=== PATIENT | male | born 1950 | race Caucasian/White ===

== ENCOUNTER 2016-03-06 14:02 | Emergency (ER) | payer MEDICARE, OTHER ==
--- NOTE | 2016-03-06 14:54 | ED ---
Psych HPI - General Source: patient, RN notes reviewed Mode of arrival: wheelchair - History of Present Illness MD Complaint: suicidal ideation, feels depressed, other <Olivier Marie - Last Filed: 03/06/16 16:21> <Kurtis Blakely - Last Filed: 03/06/16 23:00> - General Chief Complaint: Psychiatric Symptoms Stated Complaint: Sucidial Time Seen by Provider: 03/06/16 14:20 - History of Present Illness Initial Comments: This is a 58-year-old male with a history of alcohol who is here for evaluation for feeling depressed he states he does not was at home drinking alcohol and getting drunk he states she's had issues with his significant other. He has have a history of pancreatitis and colitis. He states he started drinking over last several weeks again. He has no particular plan for hurting himself but is very stressed. (Olivier Marie) - Related Data Home Medications Medication Instructions Recorded Confirmed Atenolol 25 mg PO BID 03/06/16 03/06/16 Lisinopril [Prinivil] 20 mg PO BID 03/06/16 03/06/16 Loratadine [Claritin] 10 mg PO DAILY PRN 03/06/16 03/06/16 Allergies Allergy/AdvReac Type Severity Reaction Status Date / Time No Known Allergies Allergy Verified 03/06/16 14:44 Review of Systems ROS Other: All systems not noted in ROS Statement are negative. <Olivier Marie - Last Filed: 03/06/16 16:21> ROS Other: All systems not noted in ROS Statement are negative. <Kurtis Blakely - Last Filed: 03/06/16 23:00> ROS Statement: Those systems with pertinent positive or pertinent negative responses have been documented in the HPI. (Olivier Marie) (Kurtis Blakely) Past Medical History Past Medical History: Hypertension History of Any Multi-Drug Resistant Organisms: C-DIFF Date of last positivie culture/infection: jan 2016 Past Surgical History: Cholecystectomy Past Psychological History: Depression Smoking Status: Former smoker Past Alcohol Use History: Abuse, Daily, Heavy Past Drug Use History: None Reported <Olivier Marie - Last Filed: 03/06/16 16:21> General Exam Limitations: no limitations General appearance: alert, in no apparent distress Head exam: Present: atraumatic, normocephalic, normal inspection Eye exam: Present: normal appearance, PERRL, EOMI. Absent: scleral icterus, conjunctival injection, periorbital swelling ENT exam: Present: normal exam, mucous membranes moist Neck exam: Present: normal inspection. Absent: tenderness, meningismus, lymphadenopathy Respiratory exam: Present: normal lung sounds bilaterally. Absent: respiratory distress, wheezes, rales, rhonchi, stridor Cardiovascular Exam: Present: regular rate, normal rhythm, normal heart sounds. Absent: systolic murmur, diastolic murmur, rubs, gallop, clicks GI/Abdominal exam: Present: soft, tenderness (Mild epigastric tenderness no guarding rebound masses or bruits), normal bowel sounds. Absent: distended, guarding, rebound, rigid Extremities exam: Present: normal inspection, full ROM, normal capillary refill. Absent: tenderness, pedal edema, joint swelling, calf tenderness Back exam: Present: normal inspection Neurological exam: Present: alert, oriented X3, CN II-XII intact Psychiatric exam: Present: normal affect, normal mood Skin exam: Present: warm, dry, intact, normal color. Absent: rash <Olivier Marie - Last Filed: 03/06/16 16:21> <Kurtis Blakely - Last Filed: 03/06/16 23:00> - General Exam Comments Initial Comments: Is a well-developed well-nourished awake alert oriented times female he does have the smell of alcohol conjoiners is on his breath (Olivier Marie) Course <Olivier Marie - Last Filed: 03/06/16 16:21> <Kurtis Blakely - Last Filed: 03/06/16 23:00> Vital Signs 03/06/16 03/06/16 14:14 19:42 Temperature 98.4 F Pulse Rate 107 H 98 Respiratory 16 18 Rate Blood Pressure 146/95 162/76 O2 Sat by Pulse 97 96 Oximetry (Olivier Marie) (Kurtis Blakely) - Reevaluation(s) Reevaluation #1: 03/06/16 16:21 The patient is resting comfortably thus far. His care will be endorsed to Dr. Blakely who will make the final disposition. (Olivier Marie) Medical Decision Making - Lab Data Result diagrams: 03/06/16 15:13 03/06/16 15:13 <Olivier Marie - Last Filed: 01/02/17 16:21> - Lab Data Result diagrams: 03/06/16 15:13 03/06/16 15:13 <Kurtis Blakely - Last Filed: 03/06/16 23:00> - Medical Decision Making Patient was seen by mental health services recommends discharge. Patient reevaluated by myself, Dr. Blakely. Patient resting comfortably in bed. Patient denies suicidal ideation and does contract for safety. (Kurtis Blakely) - Lab Data Lab Results 03/06/16 03/06/16 03/06/16 Range/Units 14:31 15:13 15:13 WBC 8.3 (3.8-10.6) k/uL RBC 5.91 H (4.30-5.90) m/uL Hgb 18.1 H (13.0-17.5) gm/dL Hct 52.6 (39.0-53.0) % MCV 89.0 (80.0-100.0) fL MCH 30.7 (25.0-35.0) pg MCHC 34.5 (31.0-37.0) g/dL RDW 14.5 (11.5-15.5) % Plt Count 143 L (150-450) k/uL Neutrophils % 78 % Lymphocytes % 15 % Monocytes % 5 % Eosinophils % 1 % Basophils % 1 % Neutrophils # 6.5 (1.3-7.7) k/uL Lymphocytes # 1.2 (1.0-4.8) k/uL Monocytes # 0.4 (0-1.0) k/uL Eosinophils # 0.1 (0-0.7) k/uL Basophils # 0.1 (0-0.2) k/uL Sodium 140 (137-145) mmol/L Potassium 5.0 (3.5-5.1) mmol/L Chloride 101 (98-107) mmol/L Carbon Dioxide 20 L (22-30) mmol/L Anion Gap 19 mmol/L BUN 13 (9-20) mg/dL Creatinine 0.86 (0.66-1.25) mg/dL Est GFR (MDRD) Af Amer >60 (>60 ml/min/1.73 sqM) Est GFR (MDRD) Non-Af >60 (>60 ml/min/1.73 sqM) Glucose 97 (74-99) mg/dL Calcium 8.8 (8.4-10.2) mg/dL Magnesium 2.2 (1.6-2.3) mg/dL Total Bilirubin 0.8 (0.2-1.3) mg/dL AST 40 (17-59) U/L ALT 37 (21-72) U/L Alkaline Phosphatase 116 (38-126) U/L Total Protein 7.3 (6.3-8.2) g/dL Albumin 4.5 (3.5-5.0) g/dL Amylase 89 (30-110) U/L Lipase 150 (23-300) U/L Urine Opiates Screen Not Detected (NotDetected) Ur Oxycodone Screen Not Detected (NotDetected) Urine Methadone Screen Not Detected (NotDetected) Ur Propoxyphene Screen Not Detected (NotDetected) Ur Barbiturates Screen Not Detected (NotDetected) U Tricyclic Antidepress Not Detected (NotDetected) Ur Phencyclidine Scrn Not Detected (NotDetected) Ur Amphetamines Screen Not Detected (NotDetected) U Methamphetamines Scrn Not Detected (NotDetected) U Benzodiazepines Scrn Not Detected (NotDetected) Urine Cocaine Screen Not Detected (NotDetected) U Marijuana (THC) Screen Not Detected (NotDetected) Serum Alcohol 238 mg/dL (Kurtis Blakely) Disposition <Olivier Marie - Last Filed: 03/06/16 16:21> <Kurtis Blakely - Last Filed: 03/06/16 23:00> Clinical Impression: Depression, Alcohol intoxication Disposition: HOME SELF-CARE Condition: Stable Instructions: Depression (ED), Abuse of Alcohol (ED) Additional Instructions: Discontinue alcohol use. Please follow-up with your primary care physician in the next day or 2 for recheck. Please follow-up with mental health services as directed. Return for thoughts of harming yourself, worsening symptoms or other concerns. Referrals: Kassie Beasley MD [Primary Care Provider] - 1-2 days
[2016-03-06 15:25] LABS: Basophils # (A) 0.1 k/uL (0-0.2); Basophils % (A) 1 %; CH 31.3; CHCM 35.3; Eosinophils # (A) 0.1 k/uL (0-0.7); Eosinophils % (A) 1 %; HCT 52.6 % (39.0-53.0); HGB 18.1 gm/dL (13.0-17.5); Luc # (Auto) 0.12; Luc % (Auto) 2; Lymphocytes # (A) 1.2 k/uL (1.0-4.8); Lymphocytes % (A) 15 %; MCH 30.7 pg (25.0-35.0); MCHC 34.5 g/dL (31.0-37.0); Mean Platelet Volume 6.1; Monocytes # (A) 0.4 k/uL (0-1.0); Monocytes % (A) 5 %; Neutrophils # (A) 6.5 k/uL (1.3-7.7); Neutrophils % (A) 78 %; RBC 5.91 m/uL (4.30-5.90); RDW 14.5 % (11.5-15.5); WBC 8.3 k/uL (3.8-10.6); WBC (Perox) 8.76
[2016-03-06 15:35] LABS: ALT 37 U/L (21-72); AST 40 U/L (17-59); Alkaline Phosphatase 116 U/L (38-126); Amylase 89 U/L (30-110); Anion Gap 19 mmol/L; Blood Urea Nitrogen 13 mg/dL (9-20); Calcium 8.8 mg/dL (8.4-10.2); Carbon Dioxide 20 mmol/L (22-30); Chloride 101 mmol/L (98-107); Glucose 97 mg/dL (74-99); Magnesium 2.2 mg/dL (1.6-2.3); Non-African American GFR(MDRD) >60 (>60 ml/min/1.73 sqM); Sodium 140 mmol/L (137-145); Total Bilirubin 0.8 mg/dL (0.2-1.3); Total Protein 7.3 g/dL (6.3-8.2)
--- NOTE | 2016-03-06 15:35 | XR ---
Abdomen HISTORY: Right-sided abdomen pain, recent fall Frontal view of the abdomen is submitted on 3 images Degenerative disc changes are present in the visualized spine. Surgical clips are present in the righ t upper quadrant. Atherosclerotic vascular calcifications are noted incidentally. There is no pneumop eritoneum or bowel obstruction. Lung bases are clear. Mild contour abnormality present at the eighth rib laterally on the right. IMPRESSION: Nonobstructive bowel gas pattern. Correlate for tenderness right eighth rib laterally.
[2016-03-06 15:45] LABS: Alcohol 238 mg/dL
[2016-03-06 19:44] VITALS: RESP 18
[2016-03-06 23:21] VITALS: BP 159/82; PULSE 94; TEMP 98
== END 2016-03-06 23:21 | disposition home or self-care (01) ==
LOC: MERGE 14:02 → EC 14:02
DX: F32.9 Major depressive disorder, single episode, unspecified (principal); F10.129 Alcohol abuse with intoxication, unspecified; Y90.7 Blood alcohol level of 200-239 mg/100 ml; I10 Essential (primary) hypertension; Z79.899 Other long term (current) drug therapy; Z87.891 Personal history of nicotine dependence
CPT/HCPCS: 36415; 74000; 80053; 80306; 80320; 82075; 82150; 83690; 83735; 85025; 99285

== ENCOUNTER 2016-03-14 18:19 | Emergency (ER) | payer MEDICARE, OTHER ==
[2016-03-14] MEDS ORDERED: hydrALAZINE HCL 20 MG/ML 1 ML VIAL IVP STA (18:43)
--- NOTE | 2016-03-14 21:02 | ED ---
Alcohol HPI - General Source: patient, EMS Mode of arrival: EMS Limitations: altered mental status <Olivier Kent - Last Filed: 03/14/16 20:57> <Jazlyn Grace - Last Filed: 03/15/16 04:38> - General Chief Complaint: Alcohol Stated Complaint: ETOH Time Seen by Provider: 03/14/16 18:33 - History of Present Illness Initial Comments: This 66-year-old white male presents with a complaint of alcohol intoxication. He apparently was found outside on the ground and was unconscious. He apparently easily woke up and relates that he had been drinking significantly throughout the day. He was here not too long ago with alcohol intoxication as well. He states that he had at least 8 drinks today. He does drink daily for the past several weeks. He denies any actual injuries. He is alert and oriented upon my evaluation and denies any suicidal or homicidal ideations. No other complaints or modifying factors. (Olivier Kent) - Related Data Home Medications Medication Instructions Recorded Confirmed Atenolol 25 mg PO BID 03/06/16 03/06/16 Lisinopril [Prinivil] 20 mg PO BID 03/06/16 03/06/16 Loratadine [Claritin] 10 mg PO DAILY PRN 03/06/16 03/06/16 Allergies Allergy/AdvReac Type Severity Reaction Status Date / Time No Known Allergies Allergy Verified 03/14/16 18:28 Review of Systems ROS Other: All systems not noted in ROS Statement are negative. <Olivier Kent - Last Filed: 03/14/16 20:57> ROS Other: All systems not noted in ROS Statement are negative. <Jazlyn Grace - Last Filed: 03/15/16 04:38> ROS Statement: Those systems with pertinent positive or pertinent negative responses have been documented in the HPI. Past Medical History Past Medical History: Hypertension History of Any Multi-Drug Resistant Organisms: C-DIFF Date of last positivie culture/infection: jan 2016 Past Surgical History: Cholecystectomy Past Psychological History: Depression Smoking Status: Former smoker Past Alcohol Use History: Abuse, Daily, Heavy Past Drug Use History: None Reported <Olivier Kent - Last Filed: 03/14/16 20:57> General Exam Limitations: altered mental status <Olivier Kent - Last Filed: 03/14/16 20:57> <Jazlyn Grace - Last Filed: 03/15/16 04:38> - General Exam Comments Initial Comments: GENERAL: The patient is well nourished and well hydrated. VITAL SIGNS: Heart rate, blood pressure, respiratory rate reviewed as recorded in nurse's notes. EYES: Pupils are round and reactive. Extraocular movements are intact. No conjunctival / lid redness or swelling. ENT: No external evidence of injury, swelling, or ecchymosis. Airway is patent. Throat is clear. NECK: Nontender. No swelling or evidence of injury. No subcutaneous emphysema. Trachea is midline. No thyroid mass. HEART: Regular rate and rhythm. Good peripheral pulses. LUNGS/CHEST: Breath sounds clear and equal bilaterally. No rales, rhonchi, or wheezes. No ecchymosis, subcutaneous emphysema, or tenderness. ABDOMEN: Abdomen soft without tenderness. No palpable masses or organomegaly. No peritoneal signs. No abdominal wall swelling or ecchymosis. EXTREMITIES: No extremity tenderness. Normal muscle tone and function. No thoracolumbar tenderness. NEUROLOGIC: Sensation is grossly intact. Cranial nerve exam reveals face is symmetrical, tongue is midline, speech is clear. SKIN: No abrasions or ecchymosis is noted. No induration or masses noted. PSYCHIATRIC: Alert and oriented. Appears moderately intoxicated. (Olivier Kent) Course <Olivier Kent - Last Filed: 03/14/16 20:57> <Jazlyn Grace - Last Filed: 03/15/16 04:38> Vital Signs 03/14/16 03/14/16 03/14/16 18:22 18:47 19:19 Temperature 97.5 F L Pulse Rate 79 80 Respiratory 18 18 Rate Blood Pressure 215/93 199/98 181/86 O2 Sat by Pulse 95 90 L Oximetry 03/14/16 03/14/16 03/14/16 19:48 20:08 20:28 Temperature Pulse Rate Respiratory Rate Blood Pressure 181/83 183/84 178/81 O2 Sat by Pulse Oximetry 03/14/16 03/14/16 03/15/16 20:48 21:08 01:54 Temperature 99.4 F Pulse Rate 102 H Respiratory 16 Rate Blood Pressure 179/79 157/79 171/80 O2 Sat by Pulse 96 Oximetry - Reevaluation(s) Reevaluation #1: 03/15/16 04:37 Is reassessed at 4:30 AM, he is stable on his feet he has been eating food been drinking water been able to walk back and forth to the bathroom and numb he wants to go home (Jazlyn Grace) Medical Decision Making <Olivier Kent - Last Filed: 03/14/16 20:57> <Jazlyn Grace - Last Filed: 03/15/16 04:38> - Medical Decision Making The patient was seen and examined. His alcohol level was elevated at approximately 271. Is felt that he would require prolonged stay in the ER for sobering. His blood pressure also is elevated at at 215/93. IV is established and he received 10 mg of hydralazine with improvement blood pressure control. Further care will be passed off to oncoming physician. (Olivier Kent) Disposition <Olivier Kent - Last Filed: 03/14/16 20:57> <Jazlyn Grace - Last Filed: 03/15/16 04:38> Clinical Impression: Alcohol intoxication, Hypertensive urgency Disposition: HOME SELF-CARE Referrals: Kassie Beasley MD [Primary Care Provider] - 1-2 days
[2016-03-15 01:56] VITALS: TEMP 99.4
[2016-03-15 04:54] VITALS: BP 165/72; PULSE 70; RESP 14
== END 2016-03-15 04:53 | disposition home or self-care (01) ==
LOC: EC 18:19
DX: F10.129 Alcohol abuse with intoxication, unspecified (principal); I10 Essential (primary) hypertension; Y90.8 Blood alcohol level of 240 mg/100 ml or more; R41.82 Altered mental status, unspecified; F32.9 Major depressive disorder, single episode, unspecified; Z87.891 Personal history of nicotine dependence; Z79.899 Other long term (current) drug therapy
CPT/HCPCS: 82075; 99284; 96374; J0360

== ENCOUNTER 2016-07-18 21:31 | Emergency (ER) | payer MEDICARE, OTHER ==
--- NOTE | 2016-07-18 23:59 | ED ---
Alcohol HPI - General Source: EMS Mode of arrival: EMS <Jazlyn Grace - Last Filed: 07/19/16 00:58> <Bentley Hunter - Last Filed: 07/19/16 06:26> - General Chief Complaint: Alcohol Stated Complaint: ETOH Time Seen by Provider: 07/18/16 22:11 - History of Present Illness Initial Comments: Patient has a long-standing history of firm alcohol use, he was brought in by police tonight he said he has been drinking, he didn't specify how much he drank he said he drinks quite a bit every day and he has been drinking for a long time. He does have a ongoing depression denies any suicidal or homicidal ideation. Denies any headache no chest pain no abdominal pain no frequency urgency dysuria no symptoms of TIA or CVA (Jazlyn Grace) - Related Data Home Medications Medication Instructions Recorded Confirmed Atenolol 25 mg PO BID 03/06/16 03/06/16 Lisinopril [Prinivil] 20 mg PO BID 03/06/16 03/06/16 Loratadine [Claritin] 10 mg PO DAILY PRN 03/06/16 03/06/16 Allergies Allergy/AdvReac Type Severity Reaction Status Date / Time No Known Allergies Allergy Verified 07/18/16 23:00 Review of Systems ROS Other: All systems not noted in ROS Statement are negative. <Jazlyn Grace - Last Filed: 07/19/16 00:58> ROS Other: All systems not noted in ROS Statement are negative. <Bentley Hunter - Last Filed: 07/19/16 06:26> ROS Statement: Those systems with pertinent positive or pertinent negative responses have been documented in the HPI. Past Medical History Past Medical History: Hypertension History of Any Multi-Drug Resistant Organisms: C-DIFF Date of last positivie culture/infection: jan 2016 Past Surgical History: Cholecystectomy Past Psychological History: Depression Smoking Status: Former smoker Past Alcohol Use History: Abuse, Daily, Heavy Past Drug Use History: None Reported <Jazlyn Grace - Last Filed: 07/19/16 00:58> General Exam <Jazlyn Grace - Last Filed: 07/19/16 00:58> <Bentley Hunter - Last Filed: 07/19/16 06:26> - General Exam Comments Initial Comments: General: The patient is awake and alert, intoxicated but pleasant and cooperative Skin: Skin is warm and dry and no rashes or lesions are noted. Eye: Pupils are equal, round and reactive to light, extra-ocular movements are intact; there is normal conjunctiva bilaterally. Ears, nose, mouth and throat: There are moist mucous membranes and no oral lesions. Neck: The neck is supple, there is no tenderness or JVD. Cardiovascular: There is a regular rate and rhythm. No murmur, rub or gallop is appreciated. Respiratory: To auscultation bilateral, no wheezing no rhonchi no distress respiratory solomon noticed Gastrointestinal: Soft, non-distended, non-tender abdomen without masses or organomegaly noted. There is no rebound or guarding present. Bowel sounds are unremarkable. Back: There is no tenderness to palpation in the midline. There is no obvious deformity. Musculoskeletal: Normal ROM, no tenderness, There is no pedal edema. There is no calf tenderness or swelling. No cords were appreciated. Neurological: CN II-XII intact, Cranial nerves III through XII are intact. There are no obvious motor or sensory deficits. Coordination appears grossly intact. Speech is normal. Psychiatric: Cooperative, intoxicated stated he does have a history of depression (Jazlyn Grace) Course <Jazlyn Grace - Last Filed: 07/19/16 00:58> <Bentley Hunter - Last Filed: 07/19/16 06:26> Vital Signs 07/18/16 21:42 Temperature 98.7 F Pulse Rate 107 H Respiratory 20 Rate Blood Pressure 192/104 O2 Sat by Pulse 98 Oximetry He needs to be seen by psych wants he is not under the influence of alcohol, is not currently sober for the psych eval 30 later in the morning endorse that to light Dr. Dr. Johnson (Jazlyn Grace) Disposition <Jazlyn Grace - Last Filed: 07/19/16 00:58> <Bentley Hunter - Last Filed: 07/19/16 06:26> Clinical Impression: Intoxication, Depression Disposition: HOME SELF-CARE Condition: Fair Instructions: Alcohol Intoxication (ED) Referrals: Kassie Beasley MD [Primary Care Provider] - 1-2 days
[2016-07-19] MEDS ORDERED: cloNIDine HCL 0.1 MG TAB PO STA (06:39)
[2016-07-19 08:30] VITALS: RESP 20
[2016-07-19] MEDS ORDERED: LORazepam 1 MG TAB PO STA (08:32)
[2016-07-19 08:53] VITALS: BP 150/90; PULSE 106; TEMP 98
== END 2016-07-19 08:58 | disposition home or self-care (01) ==
LOC: EC 21:31
DX: F10.120 Alcohol abuse with intoxication, uncomplicated (principal); F32.9 Major depressive disorder, single episode, unspecified; I10 Essential (primary) hypertension; Z79.899 Other long term (current) drug therapy; Z87.891 Personal history of nicotine dependence
CPT/HCPCS: 99284

== ENCOUNTER 2016-09-13 20:02 | Emergency (ER) | payer MEDICARE, OTHER ==
[2016-09-13] MEDS ORDERED: SODIUM CHLORIDE 0.9% 1,000 ML with MVI, ADULT NO.4 WITH VIT K 10 ML, THIAMINE 100 MG, F... IV ONE ×4 (21:13)
[2016-09-13] MEDS ORDERED: LORazepam 2 MG/ML SYRINGE IV STA (21:14)
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
[2016-09-13 21:54] LABS: Basophils # (A) 0.1 k/uL (0-0.2); Basophils % (A) 1 %; CHCM 34.7; Eosinophils # (A) 0.2 k/uL (0-0.7); Eosinophils % (A) 3 %; HCT 49.4 % (39.0-53.0); HDW 2.66; HGB 17.4 gm/dL (13.0-17.5); Luc # (Auto) 0.12; Luc % (Auto) 2; Lymphocytes # (A) 1.9 k/uL (1.0-4.8); Lymphocytes % (A) 31 %; MCH 31.6 pg (25.0-35.0); MCHC 35.2 g/dL (31.0-37.0); MCV 89.8 fL (80.0-100.0); Mean Platelet Volume 6.8; Monocytes # (A) 0.3 k/uL (0-1.0); Monocytes % (A) 4 %; Neutrophils # (A) 3.6 k/uL (1.3-7.7); Neutrophils % (A) 58 %; RDW 13.9 % (11.5-15.5); WBC 6.1 k/uL (3.8-10.6); WBC (Perox) 5.49
[2016-09-13 22:09] LABS: ALT 29 U/L (21-72); AST 40 U/L (17-59); Alkaline Phosphatase 94 U/L (38-126); Anion Gap 16 mmol/L; Blood Urea Nitrogen 10 mg/dL (9-20); Calcium 8.8 mg/dL (8.4-10.2); Carbon Dioxide 22 mmol/L (22-30); Chloride 105 mmol/L (98-107); Glucose 89 mg/dL (74-99); Non-African American GFR(MDRD) >60 (>60 ml/min/1.73 sqM); Potassium 4.7 mmol/L (3.5-5.1); Sodium 143 mmol/L (137-145); Total Bilirubin 0.7 mg/dL (0.2-1.3); Total Protein 7.2 g/dL (6.3-8.2)
[2016-09-13] MEDS ORDERED: cloNIDine HCL 0.2 MG TAB PO STA (22:54)
[2016-09-14] MEDS ORDERED: ATENOLOL 25 MG TAB PO STA (07:31)
[2016-09-14] MEDS ORDERED: LISINOPRIL 20 MG TAB PO STA (07:31)
[2016-09-14] MEDS ORDERED: LORazepam 1 MG TAB PO STA (07:31)
[2016-09-14 08:07] VITALS: TEMP 97.7
[2016-09-14 08:23] VITALS: BP 203/115; PULSE 97; RESP 18
== END 2016-09-14 08:30 | disposition home or self-care (01) ==
LOC: EC 20:02
DX: F10.129 Alcohol abuse with intoxication, unspecified (principal); F43.21 Adjustment disorder with depressed mood; I10 Essential (primary) hypertension; Z87.891 Personal history of nicotine dependence; Z79.899 Other long term (current) drug therapy; V18.4XXA Pedal cycle driver injured in noncollision transport accident in traffic accident, initial encounter; Y93.55 Activity, bike riding
CPT/HCPCS: 82075; 36415; 80053; 85025; 80306; 99285; 96365; 96366 ×9; 96375; J2060; J3411

== ENCOUNTER 2016-10-01 17:20 | Emergency (ER) | payer MEDICARE, OTHER ==
[2016-10-01 17:42] VITALS: TEMP 99.8
[2016-10-01] MEDS ORDERED: SODIUM CHLORIDE 0.9% 1,000 ML IV ONE (17:42)
--- NOTE | 2016-10-01 17:49 | ED ---
Fall HPI - General Chief Complaint: Fall Stated Complaint: fall Time Seen by Provider: 10/01/16 17:23 Source: patient, EMS, RN notes reviewed Mode of arrival: EMS - History of Present Illness Initial Comments: patient is a 66-year-old male presents to the emergency room for evaluation. Patient is a very poor historian. According to EMS, patient was found face first on the steps. Patient states that he did not fall on the steps and that he was crawling up the steps to get to his house. Patient states at the time he was feeling shaky so that is why he crawled. patient denies any injuries. Patient denies head trauma. Patient denies neck pain. Patient denies headache or dizziness. Patient states he didn't lose consciousness. Patient states that he drinks about 6 beers daily. Patient states his last beer was Sunday at 1 PM. Patient states he tried to crawl up the steps when EMS was called. Patient states he is still feeling shaky. Patient denies nausea or vomiting. Patient denies headache or dizziness. Patient denies chest pain or shortness of breath. Patient denies suicidal or homicidal ideations. - Related Data Home Medications Medication Instructions Recorded Confirmed Atenolol 25 mg PO BID 03/06/16 10/01/16 Lisinopril [Prinivil] 20 mg PO BID 03/06/16 10/01/16 LORazepam [Ativan] 0.5 mg PO HS PRN 09/13/16 10/01/16 traMADol HCl [Ultram] 50 mg PO DAILY PRN 10/01/16 10/01/16 Previous Rx's Medication Instructions Recorded Thiamine [Vitamin B-1] 100 mg PO DAILY #20 tablet 10/02/16 Allergies Allergy/AdvReac Type Severity Reaction Status Date / Time No Known Allergies Allergy Verified 10/01/16 23:04 Review of Systems ROS Statement: Those systems with pertinent positive or pertinent negative responses have been documented in the HPI. ROS Other: All systems not noted in ROS Statement are negative. Past Medical History Past Medical History: Hypertension History of Any Multi-Drug Resistant Organisms: C-DIFF Date of last positivie culture/infection: jan 2016 Past Surgical History: Cholecystectomy Past Psychological History: Depression Smoking Status: Former smoker Past Alcohol Use History: Abuse, Daily, Heavy Past Drug Use History: None Reported General Exam - General Exam Comments Initial Comments: sitting in exam room, no distress, c-collar on Limitations: no limitations General appearance: alert, appears intoxicated Head exam: Present: atraumatic, normocephalic, normal inspection Eye exam: Present: normal appearance ENT exam: Present: normal exam Neck exam: Present: normal inspection, full ROM. Absent: tenderness, lymphadenopathy Respiratory exam: Present: normal lung sounds bilaterally. Absent: respiratory distress Cardiovascular Exam: Present: regular rate, normal rhythm, normal heart sounds Extremities exam: Present: normal inspection Back exam: Present: normal inspection Neurological exam: Present: alert, oriented X3, normal gait Psychiatric exam: Present: normal affect Skin exam: Present: warm, dry, intact, normal color. Absent: rash Course Vital Signs 10/01/16 10/01/16 17:27 20:12 Temperature 99.8 F H Pulse Rate 69 89 Respiratory 18 16 Rate Blood Pressure 173/96 200/94 O2 Sat by Pulse 95 Oximetry Medical Decision Making - Medical Decision Making patient is a 66-year-old male presents to the emergency room for evaluation of fall injury. According to EMS the patient had a fall incident was found face first on the steps. Patient continuously stating that he did not fall. Patient states he did not hit his head even though EMS says otherwise. Brain/C- spine CT ordered for patient. Patient is refusing brain/C-spine CT. Patient removed the c-collar. Patient states he does not want any more of a workup and would like to be discharged home. Patient states he is not feeling shaky anymore. Patient offered Ativan but states it does not work for him. Discussed with patient that he would be leaving AGAINST MEDICAL ADVICE. Discussed with patient the risk of possible traumatic brain injuries from fall and risk of . Patient still states that he did not fall and hit his head. Patient states he understands everything that was discussed with him. Case discussed with Dr. Blakely. - Lab Data Result diagrams: 10/01/16 17:50 10/01/16 17:50 Lab Results 10/01/16 10/01/16 10/01/16 Range/Units 17:50 17:50 19:03 WBC 4.7 (3.8-10.6) k/uL RBC 5.05 (4.30-5.90) m/uL Hgb 15.5 (13.0-17.5) gm/dL Hct 47.3 (39.0-53.0) % MCV 93.7 (80.0-100.0) fL MCH 30.8 (25.0-35.0) pg MCHC 32.8 (31.0-37.0) g/dL RDW 14.9 (11.5-15.5) % Plt Count 81 L (150-450) k/uL Neutrophils % 74 % Lymphocytes % 15 % Monocytes % 7 % Eosinophils % 1 % Basophils % 1 % Neutrophils # 3.5 (1.3-7.7) k/uL Lymphocytes # 0.7 L (1.0-4.8) k/uL Monocytes # 0.3 (0-1.0) k/uL Eosinophils # 0.0 (0-0.7) k/uL Basophils # 0.1 (0-0.2) k/uL Manual Slide Review Performed RBC Morphology Normal Sodium 139 (137-145) mmol/L Potassium 4.3 (3.5-5.1) mmol/L Chloride 102 (98-107) mmol/L Carbon Dioxide 28 (22-30) mmol/L Anion Gap 9 mmol/L BUN 15 (9-20) mg/dL Creatinine 0.90 (0.66-1.25) mg/dL Est GFR (MDRD) Af Amer >60 (>60 ml/min/1.73 sqM) Est GFR (MDRD) Non-Af >60 (>60 ml/min/1.73 sqM) Glucose 107 H (74-99) mg/dL Calcium 9.2 (8.4-10.2) mg/dL Magnesium 1.8 (1.6-2.3) mg/dL Total Bilirubin 1.6 H (0.2-1.3) mg/dL AST 62 H (17-59) U/L ALT 44 (21-72) U/L Alkaline Phosphatase 76 (38-126) U/L Total Protein 7.0 (6.3-8.2) g/dL Albumin 4.4 (3.5-5.0) g/dL Amylase 48 (30-110) U/L Lipase 72 (23-300) U/L Urine Color Yellow Urine Appearance Clear (Clear) Urine pH 7.5 (5.0-8.0) Ur Specific [place] 1.014 (1.001-1.035) Urine Protein Trace H (Negative) Urine Glucose (UA) Negative (Negative) Urine Ketones Trace H (Negative) Urine Blood Negative (Negative) Urine Nitrite Negative (Negative) Urine Bilirubin Negative (Negative) Urine Urobilinogen 3.0 (<2.0) mg/dL Ur Leukocyte Esterase Negative (Negative) Urine Opiates Screen Not Detected (NotDetected) Ur Oxycodone Screen Not Detected (NotDetected) Urine Methadone Screen Not Detected (NotDetected) Ur Propoxyphene Screen Not Detected (NotDetected) Ur Barbiturates Screen Not Detected (NotDetected) U Tricyclic Antidepress Not Detected (NotDetected) Ur Phencyclidine Scrn Not Detected (NotDetected) Ur Amphetamines Screen Not Detected (NotDetected) U Methamphetamines Scrn Not Detected (NotDetected) U Benzodiazepines Scrn Detected H (NotDetected) Urine Cocaine Screen Not Detected (NotDetected) U Marijuana (THC) Screen Not Detected (NotDetected) Serum Alcohol <10 mg/dL Disposition Clinical Impression: Fall, Alcohol withdrawal Disposition: Left Against Medical Advice Referrals: Kassie Beasley MD [Primary Care Provider] - 1-2 days Time of Disposition: 19:34
[2016-10-01 18:07] LABS: Basophils # (A) 0.1 k/uL (0-0.2); Basophils % (A) 1 %; CH 31.3; CHCM 33.6; Eosinophils % (A) 1 %; HCT 47.3 % (39.0-53.0); HDW 2.39; HGB 15.5 gm/dL (13.0-17.5); Luc # (Auto) 0.11; Luc % (Auto) 2; Lymphocytes # (A) 0.7 k/uL (1.0-4.8); Lymphocytes % (A) 15 %; MCH 30.8 pg (25.0-35.0); MCHC 32.8 g/dL (31.0-37.0); MCV 93.7 fL (80.0-100.0); Mean Platelet Volume 9.1; Monocytes # (A) 0.3 k/uL (0-1.0); Monocytes % (A) 7 %; Neutrophils # (A) 3.5 k/uL (1.3-7.7); Neutrophils % (A) 74 %; RBC 5.05 m/uL (4.30-5.90); RDW 14.9 % (11.5-15.5); WBC 4.7 k/uL (3.8-10.6); WBC (Perox) 4.68
[2016-10-01 18:17] LABS: ALT 44 U/L (21-72); AST 62 U/L (17-59); Alcohol <10 mg/dL; Alkaline Phosphatase 76 U/L (38-126); Amylase 48 U/L (30-110); Anion Gap 9 mmol/L; Blood Urea Nitrogen 15 mg/dL (9-20); Calcium 9.2 mg/dL (8.4-10.2); Carbon Dioxide 28 mmol/L (22-30); Chloride 102 mmol/L (98-107); Glucose 107 mg/dL (74-99); Magnesium 1.8 mg/dL (1.6-2.3); Non-African American GFR(MDRD) >60 (>60 ml/min/1.73 sqM); Potassium 4.3 mmol/L (3.5-5.1); Sodium 139 mmol/L (137-145); Total Bilirubin 1.6 mg/dL (0.2-1.3)
[2016-10-01 18:19] LABS: Manual Review Performed
[2016-10-01 18:20] LABS: RBC Morphology Normal
[2016-10-01] MEDS ORDERED: LORazepam 2 MG/ML SYRINGE IV STA (18:26)
[2016-10-01 19:14] LABS: Appearance,Urine Clear (Clear); Bilirubin,Urine Negative (Negative); Glucose,Urine (UA) Negative (Negative); Ketones,Urine Trace (Negative); Leukocyte Esterase,Urine Negative (Negative); Nitrite,Urine Negative (Negative); PH, Urine 7.5 (5.0-8.0); Protein,Urine Trace (Negative); Specific Gravity,Urine 1.014 (1.001-1.035); UA Billing (MACRO vs. MICRO) CHEM
[2016-10-01 20:15] VITALS: BP 200/94; PULSE 89; RESP 16
== END 2016-10-01 20:15 | disposition left against medical advice (07) ==
LOC: EC 17:20
DX: F10.230 Alcohol dependence with withdrawal, uncomplicated (principal); I10 Essential (primary) hypertension; Z87.891 Personal history of nicotine dependence; Z79.899 Other long term (current) drug therapy; W10.9XXA Fall (on) (from) unspecified stairs and steps, initial encounter
CPT/HCPCS: 36415; 80053; 80306; 80320; 81003; 82150; 83690; 83735; 85025; 96361; 96374; 99284

== ENCOUNTER 2016-10-01 22:42 | Emergency (ER) | payer MEDICARE, OTHER ==
[2016-10-02] MEDS ORDERED: THIAMINE 100 MG/ML 2 ML VIAL IM STA (00:14)
[2016-10-02] MEDS ORDERED: LORazepam 1 MG TAB PO STA (00:15)
[2016-10-02 01:54] LABS: Basophils # (A) 0.1 k/uL (0-0.2); Basophils % (A) 1 %; CH 31.4; CHCM 33.2; Eosinophils # (A) 0.1 k/uL (0-0.7); Eosinophils % (A) 1 %; HCT 45.7 % (39.0-53.0); HDW 2.33; HGB 14.8 gm/dL (13.0-17.5); Luc # (Auto) 0.09; Luc % (Auto) 2; Lymphocytes # (A) 0.9 k/uL (1.0-4.8); Lymphocytes % (A) 22 %; MCH 30.8 pg (25.0-35.0); MCHC 32.4 g/dL (31.0-37.0); Mean Platelet Volume 8.9; Monocytes # (A) 0.3 k/uL (0-1.0); Monocytes % (A) 7 %; Neutrophils # (A) 2.5 k/uL (1.3-7.7); Neutrophils % (A) 66 %; RBC 4.81 m/uL (4.30-5.90); RDW 14.9 % (11.5-15.5); WBC 3.9 k/uL (3.8-10.6); WBC (Perox) 4.06
[2016-10-02 02:10] LABS: ALT 52 U/L (21-72); AST 56 U/L (17-59); Alcohol <10 mg/dL; Alkaline Phosphatase 70 U/L (38-126); Anion Gap 12 mmol/L; Blood Urea Nitrogen 14 mg/dL (9-20); Carbon Dioxide 26 mmol/L (22-30); Chloride 101 mmol/L (98-107); Glucose 83 mg/dL (74-99); Magnesium 1.9 mg/dL (1.6-2.3); Non-African American GFR(MDRD) >60 (>60 ml/min/1.73 sqM); Potassium 4.1 mmol/L (3.5-5.1); Sodium 139 mmol/L (137-145); Total Bilirubin 1.5 mg/dL (0.2-1.3); Total Protein 6.6 g/dL (6.3-8.2)
--- NOTE | 2016-10-02 02:12 | CT ---
EXAM: CT Head Without Intravenous Contrast CLINICAL HISTORY: Ataxia, weakness TECHNIQUE: Axial computed tomography images of the head/brain without intravenous contrast. CTDI is 57.40 mGy and DLP is 1064.30 mGy-cm. This CT exam was performed using one or more of the following dose reduction techniques: automated exposure control, adjustment of the mA and/or kV according to patient size, and/or use of iterative reconstruction technique. Coronal and sagittal reconstructions are performed. COMPARISON: None FINDINGS: Brain: Intermediate density extra-axial fluid collection over the right frontal parietal convexity with a maximum thickness of 7.6 mm measured over the posterior frontal lobe. There is also a hypodense extra-axial collection anteriorly over the frontal lobe with a thickness of 5.7 mm. Old lacunar infarct within the left thalamus. Bilateral periventricular and subcortical white matter low attenuation, compatible with chronic small vessel ischemic disease. No intracranial mass. Ventricles: Unremarkable. No ventriculomegaly. Bones/joints: Unremarkable. No acute fracture. Soft tissues: Unremarkable. Sinuses: Small mucous retention cyst or polyp within the left maxillary sinus. Small amount of mucosal thickening in the left maxillary sinus. The rest of the paranasal sinuses are clear. Mastoid air cells: Unremarkable as visualized. No mastoid effusion. IMPRESSION: 1. Subacute subdural hematoma over the right frontal parietal convexity measuring up to 7.6 mm. 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 No midline shift. 2. Old left thalamic lacunar infarct. No evidence of acute transcortical infarction. 3. Chronic small vessel ischemic disease. [employer] 10/02/16 02:22 Verify Receipt Verified receipt with DORA Villalobos, report given to Dr. Hunter on 10/02 02:21 (-04:00)
[2016-10-02 02:14] LABS: Manual Review Performed
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
[2016-10-02 03:29] VITALS: TEMP 97.7
[2016-10-02] MEDS ORDERED: cloNIDine HCL 0.1 MG TAB PO STA (03:29)
[2016-10-02 03:49] VITALS: BP 186/111; PULSE 66; RESP 16
== END 2016-10-02 03:58 | disposition other institution (70) ==
LOC: EC 22:42
DX: I62.9 Nontraumatic intracranial hemorrhage, unspecified (principal); R27.0 Ataxia, unspecified; I10 Essential (primary) hypertension; Z87.891 Personal history of nicotine dependence; Z79.899 Other long term (current) drug therapy
CPT/HCPCS: 99285 ×2; 96372 ×2; 96361; 96374; 99284; 36415 ×2; 80053 ×2; 82150; 83690; 83735 ×2; 85025 ×2; 81003; 80306; 80320 ×2; 70450; J3411

== ENCOUNTER 2017-07-14 11:51 | Emergency (ER) | payer MEDICARE, OTHER ==
[2017-07-14 11:59] VITALS: RESP 18
--- NOTE | 2017-07-14 12:30 | ED ---
Extremity Problem HPI - General Chief complaint: Extremity Problem,Nontraumatic Stated complaint: Knee/hip pain Source: patient, RN notes reviewed Mode of arrival: ambulatory Limitations: no limitations - History of Present Illness MD Complaint: extremity pain, joint pain Onset/Timin -: week(s) Location: left History of Same: No Severity scale (1-10): 5 Quality: aching Consistency: constant Improves with: rest Worsens with: weight bearing Associated Symptoms: denies other symptoms - Related Data Home Medications Medication Instructions Recorded Confirmed Atenolol 25 mg PO BID 03/06/16 10/01/16 Lisinopril [Prinivil] 20 mg PO BID 03/06/16 10/01/16 LORazepam [Ativan] 0.5 mg PO HS PRN 09/13/16 10/01/16 traMADol HCl [Ultram] 50 mg PO DAILY PRN 10/01/16 10/01/16 Previous Rx's Medication Instructions Recorded Thiamine [Vitamin B-1] 100 mg PO DAILY #20 tablet 10/02/16 Cyclobenzaprine [Flexeril] 10 mg PO TID #20 tablet 07/14/17 methylPREDNISolone [Medrol] 4 mg PO DIRECTED #1 tab.ds.pk 07/14/17 Allergies Allergy/AdvReac Type Severity Reaction Status Date / Time No Known Allergies Allergy Verified 07/14/17 11:59 Review of Systems ROS Statement: Those systems with pertinent positive or pertinent negative responses have been documented in the HPI. ROS Other: All systems not noted in ROS Statement are negative. Past Medical History Past Medical History: Hypertension Additional Past Medical History / Comment(s): ataxia History of Any Multi-Drug Resistant Organisms: C-DIFF Date of last positivie culture/infection: jan 2016 Past Surgical History: Cholecystectomy Past Anesthesia/Blood Transfusion Reactions: No Reported Reaction Past Psychological History: Depression Smoking Status: Former smoker Past Alcohol Use History: Daily Past Drug Use History: None Reported General Exam - General Exam Comments Initial Comments: This is a pleasant 67-year-old male who presents emergency department complaining of left hip pain. Patient states the pain has been present for about one week. Patient describes pain to the lateral aspect of hip which radiates into the lateral thigh area. Patient states that the pain is aching in nature but also feels somewhat numb at times. Patient denies any pain below the knee. Patient denies any known injury patient has had hip problems in the past patient denies any foot numbness patient denies any difficulty walking patient states the pain is exacerbated by some movements patient denies any swelling. Patient denies any chest pain or shortness of breath patient denies fever or chills patient denies rashes or lesions patient denies any headache no back pain no abdominal pain Limitations: no limitations General appearance: alert, in no apparent distress Head exam: Present: atraumatic, normocephalic, normal inspection Eye exam: Present: normal appearance, PERRL, EOMI. Absent: scleral icterus, conjunctival injection, periorbital swelling ENT exam: Present: normal exam, mucous membranes moist Neck exam: Present: normal inspection. Absent: tenderness, meningismus, lymphadenopathy Respiratory exam: Present: normal lung sounds bilaterally. Absent: respiratory distress, wheezes, rales, rhonchi, stridor Cardiovascular Exam: Present: regular rate, normal rhythm, normal heart sounds. Absent: systolic murmur, diastolic murmur, rubs, gallop, clicks GI/Abdominal exam: Present: soft, normal bowel sounds. Absent: distended, tenderness, guarding, rebound, rigid Extremities exam: Present: normal inspection, full ROM, normal capillary refill , other (Patient has mild tenderness to the area of the lateral hip overlying the greater trochanter area. There is no erythema or overlying rash. No evidence of infectious process no cellulitis no edema or deformity patient has no edema in the thigh or lower leg Homans sign is negative pedal pulses 2+ out of 4 bilaterally. Refill less than 2 seconds). Absent: tenderness, pedal edema , joint swelling, calf tenderness Back exam: Present: normal inspection Neurological exam: Present: alert, oriented X3, CN II-XII intact Psychiatric exam: Present: normal affect, normal mood Skin exam: Present: warm, dry, intact, normal color. Absent: rash Course Vital Signs 07/14/17 11:53 Temperature 97 F L Pulse Rate 60 Respiratory 18 Rate Blood Pressure 193/93 O2 Sat by Pulse 98 Oximetry Medical Decision Making - Medical Decision Making Plain film x-rays of the pelvis and left hip read by radiology revealed no evidence of acute pathology patient does have degenerative disc disease Medical decision-making, patient's symptoms are likely related to DJD and possible nerve impingement there is no evidence of infectious process we'll treat the patient conservatively with a Medrol Dosepak and follow-up with orthopedics return and follow-up parameters discussed. Patient counseled on uncontrolled blood pressure and need for follow-up Disposition Clinical Impression: Arthralgia of hip, left Disposition: HOME SELF-CARE Condition: Good Instructions: Arthritis (ED), Hip Pain (ED), Chronic Hypertension (ED) Additional Instructions: Return to the ER at once if the symptoms worsen or problems or difficulties arise. Follow-up with orthopedics as directed. Return to the ER immediately if any new symptoms arise Prescriptions: Cyclobenzaprine [Flexeril] 10 mg PO TID #20 tablet methylPREDNISolone [Medrol] 4 mg PO DIRECTED #1 tab.ds.pk Is patient prescribed a controlled substance at d/c from ED?: No When asked, does pt state using other controlled substances?: Yes Referrals: Thanh Anderson MD [Medical Doctor] - 07/18/17 Kassie Beasley MD [Primary Care Provider] - 07/16/17 Time of Disposition: 12:41
--- NOTE | 2017-07-14 12:31 | XR ---
EXAMINATION TYPE: XR Hip LT and AP Pelvis , 3 VIEWS DATE OF EXAM ORDERED: 07/14/2017 HISTORY: Pain. COMPARISON: None. FINDINGS: No fracture or dislocation is seen. There are degenerative changes present in the left hip and also in the lumbar spine. IMPRESSION: 1. NO ACUTE OSSEOUS LESION. 2. DEGENERATIVE CHANGE.
[2017-07-14 13:08] VITALS: BP 168/89; PULSE 56; TEMP 98.5
== END 2017-07-14 13:08 | disposition home or self-care (01) ==
LOC: EC 11:51
DX: M25.552 Pain in left hip (principal); I10 Essential (primary) hypertension; Z87.891 Personal history of nicotine dependence; Z79.899 Other long term (current) drug therapy
CPT/HCPCS: 73502; 99283

== ENCOUNTER → 2017-08-18 | Outpatient (CLI) | payer MEDICARE, OTHER ==
--- NOTE | 2017-08-19 08:16 | MR ---
EXAMINATION TYPE: MR brain wo con DATE OF EXAM: 08/18/2017 COMPARISON: NONE HISTORY: Stroke T1-weighted sagittal, T2, FLAIR, and diffusion axial, and T2 coronal coronal views of the brain are s ubmitted. There is no evidence of acute ischemia. Craniocervical junction maintained. Sella turcica has a yvette l appearance. Changes of chronic sinusitis are noted. Areas of abnormal signal the jose are suggestive of remote ischemia. There are diffuse confluent areas of abnormal signal white matter. There are additional multiple area s of abnormal signal the white matter. Findings are felt to BE most compatible with extensive remote white matter ischemia. No midline shift. Craniocervical junction maintained. Sella turcica has a normal appearance. Abnormal signal involving the basal ganglia most likely the basis of prominent Virchow-Nixon spaces. Tiny remote lacunar infarctions not excluded. No cerebellopontine angle mass. IMPRESSION: 1. No acute intracranial process. 2. Degenerative and extensive nonspecific white matter changes most typical remote microvascular isch emia. Correlate clinically. 3. Changes of chronic sinusitis
== END | disposition home or self-care (01) ==
LOC: RADMRIMAIN 13:03
PROVIDERS: ATTEND Psychiatry & Neurology Neurology
DX: G31.9 Degenerative disease of nervous system, unspecified (principal); R90.89 Other abnormal findings on diagnostic imaging of central nervous system; Z86.73 Personal history of transient ischemic attack (TIA), and cerebral infarction without residual deficits
CPT/HCPCS: 70551

== ENCOUNTER 2017-09-14 13:45 | Emergency (ER) | payer MEDICARE, OTHER ==
[2017-09-14] MEDS ORDERED: PANTOPRAZOLE 40 MG TABLET PO STA (16:55)
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
[2017-09-14 19:40] VITALS: BP 168/87; PULSE 99; RESP 18
[2017-09-14 19:50] VITALS: TEMP 97.6
== END 2017-09-14 19:49 | disposition home or self-care (01) ==
LOC: EC 13:45
DX: F10.129 Alcohol abuse with intoxication, unspecified (principal); I10 Essential (primary) hypertension; Z87.891 Personal history of nicotine dependence; Z79.899 Other long term (current) drug therapy
CPT/HCPCS: 82075; 99284

== ENCOUNTER 2017-11-19 04:44 | Emergency (ER) | payer MEDICARE, OTHER ==
[2017-11-19] MEDS ORDERED: DIPH,PERTUS(ACELL)TETVAC-LF 0.5 ML VIAL IM ONE (04:50)
[2017-11-19] MEDS ORDERED: SODIUM CHLORIDE 0.9% 1,000 ML IV STA (04:50)
[2017-11-19 04:54] VITALS: RESP 16
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
[2017-11-19 05:20] LABS: Basophils # (A) 0.1 k/uL (0-0.2); Basophils % (A) 2 %; Eosinophils # (A) 0.1 k/uL (0-0.7); Eosinophils % (A) 2 %; HCT 50.2 % (39.0-53.0); HGB 16.7 gm/dL (13.0-17.5); Lymphocytes # (A) 1.3 k/uL (1.0-4.8); Lymphocytes % (A) 23 %; MCH 31.8 pg (25.0-35.0); MCHC 33.2 g/dL (31.0-37.0); MCV 95.9 fL (80.0-100.0); Mean Platelet Volume 6.4; Monocytes # (A) 0.3 k/uL (0-1.0); Monocytes % (A) 6 %; Neutrophils # (A) 3.5 k/uL (1.3-7.7); Neutrophils % (A) 65 %; Platelet Count 157 k/uL (150-450); RBC 5.24 m/uL (4.30-5.90); RDW 14.4 % (11.5-15.5); WBC 5.4 k/uL (3.8-10.6)
[2017-11-19 05:26] LABS: Partial Thromboplastin Time 25.6 sec (22.0-30.0); Prothrombin Time 10.2 sec (9.0-12.0)
[2017-11-19 05:29] LABS: ALT 34 U/L (21-72); AST 42 U/L (17-59); Albumin 4.4 g/dL (3.5-5.0); Alkaline Phosphatase 73 U/L (38-126); Anion Gap 15 mmol/L; Blood Urea Nitrogen 15 mg/dL (9-20); Calcium 8.6 mg/dL (8.4-10.2); Carbon Dioxide 20 mmol/L (22-30); Chloride 103 mmol/L (98-107); Glucose 100 mg/dL (74-99); Potassium 4.8 mmol/L (3.5-5.1); Sodium 138 mmol/L (137-145); Total Bilirubin 0.5 mg/dL (0.2-1.3); Total Protein 6.9 g/dL (6.3-8.2)
--- NOTE | 2017-11-19 05:29 | XR ---
EXAMINATION TYPE: XR chest 1V portable DATE OF EXAM: 11/19/2017 COMPARISON: 11/07/2017 HISTORY: Fall. Chest pain TECHNIQUE: Single frontal view of the chest is obtained. FINDINGS: There is some linear density at the right lung base. Heart and mediastinum appear normal. Lungs are clear of infiltrate. There are chest leads. IMPRESSION: Subsegmental atelectasis at the right lung base. No significant change.
--- NOTE | 2017-11-19 05:30 | XR ---
EXAMINATION TYPE: XR forearm LT DATE OF EXAM: 11/19/2017 COMPARISON: NONE HISTORY: Pain TECHNIQUE: 2 views FINDINGS: Radius and ulna appear intact. I see no fracture nor dislocation. Joint spaces appear yvette l. IMPRESSION: Negative left forearm exam.
--- NOTE | 2017-11-19 05:31 | XR ---
EXAMINATION TYPE: XR pelvis AP view DATE OF EXAM: 11/19/2017 COMPARISON: NONE HISTORY: Pain. Fall. TECHNIQUE: Single view FINDINGS: Pelvic ring is intact. Proximal femurs and hip joints appear intact. There is calcification at the greater trochanter of the left femur. Sacroiliac joints appear normal. IMPRESSION: No acute abnormality of the pelvis. No fracture.
[2017-11-19 05:38] LABS: Appearance,Urine Clear (Clear); Bilirubin,Urine Negative (Negative); Blood,Urine Large (Negative); Color,Urine Light Yellow; Glucose,Urine (UA) Negative (Negative); Hyaline Casts,Urine 3 /lpf (0-2); Ketones,Urine Negative (Negative); Leukocyte Esterase,Urine Negative (Negative); Mucus,Urine Rare /hpf; Nitrite,Urine Negative (Negative); Protein,Urine Negative (Negative); RBC,Urine <1 /hpf (0-5); Specific Gravity,Urine 1.007 (1.001-1.035); Urobilinogen,Urine <2.0 mg/dL (<2.0)
[2017-11-19 05:42] LABS: Alcohol 270 mg/dL
[2017-11-19 05:48] LABS: Amphetamine Screen,Urine Not Detected (NotDetected); Barbiturate Screen,Urine Not Detected (NotDetected); Benzodiazepines Screen,Urine Detected (NotDetected); Cocaine Screen,Urine Not Detected (NotDetected); Methadone Screen, Urine Not Detected (NotDetected); Opiate Screen,Urine Not Detected (NotDetected); Oxycodone Screen, Urine Not Detected (NotDetected); Phencyclidine Screen,Urine Not Detected (NotDetected); Tricyclic Antidepressant,Urine Not Detected (NotDetected); Urn Cannabinoid Scrn Not Detected (NotDetected)
[2017-11-19 05:53] LABS: Creatine Kinase MB 11.6 ng/mL (0.0-2.4); Troponin I 0.014 ng/mL (0.000-0.034)
--- NOTE | 2017-11-19 06:18 | CT ---
EXAMINATION TYPE: CT brain glenys wo con DATE OF EXAM: 11/19/2017 COMPARISON: 11/07/2017 HISTORY: Fall neck pain. Headache. CT DLP: 1450.60 mGycm Automated exposure control for dose reduction was used. TECHNIQUE: CT scan of the head and cervical spine are performed without contrast. FINDINGS: There is some cerebral cortical atrophy. There is no mass effect nor midline shift. There is no sign of intracranial hemorrhage. There is large left periorbital hematoma. The calvarium is in tact. Cervical vertebra have normal alignment. There is large hypertrophic anterior osteophyte formation fr om C4 to C7. Facet joints are intact. The skull base is intact. There is no evidence of a cervical sp ine fracture. IMPRESSION: Cerebral atrophy. No acute intracranial abnormality. Large left periorbital hematoma. Brain appears u nchanged compared to old exam. No evidence of orbital blowout fracture. Spondylotic changes in the cervical spine. No fracture. No change.
--- NOTE | 2017-11-19 06:29 | CT ---
EXAMINATION TYPE: CT facial bones wo con DATE OF EXAM: 11/19/2017 COMPARISON: None HISTORY: Fall CT DLP: 660.90 mGycm Automated exposure control for dose reduction was used. TECHNIQUE: CT scan of the sinuses is performed without contrast, axial images are obtained, coronal r eformatted images are also reviewed. FINDINGS: Orbital margins are intact. There is no evidence of a blowout fracture. There is bilateral patency of the ostia middle complex. Maxilla is intact. Zygomatic arches appear normal. Nasal bone ap pears intact. Mandibular ring appears intact. There is large left side lateral periorbital soft tissu e swelling consistent with hematoma. The globes are symmetric. There is no evidence of retro-orbital mass. There is also soft tissue swelling anterior to the left zygoma. There is normal aeration of the paranasal sinuses. IMPRESSION: Large left periorbital hematoma. Left side soft tissue swelling anterior to the zygoma. N o fracture seen.
[2017-11-19 07:06] VITALS: BP 147/94; PULSE 64
[2017-11-19 07:51] VITALS: TEMP 97.8
== END 2017-11-19 07:50 | disposition home or self-care (01) ==
LOC: EC 04:44
DX: S01.112A Laceration without foreign body of left eyelid and periocular area, initial encounter (principal); S00.83XA Contusion of other part of head, initial encounter; S50.12XA Contusion of left forearm, initial encounter; S60.511A Abrasion of right hand, initial encounter; S80.212A Abrasion, left knee, initial encounter; R94.31 Abnormal electrocardiogram [ECG] [EKG]; F10.129 Alcohol abuse with intoxication, unspecified; Z23 Encounter for immunization; W19.XXXA Unspecified fall, initial encounter; Y93.89 Activity, other specified; Y92.89 Other specified places as the place of occurrence of the external cause
CPT/HCPCS: 99285; 96360; 96361; 90471; 36415; 93005; 86900; 86901; 80053; 82550; 82553; 84484; 85025; 85610; 85730; 86850; 81001; 80306; 72170; 73090; 71045; 72125; 70486; 70450; 90715; G0480; 80320

== ENCOUNTER 2017-11-20 03:54 | Emergency (ER) | payer MEDICARE, OTHER ==
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
[2017-11-20 05:00] LABS: Amphetamine Screen,Urine Not Detected (NotDetected); Barbiturate Screen,Urine Not Detected (NotDetected); Benzodiazepines Screen,Urine Not Detected (NotDetected); Cocaine Screen,Urine Not Detected (NotDetected); Methadone Screen, Urine Not Detected (NotDetected); Opiate Screen,Urine Not Detected (NotDetected); Oxycodone Screen, Urine Not Detected (NotDetected); Phencyclidine Screen,Urine Not Detected (NotDetected); Tricyclic Antidepressant,Urine Not Detected (NotDetected); Urn Cannabinoid Scrn Not Detected (NotDetected)
[2017-11-20 11:08] VITALS: BP 195/87; PULSE 99; RESP 16; TEMP 97.6
== END 2017-11-20 11:10 | disposition home or self-care (01) ==
LOC: EC 03:54
DX: F10.129 Alcohol abuse with intoxication, unspecified (principal); W19.XXXA Unspecified fall, initial encounter; Y93.89 Activity, other specified; Y92.099 Unspecified place in other non-institutional residence as the place of occurrence of the external cause
CPT/HCPCS: 80306; 99284

== ENCOUNTER → 2018-01-22 | Outpatient (CLI) | payer MEDICARE, OTHER ==
--- NOTE | 2018-01-22 22:08 | US ---
EXAMINATION TYPE: US carotid duplex BILAT DATE OF EXAM: 01/22/2018 COMPARISON: NONE CLINICAL HISTORY: 67-year-old male with R42 Dizziness. TECHNIQUE: Carotid duplex ultrasound examination. Indirect Doppler criteria was utilized. FINDINGS: EXAM MEASUREMENTS: RIGHT: Peak Systolic Velocity (PSV) cm/sec ----- Right CCA: 87.7 ----- Right ICA: 86.5 ----- Right ECA: 164.3 ICA/CCA ratio: 1.0 RIGHT: End Diastole cm/sec ----- Right CCA: 13.9 ----- Right ICA: 12.8 ----- Right ECA: 7.4 LEFT: Peak Systolic Velocity (PSV) cm/sec ----- Left CCA: 94.3 ----- Left ICA: 84.3 ----- Left ECA: 11.9 ICA/CCA ratio: 0.9 LEFT: End Diastole cm/sec ----- Left CCA: 15.0 ----- Left ICA: 21.5 ----- Left ECA: 8.4 VERTEBRALS (direction of flow): Right Vertebral: Antegrade Left Vertebral: Antegrade Rhythm: Not mentioned. Mild atherosclerotic changes at both bifurcations. IMPRESSION: No hemodynamically significant stenosis appreciated in either internal carotid artery. Criteria for Assigning % of Stenosis / Diameter reduction (Estimation based on the indirect measurements of the internal carotid artery velocities (ICA PSV). 1. Normal (no stenosis)=ICA PSV < 125 cm/s: ratio < 2.0: ICA EDV<40 cm/s. 2. Less than 50% stenosis=ICA PSV < 125 cm/s: ratio < 2.0: ICA EDV<40 cm/s. 3. 50 to 69% stenosis=ICA PSV of 125 to 230 cm/s: ration 2.0 ? 4.0: ICA EDV 40-100 cm/s. 4. Greater than 70% stenosis to near occlusion= ICA PSV > 230 cm/s: ratio > 4.0: ICA EDV > 100 cm/s. 5. Near occlusion= ICA PSV velocities may be low or undetectable: variable ratio and ICA EDV. 6. Total occlusion=unable to detect flow.
== END | disposition home or self-care (01) ==
LOC: RADUSWWP 15:42
PROVIDERS: ATTEND Psychiatry & Neurology Neurology
DX: I65.23 Occlusion and stenosis of bilateral carotid arteries (principal)
CPT/HCPCS: 93880

== ENCOUNTER 2019-11-03 14:35 | Inpatient (IN) | payer MEDICARE, OTHER ==
[2019-11-03] MEDS ORDERED: SODIUM CHLORIDE 0.9% 1,000 ML IV ONE ×2 (15:12→16:24)
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
[2019-11-03] MEDS ORDERED: SODIUM CHLORIDE 0.9% 1,000 ML with MVI, ADULT NO.4 WITH VIT K 10 ML, THIAMINE 100 MG, F... IV ONE ×4 (15:45)
[2019-11-03 15:53] LABS: Basophils # (A) 0.1 k/uL (0-0.2); Basophils % (A) 2 %; Eosinophils # (A) 0.1 k/uL (0-0.7); Eosinophils % (A) 1 %; HGB 18.2 gm/dL (13.0-17.5); Lymphocytes # (A) 1.1 k/uL (1.0-4.8); Lymphocytes % (A) 19 %; MCH 30.2 pg (25.0-35.0); MCHC 32.7 g/dL (31.0-37.0); MCV 92.4 fL (80.0-100.0); Mean Platelet Volume 6.9; Monocytes # (A) 0.3 k/uL (0-1.0); Monocytes % (A) 6 %; Neutrophils # (A) 3.8 k/uL (1.3-7.7); Neutrophils % (A) 69 %; Platelet Count 107 k/uL (150-450); RDW 13.9 % (11.5-15.5); WBC 5.5 k/uL (3.8-10.6)
[2019-11-03 15:56] LABS: HCT 55.5 % (39.0-53.0)
[2019-11-03 16:02] LABS: Albumin 4.3 g/dL (3.5-5.0); Calcium 8.5 mg/dL (8.4-10.2); Magnesium 2.2 mg/dL (1.6-2.3); Potassium 4.5 mmol/L (3.5-5.1); Total Bilirubin 0.8 mg/dL (0.2-1.3); Total Protein 6.8 g/dL (6.3-8.2)
[2019-11-03] MEDS ORDERED: THIAMINE 100 MG/ML 2 ML VIAL IM STA (16:26)
[2019-11-03] MEDS ORDERED: LORazepam 2 MG/ML INJ IV PRN ×2 (16:26)
[2019-11-03] MEDS ORDERED: hydrALAZINE HCL 20 MG/ML 1 ML VIAL IVP STA (17:43)
[2019-11-03] MEDS: LORazepam 2 MG/ML INJ IV PRN ×2 (18:45→22:29)
[2019-11-03] MEDS ORDERED: LORazepam 0.5 MG TAB PO PRN (19:14)
[2019-11-03] MEDS: lisinopriL 20 MG TAB PO SCH (20:23)
[2019-11-03] MEDS: atenoloL 25 MG TAB PO SCH (20:23)
[2019-11-03] MEDS ORDERED: ERGOCALCIFEROL 50,000 UNIT CAP PO SCH (21:00)
[2019-11-03] MEDS ORDERED: NON FORMULARY DRUG (Vitamin B Complex [Vitamin B Complex] 1 CAP) PO SCH (21:00)
[2019-11-04] MEDS: LORazepam 2 MG/ML INJ IV PRN ×5 (03:06→21:40)
[2019-11-04 05:56] LABS: Basophils # (A) 0.1 k/uL (0-0.2); Basophils % (A) 1 %; Eosinophils # (A) 0.1 k/uL (0-0.7); Eosinophils % (A) 2 %; HCT 48.8 % (39.0-53.0); HGB 15.9 gm/dL (13.0-17.5); Lymphocytes # (A) 1.1 k/uL (1.0-4.8); Lymphocytes % (A) 20 %; MCH 30.7 pg (25.0-35.0); MCHC 32.6 g/dL (31.0-37.0); MCV 94.3 fL (80.0-100.0); Mean Platelet Volume 7.6; Monocytes # (A) 0.4 k/uL (0-1.0); Monocytes % (A) 7 %; Neutrophils # (A) 3.8 k/uL (1.3-7.7); Neutrophils % (A) 68 %; RBC 5.18 m/uL (4.30-5.90); WBC 5.7 k/uL (3.8-10.6)
[2019-11-04 06:09] LABS: Albumin 3.3 g/dL (3.5-5.0); Calcium 8.1 mg/dL (8.4-10.2); Potassium 4.5 mmol/L (3.5-5.1); Total Protein 5.7 g/dL (6.3-8.2)
[2019-11-04 06:39] LABS: Platelet Count 84 k/uL (150-450)
[2019-11-04] MEDS ORDERED: THIAMINE 100 MG TAB PO SCH (07:30)
[2019-11-04] MEDS: lisinopriL 20 MG TAB PO SCH ×2 (07:47→20:32)
[2019-11-04] MEDS: atenoloL 25 MG TAB PO SCH ×2 (07:47→20:32)
[2019-11-04] MEDS: NALTREXONE HCL 50 MG TAB PO SCH (07:47)
[2019-11-04] MEDS: MULTIVITAMINS, THERA 1 EACH TAB PO SCH (07:47)
[2019-11-04] MEDS: LORATADINE 10 MG TAB PO SCH (12:06)
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
[2019-11-04] MEDS: THIAMINE 100 MG TAB PO SCH (20:31)
[2019-11-05 06:09] LABS: Basophils % (A) 0 %; Eosinophils # (A) 0.2 k/uL (0-0.7); Eosinophils % (A) 3 %; HCT 47.5 % (39.0-53.0); HGB 15.5 gm/dL (13.0-17.5); Lymphocytes # (A) 0.9 k/uL (1.0-4.8); Lymphocytes % (A) 16 %; MCH 31.2 pg (25.0-35.0); MCHC 32.6 g/dL (31.0-37.0); MCV 95.6 fL (80.0-100.0); Mean Platelet Volume 8.3; Monocytes # (A) 0.3 k/uL (0-1.0); Monocytes % (A) 6 %; Neutrophils # (A) 4.1 k/uL (1.3-7.7); Neutrophils % (A) 74 %; RBC 4.96 m/uL (4.30-5.90); RDW 13.9 % (11.5-15.5); WBC 5.5 k/uL (3.8-10.6)
[2019-11-05 06:21] LABS: Platelet Count 63 k/uL (150-450)
[2019-11-05 06:22] LABS: Albumin 3.5 g/dL (3.5-5.0); Calcium 8.9 mg/dL (8.4-10.2); Potassium 3.6 mmol/L (3.5-5.1)
[2019-11-05] MEDS: atenoloL 25 MG TAB PO SCH ×2 (07:25→20:26)
[2019-11-05] MEDS: NALTREXONE HCL 50 MG TAB PO SCH (07:25)
[2019-11-05] MEDS: THIAMINE 100 MG TAB PO SCH ×2 (07:25→20:26)
[2019-11-05] MEDS: MULTIVITAMINS, THERA 1 EACH TAB PO SCH (07:25)
[2019-11-05] MEDS: LORATADINE 10 MG TAB PO SCH (07:25)
[2019-11-05] MEDS: lisinopriL 20 MG TAB PO SCH ×2 (07:25→20:26)
[2019-11-05] MEDS: LORazepam 2 MG/ML INJ IV PRN ×2 (11:44→20:26)
--- NOTE | 2019-11-05 13:33 | P.PN ---
Subjective Progress Note Date: 11/05/19 Blake Sinclair, is a 69-year-old male who presented to [facility] emergency room, with severe alcohol intoxication, EMS were called by neighbors who were concerned about patient, in the emergency room patient stated that he has been drinking since September, however he denied any complaints there was no fever or chills no headache or dizziness no chest pain no shortness of breath no cough no nausea or vomiting no abdominal pain no diarrhea no blood in the stools no burning with urination no frequency or urgency and no hematuria. Blood alcohol level was 271 patient was confused, and decision was made to admit patient to 24-hour observation and start CIWA protocol. Patient has a known history of hypertension, carotid artery stenosis, history of depression and history of alcohol dependence. On 11/05/2019 patient was seen and examined on the medical floor he is alert and oriented 3 in no apparent distress he is still complaining of hand tremors , pain and weakness in bilateral lower extremities and gait disturbance there is no fever or chills no headache or dizziness, no chest pain or shortness of breath no cough no nausea or vomiting no abdominal pain no diarrhea no blood in the stools no burning with urination no frequency or urgency and no hematuria. Objective - Vital Signs Vital signs: Vital Signs Temp 98.1 F 11/05/19 07:28 Pulse 59 L 11/05/19 07:28 Resp 16 11/05/19 07:28 BP 155/83 11/05/19 07:28 Pulse Ox 96 11/05/19 07:28 Intake & Output 11/04/19 11/05/19 11/05/19 18:59 06:59 18:59 Output Total 200 300 Balance -200 -300 Output: Urine 200 300 Other: Voiding Method Toilet Toilet Toilet Urinal Urinal Urinal # Voids 2 1 # Bowel Movements 2 - Exam In general patient is alert and oriented 3 in no apparent distress HEENT head normocephalic and atraumatic Neck is supple no JVD no goiter no lymphadenopathy Chest exam reveals a few scattered rhonchi no wheezing Cardiac exam reveals regular heart sounds no murmurs Abdomen is soft nontender no organomegaly with normal bowel sounds Extremity exam reveals no edema no cyanosis or clubbing Neurological examination reveals no gross focal deficit, patient has significant tremor in his hands - Labs CBC & Chem 7: 11/05/19 05:45 11/05/19 05:45 Labs: Abnormal Lab Results - Last 24 Hours (Table) 11/05/19 11/05/19 Range/Units 05:45 05:45 Plt Count 63 L (150-450) k/uL Lymphocytes # 0.9 L (1.0-4.8) k/uL Chloride 108 H (98-107) mmol/L Total Protein 6.0 L (6.3-8.2) g/dL Assessment and Plan Plan: 1. Alcohol intoxication 2. Early alcohol withdrawal with tremor 3. Underlying history of hypertension 4. Underlying history of depression 5. Thrombocytopenia worsening Will consult hematology 6. Bilateral feet pain and gait disturbance likely related to peripheral neuropathy, physical therapy and occupational therapy consults were initiated patient may need rehab before going home. At this time patient is admitted to observation unit He was started on CIWA protocol Home medication will reorder Will follow closely He was counseled in regard to alcohol abstinence
[2019-11-05 16:13] LABS: INR 0.9 (<1.2); Partial Thromboplastin Time 24.2 sec (22.0-30.0); Prothrombin Time 9.5 sec (9.0-12.0)
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
[2019-11-06] MEDS: LORATADINE 10 MG TAB PO SCH (09:10)
[2019-11-06] MEDS: MULTIVITAMINS, THERA 1 EACH TAB PO SCH (09:10)
[2019-11-06] MEDS: atenoloL 25 MG TAB PO SCH ×2 (09:10→20:34)
[2019-11-06] MEDS: lisinopriL 20 MG TAB PO SCH ×2 (09:10→20:34)
[2019-11-06] MEDS: THIAMINE 100 MG TAB PO SCH ×2 (09:10→20:34)
--- NOTE | 2019-11-06 09:35 | US ---
EXAMINATION TYPE: US abdomen complete DATE OF EXAM: 11/06/2019 COMPARISON: NONE CLINICAL HISTORY: 69-year-old male thrombocytopenia, ETOH. TECHNIQUE: Multiple sonographic images of the abdomen are obtained. FINDINGS: EXAM MEASUREMENTS: Liver Length: 19.5 cm Gallbladder: Surgically absent CBD: 0.4 cm Spleen: 11.8 cm Right Kidney: 11.2 x 4.8 x 5.3 cm Left Kidney: 11.2 x 5.8 x 5.5 cm Sonography notes: Technically difficult study. Patient refused to cooperate with examiner in any way, extensive overlying bowel gas. Pancreas: Obscured by bowel gas Liver: enlarged, portions visualized appear attenuating and heterogenous, not visualized in its enti rety Gallbladder: Surgically absent Evidence for sonographic Gibson's sign: no CBD: not definitively identified a structure which may represent a bile duct has a caliber of 3.8 mm . Spleen: very limited visualization Right Kidney: No hydronephrosis Left Kidney: No hydronephrosis but suboptimal visualization Upper IVC: very limited visualization Abd Aorta: Obscured by overlying bowel gas IMPRESSION: 1. Technically limited exam. The patient was not cooperative. Extensive bowel gas. 2. Hepatomegaly at 19.5 cm with at least moderate hepatic steatosis. 3. Status post cholecystectomy. Bile duct not definitively identified. A structure which may represen t the bile duct is measured to have a caliber of 4 mm.
[2019-11-06] MEDS: NALTREXONE HCL 50 MG TAB PO SCH (09:39)
[2019-11-06 13:35] LABS: Basophils # (A) 0.1 k/uL (0-0.2); Basophils % (A) 1 %; Eosinophils # (A) 0.1 k/uL (0-0.7); Eosinophils % (A) 1 %; HCT 51.3 % (39.0-53.0); HGB 16.3 gm/dL (13.0-17.5); Lymphocytes # (A) 0.8 k/uL (1.0-4.8); Lymphocytes % (A) 10 %; MCH 30.5 pg (25.0-35.0); MCHC 31.7 g/dL (31.0-37.0); MCV 96.1 fL (80.0-100.0); Monocytes # (A) 0.4 k/uL (0-1.0); Monocytes % (A) 5 %; Neutrophils # (A) 6.5 k/uL (1.3-7.7); Neutrophils % (A) 82 %; RBC 5.34 m/uL (4.30-5.90); RDW 13.9 % (11.5-15.5); WBC 7.9 k/uL (3.8-10.6)
[2019-11-06 13:40] LABS: Platelet Count 79 k/uL (150-450)
[2019-11-06 14:45] LABS: Uric Acid 7.2 mg/dL (3.5-8.5)
[2019-11-06] MEDS ORDERED: methylPREDNISolone SOD SUCCI 125 MG/2 ML VIAL IV STA (16:07)
--- NOTE | 2019-11-06 17:00 | P.PN ---
Subjective Progress Note Date: 11/06/19 Blake Sinclair, is a 69-year-old male who presented to [facility] emergency room, with severe alcohol intoxication, EMS were called by neighbors who were concerned about patient, in the emergency room patient stated that he has been drinking since September, however he denied any complaints there was no fever or chills no headache or dizziness no chest pain no shortness of breath no cough no nausea or vomiting no abdominal pain no diarrhea no blood in the stools no burning with urination no frequency or urgency and no hematuria. Blood alcohol level was 271 patient was confused, and decision was made to admit patient to 24-hour observation and start CIWA protocol. Patient has a known history of hypertension, carotid artery stenosis, history of depression and history of alcohol dependence. On 11/05/2019 patient was seen and examined on the medical floor he is alert and oriented 3 in no apparent distress he is still complaining of hand tremors , pain and weakness in bilateral lower extremities and gait disturbance there is no fever or chills no headache or dizziness, no chest pain or shortness of breath no cough no nausea or vomiting no abdominal pain no diarrhea no blood in the stools no burning with urination no frequency or urgency and no hematuria. On 11/06/2019 patient was seen and examined on the medical floor he is alert and oriented in no distress he is complaining of bilateral knee pain right more than left there is slight effusion in the right knee otherwise he denies any complaints there is no fever or chills no headache or dizziness no chest pain no shortness of breath no cough no nausea or vomiting no abdominal pain no diarrhea and no urinary symptoms Objective - Vital Signs Vital signs: Vital Signs Temp 99.1 F 11/06/19 15:00 Pulse 91 11/06/19 15:00 Resp 16 11/06/19 15:00 BP 157/85 11/06/19 15:00 Pulse Ox 95 11/06/19 15:00 Intake & Output 11/05/19 11/06/19 11/06/19 18:59 06:59 18:59 Intake Total 100 780 Output Total 300 100 400 Balance -200 -100 380 Intake: Oral 780 Other 100 Output: Urine 300 100 400 Other: Voiding Method Toilet Toilet Diaper Urinal Urinal Incontinent # Voids 1 1 1 - Exam In general patient is alert and oriented 3 in no apparent distress HEENT head normocephalic and atraumatic Neck is supple no JVD no goiter no lymphadenopathy Chest exam reveals a few scattered rhonchi no wheezing Cardiac exam reveals regular heart sounds no murmurs Abdomen is soft nontender no organomegaly with normal bowel sounds Extremity exam reveals no edema no cyanosis or clubbing Neurological examination reveals no gross focal deficit, patient has significant tremor in his hands - Labs CBC & Chem 7: 11/06/19 12:48 11/05/19 05:45 Labs: Abnormal Lab Results - Last 24 Hours (Table) 11/06/19 Range/Units 12:48 Plt Count 79 L (150-450) k/uL Lymphocytes # 0.8 L (1.0-4.8) k/uL Assessment and Plan Plan: 1. Alcohol intoxication 2. Early alcohol withdrawal with tremor 3. Underlying history of hypertension 4. Underlying history of depression 5. Thrombocytopenia worsening Will consult hematology 6. Bilateral feet pain and gait disturbance likely related to peripheral neuropathy, physical therapy and occupational therapy consults were initiated patient may need rehab before going home. 7. Right knee pain, possible acute gout patient will be given a dose of IV Solu-Medrol with check uric acid and follow in a.m. At this time patient is admitted to observation unit He was started on CIWA protocol Home medication will reorder Will follow closely He was counseled in regard to alcohol abstinence
[2019-11-06 19:12] LABS: Protein, Total 6.3 g/dL (6.2-8.2)
[2019-11-06 19:32] LABS: % Iron Saturation 5.1 (15.00-50.00)
[2019-11-07 05:19] VITALS: RESP 20
[2019-11-07 07:39] LABS: Basophils % (A) 0 %; Eosinophils % (A) 0 %; HCT 49.3 % (39.0-53.0); HGB 15.7 gm/dL (13.0-17.5); Lymphocytes # (A) 0.5 k/uL (1.0-4.8); Lymphocytes % (A) 6 %; MCH 30.7 pg (25.0-35.0); MCHC 31.8 g/dL (31.0-37.0); MCV 96.5 fL (80.0-100.0); Mean Platelet Volume 7.5; Monocytes # (A) 0.4 k/uL (0-1.0); Monocytes % (A) 5 %; Neutrophils # (A) 7.2 k/uL (1.3-7.7); Neutrophils % (A) 88 %; RBC 5.11 m/uL (4.30-5.90); WBC 8.2 k/uL (3.8-10.6)
[2019-11-07 07:50] LABS: Albumin 3.6 g/dL (3.5-5.0); Calcium 9.2 mg/dL (8.4-10.2); Potassium 4.2 mmol/L (3.5-5.1); Total Protein 6.4 g/dL (6.3-8.2)
[2019-11-07 08:02] LABS: Platelet Count 97 k/uL (150-450)
[2019-11-07] MEDS: lisinopriL 20 MG TAB PO SCH (08:30)
[2019-11-07] MEDS: THIAMINE 100 MG TAB PO SCH (08:30)
[2019-11-07] MEDS: atenoloL 25 MG TAB PO SCH (08:30)
[2019-11-07] MEDS: NALTREXONE HCL 50 MG TAB PO SCH (08:30)
[2019-11-07] MEDS: MULTIVITAMINS, THERA 1 EACH TAB PO SCH (08:30)
[2019-11-07] MEDS: LORATADINE 10 MG TAB PO SCH (08:30)
[2019-11-07 10:33] LABS: Free Kappa Lt Chain Qnt, Serum 2.04 mg/dL (0.33-1.94)
[2019-11-07] MEDS: LORazepam 2 MG/ML INJ IV PRN (10:46)
[2019-11-07 11:32] VITALS: BP 155/87; PULSE 46; TEMP 97.9
--- NOTE | 2019-11-07 12:37 | P.DS ---
Providers Date of admission: 11/04/19 11:25 Expected date of discharge: 11/07/19 Attending physician: Kassie Beasley Consults: 11/05/19 13:28 Consult Physician Routine Consulting Provider: Jamaal Moulton Consult Reason/Comments: thrombocytopenia Do you want consulting provider notified?: Yes Primary care physician: Kassie [facility] Course: Diagnoses on discharge: 1. Alcohol intoxication 2. Early alcohol withdrawal with tremor 3. Underlying history of hypertension 4. Underlying history of depression 5. Thrombocytopenia worsening Will consult hematology 6. Bilateral feet pain and gait disturbance likely related to peripheral neuropathy, physical therapy and occupational therapy consults were initiated patient may need rehab before going home. 7. Right knee pain, possible acute gout patient will be given a dose of IV Solu-Medrol with check uric acid and follow in a.m. Hospital course: Blake Sinclair, is a 69-year-old male who presented to [facility] emergency room, with severe alcohol intoxication, EMS were called by neighbors who were concerned about patient, in the emergency room patient stated that he has been drinking since September, however he denied any complaints there was no fever or chills no headache or dizziness no chest pain no shortness of breath no cough no nausea or vomiting no abdominal pain no diarrhea no blood in the stools no burning with urination no frequency or urgency and no hematuria. Blood alcohol level was 271 patient was confused, and decision was made to admit patient to 24-hour observation and start CIWA protocol. Patient has a known history of hypertension, carotid artery stenosis, history of depression and history of alcohol dependence. On 11/05/2019 patient was seen and examined on the medical floor he is alert and oriented 3 in no apparent distress he is still complaining of hand tremors , pain and weakness in bilateral lower extremities and gait disturbance there is no fever or chills no headache or dizziness, no chest pain or shortness of breath no cough no nausea or vomiting no abdominal pain no diarrhea no blood in the stools no burning with urination no frequency or urgency and no hematuria. On 11/06/2019 patient was seen and examined on the medical floor he is alert and oriented in no distress he is complaining of bilateral knee pain right more than left there is slight effusion in the right knee otherwise he denies any complaints there is no fever or chills no headache or dizziness no chest pain no shortness of breath no cough no nausea or vomiting no abdominal pain no diarrhea and no urinary symptoms On 11/07/2019 patient was seen and examined on the medical floor he is alert and oriented 3 in no apparent distress there is no fever or chills no headache or dizziness no chest pain no shortness of breath no cough no nausea or vomiting no abdominal pain no diarrhea no burning with urination no frequency or urgency no hematuria. Knee pain has improved significantly with 1 dose of IV Solu-Medrol uric acid level was normal. Patient' s tremors have improved significantly he can be discharged to [facility] for rehab. Plan - Discharge Summary New Discharge Prescriptions: New LORazepam [Ativan] 0.5 mg PO TID PRN 3 Days #9 tab PRN Reason: Agitation Continue atenoloL [Atenolol] 25 mg PO BID #60 tablet lisinopriL [Prinivil] 20 mg PO BID #60 tablet LORazepam [Ativan] 0.5 mg PO HS PRN PRN Reason: Insomnia Multivitamins, Thera [Multivitamin (formulary)] 1 tab PO DAILY@1200 Naltrexone HCl [Revia] 50 mg PO DAILY Vitamin B Complex 1 cap PO BID Ergocalciferol [Vitamin D2 (DRISDOL)] 50,000 unit PO Q7D Loratadine 10 mg PO DAILY Thiamine [Vitamin B-1] 100 mg PO BID Discharge Medication List atenoloL [Atenolol] 25 mg PO BID #60 tablet 11/09/17 [Rx] lisinopriL [Prinivil] 20 mg PO BID #60 tablet 11/09/17 [Rx] LORazepam [Ativan] 0.5 mg PO HS PRN 11/19/17 [History] Multivitamins, Thera [Multivitamin (formulary)] 1 tab PO DAILY@1200 11/19/17 [History] Ergocalciferol [Vitamin D2 (DRISDOL)] 50,000 unit PO Q7D 11/03/19 [History] Naltrexone HCl [Revia] 50 mg PO DAILY 11/03/19 [History] Vitamin B Complex 1 cap PO BID 11/03/19 [History] Loratadine 10 mg PO DAILY 11/04/19 [History] Thiamine [Vitamin B-1] 100 mg PO BID 11/04/19 [History] LORazepam [Ativan] 0.5 mg PO TID PRN 3 Days #9 tab 11/07/19 [Rx] Follow up Appointment(s)/Referral(s): Kassie Beasley MD [Primary Care Provider] - 1-2 days
[2019-11-07 13:31] LABS: Albumin 3.36 g/dL (3.80-4.90); Gamma Globulin 0.66 g/dL (0.70-1.50)
[2019-11-08 18:05] LABS: Methylmalonic Acid 0.48 umol/L (<0.40)
== END 2019-11-07 16:48 | DRG 897 ==
LOC: EC 14:35 → 1SOBS 16:24 → OBSVTOIN 11-04 11:25 → 6NMEDSUR 11-06 16:31
PROVIDERS: ADMIT Internal Medicine; ATTEND Internal Medicine
DX: F10.229 Alcohol dependence with intoxication, unspecified (principal); K21.9 Gastro-esophageal reflux disease without esophagitis; M19.90 Unspecified osteoarthritis, unspecified site; F32.9 Major depressive disorder, single episode, unspecified; F41.9 Anxiety disorder, unspecified; M10.9 Gout, unspecified; I10 Essential (primary) hypertension; Y90.8 Blood alcohol level of 240 mg/100 ml or more; D69.59 Other secondary thrombocytopenia; G62.9 Polyneuropathy, unspecified; F10.239 Alcohol dependence with withdrawal, unspecified; K76.9 Liver disease, unspecified; Z79.899 Other long term (current) drug therapy; Z87.11 Personal history of peptic ulcer disease; Z82.49 Family history of ischemic heart disease and other diseases of the circulatory system; Z86.73 Personal history of transient ischemic attack (TIA), and cerebral infarction without residual deficits; Z86.19 Personal history of other infectious and parasitic diseases; Z90.49 Acquired absence of other specified parts of digestive tract; Z98.890 Other specified postprocedural states; Z82.5 Family history of asthma and other chronic lower respiratory diseases; Z82.61 Family history of arthritis
CPT/HCPCS: 36415; 76700; 80053; 80320; 82150; 82607; 82747; 83540; 83550; 83690; 83735; 83883; 83921; 84165; 84550; 85025; 85610; 85730; 86334; 96361; 96365; 96372; 96375; 99285

== ENCOUNTER 2020-07-29 04:22 | Inpatient (IN) | payer MEDICARE ==
[2020-07-29] MEDS ORDERED: SODIUM CHLORIDE 0.9% 1,000 ML IV STA (05:03)
[2020-07-29] MEDS ORDERED: LORazepam 2 MG/ML INJ IV STA (05:04)
[2020-07-29] MEDS ORDERED: LORazepam 2 MG/ML INJ IV PRN (05:04)
[2020-07-29 05:36] LABS: Basophils # (A) 0.1 k/uL (0-0.2); Basophils % (A) 1 %; Eosinophils # (A) 0.1 k/uL (0-0.7); Eosinophils % (A) 2 %; HCT 49.6 % (39.0-53.0); HGB 17.4 gm/dL (13.0-17.5); Lymphocytes # (A) 1.5 k/uL (1.0-4.8); Lymphocytes % (A) 20 %; MCH 32.1 pg (25.0-35.0); MCV 91.7 fL (80.0-100.0); Mean Platelet Volume 6.8; Monocytes # (A) 0.4 k/uL (0-1.0); Monocytes % (A) 5 %; Neutrophils # (A) 5.6 k/uL (1.3-7.7); Neutrophils % (A) 72 %; RBC 5.41 m/uL (4.30-5.90); RDW 13.8 % (11.5-15.5); WBC 7.9 k/uL (3.8-10.6)
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
[2020-07-29 05:59] LABS: ALT 48 U/L (4-49); AST 116 U/L (17-59); African American GFR (CKD) >90 (>60 ml/min/1.73 sqM); Albumin 4.2 g/dL (3.5-5.0); Alkaline Phosphatase 93 U/L (38-126); Amylase 55 U/L (30-110); Anion Gap 13 mmol/L; Blood Urea Nitrogen 19 mg/dL (9-20); Calcium 8.5 mg/dL (8.4-10.2); Carbon Dioxide 25 mmol/L (22-30); Chloride 97 mmol/L (98-107); Glucose 119 mg/dL (74-99); Lipase 178 U/L (23-300); Non-African American GFR(CKD) 85 (>60 ml/min/1.73 sqM); Potassium 3.8 mmol/L (3.5-5.1); Sodium 135 mmol/L (137-145); Total Bilirubin 0.6 mg/dL (0.2-1.3); Total Protein 6.8 g/dL (6.3-8.2)
[2020-07-29 06:01] LABS: Platelet Count 93 k/uL (150-450); Stomatocytes Present
[2020-07-29 06:20] LABS: Appearance,Urine Clear (Clear); Bilirubin,Urine Negative (Negative); Blood,Urine Moderate (Negative); Color,Urine Yellow; Glucose,Urine (UA) Negative (Negative); Hyaline Casts,Urine 1 /lpf (0-2); Ketones,Urine Trace (Negative); Leukocyte Esterase,Urine Negative (Negative); Mucus,Urine Rare /hpf; Nitrite,Urine Negative (Negative); Protein,Urine Trace (Negative); RBC,Urine <1 /hpf (0-5); Specific Gravity,Urine 1.014 (1.001-1.035); Urobilinogen,Urine <2.0 mg/dL (<2.0); WBC,Urine <1 /hpf (0-5)
[2020-07-29 06:26] LABS: Alcohol 134 mg/dL
[2020-07-29] MEDS ORDERED: NALOXONE 0.4 MG/ML 1 ML VIAL IV PRN (07:06)
[2020-07-29] MEDS ORDERED: ACETAMINOPHEN TAB 325 MG TAB PO PRN (07:06)
[2020-07-29] MEDS: SODIUM CHLORIDE 0.9% 1,000 ML IV SCH (08:22)
[2020-07-29] MEDS: NALTREXONE HCL 50 MG TAB PO SCH (09:29)
[2020-07-29] MEDS: lisinopriL 20 MG TAB PO SCH ×2 (09:29→22:51)
[2020-07-29] MEDS: atenoloL 25 MG TAB PO SCH ×2 (09:29→22:52)
[2020-07-29] MEDS: FAMOTIDINE 20 MG TAB PO SCH ×2 (09:29→22:52)
[2020-07-29] MEDS ORDERED: hydrALAZINE HCL 20 MG/ML 1 ML VIAL IVP PRN (10:33)
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
--- NOTE | 2020-07-29 10:53 | US ---
EXAMINATION TYPE: US venous doppler duplex LE DATE OF EXAM: 07/29/2020 10:08 AM COMPARISON: NONE CLINICAL HISTORY: Erythema. SIDE PERFORMED: Bilateral TECHNIQUE: The lower extremity deep venous system is examined utilizing real time linear array sonog marcel with graded compression, doppler sonography and color-flow sonography. VESSELS IMAGED: Common Femoral Vein Deep Femoral Vein Greater Saphenous Vein * Femoral Vein Popliteal Vein Small Saphenous Vein * Proximal Calf Veins (* superficial vessels) Right Leg: Appears negative for DVT Left Leg: Appears negative for DVT IMPRESSION: 1. No evidence of deep venous fibrosis in the bilateral lower extremity veins.
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
--- NOTE | 2020-07-29 15:20 | US ---
EXAMINATION TYPE: US abdomen complete DATE OF EXAM: 07/29/2020 COMPARISON: US dated 11/06/2019 CLINICAL HISTORY: abdominal pain. Generalized ABD pain EXAM MEASUREMENTS: Liver Length: 20.5 cm CBD: 0.5 cm Spleen: 12.8 cm Right Kidney: 10.5 x 5.3 x 5.4 cm Left Kidney: 11.9 x 6.1 x 5.2 cm Pt very gassy, unable to take a breath in and hold it Pancreas: Obscured by bowel gas Liver: Coarse echotexture, enlarged, heterogeneous, difficult to penetrate Gallbladder: Surgically absent Evidence for sonographic Gibson's sign: No CBD: wnl Spleen: wnl Right Kidney: No evidence of hydro Left Kidney: No evidence of hydro Upper IVC: wnl Abd Aorta: Obscured by overlying bowel gas The liver is heterogeneous. The intrahepatic portion of the IVC and proximal abdominal aorta are wit hin normal limits. Gallbladder surgically absent. Common bile duct is unremarkable. The visualized p ortions of the pancreas are homogenous. The spleen is upper limit of normal for size. Kidneys are s ymmetric and free of hydronephrosis, cortical medullary differentiation is maintained. No renal lesi ons are seen. IMPRESSION: There may be underlying hepatic steatosis with hepatomegaly, hepatocellular disease, exam is limited
[2020-07-29] MEDS: THIAMINE 100 MG TAB PO SCH (20:45)
[2020-07-29] MEDS: LORazepam 2 MG/ML INJ IV PRN ×2 (21:15→22:52)
--- NOTE | 2020-07-29 22:14 | CT ---
EXAMINATION TYPE: CT angio chest DATE OF EXAM: 07/29/2020 COMPARISON: None HISTORY: Elevated d-dimer. CT DLP: 499.5 mGycm Automated exposure control for dose reduction was used. CONTRAST: Performed with IV Contrast, patient injected with 100ml mL of Isovue 370. There are 3-D post processed images. There is elevated right diaphragm with atelectasis at the right lung base. Heart is slightly enlarged . I see no filling defects in the pulmonary arteries. There are no hilar masses. There is no mediasti nal adenopathy. Thoracic aorta appears intact. There is no aneurysm or dissection. There is 3.7 cm as cending aorta. The thoracic spine is intact. There is no compression fracture. IMPRESSION: No evidence of pulmonary embolism. Elevated right diaphragm with right basilar atelectasis. There is possible right diaphragm paralysis. No suspicious pulmonary mass. There is some fatty infiltration of the liver.
[2020-07-30] MEDS: LORazepam 2 MG/ML INJ IV PRN ×4 (04:36→20:59)
[2020-07-30] MEDS: SODIUM CHLORIDE 0.9% 1,000 ML IV SCH (07:01)
[2020-07-30] MEDS: ENOXAPARIN 40 MG/0.4 ML SYRINGE SQ SCH (08:45)
[2020-07-30] MEDS: lisinopriL 20 MG TAB PO SCH ×2 (08:46→20:58)
[2020-07-30] MEDS: PANTOPRAZOLE 40 MG/10 ML VIAL IVP SCH (08:46)
[2020-07-30] MEDS: atenoloL 25 MG TAB PO SCH ×2 (08:47→20:59)
[2020-07-30] MEDS: NALTREXONE HCL 50 MG TAB PO SCH (08:47)
[2020-07-30] MEDS: FAMOTIDINE 20 MG TAB PO SCH ×2 (08:47→20:59)
[2020-07-30] MEDS: THIAMINE 100 MG TAB PO SCH ×2 (08:47→17:54)
[2020-07-30 11:39] LABS: African American GFR (CKD) 86.8 (60.0-200.0); Albumin 3.7 g/dL (3.80-4.90); Albumin/Globulin Ratio 1.76 (1.60-3.17); Anion Gap 8.4 mmol/L (4.00-12.00); Calcium 8.4 mg/dL (8.7-10.3); Carbon Dioxide 27.6 mmol/L (21.6-31.8); Globulin 2.1 g/dL (1.6-3.3); Non-African American GFR(CKD) 74.9 (60.0-200.0); Potassium 3.8 mmol/L (3.5-5.5); Total Bilirubin 0.8 mg/dL (0.2-1.2); Total Protein 5.8 g/dL (6.2-8.2)
[2020-07-30 11:59] LABS: Basophils # (A) 0.04 X 10*3/uL (0.00-0.10); Basophils % (A) 0.6 %; Eosinophils # (A) 0.05 X 10*3/uL (0.04-0.35); Eosinophils % (A) 0.7 %; HCT 44.3 % (39.6-50.0); HGB 14.8 g/dL (13.0-17.0); Lymphocytes # (A) 0.84 X 10*3/uL (0.90-5.00); Lymphocytes % (A) 11.6 %; MCH 31.6 pg (27.0-32.0); MCHC 33.4 g/dL (32.0-37.0); MCV 94.7 fL (80.0-97.0); Mean Platelet Volume 9.8 fL (9.5-12.2); Monocytes # (A) 0.63 X 10*3/uL (0.20-1.00); Monocytes % (A) 8.7 %; Neutrophils # (A) 5.62 X 10*3/uL (1.80-7.70); Neutrophils % (A) 77.6 %; Platelet Count 77 X 10*3/uL (140-440); RBC 4.68 X 10*6/uL (4.40-5.60); RDW 14.1 % (11.5-14.5); WBC 7.24 X 10*3/uL (4.50-10.00)
[2020-07-30 12:00] LABS: Stomatocytes 2+
[2020-07-31] MEDS: LORazepam 2 MG/ML INJ IV PRN ×5 (02:44→20:03)
[2020-07-31] MEDS: PANTOPRAZOLE 40 MG/10 ML VIAL IVP SCH (08:02)
[2020-07-31] MEDS: lisinopriL 20 MG TAB PO SCH ×2 (08:02→20:03)
[2020-07-31] MEDS: FAMOTIDINE 20 MG TAB PO SCH ×2 (08:02→20:03)
[2020-07-31] MEDS: NALTREXONE HCL 50 MG TAB PO SCH (08:02)
[2020-07-31] MEDS: THIAMINE 100 MG TAB PO SCH ×2 (08:02→16:59)
[2020-07-31] MEDS: ENOXAPARIN 40 MG/0.4 ML SYRINGE SQ SCH (08:02)
[2020-07-31] MEDS: atenoloL 25 MG TAB PO SCH ×2 (08:02→20:03)
[2020-07-31] MEDS: SODIUM CHLORIDE 0.9% 1,000 ML IV SCH (08:07)
[2020-07-31 09:00] LABS: Basophils % (A) 1 %; Eosinophils # (A) 0.1 k/uL (0-0.7); Eosinophils % (A) 2 %; HCT 45.1 % (39.0-53.0); HGB 14.8 gm/dL (13.0-17.5); Lymphocytes # (A) 0.9 k/uL (1.0-4.8); Lymphocytes % (A) 17 %; MCH 30.9 pg (25.0-35.0); MCHC 32.9 g/dL (31.0-37.0); Mean Platelet Volume 7.4; Monocytes # (A) 0.3 k/uL (0-1.0); Monocytes % (A) 5 %; Neutrophils # (A) 3.9 k/uL (1.3-7.7); Neutrophils % (A) 74 %; RDW 14.4 % (11.5-15.5); WBC 5.3 k/uL (3.8-10.6)
[2020-07-31 09:04] LABS: ALT 41 U/L (4-49); AST 81 U/L (17-59); African American GFR (CKD) 79 (>60 ml/min/1.73 sqM); Albumin 3.7 g/dL (3.5-5.0); Albumin/Globulin Ratio 1.5; Alkaline Phosphatase 81 U/L (38-126); Anion Gap 3 mmol/L; Blood Urea Nitrogen 20 mg/dL (9-20); Calcium 8.2 mg/dL (8.4-10.2); Carbon Dioxide 33 mmol/L (22-30); Chloride 105 mmol/L (98-107); Globulin 2.5 g/dL; Glucose 106 mg/dL (74-99); Non-African American GFR(CKD) 68 (>60 ml/min/1.73 sqM); Potassium 3.5 mmol/L (3.5-5.1); Sodium 141 mmol/L (137-145); Total Bilirubin 0.7 mg/dL (0.2-1.3); Total Protein 6.2 g/dL (6.3-8.2)
[2020-07-31 09:06] LABS: Platelet Count 76 k/uL (150-450)
--- NOTE | 2020-07-31 16:38 | P.PN ---
Subjective Progress Note Date: 07/30/20 This is a 70-year-old male patient who presented to the ER with concerns of alcohol intoxication and dependence and possible suicidal ideation. Patient appears to be a poor historian unable to recall recent events. According to ER report patient has been unable to take care of himself and was found in the position living on his porch. past medical history of CVA, GERD, hypertension, osteoarthritis, cholecystectomy and daily alcohol abuse. At this time patient has been started on withdrawal protocol. Patient currently in suicide precautions. Consider is at bedside. Psychiatry service is consulted. Bilateral lower extremity is warm and erythematous. Venous Doppler and d-dimer ordered. Blood pressure also elevated home meds resumed. Patient complaining of nausea and vomiting amylase and lipase within normal limits. Will order ultrasound of abdomen. This time patient denies chest pain or shortness breath. Patient denies nausea vomiting or diarrhea. Patient denies any urinary burning or frequency. On 07/30/2020 Patient was seen and examined on the medical floor, he is alert and oriented x 3 in no distress, he denies any complaints there is no fever or chills no headache or dizziness no chest pain no shortness of breath no palpitation no cough no nausea or vomiting no abdominal pain no diarrhea no blood in the stools no burning with urination no frequency or urgency and no hematuria, there is no weakness or numbness in any of the extremities no change in vision speech or gait., Patient is still having episodes of anxiety and mild agitation, will continue with Ativan per protocol. D-dimer was elevated on presentation bilateral lower extremity Doppler was negative for DVT, chest CTA was negative for pulmonary embolism. Currently patient is maintained on Lovenox for DVT prophylaxis Objective - Vital Signs Vital signs: Vital Signs Temp 98.1 F 07/30/20 07:24 Pulse 61 07/30/20 07:24 Resp 17 07/30/20 07:24 BP 167/84 07/30/20 07:24 Pulse Ox 96 07/30/20 07:24 Intake & Output 07/29/20 07/30/20 07/30/20 18:59 06:59 18:59 Intake Total 600 Balance 600 Weight 90.718 kg 95.5 kg Intake: Oral 600 Other: Voiding Method Urinal # Voids 2 - Exam In general patient is alert and oriented ?-3 in no distress HEENT head normocephalic and atraumatic Neck is supple no JVD no goiter no lymphadenopathy no carotid bruit Chest examination is clear to auscultation no crackles no wheezing Cardiac exam reveals regular heart sounds S1 and S2 no gallops no murmurs Abdomen is soft nontender no organomegaly with normal bowel sounds Extremity exam reveals no edema no cyanosis or clubbing Neurological examination reveals no gross focal deficits - Labs CBC & Chem 7: 07/31/20 08:28 07/31/20 08:28 Labs: Abnormal Lab Results - Last 24 Hours (Table) 07/29/20 07/29/20 07/29/20 Range/Units 05:15 11:15 11:15 D-Dimer 2.02 H (<0.60) mg/L FEU Creatine Kinase 601 H (55-170) U/L CK-MB (CK-2) 14.4 H (0.0-2.4) ng/mL Assessment and Plan Assessment: 1. Alcohol dependence. Alcohol withdrawal protocol initiated 2. Suicidal ideation. Psychiatry service is consulted. Patient in suicide precautions 3. Lower extremity swelling. Venous Doppler d-dimer ordered 4. Mild abdominal ascites and pain will order abdominal ultrasound. Amylase and lipase within normal limits 5. Hypertension urgency. Home meds resumed. Hydralazine when necessary added 6. History of alcohol dependence 7. History of CVA 8. History of essential hypertension 9. History of GERD DVT prophylaxis Lovenox. GI prophylaxis Protonix Psychiatry service is consulted Venous Doppler ordered Abdominal ultrasound ordered Troponin ordered CK level ordered
--- NOTE | 2020-07-31 16:39 | P.PN ---
Subjective Progress Note Date: 07/31/20 This is a 70-year-old male patient who presented to the ER with concerns of alcohol intoxication and dependence and possible suicidal ideation. Patient appears to be a poor historian unable to recall recent events. According to ER report patient has been unable to take care of himself and was found in the position living on his porch. past medical history of CVA, GERD, hypertension, osteoarthritis, cholecystectomy and daily alcohol abuse. At this time patient has been started on withdrawal protocol. Patient currently in suicide precautions. Consider is at bedside. Psychiatry service is consulted. Bilateral lower extremity is warm and erythematous. Venous Doppler and d-dimer ordered. Blood pressure also elevated home meds resumed. Patient complaining of nausea and vomiting amylase and lipase within normal limits. Will order ultrasound of abdomen. This time patient denies chest pain or shortness breath. Patient denies nausea vomiting or diarrhea. Patient denies any urinary burning or frequency. On 07/30/2020 Patient was seen and examined on the medical floor, he is alert and oriented x 3 in no distress, he denies any complaints there is no fever or chills no headache or dizziness no chest pain no shortness of breath no palpitation no cough no nausea or vomiting no abdominal pain no diarrhea no blood in the stools no burning with urination no frequency or urgency and no hematuria, there is no weakness or numbness in any of the extremities no change in vision speech or gait., Patient is still having episodes of anxiety and mild agitation, will continue with Ativan per protocol. D-dimer was elevated on presentation bilateral lower extremity Doppler was negative for DVT, chest CTA was negative for pulmonary embolism. Currently patient is maintained on Lovenox for DVT prophylaxis On 07/31/2020 patient is more somnolent today, he denies any complaints, there is no fever or chills no headache or dizziness no chest pain no shortness of breath no palpitation no cough no nausea or vomiting no abdominal pain no diarrhea no blood in the stools no burning with urination no frequency or urgency and no hematuria, at this time will continue with current management will recheck labs in a.m. Objective - Vital Signs Vital signs: Vital Signs Temp 98.4 F 07/31/20 14:00 Pulse 66 07/31/20 14:00 Resp 18 07/31/20 14:00 BP 168/91 07/31/20 14:00 Pulse Ox 95 07/31/20 14:00 Intake & Output 07/30/20 07/31/20 07/31/20 18:59 06:59 18:59 Intake Total 1740 300 Balance 1740 300 Intake: Intake, IV Titration 240 Amount Sodium Chloride 0.9% 1, 240 000 ml @ 20 mls/hr IV . Q24H RAMESH Rx#:[id number] Oral 1500 300 Other: Voiding Method Diaper Diaper Diaper # Voids 2 3 - Exam In general patient is alert and oriented ?-3 in no distress HEENT head normocephalic and atraumatic Neck is supple no JVD no goiter no lymphadenopathy no carotid bruit Chest examination is clear to auscultation no crackles no wheezing Cardiac exam reveals regular heart sounds S1 and S2 no gallops no murmurs Abdomen is soft nontender no organomegaly with normal bowel sounds Extremity exam reveals no edema no cyanosis or clubbing Neurological examination reveals no gross focal deficits - Labs CBC & Chem 7: 07/31/20 08:28 07/31/20 08:28 Labs: Abnormal Lab Results - Last 24 Hours (Table) 07/31/20 07/31/20 Range/Units 08:28 08:28 Plt Count 76 L (150-450) k/uL Lymphocytes # 0.9 L (1.0-4.8) k/uL Carbon Dioxide 33 H (22-30) mmol/L Glucose 106 H (74-99) mg/dL Calcium 8.2 L (8.4-10.2) mg/dL AST 81 H (17-59) U/L Total Protein 6.2 L (6.3-8.2) g/dL Assessment and Plan Assessment: 1. Alcohol dependence. Alcohol withdrawal protocol initiated 2. Suicidal ideation. Psychiatry service is consulted. Patient in suicide precautions 3. Lower extremity swelling. Venous Doppler d-dimer ordered 4. Mild abdominal ascites and pain will order abdominal ultrasound. Amylase and lipase within normal limits 5. Hypertension urgency. Home meds resumed. Hydralazine when necessary added 6. History of alcohol dependence 7. History of CVA 8. History of essential hypertension 9. History of GERD DVT prophylaxis Lovenox. GI prophylaxis Protonix Psychiatry service is consulted Venous Doppler ordered Abdominal ultrasound ordered Troponin ordered CK level ordered
[2020-08-01] MEDS: atenoloL 25 MG TAB PO SCH ×2 (08:09→20:13)
[2020-08-01] MEDS: THIAMINE 100 MG TAB PO SCH ×2 (08:09→16:39)
[2020-08-01] MEDS: PANTOPRAZOLE 40 MG/10 ML VIAL IVP SCH (08:09)
[2020-08-01] MEDS: FAMOTIDINE 20 MG TAB PO SCH ×2 (08:09→20:13)
[2020-08-01] MEDS: lisinopriL 20 MG TAB PO SCH ×2 (08:09→20:13)
[2020-08-01] MEDS: NALTREXONE HCL 50 MG TAB PO SCH (08:09)
[2020-08-01] MEDS: ENOXAPARIN 40 MG/0.4 ML SYRINGE SQ SCH (08:10)
[2020-08-01] MEDS: SODIUM CHLORIDE 0.9% 1,000 ML IV SCH (08:10)
--- NOTE | 2020-08-01 13:18 | P.PN ---
Subjective Progress Note Date: 08/01/20 This is a 70-year-old male patient who presented to the ER with concerns of alcohol intoxication and dependence and possible suicidal ideation. Patient appears to be a poor historian unable to recall recent events. According to ER report patient has been unable to take care of himself and was found in the position living on his porch. past medical history of CVA, GERD, hypertension, osteoarthritis, cholecystectomy and daily alcohol abuse. At this time patient has been started on withdrawal protocol. Patient currently in suicide precautions. Consider is at bedside. Psychiatry service is consulted. Bilateral lower extremity is warm and erythematous. Venous Doppler and d-dimer ordered. Blood pressure also elevated home meds resumed. Patient complaining of nausea and vomiting amylase and lipase within normal limits. Will order ultrasound of abdomen. This time patient denies chest pain or shortness breath. Patient denies nausea vomiting or diarrhea. Patient denies any urinary burning or frequency. On 07/30/2020 Patient was seen and examined on the medical floor, he is alert and oriented x 3 in no distress, he denies any complaints there is no fever or chills no headache or dizziness no chest pain no shortness of breath no palpitation no cough no nausea or vomiting no abdominal pain no diarrhea no blood in the stools no burning with urination no frequency or urgency and no hematuria, there is no weakness or numbness in any of the extremities no change in vision speech or gait., Patient is still having episodes of anxiety and mild agitation, will continue with Ativan per protocol. D-dimer was elevated on presentation bilateral lower extremity Doppler was negative for DVT, chest CTA was negative for pulmonary embolism. Currently patient is maintained on Lovenox for DVT prophylaxis On 07/31/2020 patient is more somnolent today, he denies any complaints, there is no fever or chills no headache or dizziness no chest pain no shortness of breath no palpitation no cough no nausea or vomiting no abdominal pain no diarrhea no blood in the stools no burning with urination no frequency or urgency and no hematuria, at this time will continue with current management will recheck labs in a.m. On 08/01/2020 Patient was seen and examined on the medical floor, he is alert and oriented x 3 in no distress, he is feeling tired and has generalized body aches otherwise he denies any complaints there is no fever or chills no headache or dizziness no chest pain no shortness of breath no palpitation no cough no nausea or vomiting no abdominal pain no diarrhea no blood in the stools no burning with urination no frequency or urgency and no hematuria, there is no weakness or numbness in any of the extremities no change in vision speech or gait. Objective - Vital Signs Vital signs: Vital Signs Temp 97.5 F L 08/01/20 02:29 Pulse 63 08/01/20 02:29 Resp 18 08/01/20 02:29 BP 169/87 08/01/20 02:29 Pulse Ox 96 08/01/20 02:29 Intake & Output 07/31/20 08/01/20 08/01/20 18:59 06:59 18:59 Intake Total 300 100 Balance 300 100 Intake: Oral 300 100 Other: Voiding Method Diaper Urinal Diaper # Voids 2 2 - Exam In general patient is alert and oriented ?-3 in no distress HEENT head normocephalic and atraumatic Neck is supple no JVD no goiter no lymphadenopathy no carotid bruit Chest examination is clear to auscultation no crackles no wheezing Cardiac exam reveals regular heart sounds S1 and S2 no gallops no murmurs Abdomen is soft nontender no organomegaly with normal bowel sounds Extremity exam reveals no edema no cyanosis or clubbing Neurological examination reveals no gross focal deficits - Labs CBC & Chem 7: 07/31/20 08:28 07/31/20 08:28 Labs: Abnormal Lab Results - Last 24 Hours (Table) 07/31/20 07/31/20 Range/Units 08:28 08:28 Plt Count 76 L (150-450) k/uL Lymphocytes # 0.9 L (1.0-4.8) k/uL Carbon Dioxide 33 H (22-30) mmol/L Glucose 106 H (74-99) mg/dL Calcium 8.2 L (8.4-10.2) mg/dL AST 81 H (17-59) U/L Total Protein 6.2 L (6.3-8.2) g/dL Assessment and Plan Assessment: 1. Alcohol dependence. Alcohol withdrawal protocol initiated 2. Suicidal ideation. Psychiatry service is consulted. Patient in suicide precautions 3. Lower extremity swelling. Venous Doppler d-dimer ordered 4. Mild abdominal ascites and pain will order abdominal ultrasound. Amylase and lipase within normal limits 5. Hypertension urgency. Home meds resumed. Hydralazine when necessary added 6. History of alcohol dependence 7. History of CVA 8. History of essential hypertension 9. History of GERD DVT prophylaxis Lovenox. GI prophylaxis Protonix Psychiatry service is consulted Venous Doppler ordered Abdominal ultrasound ordered Troponin ordered CK level ordered
[2020-08-01] MEDS: LORazepam 2 MG/ML INJ IV PRN (20:14)
[2020-08-02] MEDS: PANTOPRAZOLE 40 MG TABLET PO SCH (07:33)
[2020-08-02] MEDS: ENOXAPARIN 40 MG/0.4 ML SYRINGE SQ SCH (07:33)
[2020-08-02] MEDS: atenoloL 25 MG TAB PO SCH ×2 (07:34→20:52)
[2020-08-02] MEDS: lisinopriL 20 MG TAB PO SCH ×2 (07:34→20:52)
[2020-08-02] MEDS: FAMOTIDINE 20 MG TAB PO SCH ×2 (07:34→20:52)
[2020-08-02] MEDS: THIAMINE 100 MG TAB PO SCH ×2 (07:34→17:32)
[2020-08-02] MEDS: NALTREXONE HCL 50 MG TAB PO SCH (07:34)
[2020-08-02] MEDS: SODIUM CHLORIDE 0.9% 1,000 ML IV SCH (09:37)
--- NOTE | 2020-08-02 16:40 | P.PN ---
Subjective Progress Note Date: 08/02/20 This is a 70-year-old male patient who presented to the ER with concerns of alcohol intoxication and dependence and possible suicidal ideation. Patient appears to be a poor historian unable to recall recent events. According to ER report patient has been unable to take care of himself and was found in the position living on his porch. past medical history of CVA, GERD, hypertension, osteoarthritis, cholecystectomy and daily alcohol abuse. At this time patient has been started on withdrawal protocol. Patient currently in suicide precautions. Consider is at bedside. Psychiatry service is consulted. Bilateral lower extremity is warm and erythematous. Venous Doppler and d-dimer ordered. Blood pressure also elevated home meds resumed. Patient complaining of nausea and vomiting amylase and lipase within normal limits. Will order ultrasound of abdomen. This time patient denies chest pain or shortness breath. Patient denies nausea vomiting or diarrhea. Patient denies any urinary burning or frequency. On 07/30/2020 Patient was seen and examined on the medical floor, he is alert and oriented x 3 in no distress, he denies any complaints there is no fever or chills no headache or dizziness no chest pain no shortness of breath no palpitation no cough no nausea or vomiting no abdominal pain no diarrhea no blood in the stools no burning with urination no frequency or urgency and no hematuria, there is no weakness or numbness in any of the extremities no change in vision speech or gait., Patient is still having episodes of anxiety and mild agitation, will continue with Ativan per protocol. D-dimer was elevated on presentation bilateral lower extremity Doppler was negative for DVT, chest CTA was negative for pulmonary embolism. Currently patient is maintained on Lovenox for DVT prophylaxis On 07/31/2020 patient is more somnolent today, he denies any complaints, there is no fever or chills no headache or dizziness no chest pain no shortness of breath no palpitation no cough no nausea or vomiting no abdominal pain no diarrhea no blood in the stools no burning with urination no frequency or urgency and no hematuria, at this time will continue with current management will recheck labs in a.m. On 08/01/2020 Patient was seen and examined on the medical floor, he is alert and oriented x 3 in no distress, he is feeling tired and has generalized body aches otherwise he denies any complaints there is no fever or chills no headache or dizziness no chest pain no shortness of breath no palpitation no cough no nausea or vomiting no abdominal pain no diarrhea no blood in the stools no burning with urination no frequency or urgency and no hematuria, there is no weakness or numbness in any of the extremities no change in vision speech or gait. On 08/02/2020 Patient was seen and examined on the medical floor, he is alert and oriented x 3 in no distress, he denies any complaints there is no fever or chills no headache or dizziness no chest pain no shortness of breath no palpitation no cough no nausea or vomiting no abdominal pain no diarrhea no blood in the stools no burning with urination no frequency or urgency and no hematuria, at this time will increase mobility with physical therapy and occupational therapy, possible discharge to home in the next 1-2 days Objective - Vital Signs Vital signs: Vital Signs Temp 97.7 F 08/02/20 07:28 Pulse 59 L 08/02/20 07:28 Resp 16 08/02/20 07:28 BP 165/88 08/02/20 07:28 Pulse Ox 97 08/02/20 07:28 Intake & Output 08/01/20 08/02/20 08/02/20 18:59 06:59 18:59 Intake Total 1060 Balance 1060 Intake: Oral 1060 Other: Voiding Method Urinal Urinal Diaper Diaper # Voids 3 2 # Bowel Movements 1 - Exam In general patient is alert and oriented ?-3 in no distress HEENT head normocephalic and atraumatic Neck is supple no JVD no goiter no lymphadenopathy no carotid bruit Chest examination is clear to auscultation no crackles no wheezing Cardiac exam reveals regular heart sounds S1 and S2 no gallops no murmurs Abdomen is soft nontender no organomegaly with normal bowel sounds Extremity exam reveals no edema no cyanosis or clubbing Neurological examination reveals no gross focal deficits - Labs CBC & Chem 7: 07/31/20 08:28 07/31/20 08:28 Assessment and Plan Assessment: 1. Alcohol dependence. Alcohol withdrawal protocol initiated 2. Suicidal ideation. Psychiatry service is consulted. Patient in suicide precautions 3. Lower extremity swelling. Venous Doppler d-dimer ordered 4. Mild abdominal ascites and pain will order abdominal ultrasound. Amylase and lipase within normal limits 5. Hypertension urgency. Home meds resumed. Hydralazine when necessary added 6. History of alcohol dependence 7. History of CVA 8. History of essential hypertension 9. History of GERD DVT prophylaxis Lovenox. GI prophylaxis Protonix Psychiatry service is consulted Venous Doppler ordered Abdominal ultrasound ordered Troponin ordered CK level ordered
[2020-08-03] MEDS: NALTREXONE HCL 50 MG TAB PO SCH (07:19)
[2020-08-03] MEDS: THIAMINE 100 MG TAB PO SCH ×2 (07:19→17:02)
[2020-08-03] MEDS: atenoloL 25 MG TAB PO SCH ×2 (07:19→22:30)
[2020-08-03] MEDS: PANTOPRAZOLE 40 MG TABLET PO SCH (07:19)
[2020-08-03] MEDS: FAMOTIDINE 20 MG TAB PO SCH ×2 (07:19→22:31)
[2020-08-03] MEDS: lisinopriL 20 MG TAB PO SCH ×2 (07:19→22:31)
[2020-08-03] MEDS: SODIUM CHLORIDE 0.9% 1,000 ML IV SCH (07:22)
[2020-08-03] MEDS: ENOXAPARIN 40 MG/0.4 ML SYRINGE SQ SCH (09:53)
[2020-08-03 10:19] LABS: Basophils # (A) 0.06 X 10*3/uL (0.00-0.10); Basophils % (A) 0.8 %; Eosinophils # (A) 0.17 X 10*3/uL (0.04-0.35); Eosinophils % (A) 2.1 %; HCT 52.8 % (39.6-50.0); HGB 16.5 g/dL (13.0-17.0); Lymphocytes # (A) 2.04 X 10*3/uL (0.90-5.00); Lymphocytes % (A) 25.5 %; MCH 30.7 pg (27.0-32.0); MCHC 31.3 g/dL (32.0-37.0); MCV 98.3 fL (80.0-97.0); Mean Platelet Volume 9.6 fL (9.5-12.2); Monocytes # (A) 1.08 X 10*3/uL (0.20-1.00); Monocytes % (A) 13.5 %; Neutrophils # (A) 4.54 X 10*3/uL (1.80-7.70); Neutrophils % (A) 56.7 %; Platelet Count 151 X 10*3/uL (140-440); RBC 5.37 X 10*6/uL (4.40-5.60); RDW 14.1 % (11.5-14.5)
[2020-08-03 11:05] LABS: African American GFR (CKD) 69.6 (60.0-200.0); Albumin 4.3 g/dL (3.80-4.90); Albumin/Globulin Ratio 1.79 (1.60-3.17); Calcium 8.8 mg/dL (8.7-10.3); Globulin 2.4 g/dL (1.6-3.3); Non-African American GFR(CKD) 60.1 (60.0-200.0); Potassium 3.7 mmol/L (3.5-5.5); Total Bilirubin 0.8 mg/dL (0.2-1.2); Total Protein 6.7 g/dL (6.2-8.2)
[2020-08-03] MEDS: amLODIPine 5 MG TAB PO SCH (11:39)
--- NOTE | 2020-08-03 12:49 | P.PN ---
Subjective Progress Note Date: 08/03/20 This is a 70-year-old male patient who presented to the ER with concerns of alcohol intoxication and dependence and possible suicidal ideation. Patient appears to be a poor historian unable to recall recent events. According to ER report patient has been unable to take care of himself and was found in the position living on his porch. past medical history of CVA, GERD, hypertension, osteoarthritis, cholecystectomy and daily alcohol abuse. At this time patient has been started on withdrawal protocol. Patient currently in suicide precautions. Consider is at bedside. Psychiatry service is consulted. Bilateral lower extremity is warm and erythematous. Venous Doppler and d-dimer ordered. Blood pressure also elevated home meds resumed. Patient complaining of nausea and vomiting amylase and lipase within normal limits. Will order ultrasound of abdomen. This time patient denies chest pain or shortness breath. Patient denies nausea vomiting or diarrhea. Patient denies any urinary burning or frequency. On 07/30/2020 Patient was seen and examined on the medical floor, he is alert and oriented x 3 in no distress, he denies any complaints there is no fever or chills no headache or dizziness no chest pain no shortness of breath no palpitation no cough no nausea or vomiting no abdominal pain no diarrhea no blood in the stools no burning with urination no frequency or urgency and no hematuria, there is no weakness or numbness in any of the extremities no change in vision speech or gait., Patient is still having episodes of anxiety and mild agitation, will continue with Ativan per protocol. D-dimer was elevated on presentation bilateral lower extremity Doppler was negative for DVT, chest CTA was negative for pulmonary embolism. Currently patient is maintained on Lovenox for DVT prophylaxis On 07/31/2020 patient is more somnolent today, he denies any complaints, there is no fever or chills no headache or dizziness no chest pain no shortness of breath no palpitation no cough no nausea or vomiting no abdominal pain no diarrhea no blood in the stools no burning with urination no frequency or urgency and no hematuria, at this time will continue with current management will recheck labs in a.m. On 08/01/2020 Patient was seen and examined on the medical floor, he is alert and oriented x 3 in no distress, he is feeling tired and has generalized body aches otherwise he denies any complaints there is no fever or chills no headache or dizziness no chest pain no shortness of breath no palpitation no cough no nausea or vomiting no abdominal pain no diarrhea no blood in the stools no burning with urination no frequency or urgency and no hematuria, there is no weakness or numbness in any of the extremities no change in vision speech or gait. On 08/02/2020 Patient was seen and examined on the medical floor, he is alert and oriented x 3 in no distress, he denies any complaints there is no fever or chills no headache or dizziness no chest pain no shortness of breath no palpitation no cough no nausea or vomiting no abdominal pain no diarrhea no blood in the stools no burning with urination no frequency or urgency and no hematuria, at this time will increase mobility with physical therapy and occupational therapy, possible discharge to home in the next 1-2 days On 08/03/2020 Patient was seen and examined on the medical floor, he is alert and oriented x 3 in no distress, he denies any complaints there is no fever or chills no headache or dizziness no chest pain no shortness of breath no palpitation no cough no nausea or vomiting no abdominal pain no diarrhea no blood in the stools no burning with urination no frequency or urgency and no hematuria, patient is complaining of generalized weakness and difficulty with his gait, will assess if we can transfer patient to a fdc for rehabilitation in the next 24 hours, patient fdc of choice is [facility]. Objective - Vital Signs Vital signs: Vital Signs Temp 100.0 F H 08/03/20 07:51 Pulse 61 08/03/20 07:51 Resp 20 08/03/20 07:51 BP 174/94 08/03/20 07:51 Pulse Ox 93 L 08/03/20 07:51 Intake & Output 08/02/20 08/03/20 08/03/20 18:59 06:59 18:59 Output Total 400 300 Balance -400 -300 Output: Urine 400 300 Other: Voiding Method Urinal Urinal Urinal Diaper Diaper Diaper # Voids 1 1 # Bowel Movements 1 1 - Exam In general patient is alert and oriented ?-3 in no distress HEENT head normocephalic and atraumatic Neck is supple no JVD no goiter no lymphadenopathy no carotid bruit Chest examination is clear to auscultation no crackles no wheezing Cardiac exam reveals regular heart sounds S1 and S2 no gallops no murmurs Abdomen is soft nontender no organomegaly with normal bowel sounds Extremity exam reveals no edema no cyanosis or clubbing Neurological examination reveals no gross focal deficits - Labs CBC & Chem 7: 08/03/20 05:34 08/03/20 05:34 Labs: Abnormal Lab Results - Last 24 Hours (Table) 08/03/20 08/03/20 Range/Units 05:34 05:34 Hct 52.8 H (39.6-50.0) % MCV 98.3 H (80.0-97.0) fL MCHC 31.3 L (32.0-37.0) g/dL Immature Gran # 0.11 H (0.00-0.04) X 10*3/uL Monocytes # 1.08 H (0.20-1.00) X 10*3/uL AST 37 H (14-35) U/L Assessment and Plan Assessment: 1. Alcohol dependence. Alcohol withdrawal protocol initiated 2. Suicidal ideation. Psychiatry service is consulted. Patient in suicide precautions 3. Lower extremity swelling. Venous Doppler d-dimer ordered 4. Mild abdominal ascites and pain will order abdominal ultrasound. Amylase and lipase within normal limits 5. Hypertension urgency. Home meds resumed. Hydralazine when necessary added 6. History of alcohol dependence 7. History of CVA 8. History of essential hypertension 9. History of GERD DVT prophylaxis Lovenox. GI prophylaxis Protonix Psychiatry service is consulted Venous Doppler ordered Abdominal ultrasound ordered Troponin ordered CK level ordered
[2020-08-04] MEDS: SODIUM CHLORIDE 0.9% 1,000 ML IV SCH (10:23)
[2020-08-04] MEDS: atenoloL 25 MG TAB PO SCH ×2 (10:24→21:24)
[2020-08-04] MEDS: PANTOPRAZOLE 40 MG TABLET PO SCH (10:24)
[2020-08-04] MEDS: THIAMINE 100 MG TAB PO SCH ×2 (10:24→19:14)
[2020-08-04] MEDS: NALTREXONE HCL 50 MG TAB PO SCH (10:24)
[2020-08-04] MEDS: amLODIPine 5 MG TAB PO SCH (10:24)
[2020-08-04] MEDS: lisinopriL 20 MG TAB PO SCH ×2 (10:24→21:24)
[2020-08-04] MEDS: ENOXAPARIN 40 MG/0.4 ML SYRINGE SQ SCH ×2 (10:24→10:31)
[2020-08-04] MEDS: FAMOTIDINE 20 MG TAB PO SCH (10:25)
--- NOTE | 2020-08-04 13:23 | P.DS ---
Providers Date of admission: 07/29/20 07:06 Expected date of discharge: 08/04/20 Attending physician: Kassie Beasley Consults: 07/29/20 07:07 Consult Physician Routine Consulting Provider: Adam Wolf Consult Reason/Comments: Alcohol dependence. Suicidal ideation. Do you want consulting provider notified?: Yes Primary care physician: Kassie Beasley [facility] Course: Discharge diagnosis 1. Alcohol dependence. Alcohol withdrawal protocol initiated 2. Suicidal ideation. Psychiatry service is consulted. Patient in suicide precautions. Patient was evaluated by psychiatry services patient does not meet criteria for inpatient psych taken out of suicide precautions 3. Lower extremity swelling. Venous Doppler d-dimer ordered 4. Mild abdominal ascites and pain will order abdominal ultrasound. Amylase and lipase within normal limits 5. Hypertension urgency. Home meds resumed. Hydralazine when necessary added 6. History of alcohol dependence 7. History of CVA 8. History of essential hypertension 9. History of GERD Hospital course This is a 70-year-old male patient who presented to the ER with concerns of alcohol intoxication and dependence and possible suicidal ideation. Patient appears to be a poor historian unable to recall recent events. According to ER report patient has been unable to take care of himself and was found in the position living on his porch. past medical history of CVA, GERD, hypertension, osteoarthritis, cholecystectomy and daily alcohol abuse. At this time patient has been started on withdrawal protocol. Patient currently in suicide precautions. Consider is at bedside. Psychiatry service is consulted. Bilateral lower extremity is warm and erythematous. Venous Doppler and d-dimer ordered. Blood pressure also elevated home meds resumed. Patient complaining of nausea and vomiting amylase and lipase within normal limits. Will order ultrasound of abdomen. This time patient denies chest pain or shortness breath. Patient denies nausea vomiting or diarrhea. Patient denies any urinary burning or frequency. On 07/30/2020 Patient was seen and examined on the medical floor, he is alert and oriented x 3 in no distress, he denies any complaints there is no fever or chills no headache or dizziness no chest pain no shortness of breath no palpitation no cough no nausea or vomiting no abdominal pain no diarrhea no blood in the stools no burning with urination no frequency or urgency and no hematuria, there is no weakness or numbness in any of the extremities no change in vision speech or gait., Patient is still having episodes of anxiety and mild agitation, will continue with Ativan per protocol. D-dimer was elevated on presentation bilateral lower extremity Doppler was negative for DVT, chest CTA was negative for pulmonary embolism. Currently patient is maintained on Lovenox for DVT prophylaxis On 07/31/2020 patient is more somnolent today, he denies any complaints, there is no fever or chills no headache or dizziness no chest pain no shortness of breath no palpitation no cough no nausea or vomiting no abdominal pain no diarrhea no blood in the stools no burning with urination no frequency or urgency and no hematuria, at this time will continue with current management will recheck labs in a.m. On 08/01/2020 Patient was seen and examined on the medical floor, he is alert and oriented x 3 in no distress, he is feeling tired and has generalized body aches otherwise he denies any complaints there is no fever or chills no headache or dizziness no chest pain no shortness of breath no palpitation no cough no nausea or vomiting no abdominal pain no diarrhea no blood in the stools no burning with urination no frequency or urgency and no hematuria, there is no weakness or numbness in any of the extremities no change in vision speech or gait. On 08/02/2020 Patient was seen and examined on the medical floor, he is alert an d oriented x 3 in no distress, he denies any complaints there is no fever or chills no headache or dizziness no chest pain no shortness of breath no palpitation no cough no nausea or vomiting no abdominal pain no diarrhea no blood in the stools no burning with urination no frequency or urgency and no hematuria, at this time will increase mobility with physical therapy and occupational therapy, possible discharge to home in the next 1-2 days On 08/03/2020 Patient was seen and examined on the medical floor, he is alert and oriented x 3 in no distress, he denies any complaints there is no fever or chills no headache or dizziness no chest pain no shortness of breath no palpitation no cough no nausea or vomiting no abdominal pain no diarrhea no blood in the stools no burning with urination no frequency or urgency and no hematuria, patient is complaining of generalized weakness and difficulty with his gait, will assess if we can transfer patient to a care home for rehabilitation in the next 24 hours, patient care home of choice is [facility] On 08/04/2070 patient is alert and oriented 3. Patient complaining of generalized weakness. Patient will be DC'd to [facility] today per social work. Labs have remained stable. Temperature 98.9 heart rate 60 respiratory rate 18 blood pressure 159/71 O2 saturation of 98% on room air. Patient denies chest pain or shortness of breath. Patient denies nausea vomiting or diarrhea. Patient denies any urinary burning or frequency. Patient Condition at Discharge: Stable Plan - Discharge Summary Discharge Rx Participant: No New Discharge Prescriptions: New amLODIPine [Norvasc] 5 mg PO DAILY tab atenoloL [Tenormin] 25 mg PO BID tab Naltrexone HCl [Revia] 50 mg PO DAILY tab Thiamine [Vitamin B-1] 100 mg PO BID-W/MEALS tab lisinopriL [Zestril] 20 mg PO BID tab Discharge Medication List Naltrexone HCl [Revia] 50 mg PO DAILY tab 08/04/20 [Rx] Thiamine [Vitamin B-1] 100 mg PO BID-W/MEALS tab 08/04/20 [Rx] amLODIPine [Norvasc] 5 mg PO DAILY tab 08/04/20 [Rx] atenoloL [Tenormin] 25 mg PO BID tab 08/04/20 [Rx] lisinopriL [Zestril] 20 mg PO BID tab 08/04/20 [Rx] Follow up Appointment(s)/Referral(s): Kassie Beasley MD [Primary Care Provider] - 08/13/20 11:00 am Activity/Diet/Wound Care/Special Instructions: Activity as tolerated Diet heart healthy Discharge Disposition: TRANSFER TO SNF/ECF
--- NOTE | 2020-08-04 16:40 | US ---
EXAMINATION TYPE: US carotid duplex BILAT DATE OF EXAM: 08/04/2020 COMPARISON: NONE CLINICAL HISTORY: dizziness. Dizziness EXAM MEASUREMENTS: RIGHT: Peak Systolic Velocity (PSV) cm/sec ----- Right CCA: 88.6 ----- Right ICA: 117.6 ----- Right ECA: 190.3 ICA/CCA ratio: 1.3 RIGHT: End Diastole cm/sec ----- Right CCA: 12.9 ----- Right ICA: 28.9 ----- Right ECA: 9.5 LEFT: Peak Systolic Velocity (PSV) cm/sec ----- Left CCA: 104.8 ----- Left ICA: 122.6 ----- Left ECA: 108.2 ICA/CCA ratio: 1.2 LEFT: End Diastole cm/sec ----- Left CCA: 14.4 ----- Left ICA: 22.5 ----- Left ECA: 0 VERTEBRALS (direction of flow): Right Vertebral: Antegrade Left Vertebral: Antegrade Rhythm: Normal No significant stenosis seen IMPRESSION: 1. No significant hemodynamic stenosis identified. 2. Atherosclerotic plaque. Criteria for Assigning % of Stenosis / Diameter reduction (Estimation based on the indirect measurements of the internal carotid artery velocities (ICA PSV). 1. Normal (no stenosis)=ICA PSV < 125 cm/s: ratio < 2.0: ICA EDV<40 cm/s. 2. Less than 50% stenosis=ICA PSV < 125 cm/s: ratio < 2.0: ICA EDV<40 cm/s. 3. 50 to 69% stenosis=ICA PSV of 125 to 230 cm/s: ration 2.0 ? 4.0: ICA EDV 40-100 cm/s. 4. Greater than 70% stenosis to near occlusion= ICA PSV > 230 cm/s: ratio > 4.0: ICA EDV > 100 cm/s. 5. Near occlusion= ICA PSV velocities may be low or undetectable: variable ratio and ICA EDV. 6. Total occlusion=unable to detect flow.
[2020-08-05] MEDS: atenoloL 25 MG TAB PO SCH (07:45)
[2020-08-05] MEDS: NALTREXONE HCL 50 MG TAB PO SCH (07:45)
[2020-08-05] MEDS: ENOXAPARIN 40 MG/0.4 ML SYRINGE SQ SCH ×2 (07:45→07:51)
[2020-08-05] MEDS: lisinopriL 20 MG TAB PO SCH (07:45)
[2020-08-05] MEDS: PANTOPRAZOLE 40 MG TABLET PO SCH (07:45)
[2020-08-05] MEDS: amLODIPine 5 MG TAB PO SCH (07:45)
[2020-08-05] MEDS: THIAMINE 100 MG TAB PO SCH (07:45)
[2020-08-05 09:06] LABS: ALT 31 U/L (4-49); AST 38 U/L (17-59); African American GFR (CKD) 71 (>60 ml/min/1.73 sqM); Albumin 3.5 g/dL (3.5-5.0); Albumin/Globulin Ratio 1.3; Alkaline Phosphatase 81 U/L (38-126); Anion Gap 5 mmol/L; Blood Urea Nitrogen 25 mg/dL (9-20); Calcium 8.4 mg/dL (8.4-10.2); Carbon Dioxide 28 mmol/L (22-30); Chloride 108 mmol/L (98-107); Globulin 2.6 g/dL; Glucose 91 mg/dL (74-99); Non-African American GFR(CKD) 61 (>60 ml/min/1.73 sqM); Potassium 4.4 mmol/L (3.5-5.1); Sodium 141 mmol/L (137-145); Total Bilirubin 0.5 mg/dL (0.2-1.3); Total Protein 6.1 g/dL (6.3-8.2)
[2020-08-05 12:08] LABS: Basophils # (A) 0.07 X 10*3/uL (0.00-0.10); Basophils % (A) 1.2 %; Eosinophils # (A) 0.21 X 10*3/uL (0.04-0.35); Eosinophils % (A) 3.6 %; HCT 46.8 % (39.6-50.0); HGB 14.7 g/dL (13.0-17.0); Lymphocytes # (A) 1.48 X 10*3/uL (0.90-5.00); Lymphocytes % (A) 25.3 %; MCH 30.9 pg (27.0-32.0); MCHC 31.4 g/dL (32.0-37.0); MCV 98.5 fL (80.0-97.0); Mean Platelet Volume 9.5 fL (9.5-12.2); Monocytes # (A) 0.79 X 10*3/uL (0.20-1.00); Monocytes % (A) 13.5 %; Neutrophils # (A) 3.21 X 10*3/uL (1.80-7.70); Platelet Count 201 X 10*3/uL (140-440); RBC 4.75 X 10*6/uL (4.40-5.60); WBC 5.84 X 10*3/uL (4.50-10.00)
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
--- NOTE | 2020-08-05 12:45 | ECHOF ---
Referral Reason:dizziness MEASUREMENTS -------- HEIGHT: 177.8 cm WEIGHT: 95.3 kg BP: 144/73 IVSd: 1.8 cm (0.6 - 1.1) LVIDd: 4.4 cm (3.9 - 5.3) LVPWd: 1.8 cm (0.6 - 1.1) IVSs: 2.5 cm LVIDs: 1.9 cm LVPWs: 2.6 cm LA Diam: 4.3 cm (2.7 - 3.8) Ao Diam: 3.4 cm (2.0 - 3.7) AV Cusp: 2.5 cm (1.5 - 2.6) MV EXCURSION: 19.297 mm (> 18.000) MV EF SLOPE: 50 mm/s (70 - 150) EPSS: 0.4 cm MV E Kleber: 0.35 m/s MV DecT: 271 ms MV A Kleber: 0.72 m/s MV E/A Ratio: 0.49 RAP: 5.00 mmHg RVSP: 33.44 mmHg FINDINGS -------- Sinus rhythm. This was a technically adequate study. The left ventricular size is normal. There is severe concentric left ventricular hypertrophy. Ove rall left ventricular systolic function is normal with, an EF between 55 - 60 %. The right ventricle is normal in size. The left atrium is mildly dilated. The right atrium was not well visualized. Interatrial and interventricular septum intact. The aortic valve was not well visualized. There is no evidence of aortic regurgitation. There is no evidence of aortic stenosis. No mitral regurgitation. Mild tricuspid regurgitation present. There is no evidence of pulmonary hypertension. The right v entricular systolic pressure, as measured by Doppler, is 33.44mmHg. There is no pulmonic regurgitation present. The aortic root size is normal. Normal inferior vena cava with normal inspiratory collapse consistent with estimated right atrial pre ssure of 5 mmHg. There is no pericardial effusion. CONCLUSIONS -------- 1. The left ventricular size is normal. 2. There is severe concentric left ventricular hypertrophy. 3. Overall left ventricular systolic function is normal with, an EF between 55 - 60 %. 4. The left atrium is mildly dilated. 5. Mild tricuspid regurgitation present. AQUATICS COORDINATOR: Argelia Elizalde [facility]
[2020-08-05 14:01] VITALS: BP 117/60; PULSE 53; RESP 16; TEMP 98.3
--- NOTE | 2020-08-05 15:07 | P.DS ---
Providers Date of admission: 07/29/20 07:06 Expected date of discharge: 08/05/20 Attending physician: Kassie Beasley Consults: 07/29/20 07:07 Consult Physician Routine Consulting Provider: Adam Wolf Consult Reason/Comments: Alcohol dependence. Suicidal ideation. Do you want consulting provider notified?: Yes 08/04/20 15:30 Consult Physician Routine Consulting Provider: Narda Hummel Consult Reason/Comments: dizziness Do you want consulting provider notified?: Yes Primary care physician: Kassie Gale [facility] Course: Discharge diagnosis 1. Alcohol dependence. Alcohol withdrawal protocol initiated 2. Suicidal ideation. Psychiatry service is consulted. Patient in suicide precautions. Patient was evaluated by psychiatry services patient does not meet criteria for inpatient psych taken out of suicide precautions 3. Lower extremity swelling. Venous Doppler d-dimer ordered 4. Mild abdominal ascites and pain will order abdominal ultrasound. Amylase and lipase within normal limits 5. Hypertension urgency. Home meds resumed. Hydralazine when necessary added 6. History of alcohol dependence 7. History of CVA 8. History of essential hypertension 9. History of GERD Hospital course This is a 70-year-old male patient who presented to the ER with concerns of alcohol intoxication and dependence and possible suicidal ideation. Patient appears to be a poor historian unable to recall recent events. According to ER report patient has been unable to take care of himself and was found in the position living on his porch. past medical history of CVA, GERD, hypertension, osteoarthritis, cholecystectomy and daily alcohol abuse. At this time patient has been started on withdrawal protocol. Patient currently in suicide precautions. Consider is at bedside. Psychiatry service is consulted. Bilateral lower extremity is warm and erythematous. Venous Doppler and d-dimer ordered. Blood pressure also elevated home meds resumed. Patient complaining of nausea and vomiting amylase and lipase within normal limits. Will order ultrasound of abdomen. This time patient denies chest pain or shortness breath. Patient denies nausea vomiting or diarrhea. Patient denies any urinary burning or frequency. On 07/30/2020 Patient was seen and examined on the medical floor, he is alert and oriented x 3 in no distress, he denies any complaints there is no fever or chills no headache or dizziness no chest pain no shortness of breath no palpitation no cough no nausea or vomiting no abdominal pain no diarrhea no blood in the stools no burning with urination no frequency or urgency and no hematuria, there is no weakness or numbness in any of the extremities no change in vision speech or gait., Patient is still having episodes of anxiety and mild agitation, will continue with Ativan per protocol. D-dimer was elevated on presentation bilateral lower extremity Doppler was negative for DVT, chest CTA was negative for pulmonary embolism. Currently patient is maintained on Lovenox for DVT prophylaxis On 07/31/2020 patient is more somnolent today, he denies any complaints, there is no fever or chills no headache or dizziness no chest pain no shortness of breath no palpitation no cough no nausea or vomiting no abdominal pain no diarrhea no blood in the stools no burning with urination no frequency or urgency and no hematuria, at this time will continue with current management will recheck labs in a.m. On 08/01/2020 Patient was seen and examined on the medical floor, he is alert and oriented x 3 in no distress, he is feeling tired and has generalized body aches otherwise he denies any complaints there is no fever or chills no headache or dizziness no chest pain no shortness of breath no palpitation no cough no nausea or vomiting no abdominal pain no diarrhea no blood in the stools no burning with urination no frequency or urgency and no hematuria, there is no weakness or numbness in any of the extremities no change in vision speech or gait. On 08/02/2020 Patient was seen and examined on the medical floor, he is alert and oriented x 3 in no distress, he denies any complaints there is no fever or chills no headache or dizziness no chest pain no shortness of breath no palpitation no cough no nausea or vomiting no abdominal pain no diarrhea no blood in the stools no burning with urination no frequency or urgency and no hematuria, at this time will increase mobility with physical therapy and occupational therapy, possible discharge to home in the next 1-2 days On 08/03/2020 Patient was seen and examined on the medical floor, he is alert and oriented x 3 in no distress, he denies any complaints there is no fever or chills no headache or dizziness no chest pain no shortness of breath no palpitation no cough no nausea or vomiting no abdominal pain no diarrhea no blood in the stools no burning with urination no frequency or urgency and no hematuria, patient is complaining of generalized weakness and difficulty with his gait, will assess if we can transfer patient to a assisted for rehabilitation in the next 24 hours, patient assisted of choice is [facility]. On 08/04/2070 patient is alert and oriented 3. Patient complaining of generalized weakness. Patient will be DC'd to [facility] today per social work. Labs have remained stable. Temperature 98.9 heart rate 60 respiratory rate 18 blood pressure 159/71 O2 saturation of 98% on room air. Patient denies chest pain or shortness of breath. Patient denies nausea vomiting or diarrhea. Patient denies any urinary burning or frequency. On 08/05/2020 patient was seen and examined on the medical floor, he is alert and oriented 3 in no apparent distress, yesterday she was scheduled for discharge to [facility] on the [facility] for rehabilitation however he was having severe dizziness when he stood up discharge was canceled echocardiogram and carotid Doppler were done and patient was evaluated by cardiology. Today patient is feeling better, he denies any dizziness, echocardiogram and carotid Doppler were within normal limits, patient was evaluated by cardiology and was cleared for discharge, he will be transferred today to [facility] for rehabilitation. Patient Condition at Discharge: Stable Plan - Discharge Summary Discharge Rx Participant: No New Discharge Prescriptions: New amLODIPine [Norvasc] 5 mg PO DAILY tab atenoloL [Tenormin] 25 mg PO BID tab Naltrexone HCl [Revia] 50 mg PO DAILY tab Thiamine [Vitamin B-1] 100 mg PO BID-W/MEALS tab lisinopriL [Zestril] 20 mg PO BID tab Pantoprazole [Protonix] 40 mg PO AC-BRKFST tablet. Discharge Medication List Naltrexone HCl [Revia] 50 mg PO DAILY tab 08/04/20 [Rx] Thiamine [Vitamin B-1] 100 mg PO BID-W/MEALS tab 08/04/20 [Rx] amLODIPine [Norvasc] 5 mg PO DAILY tab 08/04/20 [Rx] atenoloL [Tenormin] 25 mg PO BID tab 08/04/20 [Rx] lisinopriL [Zestril] 20 mg PO BID tab 08/04/20 [Rx] Pantoprazole [Protonix] 40 mg PO AC-BRKFST tablet. 08/05/20 [Rx] Follow up Appointment(s)/Referral(s): Kassie Beasley MD [Primary Care Provider] - 08/13/20 11:00 am Reynaldo Lawton MD [STAFF PHYSICIAN] - 2 Weeks Activity/Diet/Wound Care/Special Instructions: Activity as tolerated Diet heart healthy Discharge Disposition: TRANSFER TO SNF/ECF
[2020-08-05 15:08] VITALS: BMI 30.2
== END 2020-08-05 15:55 | DRG 897 ==
LOC: EC 04:22 → 3SCARD 07:06 → 4SSUR 20:21
PROVIDERS: ADMIT Internal Medicine; ATTEND Internal Medicine
DX: F10.239 Alcohol dependence with withdrawal, unspecified (principal); R45.851 Suicidal ideations; R18.8 Other ascites; I47.2 Ventricular tachycardia; I10 Essential (primary) hypertension; K21.9 Gastro-esophageal reflux disease without esophagitis; Z86.73 Personal history of transient ischemic attack (TIA), and cerebral infarction without residual deficits; Z82.49 Family history of ischemic heart disease and other diseases of the circulatory system; Z20.822 Contact with and (suspected) exposure to COVID-19; Z82.5 Family history of asthma and other chronic lower respiratory diseases; F10.229 Alcohol dependence with intoxication, unspecified; I16.0 Hypertensive urgency; R60.0 Localized edema; F41.9 Anxiety disorder, unspecified; M10.9 Gout, unspecified; F32.9 Major depressive disorder, single episode, unspecified; I49.3 Ventricular premature depolarization; Z79.899 Other long term (current) drug therapy
CPT/HCPCS: 36415; 71275; 76700; 80053; 80320; 81001; 82150; 82550; 82553; 83690; 84484; 85025; 85379; 87635; 93005; 93306; 93880; 93970; 96361; 96374; 99285

== ENCOUNTER 2020-09-07 18:10 | Inpatient (IN) | payer MEDICARE ==
[2020-09-07] MEDS ORDERED: SODIUM CHLORIDE 0.9% 1,000 ML with MVI, ADULT NO.4 WITH VIT K 10 ML, THIAMINE 100 MG, F... IV ONE ×4 (18:21)
[2020-09-07] MEDS ORDERED: DIPH,PERTUS(ACELL)TETVAC-LF 0.5 ML VIAL IM ONE (18:22)
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
[2020-09-07 18:57] LABS: Basophils # (A) 0.1 k/uL (0-0.2); Basophils % (A) 1 %; Eosinophils # (A) 0.1 k/uL (0-0.7); Eosinophils % (A) 2 %; HCT 52.7 % (39.0-53.0); Lymphocytes # (A) 1.6 k/uL (1.0-4.8); Lymphocytes % (A) 28 %; MCH 31.7 pg (25.0-35.0); MCHC 34.6 g/dL (31.0-37.0); MCV 91.5 fL (80.0-100.0); Mean Platelet Volume 6.9; Monocytes # (A) 0.4 k/uL (0-1.0); Monocytes % (A) 6 %; Neutrophils # (A) 3.4 k/uL (1.3-7.7); Neutrophils % (A) 61 %; Platelet Count 112 k/uL (150-450); RBC 5.76 m/uL (4.30-5.90); RDW 14.5 % (11.5-15.5); WBC 5.5 k/uL (3.8-10.6)
[2020-09-07 19:00] LABS: HGB 18.2 gm/dL (13.0-17.5)
[2020-09-07 19:11] LABS: Albumin 4.5 g/dL (3.5-5.0); Magnesium 2.2 mg/dL (1.6-2.3); Potassium 4.8 mmol/L (3.5-5.1); Total Bilirubin 0.7 mg/dL (0.2-1.3); Total Protein 7.3 g/dL (6.3-8.2)
[2020-09-07 19:17] LABS: Prothrombin Time 10.6 sec (9.0-12.0)
[2020-09-07] MEDS ORDERED: LORazepam 2 MG/ML INJ IV STA (19:27)
[2020-09-07] MEDS ORDERED: NALOXONE 0.4 MG/ML 1 ML VIAL IV PRN (19:32)
[2020-09-07] MEDS ORDERED: THIAMINE 100 MG/ML 2 ML VIAL IM STA (19:34)
[2020-09-07] MEDS ORDERED: LORazepam 2 MG/ML INJ IV PRN (19:34)
[2020-09-07] MEDS: LORazepam 2 MG/ML INJ IV PRN (23:53)
[2020-09-08] MEDS: LORazepam 2 MG/ML INJ IV PRN ×4 (03:02→19:58)
[2020-09-08] MEDS: THIAMINE 100 MG TAB PO SCH ×3 (03:04→17:58)
[2020-09-08] MEDS ORDERED: LABETALOL 5 MG/ML VIAL MDV IVP STA (06:29)
[2020-09-08] MEDS ORDERED: LORazepam 2 MG/ML INJ IV STA (06:29)
[2020-09-08] MEDS ORDERED: NALTREXONE HCL 50 MG TAB PO SCH (09:00)
[2020-09-08] MEDS: lisinopriL 20 MG TAB PO SCH ×2 (09:47→19:58)
[2020-09-08] MEDS: atenoloL 25 MG TAB PO SCH ×2 (09:47→19:58)
[2020-09-08] MEDS: ACETAMINOPHEN TAB 500 MG TAB PO PRN ×2 (09:47→21:15)
[2020-09-08] MEDS: amLODIPine 5 MG TAB PO SCH (09:47)
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
[2020-09-08 10:04] LABS: ALT 30 U/L (4-49); AST 59 U/L (17-59); African American GFR (CKD) 86 (>60 ml/min/1.73 sqM); Albumin 4.1 g/dL (3.5-5.0); Albumin/Globulin Ratio 1.7; Alkaline Phosphatase 95 U/L (38-126); Anion Gap 8 mmol/L; Blood Urea Nitrogen 12 mg/dL (9-20); Calcium 8.4 mg/dL (8.4-10.2); Carbon Dioxide 28 mmol/L (22-30); Chloride 104 mmol/L (98-107); Globulin 2.4 g/dL; Glucose 109 mg/dL (74-99); Non-African American GFR(CKD) 74 (>60 ml/min/1.73 sqM); Potassium 4.1 mmol/L (3.5-5.1); Sodium 140 mmol/L (137-145); Total Protein 6.5 g/dL (6.3-8.2)
[2020-09-08 10:10] LABS: Basophils # (A) 0.1 k/uL (0-0.2); Basophils % (A) 1 %; Eosinophils # (A) 0.1 k/uL (0-0.7); Eosinophils % (A) 1 %; HGB 16.6 gm/dL (13.0-17.5); Lymphocytes % (A) 15 %; MCH 31.3 pg (25.0-35.0); MCHC 33.8 g/dL (31.0-37.0); MCV 92.6 fL (80.0-100.0); Mean Platelet Volume 7.2; Monocytes # (A) 0.4 k/uL (0-1.0); Monocytes % (A) 6 %; Neutrophils # (A) 5.2 k/uL (1.3-7.7); Neutrophils % (A) 76 %; RDW 15.2 % (11.5-15.5); WBC 6.9 k/uL (3.8-10.6)
[2020-09-08 12:27] LABS: Platelet Count 77 k/uL (150-450)
[2020-09-09 05:46] LABS: Basophils % (A) 1 %; Eosinophils # (A) 0.1 k/uL (0-0.7); Eosinophils % (A) 2 %; HCT 44.2 % (39.0-53.0); Lymphocytes # (A) 0.8 k/uL (1.0-4.8); Lymphocytes % (A) 14 %; MCH 31.9 pg (25.0-35.0); MCHC 33.9 g/dL (31.0-37.0); MCV 94.2 fL (80.0-100.0); Mean Platelet Volume 7.7; Monocytes # (A) 0.3 k/uL (0-1.0); Monocytes % (A) 6 %; Neutrophils # (A) 4.2 k/uL (1.3-7.7); Neutrophils % (A) 76 %; RBC 4.69 m/uL (4.30-5.90); RDW 15.3 % (11.5-15.5); WBC 5.5 k/uL (3.8-10.6)
[2020-09-09 05:56] LABS: Platelet Count 65 k/uL (150-450)
[2020-09-09] MEDS: ENOXAPARIN 40 MG/0.4 ML SYRINGE SQ SCH (07:54)
[2020-09-09] MEDS: lisinopriL 20 MG TAB PO SCH ×2 (07:54→19:59)
[2020-09-09] MEDS: THIAMINE 100 MG TAB PO SCH ×2 (07:55→16:59)
[2020-09-09] MEDS: atenoloL 25 MG TAB PO SCH ×2 (07:55→19:59)
[2020-09-09] MEDS: PANTOPRAZOLE 40 MG TABLET PO SCH (07:55)
[2020-09-09] MEDS: amLODIPine 5 MG TAB PO SCH (07:55)
[2020-09-09 09:44] LABS: African American GFR (CKD) 86.8 (60.0-200.0); Albumin 3.7 g/dL (3.80-4.90); Albumin/Globulin Ratio 1.76 (1.60-3.17); Anion Gap 8.7 mmol/L (4.00-12.00); Calcium 8.2 mg/dL (8.7-10.3); Carbon Dioxide 27.3 mmol/L (21.6-31.8); Globulin 2.1 g/dL (1.6-3.3); Non-African American GFR(CKD) 74.9 (60.0-200.0); Potassium 3.7 mmol/L (3.5-5.5); Total Bilirubin 1.1 mg/dL (0.2-1.2); Total Protein 5.8 g/dL (6.2-8.2)
[2020-09-09] MEDS ORDERED: hydrOXYzine pamoate 25 MG CAP PO PRN (14:29)
[2020-09-09] MEDS: FLUoxetine HCL 10 MG CAP PO SCH (17:14)
--- NOTE | 2020-09-09 17:32 | P.PN ---
Subjective Progress Note Date: 09/09/20 This is a 70-year-old male patient who presented to the ER after being found laying on his floor in the house. Patient reports he had been drinking due to recent of his second and was feeling depressed and suicidal. Patient reports that he had recently tried to stop drinking but became shaky so he started drinking so the shaking would stop. Patient has a past medical history of CVA, GERD, hypertension, osteoarthritis who cholecystectomy, hernia repair, anxiety, depression and heavy alcohol abuse. Patient has been started on alcohol withdrawal protocol. Home medications resumed including blood pressure medication. Patient is maintained and suicide precautions sitter is at bedside. Psychiatry service is consulted. This time patient denies chest pain or shortness of breath. Patient denies nausea vomiting or diarrhea. Patient denies any urinary burning or frequency On 09/09/2020 patient was seen and examined on the medical floor, he is alert and oriented x 3 in no distress, he denies any complaints there is no fever or chills no headache or dizziness no chest pain no shortness of breath no palpitation no cough no nausea or vomiting no abdominal pain no diarrhea no bloo d in the stools no burning with urination no frequency or urgency and no hematuria, there is no weakness or numbness in any of the extremities no change in vision speech or gait. He is calm and does not look agitated at this time, however he stated that he is feeling anxious and is requesting Ativan, otherwise he denies any complaints. Objective - Vital Signs Vital signs: Vital Signs Temp 98.5 F 09/09/20 11:55 Pulse 75 09/09/20 11:55 Resp 18 09/09/20 11:55 BP 169/93 09/09/20 11:55 Pulse Ox 96 09/09/20 11:55 Intake & Output 09/08/20 09/09/20 09/09/20 18:59 06:59 18:59 Intake Total 1540 Balance 1540 Intake: Intake, IV Titration 950 Amount Sodium Chloride 0.9% 1, 950 000 ml @ 100 mls/hr IV . Q10H7M ONE with Mvi, Adult No.4 with Vit K 10 ml with Thiamine 100 mg with Folic Acid 1 mg Rx#: [id number] Oral 590 Other: Voiding Method Urinal Urinal Urinal Diaper # Bowel Movements 1 - Exam In general patient is alert and oriented x 3 in no distress HEENT head normocephalic and atraumatic Neck is supple no JVD no goiter no lymphadenopathy no carotid bruit Chest examination is clear to auscultation no crackles no wheezing Cardiac exam reveals regular heart sounds S1 and S2 no gallops no murmurs Abdomen is soft nontender no organomegaly with normal bowel sounds Extremity exam reveals no edema no cyanosis or clubbing Neurological examination reveals no gross focal deficits - Labs CBC & Chem 7: 09/09/20 05:21 07 05:21 Labs: Abnormal Lab Results - Last 24 Hours (Table) 09/09/20 09/09/20 Range/Units 05:21 05:21 Plt Count 65 L (150-450) k/uL Lymphocytes # 0.8 L (1.0-4.8) k/uL Glucose 116 H (70-110) mg/dL Calcium 8.2 L (8.7-10.3) mg/dL AST 37 H (14-35) U/L Total Protein 5.8 L (6.2-8.2) g/dL Albumin 3.70 L (3.80-4.90) g/dL Assessment and Plan Assessment: 1. Alcohol dependence. Patient started alcohol withdrawal protocol 2. Suicidal ideation. Patient maintained on suicide precautions psychiatry service is consulted 3. Essential hypertension. Home meds resumed 4. History of CVA 5. Alcohol dependence 6. History of GERD DVT prophylaxis Lovenox. GI prophylaxis Protonix Psychiatry service is consulted Patient maintained in suicide precautions Alcohol withdrawal protocol Repeat labs ordered
--- NOTE | 2020-09-10 06:00 | CONS ---
CONSULTATION DATE OF SERVICE: 09/09/2020 PURPOSE FOR CONSULTATION: Evaluate for depression with suicidal statements. He had significant alcohol dependence. HISTORY OF PRESENTING ILLNESS: The patient is a 70-year-old male. He was brought by EMS to the hospital because he was found lying on the floor in his house. He had been drinking. He had made statements that he was suicidal. He has a number of complicating general health issues. It is noted that the patient stated that his August 06 due to complications from pulmonary embolism. He said he has been in considerable grief relating to that. He acknowledges that he has struggled with drinking. He says that he drinks about 4 beers per day. He may go up a few days or even a few weeks without drinking, though then he slips back into drinking. He says he very much wants to quit and gets very guilty when he has been drinking, though he acknowledges that he has struggled greatly to try to get himself on track to stay away from alcohol. His blood alcohol level on admission was 330. Patient suggests that he has had long-term problems with drinking. He says that over the last few months he has been able to go for up to 2 weeks at a time without drinking, though generally his sober periods will be shorter than that. He acknowledges that he has had long-term problems with depression as well. He notes that he struggled in both his marriages including with his who just recently , which was a second marriage. He currently is not on any psychotropic medication. He noted that he had a psychiatric hospitalization at this facility around 2009 for depression. We said that he believed he stayed on the unit for about 3 days. He currently has not been in the mental health care of [facility]. He says that currently he just feels sad. He struggles with a number of physical issues and says that wears on him greatly. He has a very dim outlook on life in general. He notes that he sleeps fair. He has poor energy and motivation. He does not indicate having the auditory hallucinations or delusional thinking. Does not identify panic symptoms. He said that he is willing to look at treatment options both for drinking as well as depression. In regard to suicide statements that he had made, he acknowledged and then stated that though said mostly it was out of frustration and not that he has in the intent or plan in that direction. He stated that he does not have any history of self harmful behavior other than his problematic drinking. He said that he had made the statement about suicide essentially as "how would you feel if you were in my shoes." MENTAL STATUS EXAM: Patient sat up in bed. He gave good eye contact. He answered questions appropriately. His thoughts were clear, coherent. He was spontaneous and interactive. He was able to stay on track in the conversation. He does talk about a number of mental health issues that he was aware of and also what things he has done through the years to inform himself about the field of psychology. He seemed to be fairly well informed. His affect was a little constricted though he had a friendly manner and was quite animated in how he presented himself. His mood was dysphoric. He was moderately distressed. There was no indication of thought disorder. He denied thoughts or impulse towards self-harm. On cognitive exam he was oriented x3 and alert. He could recall 2/3 objects in 4 minutes. He could give the days of the week in reverse order without difficulty. He could describe recent events consistently with what was documented in the medical record. ASSESSMENT: This 70-year-old male is diagnosed with major depression and alcohol dependence. I had an extensive discussion with the patient regarding treatment options. At this point, I will initiate Prozac 10 mg a day. It is noted at home he has been on Rivea and it would be reasonable to continue Rivea as an adjunct in helping to ameliorate early alcohol withdrawal issues. I would look at some additional options to help in early withdrawal. His CIWA scores have been low. He did show elevated BP, which also has come down to the normal range today. A significant issue regarding discharge planning is his leg weakness where he barely is able to stand using a walker and needs assistance to get out of bed. I will start the patient on Vistaril 50 mg twice a day p.r.n. for anxiety, as the patient did request some help in that regard. Advised the patient that at this point it would be best if we were able to move him away from benzodiazepines for a number of reasons. I will continue to follow. MMCHELSEYL / ESPERANZAN: [id number] /
[2020-09-10] MEDS: NALTREXONE HCL 50 MG TAB PO SCH (09:24)
[2020-09-10] MEDS: PANTOPRAZOLE 40 MG TABLET PO SCH (09:24)
[2020-09-10] MEDS: amLODIPine 5 MG TAB PO SCH (09:24)
[2020-09-10] MEDS: ENOXAPARIN 40 MG/0.4 ML SYRINGE SQ SCH ×2 (09:24→09:46)
[2020-09-10] MEDS: atenoloL 25 MG TAB PO SCH ×2 (09:24→21:05)
[2020-09-10] MEDS: THIAMINE 100 MG TAB PO SCH ×2 (09:24→18:38)
[2020-09-10] MEDS: lisinopriL 20 MG TAB PO SCH ×2 (09:24→21:04)
[2020-09-10] MEDS: FLUoxetine HCL 10 MG CAP PO SCH (09:24)
--- NOTE | 2020-09-10 09:56 | P.PN ---
Subjective Progress Note Date: 09/10/20 This is a 70-year-old male patient who presented to the ER after being found laying on his floor in the house. Patient reports he had been drinking due to recent of his second and was feeling depressed and suicidal. Patient reports that he had recently tried to stop drinking but became shaky so he started drinking so the shaking would stop. Patient has a past medical history of CVA, GERD, hypertension, osteoarthritis who cholecystectomy, hernia repair, anxiety, depression and heavy alcohol abuse. Patient has been started on alcohol withdrawal protocol. Home medications resumed including blood pressure medication. Patient is maintained and suicide precautions sitter is at bedside. Psychiatry service is consulted. This time patient denies chest pain or shortness of breath. Patient denies nausea vomiting or diarrhea. Patient denies any urinary burning or frequency On 09/09/2020 patient was seen and examined on the medical floor, he is alert and oriented x 3 in no distress, he denies any complaints there is no fever or chills no headache or dizziness no chest pain no shortness of breath no palpitation no cough no nausea or vomiting no abdominal pain no diarrhea no bloo d in the stools no burning with urination no frequency or urgency and no hematuria, there is no weakness or numbness in any of the extremities no change in vision speech or gait. He is calm and does not look agitated at this time, however he stated that he is feeling anxious and is requesting Ativan, otherwise he denies any complaints. On 09/10/2020. Patient is alert and oriented 3. pain is complaining of some tooth discomfort. reports this has been an ongoing issue but has been unable to see dentist in many years. Patient denies chest pain or shortness breath. Patient denies nausea vomiting or diarrhea. Patient denies any urinary burning or frequency. Psychiatry services are following patient. Medications have been adjusted. PT OT and social work services consulted for discharge planning patient may require ECF upon discharge Objective - Vital Signs Vital signs: Vital Signs Temp 98.8 F 09/10/20 02:00 Pulse 61 09/10/20 02:00 Resp 18 09/10/20 02:00 BP 149/78 09/10/20 02:00 Pulse Ox 96 09/10/20 02:00 Intake & Output 09/09/20 09/10/20 09/10/20 18:59 06:59 18:59 Intake Total 240 Balance 240 Intake: IV 240 0.9@20cc/hr. 240 Other: Voiding Method Urinal Urinal Urinal Diaper Diaper Diaper # Voids 4 3 # Bowel Movements 2 - Exam In general patient is alert and oriented x 3 in no distress HEENT head normocephalic and atraumatic Neck is supple no JVD no goiter no lymphadenopathy no carotid bruit Chest examination is clear to auscultation no crackles no wheezing Cardiac exam reveals regular heart sounds S1 and S2 no gallops no murmurs Abdomen is soft nontender no organomegaly with normal bowel sounds Extremity exam reveals no edema no cyanosis or clubbing Neurological examination reveals no gross focal deficits - Labs CBC & Chem 7: 09/09/20 05:21 07 05:21 Assessment and Plan Assessment: 1. Alcohol dependence. Patient started alcohol withdrawal protocol 2. Suicidal ideation. Patient maintained on suicide precautions psychiatry service is consulted. Patient was evaluated by psychiatry services medications have been adjusted. 3. Essential hypertension. Home meds resumed 4. History of CVA 5. Alcohol dependence 6. History of GERD DVT prophylaxis Lovenox. GI prophylaxis Protonix Psychiatry service following Alcohol withdrawal protocol Repeat labs ordered PT OT and social work services consulted for discharge planning
[2020-09-10 09:57] LABS: Basophils # (A) 0.1 k/uL (0-0.2); Basophils % (A) 1 %; Eosinophils # (A) 0.1 k/uL (0-0.7); Eosinophils % (A) 2 %; HCT 47.4 % (39.0-53.0); HGB 15.4 gm/dL (13.0-17.5); Lymphocytes # (A) 1.2 k/uL (1.0-4.8); Lymphocytes % (A) 23 %; MCH 31.1 pg (25.0-35.0); MCHC 32.6 g/dL (31.0-37.0); MCV 95.3 fL (80.0-100.0); Mean Platelet Volume 7.2; Monocytes # (A) 0.3 k/uL (0-1.0); Monocytes % (A) 7 %; Neutrophils # (A) 3.4 k/uL (1.3-7.7); Neutrophils % (A) 66 %; Platelet Count 76 k/uL (150-450); RBC 4.97 m/uL (4.30-5.90); RDW 15.1 % (11.5-15.5); WBC 5.1 k/uL (3.8-10.6)
[2020-09-10 10:07] LABS: ALT 19 U/L (4-49); AST 33 U/L (17-59); African American GFR (CKD) >90 (>60 ml/min/1.73 sqM); Albumin 3.7 g/dL (3.5-5.0); Albumin/Globulin Ratio 1.4; Alkaline Phosphatase 71 U/L (38-126); Anion Gap 6 mmol/L; Blood Urea Nitrogen 18 mg/dL (9-20); Calcium 8.8 mg/dL (8.4-10.2); Carbon Dioxide 28 mmol/L (22-30); Chloride 107 mmol/L (98-107); Globulin 2.7 g/dL; Glucose 118 mg/dL (74-99); Non-African American GFR(CKD) 80 (>60 ml/min/1.73 sqM); Potassium 3.6 mmol/L (3.5-5.1); Sodium 141 mmol/L (137-145); Total Protein 6.4 g/dL (6.3-8.2)
[2020-09-10] MEDS ORDERED: OLANZapine 2.5 MG TAB PO SCH (18:19)
[2020-09-10] MEDS: OLANZapine 2.5 MG TAB PO SCH (19:20)
[2020-09-10] MEDS: ACETAMINOPHEN TAB 500 MG TAB PO PRN (21:04)
[2020-09-10] MEDS: OLANZapine 5 MG TAB PO SCH (21:05)
[2020-09-11] MEDS: ENOXAPARIN 40 MG/0.4 ML SYRINGE SQ SCH (07:22)
[2020-09-11] MEDS: lisinopriL 20 MG TAB PO SCH ×2 (07:23→21:47)
[2020-09-11] MEDS: OLANZapine 2.5 MG TAB PO SCH ×2 (07:23→15:03)
[2020-09-11] MEDS: atenoloL 25 MG TAB PO SCH ×2 (07:23→21:47)
[2020-09-11] MEDS: PANTOPRAZOLE 40 MG TABLET PO SCH (07:23)
[2020-09-11] MEDS: THIAMINE 100 MG TAB PO SCH ×2 (07:23→17:06)
[2020-09-11 07:24] LABS: Basophils # (A) 0.1 k/uL (0-0.2); Basophils % (A) 1 %; Eosinophils # (A) 0.3 k/uL (0-0.7); Eosinophils % (A) 4 %; HCT 47.4 % (39.0-53.0); HGB 15.9 gm/dL (13.0-17.5); Lymphocytes # (A) 1.2 k/uL (1.0-4.8); Lymphocytes % (A) 18 %; MCH 31.9 pg (25.0-35.0); MCHC 33.4 g/dL (31.0-37.0); MCV 95.4 fL (80.0-100.0); Mean Platelet Volume 7.3; Monocytes # (A) 0.5 k/uL (0-1.0); Monocytes % (A) 7 %; Neutrophils # (A) 4.5 k/uL (1.3-7.7); Neutrophils % (A) 68 %; RBC 4.97 m/uL (4.30-5.90); RDW 14.6 % (11.5-15.5); WBC 6.7 k/uL (3.8-10.6)
[2020-09-11] MEDS: NALTREXONE HCL 50 MG TAB PO SCH (07:24)
[2020-09-11] MEDS: amLODIPine 5 MG TAB PO SCH (07:24)
[2020-09-11] MEDS: FLUoxetine HCL 10 MG CAP PO SCH (07:24)
[2020-09-11 07:43] LABS: Platelet Count 90 k/uL (150-450)
[2020-09-11 07:46] LABS: ALT 18 U/L (4-49); AST 31 U/L (17-59); African American GFR (CKD) >90 (>60 ml/min/1.73 sqM); Albumin 3.3 g/dL (3.5-5.0); Albumin/Globulin Ratio 1.3; Alkaline Phosphatase 60 U/L (38-126); Anion Gap 5 mmol/L; Blood Urea Nitrogen 20 mg/dL (9-20); Calcium 8.8 mg/dL (8.4-10.2); Carbon Dioxide 25 mmol/L (22-30); Chloride 111 mmol/L (98-107); Globulin 2.6 g/dL; Glucose 131 mg/dL (74-99); Non-African American GFR(CKD) 84 (>60 ml/min/1.73 sqM); Potassium 3.6 mmol/L (3.5-5.1); Sodium 141 mmol/L (137-145); Total Bilirubin 0.8 mg/dL (0.2-1.3); Total Protein 5.9 g/dL (6.3-8.2)
--- NOTE | 2020-09-11 08:03 | PN ---
PROGRESS NOTE DATE OF SERVICE: 09/10/2020 PURPOSE FOR CONSULTATION: Evaluate for depression with suicidal statements. He has significant alcohol dependence. INTERVAL HISTORY: The patient has been doing fair. He continues with some various general health complaints. For the most part he seems to be managing adequately. He is quite weak and has difficulty standing without community relations assistant. The patient was able to talk fairly openly about the level of drinking he has had. He acknowledges that the drinking and depression that he has experienced do intertwine. I talked to him about the possibility of ESV referral. He was not opposed to that idea and accepts that especially his leg weakness puts him at significant disability for making any effort to live independently. He has not had trouble with the start of Prozac, but does report symptoms that may likely relate to alcohol withdrawal, including some anxiety, restlessness, mood issues, as well as aches and pains. He does not seem to have significant complaints in that regard, though acknowledges that he has always had a fair amount of discomfort any time that he has gone without alcohol. When I talked to the patient today he gave good eye contact. It was noted that he was quite spontaneous and interactive. He talked quite a bit about various issues in his living situation plus experiences he has had in the past. He talked further about some issues of psychology that he had studied. He seemed to be well informed in that regard. His thoughts were clear and coherent. He was oriented and alert. ASSESSMENT: I will continue the current diagnosis of depression. He also is likely having significant alcohol withdrawal issues. I will start the patient on Zyprexa 2.5 mg in the morning, 2.5 mg in the afternoon and 5 mg at bedtime. The aim of Zyprexa is to help reduce physiologic stress response relating to acute alcohol withdrawal. I discussed with the patient that I would anticipate alcohol withdrawal issues possibly getting worse over the next 2 weeks, which is the usual course for alcohol withdrawal. It may be 4-6 weeks of a moderate degree of withdrawal symptoms before he sees some clearing. We discussed that his antidepressant may not have much benefit until beyond 4-6 weeks free of alcohol. It would be reasonable for him to continue on Zyprexa over the next several weeks. It seems most appropriate that the patient would be referred for ECF. I will not be in the hospital this week weekend or coming week. At this point, I think it is reasonable for the patient to continue on his current psychotropic medications. If there are further issues that need to be addressed, please re-consult Psychiatry. MMERIK / IJN: [id number] /
--- NOTE | 2020-09-11 11:55 | P.CN ---
Psychiatric Consult - . Consult date: 09/11/20 Consult:: 09/11/20 11:40 This 70-year-old white male patient was found laying on the floor. He was drinking beer and stated that he loves beer. He stated that he experienced the of his second and he had a broken heart and people can from broken heart. Because of that he was feeling depressed and suicidal. He stated he does not have any suicidal thoughts anymore. He stated he would like to go to [place] for a week to deal with his alcohol problem. Patient stated he has already been seen by a psychiatrist and has been prescribed Prozac which makes his mouth dry. He stated he knows that most of the psychiatric medic ations can make mouth dry. I reviewed his a medical record and they are as follows: "This is a 70-year-old male patient who presented to the ER after being found laying on his floor in the house. Patient reports he had been drinking due to recent of his second and was feeling depressed and suicidal. Patient reports that he had recently tried to stop drinking but became shaky so he started drinking so the shaking would stop. Patient has a past medical history of CVA, GERD, hypertension, osteoarthritis who cholecystectomy, hernia repair, anxiety, depression and heavy alcohol abuse. Patient has been started on alcohol withdrawal protocol. Home medications resumed including blood pressure medication. Patient is maintained and suicide precautions sitter is at bedside. Psychiatry service is consulted. This time patient denies chest pain or shortness of breath. Patient denies nausea vomiting or diarrhea. Patient denies any urinary burning or frequency On 09/09/2020 patient was seen and examined on the medical floor, he is alert and oriented x 3 in no distress, he denies any complaints there is no fever or chills no headache or dizziness no chest pain no shortness of breath no palpitation no cough no nausea or vomiting no abdominal pain no diarrhea no blood in the stools no burning with urination no frequency or urgency and no hematuria, there is no weakness or numbness in any of the extremities no change in vision speech or gait. He is calm and does not look agitated at this time, however he stated that he is feeling anxious and is requesting Ativan, otherwise he denies any complaints. On 09/10/2020. Patient is alert and oriented 3. pain is complaining of some tooth discomfort. reports this has been an ongoing issue but has been unable to see dentist in many years. Patient denies chest pain or shortness breath. Patient denies nausea vomiting or diarrhea. Patient denies any urinary burning or frequency. Psychiatry services are following patient. Medications have been adjusted. PT OT and social work services consulted for discharge planning patient may require ECF upon discharge". At this time patient denies any thoughts of hurting himself or hurting someone else. He is alert and oriented to time place and person. He denies abuse of any other drugs. He appears to be of his stated age. He has adequate speech language and communication skills. Mood and affect is slightly depressed. His behavior is cooperative. He does not have any auditory visual or any other types of hallucinations. He does not have any delusions. He does have insight into his problems and his judgment is intact. Diagnostic impression: Alcohol abuse Adjustment disorder with mixed emotions Recommendations: At this time this patient does not meet the criteria for psychiatric hospitalization. He does have a difficulty caring for himself. I agreed with him going to [place] for alcohol rehab. I also agree with the his primary care physician's impression that he may benefit from some sort of extended care facility where he could be taken care off. 09/11/20 11:45
--- NOTE | 2020-09-11 14:22 | P.PN ---
Subjective Progress Note Date: 09/11/20 This is a 70-year-old male patient who presented to the ER after being found laying on his floor in the house. Patient reports he had been drinking due to recent of his second and was feeling depressed and suicidal. Patient reports that he had recently tried to stop drinking but became shaky so he started drinking so the shaking would stop. Patient has a past medical history of CVA, GERD, hypertension, osteoarthritis who cholecystectomy, hernia repair, anxiety, depression and heavy alcohol abuse. Patient has been started on alcohol withdrawal protocol. Home medications resumed including blood pressure medication. Patient is maintained and suicide precautions sitter is at bedside. Psychiatry service is consulted. This time patient denies chest pain or shortness of breath. Patient denies nausea vomiting or diarrhea. Patient denies any urinary burning or frequency On 09/09/2020 patient was seen and examined on the medical floor, he is alert and oriented x 3 in no distress, he denies any complaints there is no fever or chills no headache or dizziness no chest pain no shortness of breath no palpitation no cough no nausea or vomiting no abdominal pain no diarrhea no bloo d in the stools no burning with urination no frequency or urgency and no hematuria, there is no weakness or numbness in any of the extremities no change in vision speech or gait. He is calm and does not look agitated at this time, however he stated that he is feeling anxious and is requesting Ativan, otherwise he denies any complaints. On 09/10/2020. Patient is alert and oriented 3. pain is complaining of some tooth discomfort. reports this has been an ongoing issue but has been unable to see dentist in many years. Patient denies chest pain or shortness breath. Patient denies nausea vomiting or diarrhea. Patient denies any urinary burning or frequency. Psychiatry services are following patient. Medications have been adjusted. PT OT and social work services consulted for discharge planning patient may require ECF upon discharge On 09/11/2020 patient was seen and examined on the medical floor he is alert and oriented 3 in no apparent distress, he is still complaining of was ache otherwise he denies any complaints there is no fever or chills no headache or dizziness no chest pain no shortness of breath no cough no nausea or vomiting no abdominal pain no diarrhea and no urinary symptoms. At this time will add Cleocin for possible tooth abscess patient was advised to see his dentist as soon as possible after discharge will also ask physical therapy and occupational therapy, anticipate discharge on Sunday, patient will need social work faculty member held to assess for possible admission to a rehab, either at [facility] or one of the local retirement. Objective - Vital Signs Vital signs: Vital Signs Temp 98.3 F 09/11/20 12:01 Pulse 61 09/11/20 12:01 Resp 16 09/11/20 12:01 BP 128/77 09/11/20 12:01 Pulse Ox 95 09/11/20 12:01 Intake & Output 09/10/20 09/11/20 09/11/20 18:59 06:59 18:59 Intake Total 160 Balance 160 Intake: IV 160 0.9@20cc/hr. 160 Other: Voiding Method Urinal Urinal Diaper Diaper Diaper Incontinent # Voids 1 - Exam In general patient is alert and oriented x 3 in no distress HEENT head normocephalic and atraumatic Neck is supple no JVD no goiter no lymphadenopathy no carotid bruit Chest examination is clear to auscultation no crackles no wheezing Cardiac exam reveals regular heart sounds S1 and S2 no gallops no murmurs Abdomen is soft nontender no organomegaly with normal bowel sounds Extremity exam reveals no edema no cyanosis or clubbing Neurological examination reveals no gross focal deficits - Labs CBC & Chem 7: 09/11/20 06:52 09/11/20 06:52 Labs: Abnormal Lab Results - Last 24 Hours (Table) 09/11/20 09/11/20 Range/Units 06:52 06:52 Plt Count 90 L (150-450) k/uL Chloride 111 H (98-107) mmol/L Glucose 131 H (74-99) mg/dL Total Protein 5.9 L (6.3-8.2) g/dL Albumin 3.3 L (3.5-5.0) g/dL Assessment and Plan Assessment: 1. Alcohol dependence. Patient started alcohol withdrawal protocol 2. Suicidal ideation. Patient maintained on suicide precautions psychiatry service is consulted. Patient was evaluated by psychiatry services medications have been adjusted. 3. Essential hypertension. Home meds resumed 4. History of CVA 5. Alcohol dependence 6. History of GERD DVT prophylaxis Lovenox. GI prophylaxis Protonix Psychiatry service following Alcohol withdrawal protocol Repeat labs ordered PT OT and social work services consulted for discharge planning
[2020-09-11] MEDS: CLINDAMYCIN 150 MG CAP PO SCH ×2 (15:03→22:17)
[2020-09-11] MEDS: ACETAMINOPHEN TAB 500 MG TAB PO PRN (21:47)
[2020-09-11] MEDS: OLANZapine 5 MG TAB PO SCH (21:47)
[2020-09-12 05:33] LABS: Basophils % (A) 1 %; Eosinophils # (A) 0.2 k/uL (0-0.7); Eosinophils % (A) 4 %; HCT 46.4 % (39.0-53.0); HGB 15.5 gm/dL (13.0-17.5); Lymphocytes # (A) 1.5 k/uL (1.0-4.8); Lymphocytes % (A) 29 %; MCH 32.1 pg (25.0-35.0); MCHC 33.4 g/dL (31.0-37.0); MCV 96.2 fL (80.0-100.0); Mean Platelet Volume 7.7; Monocytes # (A) 0.4 k/uL (0-1.0); Monocytes % (A) 8 %; Neutrophils % (A) 57 %; Platelet Count 109 k/uL (150-450); RBC 4.82 m/uL (4.30-5.90); RDW 14.7 % (11.5-15.5); WBC 5.2 k/uL (3.8-10.6)
[2020-09-12 05:42] LABS: ALT 23 U/L (4-49); AST 39 U/L (17-59); African American GFR (CKD) 75 (>60 ml/min/1.73 sqM); Albumin 3.5 g/dL (3.5-5.0); Albumin/Globulin Ratio 1.3; Alkaline Phosphatase 69 U/L (38-126); Anion Gap 7 mmol/L; Blood Urea Nitrogen 21 mg/dL (9-20); Calcium 8.7 mg/dL (8.4-10.2); Carbon Dioxide 28 mmol/L (22-30); Chloride 108 mmol/L (98-107); Globulin 2.7 g/dL; Glucose 99 mg/dL (74-99); Non-African American GFR(CKD) 65 (>60 ml/min/1.73 sqM); Potassium 3.4 mmol/L (3.5-5.1); Sodium 143 mmol/L (137-145); Total Bilirubin 0.8 mg/dL (0.2-1.3); Total Protein 6.2 g/dL (6.3-8.2)
[2020-09-12] MEDS ORDERED: Potassium Replacement Protocol 1 EACH MISC MISCELLANE PRN (09:04)
[2020-09-12] MEDS: atenoloL 25 MG TAB PO SCH ×2 (09:15→22:04)
[2020-09-12] MEDS: lisinopriL 20 MG TAB PO SCH ×2 (09:16→22:04)
[2020-09-12] MEDS: THIAMINE 100 MG TAB PO SCH ×2 (09:16→16:47)
[2020-09-12] MEDS: PANTOPRAZOLE 40 MG TABLET PO SCH (09:16)
[2020-09-12] MEDS: FLUoxetine HCL 10 MG CAP PO SCH (09:16)
[2020-09-12] MEDS: ENOXAPARIN 40 MG/0.4 ML SYRINGE SQ SCH (09:16)
[2020-09-12] MEDS: amLODIPine 5 MG TAB PO SCH (09:16)
[2020-09-12] MEDS: CLINDAMYCIN 150 MG CAP PO SCH ×3 (09:17→22:04)
[2020-09-12] MEDS: NALTREXONE HCL 50 MG TAB PO SCH (09:17)
[2020-09-12] MEDS: OLANZapine 2.5 MG TAB PO SCH ×2 (09:17→16:47)
--- NOTE | 2020-09-12 10:26 | P.PN ---
Subjective Progress Note Date: 09/12/20 This is a 70-year-old male patient who presented to the ER after being found laying on his floor in the house. Patient reports he had been drinking due to recent of his second and was feeling depressed and suicidal. Patient reports that he had recently tried to stop drinking but became shaky so he started drinking so the shaking would stop. Patient has a past medical history of CVA, GERD, hypertension, osteoarthritis who cholecystectomy, hernia repair, anxiety, depression and heavy alcohol abuse. Patient has been started on alcohol withdrawal protocol. Home medications resumed including blood pressure medication. Patient is maintained and suicide precautions sitter is at bedside. Psychiatry service is consulted. This time patient denies chest pain or shortness of breath. Patient denies nausea vomiting or diarrhea. Patient denies any urinary burning or frequency On 09/09/2020 patient was seen and examined on the medical floor, he is alert and oriented x 3 in no distress, he denies any complaints there is no fever or chills no headache or dizziness no chest pain no shortness of breath no palpitation no cough no nausea or vomiting no abdominal pain no diarrhea no bloo d in the stools no burning with urination no frequency or urgency and no hematuria, there is no weakness or numbness in any of the extremities no change in vision speech or gait. He is calm and does not look agitated at this time, however he stated that he is feeling anxious and is requesting Ativan, otherwise he denies any complaints. On 09/10/2020. Patient is alert and oriented 3. pain is complaining of some tooth discomfort. reports this has been an ongoing issue but has been unable to see dentist in many years. Patient denies chest pain or shortness breath. Patient denies nausea vomiting or diarrhea. Patient denies any urinary burning or frequency. Psychiatry services are following patient. Medications have been adjusted. PT OT and social work services consulted for discharge planning patient may require ECF upon discharge On 09/11/2020 patient was seen and examined on the medical floor he is alert and oriented 3 in no apparent distress, he is still complaining of was ache otherwise he denies any complaints there is no fever or chills no headache or dizziness no chest pain no shortness of breath no cough no nausea or vomiting no abdominal pain no diarrhea and no urinary symptoms. At this time will add Cleocin for possible tooth abscess patient was advised to see his dentist as soon as possible after discharge will also ask physical therapy and occupational therapy, anticipate discharge on Sunday, patient will need director of social work held to assess for possible admission to a rehab, either at [place] or one of the local fci. On 09/12/2020 patient is alert and oriented 3. Patient maintained on Cleocin for tooth abscess. Planning discharge tomorrow social work services are following patient to be DC'd home versus rehab. At this time patient denies chest pain or shortness breath. Patient denies nausea vomiting or diarrhea. Patient denies any urinary burning or frequency Objective - Vital Signs Vital signs: Vital Signs Temp 97.9 F 09/12/20 05:00 Pulse 60 09/12/20 05:00 Resp 16 09/12/20 05:00 BP 155/75 09/12/20 05:00 Pulse Ox 95 09/12/20 05:00 Intake & Output 09/11/20 09/12/20 09/12/20 18:59 06:59 18:59 Intake Total 1750 240 Output Total 50 Balance 1750 190 Intake: IV 240 240 0.9@20cc/hr. 240 240 Oral 1510 Output: Urine 50 Other: Voiding Method Diaper Bedside Commode Incontinent Urinal # Voids 3 1 # Bowel Movements 1 1 - Exam In general patient is alert and oriented x 3 in no distress HEENT head normocephalic and atraumatic Neck is supple no JVD no goiter no lymphadenopathy no carotid bruit Chest examination is clear to auscultation no crackles no wheezing Cardiac exam reveals regular heart sounds S1 and S2 no gallops no murmurs Abdomen is soft nontender no organomegaly with normal bowel sounds Extremity exam reveals no edema no cyanosis or clubbing Neurological examination reveals no gross focal deficits - Labs CBC & Chem 7: 09/12/20 04:52 09/12/20 04:52 Labs: Abnormal Lab Results - Last 24 Hours (Table) 09/12/20 09/12/20 Range/Units 04:52 04:52 Plt Count 109 L (150-450) k/uL Potassium 3.4 L (3.5-5.1) mmol/L Chloride 108 H (98-107) mmol/L BUN 21 H (9-20) mg/dL Total Protein 6.2 L (6.3-8.2) g/dL Assessment and Plan Assessment: 1. Alcohol dependence. Patient started alcohol withdrawal protocol 2. Suicidal ideation. Patient maintained on suicide precautions psychiatry service is consulted. Patient was evaluated by psychiatry services medications have been adjusted. Per psychiatry service is patient has not been cleared for psychiatric hospitalization 3. Essential hypertension. Home meds resumed 4. History of CVA 5. Alcohol dependence 6. History of GERD 7. Tooth abscess. Patient started on Cleocin patient follow-up with dentist outpatient DVT prophylaxis Lovenox. GI prophylaxis Protonix Psychiatry service following Alcohol withdrawal protocol Repeat labs ordered PT OT and social work services consulted for discharge planning
[2020-09-12] MEDS: POTASSIUM CHLORIDE ER 20 MEQ TAB.ER PO SCH ×2 (11:06→12:49)
[2020-09-12] MEDS: OLANZapine 5 MG TAB PO SCH (22:04)
[2020-09-13] MEDS: ENOXAPARIN 40 MG/0.4 ML SYRINGE SQ SCH (07:59)
[2020-09-13] MEDS: OLANZapine 2.5 MG TAB PO SCH ×2 (08:00→16:30)
[2020-09-13] MEDS: FLUoxetine HCL 10 MG CAP PO SCH (08:00)
[2020-09-13] MEDS: lisinopriL 20 MG TAB PO SCH ×2 (08:00→20:00)
[2020-09-13] MEDS: PANTOPRAZOLE 40 MG TABLET PO SCH (08:00)
[2020-09-13] MEDS: NALTREXONE HCL 50 MG TAB PO SCH (08:00)
[2020-09-13] MEDS: CLINDAMYCIN 150 MG CAP PO SCH ×3 (08:00→20:59)
[2020-09-13] MEDS: atenoloL 25 MG TAB PO SCH ×2 (08:00→20:00)
[2020-09-13] MEDS: THIAMINE 100 MG TAB PO SCH ×2 (08:00→16:31)
[2020-09-13] MEDS: amLODIPine 5 MG TAB PO SCH (08:00)
[2020-09-13] MEDS: OLANZapine 5 MG TAB PO SCH (19:58)
[2020-09-14 04:23] VITALS: RESP 16
[2020-09-14] MEDS: THIAMINE 100 MG TAB PO SCH (07:39)
[2020-09-14] MEDS: OLANZapine 2.5 MG TAB PO SCH ×2 (07:39→15:05)
[2020-09-14] MEDS: atenoloL 25 MG TAB PO SCH (07:39)
[2020-09-14] MEDS: CLINDAMYCIN 150 MG CAP PO SCH ×2 (07:39→15:05)
[2020-09-14] MEDS: PANTOPRAZOLE 40 MG TABLET PO SCH (07:39)
[2020-09-14] MEDS: FLUoxetine HCL 10 MG CAP PO SCH (07:39)
[2020-09-14] MEDS: lisinopriL 20 MG TAB PO SCH (07:39)
[2020-09-14] MEDS: NALTREXONE HCL 50 MG TAB PO SCH (07:39)
[2020-09-14] MEDS: amLODIPine 5 MG TAB PO SCH (07:39)
[2020-09-14] MEDS: ENOXAPARIN 40 MG/0.4 ML SYRINGE SQ SCH ×2 (07:40→07:56)
[2020-09-14 13:06] VITALS: BMI 27.3
--- NOTE | 2020-09-14 13:29 | P.PN ---
Subjective Progress Note Date: 09/13/20 This is a 70-year-old male patient who presented to the ER after being found laying on his floor in the house. Patient reports he had been drinking due to recent of his second and was feeling depressed and suicidal. Patient reports that he had recently tried to stop drinking but became shaky so he started drinking so the shaking would stop. Patient has a past medical history of CVA, GERD, hypertension, osteoarthritis who cholecystectomy, hernia repair, anxiety, depression and heavy alcohol abuse. Patient has been started on alcohol withdrawal protocol. Home medications resumed including blood pressure medication. Patient is maintained and suicide precautions sitter is at bedside. Psychiatry service is consulted. This time patient denies chest pain or shortness of breath. Patient denies nausea vomiting or diarrhea. Patient denies any urinary burning or frequency On 09/09/2020 patient was seen and examined on the medical floor, he is alert and oriented x 3 in no distress, he denies any complaints there is no fever or chills no headache or dizziness no chest pain no shortness of breath no palpitation no cough no nausea or vomiting no abdominal pain no diarrhea no bloo d in the stools no burning with urination no frequency or urgency and no hematuria, there is no weakness or numbness in any of the extremities no change in vision speech or gait. He is calm and does not look agitated at this time, however he stated that he is feeling anxious and is requesting Ativan, otherwise he denies any complaints. On 09/10/2020. Patient is alert and oriented 3. pain is complaining of some tooth discomfort. reports this has been an ongoing issue but has been unable to see dentist in many years. Patient denies chest pain or shortness breath. Patient denies nausea vomiting or diarrhea. Patient denies any urinary burning or frequency. Psychiatry services are following patient. Medications have been adjusted. PT OT and social work services consulted for discharge planning patient may require ECF upon discharge On 09/11/2020 patient was seen and examined on the medical floor he is alert and oriented 3 in no apparent distress, he is still complaining of was ache otherwise he denies any complaints there is no fever or chills no headache or dizziness no chest pain no shortness of breath no cough no nausea or vomiting no abdominal pain no diarrhea and no urinary symptoms. At this time will add Cleocin for possible tooth abscess patient was advised to see his dentist as soon as possible after discharge will also ask physical therapy and occupational therapy, anticipate discharge on Sunday, patient will need social services director held to assess for possible admission to a rehab, either at [place] or one of the local longterm. On 09/12/2020 patient is alert and oriented 3. Patient maintained on Cleocin for tooth abscess. Planning discharge tomorrow social work services are following patient to be DC'd home versus rehab. At this time patient denies chest pain or shortness breath. Patient denies nausea vomiting or diarrhea. Patient denies any urinary burning or frequency. On 09/13/2020 Patient was seen and examined on the medical floor, he is alert and oriented x 3 in no distress, he denies any complaints there is no fever or chills no headache or dizziness no chest pain no shortness of breath no palpitation no cough no nausea or vomiting no abdominal pain no diarrhea no blood in the stools no burning with urination no frequency or urgency and no hematuria, there is no weakness or numbness in any of the extremities no change in vision speech or gait. Objective - Vital Signs Vital signs: Vital Signs Temp 98.7 F 09/13/20 11:22 Pulse 55 L 09/13/20 11:22 Resp 16 09/13/20 11:22 BP 151/79 09/13/20 11:22 Pulse Ox 96 09/13/20 11:22 Intake & Output 09/12/20 09/13/20 09/13/20 18:59 06:59 18:59 Other: Voiding Method Bedside Commode Bedside Commode Bedside Commode Urinal Urinal Urinal Diaper # Voids 2 2 4 # Bowel Movements 1 1 1 - Exam In general patient is alert and oriented x 3 in no distress HEENT head normocephalic and atraumatic Neck is supple no JVD no goiter no lymphadenopathy no carotid bruit Chest examination is clear to auscultation no crackles no wheezing Cardiac exam reveals regular heart sounds S1 and S2 no gallops no murmurs Abdomen is soft nontender no organomegaly with normal bowel sounds Extremity exam reveals no edema no cyanosis or clubbing Neurological examination reveals no gross focal deficits - Labs CBC & Chem 7: 09/12/20 04:52 09/12/20 04:52 Assessment and Plan Assessment: 1. Alcohol dependence. Patient started alcohol withdrawal protocol 2. Suicidal ideation. Patient maintained on suicide precautions psychiatry service is consulted. Patient was evaluated by psychiatry services medications have been adjusted. Per psychiatry service is patient has not been cleared for psychiatric hospitalization 3. Essential hypertension. Home meds resumed 4. History of CVA 5. Alcohol dependence 6. History of GERD 7. Tooth abscess. Patient started on Cleocin patient follow-up with dentist outpatient DVT prophylaxis Lovenox. GI prophylaxis Protonix Psychiatry service following Alcohol withdrawal protocol Repeat labs ordered PT OT and social work services consulted for discharge planning
[2020-09-14 13:34] VITALS: BP 138/92; PULSE 86; TEMP 98.3
--- NOTE | 2020-09-18 09:24 | P.DS ---
Providers Date of admission: 09/08/20 11:08 Expected date of discharge: 09/14/20 Attending physician: Kassie Beasley Consults: 09/07/20 20:10 Consult Physician Routine Consulting Provider: Frank Roth Consult Reason/Comments: Depression, suicidal ideation, alcohol intoxication Do you want consulting provider notified?: Yes, Notify in am Primary care physician: Kassie Beasley [facility] Course: Diagnosis on discharge: 1. Alcohol dependence. Patient started alcohol withdrawal protocol 2. Suicidal ideation. Patient maintained on suicide precautions psychiatry service is consulted. Patient was evaluated by psychiatry services medications have been adjusted. Per psychiatry service is patient has not been cleared for psychiatric hospitalization 3. Essential hypertension. Home meds resumed 4. History of CVA 5. Alcohol dependence 6. History of GERD 7. Tooth abscess. Patient started on Cleocin patient follow-up with dentist outpatient Hospital course: This is a 70-year-old male patient who presented to the ER after being found laying on his floor in the house. Patient reports he had been drinking due to recent of his second and was feeling depressed and suicidal. Patient reports that he had recently tried to stop drinking but became shaky so he started drinking so the shaking would stop. Patient has a past medical history of CVA, GERD, hypertension, osteoarthritis who cholecystectomy, hernia repair, anxiety, depression and heavy alcohol abuse. Patient has been started on alcohol withdrawal protocol. Home medications resumed including blood pressure medication. Patient is maintained and suicide precautions sitter is at bedside. Psychiatry service is consulted. This time patient denies chest pain or shortness of breath. Patient denies nausea vomiting or diarrhea. Patient denies any urinary burning or frequency On 09/09/2020 patient was seen and examined on the medical floor, he is alert and oriented x 3 in no distress, he denies any complaints there is no fever or chills no headache or dizziness no chest pain no shortness of breath no palpitation no cough no nausea or vomiting no abdominal pain no diarrhea no blood in the stools no burning with urination no frequency or urgency and no hematuria, there is no weakness or numbness in any of the extremities no change in vision speech or gait. He is calm and does not look agitated at this time, however he stated that he is feeling anxious and is requesting Ativan, otherwise he denies any complaints. On 09/10/2020. Patient is alert and oriented 3. pain is complaining of some tooth discomfort. reports this has been an ongoing issue but has been unable to see dentist in many years. Patient denies chest pain or shortness breath. Patient denies nausea vomiting or diarrhea. Patient denies any urinary burning or frequency. Psychiatry services are following patient. Medications have been adjusted. PT OT and social work services consulted for discharge planning patient may require ECF upon discharge On 09/11/2020 patient was seen and examined on the medical floor he is alert and oriented 3 in no apparent distress, he is still complaining of was ache otherwise he denies any complaints there is no fever or chills no headache or dizziness no chest pain no shortness of breath no cough no nausea or vomiting no abdominal pain no diarrhea and no urinary symptoms. At this time will add Cleocin for possible tooth abscess patient was advised to see his dentist as soon as possible after discharge will also ask physical therapy and occupational therapy, anticipate discharge on Sunday, patient will need long term care social worker held to assess for possible admission to a rehab, either at [place] or one of the local [facility]. On 09/12/2020 patient is alert and oriented 3. Patient maintained on Cleocin for tooth abscess. Planning discharge tomorrow social work services are following patient to be DC'd home versus rehab. At this time patient denies chest pain or shortness breath. Patient denies nausea vomiting or diarrhea. Patient denies any urinary burning or frequency. On 09/13/2020 Patient was seen and examined on the medical floor, he is alert and oriented x 3 in no distress, he denies any complaints there is no fever or chills no headache or dizziness no chest pain no shortness of breath no palpitation no cough no nausea or vomiting no abdominal pain no diarrhea no blood in the stools no burning with urination no frequency or urgency and no hematuria, there is no weakness or numbness in any of the extremities no change in vision speech or gait. On 09/14/2020 patient is alert and oriented 3. Patient will be DC'd home with home healthcare services. Patient will be DC'd on Cleocin for tooth abscess. Patient advised the importance of medication compliance and follow up with PCP for further management of chronic conditions. Patient also educated on the i mportance of complete alcohol cessation. At this time patient denies chest pain or shortness breath. Patient denies nausea vomiting or diarrhea. Patient denies any urinary burning or frequency Patient Condition at Discharge: Fair Plan - Discharge Summary Discharge Rx Participant: No New Discharge Prescriptions: New Clindamycin [Cleocin] 300 mg PO TID cap FLUoxetine HCL [PROzac] 10 mg PO DAILY cap hydrOXYzine pamoate [Vistaril] 50 mg PO BID PRN cap PRN Reason: Anxiety OLANZapine [ZyPREXA] 2.5 mg PO BID@0900,1500 tab OLANZapine [ZyPREXA] 5 mg PO HS tab Continue amLODIPine [Norvasc] 5 mg PO DAILY tab atenoloL [Tenormin] 25 mg PO BID tab Naltrexone HCl [Revia] 50 mg PO DAILY tab Thiamine [Vitamin B-1] 100 mg PO BID-W/MEALS tab lisinopriL [Zestril] 20 mg PO BID tab Pantoprazole [Protonix] 40 mg PO AC-BRKFST tablet. Discharge Medication List Naltrexone HCl [Revia] 50 mg PO DAILY tab 08/04/20 [Rx] Thiamine [Vitamin B-1] 100 mg PO BID-W/MEALS tab 08/04/20 [Rx] amLODIPine [Norvasc] 5 mg PO DAILY tab 08/04/20 [Rx] atenoloL [Tenormin] 25 mg PO BID tab 08/04/20 [Rx] lisinopriL [Zestril] 20 mg PO BID tab 08/04/20 [Rx] Pantoprazole [Protonix] 40 mg PO AC-BRKFST tablet. 08/05/20 [Rx] Clindamycin [Cleocin] 300 mg PO TID cap 09/14/20 [Rx] FLUoxetine HCL [PROzac] 10 mg PO DAILY cap 09/14/20 [Rx] OLANZapine [ZyPREXA] 2.5 mg PO BID@0900,1500 tab 09/14/20 [Rx] OLANZapine [ZyPREXA] 5 mg PO HS tab 09/14/20 [Rx] hydrOXYzine pamoate [Vistaril] 50 mg PO BID PRN cap 09/14/20 [Rx] Follow up Appointment(s)/Referral(s): [facility], [NON-STAFF] - 1-2 Days (Agency will contact you.) Kassie Beasley MD [Primary Care Provider] - 09/17/20 9:45 am Patient Instructions/Handouts: Dental Abscess (GEN), Abuse of Alcohol (DC), Alcohol Withdrawal (DC), Help Prevent Suicide in Older Adults (DC), Suicide Prevention (DC) Discharge Disposition: HOME SELF-CARE
== END 2020-09-14 15:30 | disposition home or self-care (01) | DRG 897 ==
LOC: EC 18:10 → 6NMEDSUR 19:32 → 5NMEDONC 20:44 → OBSVTOIN 09-08 11:08 → 5NMEDONC 09-08 15:07
PROVIDERS: ADMIT Internal Medicine; ATTEND Internal Medicine
DX: F10.229 Alcohol dependence with intoxication, unspecified (principal); R45.851 Suicidal ideations; F32.9 Major depressive disorder, single episode, unspecified; F10.239 Alcohol dependence with withdrawal, unspecified; S50.312A Abrasion of left elbow, initial encounter; F43.23 Adjustment disorder with mixed anxiety and depressed mood; X58.XXXA Exposure to other specified factors, initial encounter; K21.9 Gastro-esophageal reflux disease without esophagitis; I10 Essential (primary) hypertension; M19.90 Unspecified osteoarthritis, unspecified site; H93.13 Tinnitus, bilateral; M10.9 Gout, unspecified; K04.7 Periapical abscess without sinus; F41.9 Anxiety disorder, unspecified; Y90.8 Blood alcohol level of 240 mg/100 ml or more; Z86.73 Personal history of transient ischemic attack (TIA), and cerebral infarction without residual deficits; Z90.49 Acquired absence of other specified parts of digestive tract; Z79.899 Other long term (current) drug therapy; Z82.49 Family history of ischemic heart disease and other diseases of the circulatory system; Z82.5 Family history of asthma and other chronic lower respiratory diseases; Z71.41 Alcohol abuse counseling and surveillance of alcoholic
CPT/HCPCS: 36415; 80053; 80320; 82140; 82550; 83690; 83735; 85025; 85610; 90471; 90715; 99285

== ENCOUNTER 2020-12-19 19:56 | Inpatient (IN) | payer MEDICARE ==
[2020-12-19] MEDS ORDERED: PANTOPRAZOLE 40 MG/10 ML VIAL IVP STA (21:38)
[2020-12-19] MEDS ORDERED: LORazepam 2 MG/ML INJ IV STA (21:38)
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
[2020-12-19 22:05] LABS: Basophils # (A) 0.1 k/uL (0-0.2); Basophils % (A) 1 %; Eosinophils # (A) 0.1 k/uL (0-0.7); Eosinophils % (A) 1 %; HCT 49.6 % (39.0-53.0); HGB 16.6 gm/dL (13.0-17.5); Lymphocytes % (A) 12 %; MCH 30.6 pg (25.0-35.0); MCHC 33.5 g/dL (31.0-37.0); MCV 91.4 fL (80.0-100.0); Mean Platelet Volume 6.7; Monocytes # (A) 0.5 k/uL (0-1.0); Monocytes % (A) 7 %; Neutrophils % (A) 77 %; Platelet Count 126 k/uL (150-450); RBC 5.43 m/uL (4.30-5.90); RDW 14.3 % (11.5-15.5); WBC 7.8 k/uL (3.8-10.6)
[2020-12-19 22:23] LABS: ALT 43 U/L (4-49); AST 78 U/L (17-59); African American GFR (CKD) >90 (>60 ml/min/1.73 sqM); Alkaline Phosphatase 93 U/L (38-126); Anion Gap 13 mmol/L; Blood Urea Nitrogen 13 mg/dL (9-20); Calcium 8.8 mg/dL (8.4-10.2); Carbon Dioxide 17 mmol/L (22-30); Chloride 102 mmol/L (98-107); Glucose 98 mg/dL (74-99); Non-African American GFR(CKD) 88 (>60 ml/min/1.73 sqM); Potassium 4.3 mmol/L (3.5-5.1); Sodium 132 mmol/L (137-145); Total Bilirubin 0.9 mg/dL (0.2-1.3); Total Protein 6.8 g/dL (6.3-8.2)
--- NOTE | 2020-12-19 22:23 | XR ---
EXAMINATION TYPE: XR chest 1V portable DATE OF EXAM: 12/19/2020 COMPARISON: 11/19/2017 HISTORY: Fall. Pain. TECHNIQUE: FINDINGS: Heart is enlarged. There is elevation of the right diaphragm. There is no heart failure. [place] thorax is intact. Lungs are clear of consolidation. IMPRESSION: Mild elevation of the right diaphragm consistent with some atelectasis. Mild cardiomegaly . Diaphragm elevation increased compared to old exam.
[2020-12-20 01:32] LABS: Appearance,Urine Clear (Clear); Bilirubin,Urine Negative (Negative); Blood,Urine Negative (Negative); Color,Urine Light Yellow; Glucose,Urine (UA) Negative (Negative); Ketones,Urine Negative (Negative); Leukocyte Esterase,Urine Negative (Negative); Nitrite,Urine Negative (Negative); Protein,Urine Negative (Negative); Specific Gravity,Urine 1.007 (1.001-1.035); Urobilinogen,Urine <2.0 mg/dL (<2.0)
[2020-12-20] MEDS ORDERED: LORazepam 2 MG/ML INJ IV STA (04:00)
[2020-12-20] MEDS ORDERED: ONDANSETRON 4 MG/2 ML VIAL IVP PRN (05:43)
[2020-12-20] MEDS ORDERED: NALOXONE 0.4 MG/ML 1 ML VIAL IV PRN (05:43)
[2020-12-20] MEDS ORDERED: IBUPROFEN 400 MG TAB PO PRN (05:43)
[2020-12-20] MEDS: SODIUM CHLORIDE 0.9% 1,000 ML IV SCH ×3 (06:49→22:01)
[2020-12-20] MEDS ORDERED: THIAMINE 100 MG TAB PO SCH (09:00)
[2020-12-20] MEDS: FAMOTIDINE 20 MG TAB PO SCH ×2 (09:55→21:46)
[2020-12-20] MEDS: lisinopriL 20 MG TAB PO SCH ×2 (09:55→21:46)
[2020-12-20] MEDS: atenoloL 25 MG TAB PO SCH ×2 (09:55→21:46)
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
[2020-12-20 11:36] LABS: Amylase 54 U/L (30-110); Lipase 194 U/L (23-300)
--- NOTE | 2020-12-20 12:03 | US ---
EXAMINATION TYPE: US venous doppler duplex LE DATE OF EXAM: 12/20/2020 11:09 AM COMPARISON: NONE CLINICAL HISTORY: leg swelling. SIDE PERFORMED: Bilateral TECHNIQUE: The lower extremity deep venous system is examined utilizing real time linear array sonog marcel with graded compression, doppler sonography and color-flow sonography. VESSELS IMAGED: Common Femoral Vein Deep Femoral Vein Greater Saphenous Vein * Femoral Vein Popliteal Vein Small Saphenous Vein * Proximal Calf Veins (* superficial vessels) Right Leg: Negative for DVT Left Leg: Negative for DVT IMPRESSION: No sonographic evidence for deep vein thrombosis of the bilateral lower extremities.
[2020-12-20] MEDS ORDERED: diphenhydrAMINE 50 MG CAP PO STA (12:06)
--- NOTE | 2020-12-20 12:08 | US ---
EXAMINATION TYPE: US renals and bladder DATE OF EXAM: 12/20/2020 COMPARISON: NONE CLINICAL HISTORY: urine incontinance. EXAM MEASUREMENTS: Right Kidney: 9.5x4.6x5.2 cm Left Kidney: 11.1x6.1x5.9 cm Right Kidney: prominent renal pyramids. Left Kidney: Prominent renal pyramids ? appearance of sponge kidney Bladder: wnl Bilateral Jets seen: No IMPRESSION: Bilateral prominence of the renal pyramids. Please correlate for possible medullary sponge kidney.
[2020-12-20] MEDS: CLIDINIUM-chlordiazePOXIDE (2.5-5 MG) CAP PO SCH ×2 (12:37→17:56)
[2020-12-20] MEDS ORDERED: THIAMINE 100 MG/ML 2 ML VIAL IM STA (14:22)
[2020-12-20] MEDS ORDERED: LORazepam 2 MG/ML INJ IV PRN ×2 (14:22)
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
[2020-12-20] MEDS: LORazepam 2 MG/ML INJ IV PRN ×2 (15:52→22:47)
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
[2020-12-20 16:45] LABS: Alcohol <10 mg/dL
[2020-12-20] MEDS: THIAMINE 100 MG TAB PO SCH (17:56)
--- NOTE | 2020-12-20 17:56 | ECHOF ---
Referral Reason:Repeat LV function MEASUREMENTS -------- HEIGHT: 175.3 cm WEIGHT: 90.7 kg BP: 168/87 IVSd: 1.7 cm (0.6 - 1.1) LVIDd: 4.5 cm (3.9 - 5.3) LVPWd: 1.9 cm (0.6 - 1.1) EDV(Teich): 90 ml IVSs: 2.2 cm LVIDs: 2.1 cm LVPWs: 2.6 cm %IVS Thck: 31 % ESV(Teich): 15 ml EF(Teich): 84 % %FS: 52 % SV(Teich): 75 ml RVIDd: 3.2 cm (< 3.3) LALs A4C: 6.0 cm LAAs A4C: 21.8 cm LAESV A-L A4C: 67 ml LAESV MOD A4C: 61 ml LALs A2C: 3.3 cm LAAs A2C: 11.3 cm LAESV A-L A2C: 33 ml LAESV MOD A2C: 30 ml LAESV(A-L): 64 ml LAESV Index (A-L): 31.01 ml/m Ao Diam: 3.3 cm (2.0 - 3.7) AV Cusp: 2.1 cm (1.5 - 2.6) EPSS: 0.3 cm MV E Kleber: 0.46 m/s MV DecT: 229 ms MV Dec [place]: 2.0 m/s MV A Kleber: 0.88 m/s MV E/A Ratio: 0.53 MV PHT: 66 ms LVOT Vmax: 0.94 m/s LVOT maxP.54 mmHg AV Vmax: 1.52 m/s AV maxP.23 mmHg TR Vmax: 2.78 m/s TR maxP.88 mmHg RAP: 5.00 mmHg RVSP: 35.88 mmHg MV EF SLOPE: 50.50 mm/s (70 - 150) MV EXCURSION: 17.87 mm (> 18.000) FINDINGS -------- Sinus rhythm. This was a technically adequate study. The left ventricular size is normal. There is severe concentric left ventricular hypertrophy. Ove rall left ventricular systolic function is normal with, an EF between 55 - 60 %. The right ventricle is normal in size. LA is midly dilated 29-33ml/m2. The right atrium was not well visualized. Interatrial and interventricular septum intact. There is no evidence of aortic regurgitation. There is no evidence of aortic stenosis. Mild mitral regurgitation is present. Mild tricuspid regurgitation present. There is mild pulmonary hypertension. The right ventricular systolic pressure, as measured by Doppler, is 35.88mmHg. There is no pulmonic regurgitation present. The aortic root size is normal. IVC Not well visulized. There is no pericardial effusion. CONCLUSIONS -------- 1. The left ventricular size is normal. 2. There is severe concentric left ventricular hypertrophy. 3. Overall left ventricular systolic function is normal with, an EF between 55 - 60 %. 4. LA is midly dilated 29-33ml/m2. 5. Mild mitral regurgitation is present. 6. Mild tricuspid regurgitation present. 7. There is mild pulmonary hypertension. HOME MANAGEMENT SUPERVISOR: Argelia Elizalde RDCS
[2020-12-21] MEDS: LORazepam 2 MG/ML INJ IV PRN (05:46)
[2020-12-21] MEDS: THIAMINE 100 MG TAB PO SCH ×2 (06:49→17:32)
[2020-12-21] MEDS: SODIUM CHLORIDE 0.9% 1,000 ML IV SCH ×3 (06:50→20:16)
[2020-12-21] MEDS: CLIDINIUM-chlordiazePOXIDE (2.5-5 MG) CAP PO SCH ×3 (10:05→17:32)
[2020-12-21] MEDS: atenoloL 25 MG TAB PO SCH ×2 (10:06→20:17)
[2020-12-21] MEDS: FAMOTIDINE 20 MG TAB PO SCH ×2 (10:06→20:17)
[2020-12-21] MEDS: lisinopriL 20 MG TAB PO SCH ×2 (10:06→20:17)
--- NOTE | 2020-12-21 12:40 | P.PN ---
Subjective This is a 70-year-old male with a past medical history of excessive alcohol use, hypertension, TIA, pancreatitis. Patient presents to emergency room complaining of urinary incontinence for about 3 days, abdominal pain, epigastric tenderness, diarrhea.. 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 Cardiology was consulted for elevated troponin. EKG revealed sinus rhythm, heart rate 86, PACs, Q waves in V1-V3, T wave inversions in leads I, aVL, V5 and V6, LVH. Troponin 0.035, 0.029. Echocardiogram revealed an EF 5560 percent, LA is mildly dilated, severe concentric left ventricular hypertrophy, mild medullary tissue, mild tricuspid regurgitation, mild pulmonary hypertension. Patient seen and examined at bedside, no acute distress. He does endorse some occasional non-radiating, non-exertional, chest discomfort. He denies shortness of breath, nausea, vomiting. Blood pressure 158/69, heart rate 76, afebrile, maintaining saturations on room air. He's currently maintained on atenolol 25 mg twice a day, lisinopril 20 mg twice a day. GENERAL: Well-appearing, well-nourished and in no acute distress. NECK: Supple without JVD or thyromegaly. LUNGS: Breath sounds clear to auscultation bilaterally. Respiration equal and unlabored. No wheezes, rales or rhonchi. HEART: Regular rate and rhythm without murmurs, rubs or gallops. S1 and S2 heard. EXTREMITIES: Normal range of motion, no edema. No clubbing or cyanosis. Peripheral pulses intact. ASSESSMENT: Chest pain, atypical Excessive alcohol use Elevated troponin, not indicative of acute coronary syndrome Epigastric tenderness Hypertension History of TIA/CVA PLAN: Recommend Lexiscan stress test to assess for stress induced cardiac ischemia. We will follow up with the patient on stress test tomorrow vs 12/23. Continue current cardiac medications NPO after midnight for possible stress test tomorrow Alcohol cessation discussed and highly recommend Further recommendations based on clinical course Objective - Vital Signs Vital signs: Vital Signs Temp 98.0 F 12/21/20 08:05 Pulse 76 12/21/20 08:05 Resp 18 12/21/20 08:05 BP 158/69 12/21/20 08:05 Pulse Ox 97 12/21/20 08:05 Intake & Output 12/20/20 12/21/2021 18:59 06:59 18:59 Intake Total 510 Balance 510 Weight 87.5 kg Intake: Intake, IV Titration 260 Amount Sodium Chloride 0.9% 1, 260 000 ml @ 130 mls/hr IV . Q7H42M [facility] Rx#:[id number] Oral 250 Other: Voiding Method Incontinent Incontinent # Voids 1 1 # Bowel Movements 1 - Labs CBC & Chem 7: 12/19/20 21:36 12/19/20 21:36 Labs: Abnormal Lab Results - Last 24 Hours (Table) 12/20/20 Range/Units 15:09 Ammonia 32 H (<30) umol/L
--- NOTE | 2020-12-21 14:26 | P.PN ---
Subjective Progress Note Date: 12/21/20 Patient denies any new neurological symptoms. Denies headache. Patient is laying comfortably in the bed. Telemetry monitoring showing sinus rhythm, with PAC. Per nursing report, patient is 2 person assist. Objective - Vital Signs Vital signs: Vital Signs Temp 98.0 F 12/21/20 08:05 Pulse 76 12/21/20 08:05 Resp 18 12/21/20 08:05 BP 158/69 12/21/20 08:05 Pulse Ox 97 12/21/20 08:05 Intake & Output 12/20/20 12/21/20 12/21/20 18:59 06:59 18:59 Intake Total 510 Balance 510 Weight 87.5 kg Intake: Intake, IV Titration 260 Amount Sodium Chloride 0.9% 1, 260 000 ml @ 130 mls/hr IV . Q7H42M [facility] Rx#:[id number] Oral 250 Other: Voiding Method Incontinent Incontinent # Voids 1 1 # Bowel Movements 1 - Exam Patient is alert and awake. Speech and language functions are normal. Cranial nerves are normal muscle strength normal. No ataxia. - Labs CBC & Chem 7: 12/19/20 21:36 12/19/20 21:36 Labs: Abnormal Lab Results - Last 24 Hours (Table) 12/20/20 Range/Units 15:09 Ammonia 32 H (<30) umol/L Assessment and Plan Assessment: * Peripheral neuropathy, probably due to alcoholism, rule out nutritional deficiency. * Vitamin B12 deficiency, folate insufficiency. * Alcoholism, probably in mild withdrawals, improved. * History of gout. Rule out exacerbation of gouty arthritis. * History of falls with history of subdural hematoma. * Hypertension, uncontrolled. Accelerated hypertension. Plan: * Patient's peripheral neuropathy is likely related to alcoholism or nutritional deficiency. * B12 low 240, folate 8.6, MMA, B6, A1c, TSH and RPR pending. Patient may need an EMG and nerve conduction of lower extremity as an outpatient if not done in the past. Patient started on vitamin B12 replacement and folate replacement. * Watch for delirium tremens. Patient counseled about gradual abstinence from alcohol. * We discussed about MRI of the lumbar spine, but patient repeatedly declined. * Patient also has probable activation of gout. May need appropriate treatment for exacerbation of gout. * Treatment of accelerated hypertension as per IM. * Patient will be started on aspirin 81 mg daily for stroke prevention. Patient has vascular risk factors. * 2-D echo on 08/05/2020 shows normal left ventricular size. Severe concentric LVH. EF is between 55-60%. Left atrium is mildly dilated. * Carotid Doppler from 08/04/2020 shows no significant hemodynamic stenosis. Atherosclerotic plaque. * PT OT evaluate gait. * Telemetric monitoring showing sinus rhythm with some PACs.
[2020-12-21] MEDS: ASPIRIN 81 MG PO SCH (16:02)
[2020-12-21] MEDS: FOLIC ACID 1 MG TAB PO SCH (16:02)
[2020-12-21] MEDS: CYANOCOBALAMIN 1,000 MCG/ML 1 ML VIAL IM SCH (17:32)
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
[2020-12-22] MEDS: SODIUM CHLORIDE 0.9% 1,000 ML IV SCH ×3 (06:31→17:34)
[2020-12-22] MEDS: THIAMINE 100 MG TAB PO SCH ×2 (06:31→16:17)
[2020-12-22] MEDS: CLIDINIUM-chlordiazePOXIDE (2.5-5 MG) CAP PO SCH ×2 (06:31→12:58)
[2020-12-22 09:49] LABS: Basophils # (A) 0.1 k/uL (0-0.2); Basophils % (A) 1 %; Eosinophils # (A) 0.1 k/uL (0-0.7); Eosinophils % (A) 2 %; HCT 45.4 % (39.0-53.0); HGB 14.7 gm/dL (13.0-17.5); Lymphocytes # (A) 0.9 k/uL (1.0-4.8); Lymphocytes % (A) 16 %; MCH 30.9 pg (25.0-35.0); MCHC 32.5 g/dL (31.0-37.0); MCV 95.1 fL (80.0-100.0); Mean Platelet Volume 8.2; Monocytes # (A) 0.4 k/uL (0-1.0); Monocytes % (A) 7 %; Neutrophils # (A) 4.1 k/uL (1.3-7.7); Neutrophils % (A) 73 %; RBC 4.77 m/uL (4.30-5.90); RDW 14.2 % (11.5-15.5); WBC 5.7 k/uL (3.8-10.6)
[2020-12-22] MEDS: atenoloL 25 MG TAB PO SCH ×2 (09:56→20:30)
[2020-12-22] MEDS: CYANOCOBALAMIN 1,000 MCG/ML 1 ML VIAL IM SCH (09:56)
[2020-12-22] MEDS: FOLIC ACID 1 MG TAB PO SCH (09:56)
[2020-12-22] MEDS: lisinopriL 20 MG TAB PO SCH ×2 (09:56→20:30)
[2020-12-22] MEDS: FAMOTIDINE 20 MG TAB PO SCH ×2 (09:56→20:30)
[2020-12-22] MEDS: ASPIRIN 81 MG PO SCH (09:56)
[2020-12-22 10:16] LABS: Albumin 3.1 g/dL (3.5-5.0); Calcium 8.2 mg/dL (8.4-10.2); Potassium 3.9 mmol/L (3.5-5.1); Total Bilirubin 0.7 mg/dL (0.2-1.3); Total Protein 5.7 g/dL (6.3-8.2)
--- NOTE | 2020-12-22 11:43 | P.PN ---
Subjective This is a 70-year-old male with a past medical history of excessive alcohol use, hypertension, TIA, pancreatitis. Patient presents to emergency room complaining of urinary incontinence for about 3 days, abdominal pain, epigastric tenderness, diarrhea.. 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 Cardiology was consulted for elevated troponin. EKG revealed sinus rhythm, heart rate 86, PACs, Q waves in V1-V3, T wave inversions in leads I, aVL, V5 and V6, LVH. Troponin 0.035, 0.029. Echocardiogram revealed an EF 5560 percent, LA is mildly dilated, severe concentric left ventricular hypertrophy, mild medullary tissue, mild tricuspid regurgitation, mild pulmonary hypertension. Patient seen and examined at bedside, no acute distress. He does endorse some occasional non-radiating, non-exertional, chest discomfort. He denies shortness of breath, nausea, vomiting. He is alert and oriented x 3, however, does occasionally seem confused to the current situation. Blood pressure 150/86, heart 60, afebrile, maintaining oxygen saturations 97% on room air. He's currently maintained on atenolol 25 mg twice a day, lisinopril 20 mg twice a day. GENERAL: Well-appearing, well-nourished and in no acute distress. NECK: Supple without JVD or thyromegaly. LUNGS: Breath sounds clear to auscultation bilaterally. Respiration equal and unlabored. No wheezes, rales or rhonchi. HEART: Regular rate and rhythm without murmurs, rubs or gallops. S1 and S2 heard. EXTREMITIES: Normal range of motion, no edema. No clubbing or cyanosis. Peripheral pulses intact. ASSESSMENT: Chest pain, atypical Excessive alcohol use Elevated troponin, not indicative of acute coronary syndrome Epigastric tenderness Hypertension History of TIA/CVA PLAN: We will hold off on stress test today, due to alcohol withdrawal Continue current cardiac medications Alcohol cessation discussed and highly recommend Further recommendations based on clinical course Objective - Vital Signs Vital signs: Vital Signs Temp 99.6 F 12/22/20 08:00 Pulse 68 12/22/20 08:00 Resp 16 12/22/20 08:00 BP 152/86 12/22/20 08:00 Pulse Ox 97 12/22/20 08:00 Intake & Output 10/19/21 10/20/21 10/20/21 18:59 06:59 18:59 Intake Total 240 Output Total 500 Balance 240 -500 Weight 93 kg Intake: Oral 240 Output: Urine 500 Other: Voiding Method Incontinent Urinal Urinal # Voids 1 1 # Bowel Movements 1 - Labs CBC & Chem 7: 12/22/20 09:08 12/22/20 09:31 Labs: Abnormal Lab Results - Last 24 Hours (Table) 12/22/20 Range/Units 09:31 Sodium 136 L (137-145) mmol/L Glucose 111 H (74-99) mg/dL Calcium 8.2 L (8.4-10.2) mg/dL Total Protein 5.7 L (6.3-8.2) g/dL Albumin 3.1 L (3.5-5.0) g/dL
--- NOTE | 2020-12-22 11:45 | P.PN ---
Subjective Progress Note Date: 12/22/20 This is a pleasant 70 years old male with past medical history of CVA/TIA, GERD, Hypertension, Osteoarthritis (OA),pt stated he has 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 hx etoh abuse/withdrawls, past ulcer/gi bleed,, history of alcoholic pancreatitis,gout, past fall/subdural hematoma,Anxiety, Depression. Patient presents because of urine incontinence over the last 2 weeks which was getting messy so he decided to come to the emergency room. He denies any dysuria or urgency. No suprapubic pain. Patient states he is still able to be sometimes. He complains from choking and chronic cough or currently denies back pain however he is complaining of from epigastric pain although he states is chronic with some epigastric tenderness. Currently denies abdominal pain or chest pain or dyspnea. No coughing. No nausea vomiting. Also reports some diarrhea about 4 days duration, he had 3 loose bowel movement yesterday. His right leg is swollen and tender. This complaining of from weakness and numbness in his both lower extremity, although he states this is not new. He has history of back injury in 1965 He denies smoking, he drink 4-5 beers per day, no liquor. No illicit drugs. On 12/21/2020 patient was seen and examined on the telemetry floor, he is somnolent responsive in no apparent distress, there is no fever or chills no headache or dizziness, no new episodes of chest pain patient had chest pain yesterday he was seen by cardiology and recommendation are for a stress test, his no shortness of breath no cough no nausea or vomiting no abdominal pain no diarrhea and no urinary symptoms On 12/22/2020 patient alert and oriented 3. Patient has had no further episodes of chest pain. Plans for possible stress test per cardiology. Patient has been evaluated by psychiatry services and cleared. Awaiting further cardiology recommendation patient remains on IV Kefzol for possible pneumonia. Blood pressure improved. At that time patient denies chest pain or shortness breath. Patient denies nausea vomiting or diarrhea. Patient denies any urinary burning or frequency Objective - Vital Signs Vital signs: Vital Signs Temp 99.6 F 12/22/20 08:00 Pulse 68 12/22/20 08:00 Resp 16 12/22/20 08:00 BP 152/86 12/22/20 08:00 Pulse Ox 97 12/22/20 08:00 Intake & Output 12/21/20 12/22/20 12/22/20 18:59 06:59 18:59 Intake Total 240 Output Total 500 Balance 240 -500 Weight 93 kg Intake: Oral 240 Output: Urine 500 Other: Voiding Method Incontinent Urinal Urinal # Voids 1 1 # Bowel Movements 1 - Exam In general patient is somnolent responsive in no apparent distress HEENT head normocephalic and atraumatic Neck is supple no JVD no goiter no lymphadenopathy no carotid bruit Chest examination is clear to auscultation no crackles no wheezing Cardiac exam reveals regular heart sounds S1 and S2 no gallops no murmurs Abdomen is soft nontender no organomegaly with normal bowel sounds Extremity exam reveals no edema no cyanosis or clubbing Neurological examination reveals no gross focal deficits - Labs CBC & Chem 7: 12/22/20 09:08 12/22/20 09:31 Labs: Abnormal Lab Results - Last 24 Hours (Table) 12/22/20 Range/Units 09:31 Sodium 136 L (137-145) mmol/L Glucose 111 H (74-99) mg/dL Calcium 8.2 L (8.4-10.2) mg/dL Total Protein 5.7 L (6.3-8.2) g/dL Albumin 3.1 L (3.5-5.0) g/dL Assessment and Plan Plan: Alcohol abuse at-risk of withdrawal Depression and anxiety Hypertensive emergency, present on admission Episode of chest pain patient was evaluated by cardiology and they are recommending a stress test Mild fever present on admission, possibly related to pneumonia, patient was started on IV antibiotic Rocephin swallow evaluation requested Noncompliance to medication History of CVA/TIA with history of fall and subdural hematoma History of osteoarthritis History of ataxia History of alcoholic pancreatitis History of gout
[2020-12-22 14:49] LABS: Platelet Count 94 k/uL (150-450)
--- NOTE | 2020-12-22 15:40 | P.PN ---
Subjective Progress Note Date: 12/22/20 Patient denies any new neurological symptoms. Denies headache. Patient is laying comfortably in the bed. Telemetry monitoring showing sinus rhythm, with PAC. Per nursing report, patient is 2 person assist. Objective - Vital Signs Vital signs: Vital Signs Temp 99.5 F 12/22/20 12:20 Pulse 65 12/22/20 12:20 Resp 17 12/22/20 12:20 BP 145/68 12/22/20 12:20 Pulse Ox 98 12/22/20 12:20 Intake & Output 12/21/20 12/22/20 12/22/20 18:59 06:59 18:59 Intake Total 240 480 Output Total 500 400 Balance 240 -500 80 Weight 93 kg Intake: Oral 240 480 Output: Urine 500 400 Other: Voiding Method Incontinent Urinal Urinal # Voids 1 1 # Bowel Movements 1 - Exam Patient is alert and awake. Speech and language functions are normal. Cranial nerves are normal, muscle strength normal. No ataxia. Patient not able to get up from the bed by 1 nurse with the lap belt. Tone is mildly increased. No tremors. No definitive bradykinesia. - Labs CBC & Chem 7: 12/22/20 09:08 12/22/20 09:31 Labs: Abnormal Lab Results - Last 24 Hours (Table) 12/22/20 12/22/20 Range/Units 09:08 09:31 Plt Count 94 L (150-450) k/uL Lymphocytes # 0.9 L (1.0-4.8) k/uL Sodium 136 L (137-145) mmol/L Glucose 111 H (74-99) mg/dL Calcium 8.2 L (8.4-10.2) mg/dL Total Protein 5.7 L (6.3-8.2) g/dL Albumin 3.1 L (3.5-5.0) g/dL Assessment and Plan Assessment: * Peripheral neuropathy, probably due to alcoholism, also underlying nutritional deficiency. * Vitamin B12 deficiency, folate insufficiency, B6 insufficiency. * Alcoholism, probably in mild withdrawals, improved. * History of gout. Rule out exacerbation of gouty arthritis. * History of falls with history of subdural hematoma. * Hypertension, uncontrolled. Accelerated hypertension. Plan: * Patient's peripheral neuropathy is likely related to alcoholism or nutritional deficiency. * B12 low 240, folate 8.6, MMA borderline 0.37, B6 borderline 8 (5-50), A1c 5.3, TSH 2.85, and RPR pending. Continue B12 replacement. We will start folate and vitamin B6 replacement as well. Patient may need an EMG and nerve conduction of lower extremity as an outpatient if not done in the past. * Watch for delirium tremens. Patient counseled about gradual abstinence from alcohol. * We discussed about MRI of the lumbar spine, but patient repeatedly declined. * Patient also has probable activation of gout. May need appropriate treatment for exacerbation of gout. * Treatment of accelerated hypertension as per IM. * Patient will be started on aspirin 81 mg daily for stroke prevention. Patient has vascular risk factors. * 2-D echo on 08/05/2020 shows normal left ventricular size. Severe concentric LVH. EF is between 55-60%. Left atrium is mildly dilated. * Carotid Doppler from 08/04/2020 shows no significant hemodynamic stenosis. Atherosclerotic plaque. * PT OT evaluate gait. * Telemetric monitoring showing sinus rhythm with some PACs.
[2020-12-22] MEDS: PYRIDOXINE 50 MG TAB PO SCH (16:16)
[2020-12-23] MEDS: THIAMINE 100 MG TAB PO SCH ×2 (06:47→15:33)
[2020-12-23] MEDS: SODIUM CHLORIDE 0.9% 1,000 ML IV SCH ×3 (07:31→17:36)
[2020-12-23] MEDS: CYANOCOBALAMIN 1,000 MCG/ML 1 ML VIAL IM SCH (09:14)
[2020-12-23] MEDS: atenoloL 25 MG TAB PO SCH ×2 (09:14→21:03)
[2020-12-23] MEDS: FOLIC ACID 1 MG TAB PO SCH (09:14)
[2020-12-23] MEDS: ASPIRIN 81 MG PO SCH (09:14)
[2020-12-23] MEDS: FAMOTIDINE 20 MG TAB PO SCH ×2 (09:15→21:02)
[2020-12-23] MEDS: lisinopriL 20 MG TAB PO SCH ×2 (09:15→21:02)
[2020-12-23] MEDS: PYRIDOXINE 50 MG TAB PO SCH (09:15)
[2020-12-23 10:01] LABS: Basophils # (A) 0.1 k/uL (0-0.2); Basophils % (A) 1 %; Eosinophils # (A) 0.1 k/uL (0-0.7); Eosinophils % (A) 2 %; HCT 43.3 % (39.0-53.0); HGB 15.2 gm/dL (13.0-17.5); Lymphocytes % (A) 20 %; MCH 32.1 pg (25.0-35.0); MCV 91.8 fL (80.0-100.0); Monocytes # (A) 0.4 k/uL (0-1.0); Monocytes % (A) 8 %; Neutrophils # (A) 3.4 k/uL (1.3-7.7); Neutrophils % (A) 67 %; Platelet Count 111 k/uL (150-450); RBC 4.72 m/uL (4.30-5.90); RDW 14.8 % (11.5-15.5); WBC 5.1 k/uL (3.8-10.6)
[2020-12-23 10:11] LABS: ALT 15 U/L (4-49); AST 32 U/L (17-59); African American GFR (CKD) >90 (>60 ml/min/1.73 sqM); Albumin 3.2 g/dL (3.5-5.0); Alkaline Phosphatase 76 U/L (38-126); Anion Gap 6 mmol/L; Blood Urea Nitrogen 14 mg/dL (9-20); Calcium 8.5 mg/dL (8.4-10.2); Carbon Dioxide 27 mmol/L (22-30); Chloride 101 mmol/L (98-107); Glucose 93 mg/dL (74-99); Non-African American GFR(CKD) 86 (>60 ml/min/1.73 sqM); Sodium 134 mmol/L (137-145); Total Bilirubin 0.8 mg/dL (0.2-1.3)
--- NOTE | 2020-12-23 11:08 | P.PN ---
Subjective This is a 70-year-old male with a past medical history of excessive alcohol use, hypertension, TIA, pancreatitis. Patient presents to emergency room complaining of urinary incontinence for about 3 days, abdominal pain, epigastric tenderness, diarrhea.. 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 Cardiology was consulted for elevated troponin. EKG revealed sinus rhythm, heart rate 86, PACs, Q waves in V1-V3, T wave inversions in leads I, aVL, V5 and V6, LVH. Troponin 0.035, 0.029. Echocardiogram revealed an EF 5560 percent, LA is mildly dilated, severe concentric left ventricular hypertrophy, mild medullary tissue, mild tricuspid regurgitation, mild pulmonary hypertension. Patient seen and examined at bedside, no acute distress. Overnight and this morning patient going through alcohol withdrawal, receiving PRN Ativan. He denies shortness of breath, nausea, vomiting. He is alert and oriented x 3, however, does occasionally seem confused to the current situation. Blood pressure 158/91, heart 63, afebrile, maintaining oxygen saturations 96% on room air. He's currently maintained on atenolol 25 mg twice a day, lisinopril 20 mg twice a day. GENERAL: In no acute distress. NECK: Supple without JVD or thyromegaly. LUNGS: Breath sounds clear to auscultation bilaterally. Respiration equal and unlabored. No wheezes, rales or rhonchi. HEART: Regular rate and rhythm without murmurs, rubs or gallops. S1 and S2 heard. EXTREMITIES: Normal range of motion, no edema. No clubbing or cyanosis. Peripheral pulses intact. ASSESSMENT: Chest pain, atypical Excessive alcohol use Elevated troponin, not indicative of acute coronary syndrome Epigastric tenderness Hypertension History of TIA/CVA PLAN: We will hold off on stress test today, due to alcohol withdrawal. We will perform a stress test in the office as an outpatient. Follow up with Dr. Wagner outpatient within 1-2 weeks. Continue current cardiac medications Alcohol cessation discussed and highly recommend We will sign off at this time. Please reach out for further questions or concerns. Objective - Vital Signs Vital signs: Vital Signs Temp 99 F 12/23/20 09:00 Pulse 63 12/23/20 09:00 Resp 16 12/23/20 09:00 BP 176/86 12/23/20 09:00 Pulse Ox 96 12/23/20 09:00 Intake & Output 12/22/20 12/23/20 12/23/20 18:59 06:59 18:59 Intake Total 720 Output Total 600 200 Balance 120 -200 Weight 90.5 kg Intake: Oral 720 Output: Urine 600 200 Other: Voiding Method Urinal Urinal Urinal # Voids 1 - Labs CBC & Chem 7: 12/23/20 09:32 12/23/20 09:32 Labs: Abnormal Lab Results - Last 24 Hours (Table) 12/22/20 12/23/20 12/23/20 Range/Units 09:08 09:32 09:32 Plt Count 94 L 111 L (150-450) k/uL Lymphocytes # 0.9 L (1.0-4.8) k/uL Sodium 134 L (137-145) mmol/L Total Protein 6.0 L (6.3-8.2) g/dL Albumin 3.2 L (3.5-5.0) g/dL
[2020-12-24] MEDS: THIAMINE 100 MG TAB PO SCH (07:02)
[2020-12-24] MEDS: FOLIC ACID 1 MG TAB PO SCH (08:54)
[2020-12-24] MEDS: ASPIRIN 81 MG PO SCH (08:54)
[2020-12-24] MEDS: atenoloL 25 MG TAB PO SCH (08:54)
[2020-12-24] MEDS: FAMOTIDINE 20 MG TAB PO SCH (08:54)
[2020-12-24] MEDS: lisinopriL 20 MG TAB PO SCH (08:54)
[2020-12-24] MEDS: PYRIDOXINE 50 MG TAB PO SCH (08:55)
[2020-12-24] MEDS: CYANOCOBALAMIN 1,000 MCG/ML 1 ML VIAL IM SCH (08:55)
[2020-12-24 09:04] VITALS: RESP 16
--- NOTE | 2020-12-24 11:17 | P.DS ---
Providers Date of admission: 12/21/20 14:07 Expected date of discharge: 12/24/20 Attending physician: Kassie Beasley Consults: 12/20/20 07:46 Consult Physician Urgent Consulting Provider: Adam Wolf Consult Reason/Comments: depression and alcohol abuse Do you want consulting provider notified?: Yes 12/20/20 08:39 Consult Physician Urgent Consulting Provider: Narda Hummel Consult Reason/Comments: elevated troponin, hypertension Do you want consulting provider notified?: Yes 12/20/20 10:23 Consult Physician Urgent Consulting Provider: Kiara Kim Consult Reason/Comments: leg weakness and numbness Do you want consulting provider notified?: Yes Primary care physician: Kassie Beasley [facility] Course: Discharge diagnosis Alcohol abuse at-risk of withdrawal Depression and anxiety Hypertensive emergency, present on admission Episode of chest pain patient was evaluated by cardiology and they are recommending a stress test Mild fever present on admission, possibly related to pneumonia, patient was started on IV antibiotic Rocephin swallow evaluation requested Noncompliance to medication History of CVA/TIA with history of fall and subdural hematoma History of osteoarthritis History of ataxia History of alcoholic pancreatitis History of gout Hospital course This is a pleasant 70 years old male with past medical history of CVA/TIA, GERD, Hypertension, Osteoarthritis (OA),pt stated he has 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 hx etoh abuse/withdrawls, past ulcer/gi bleed,, history of alcoholic pancreatitis,gout, past fall/subdural hematoma,Anxiety, Depression. Patient presents because of urine incontinence over the last 2 weeks which was getting messy so he decided to come to the emergency room. He denies any dysuria or urgency. No suprapubic pain. Patient states he is still able to be sometimes. He complains from choking and chronic cough or currently denies back pain however he is complaining of from epigastric pain although he states is chronic with some epigastric tenderness. Currently denies abdominal pain or chest pain or dyspnea. No coughing. No nausea vomiting. Also reports some diarrhea about 4 days duration, he had 3 loose bowel movement yesterday. His right leg is swollen and tender. This complaining of from weakness and numbness in his both lower extremity, although he states this is not new. He has history of back injury in 1965 He denies smoking, he drink 4-5 beers per day, no liquor. No illicit drugs. On 12/21/2020 patient was seen and examined on the telemetry floor, he is somnolent responsive in no apparent distress, there is no fever or chills no headache or dizziness, no new episodes of chest pain patient had chest pain yesterday he was seen by cardiology and recommendation are for a stress test, his no shortness of breath no cough no nausea or vomiting no abdominal pain no diarrhea and no urinary symptoms On 12/22/2020 patient alert and oriented 3. Patient has had no further episodes of chest pain. Plans for possible stress test per cardiology. Patient has been evaluated by psychiatry services and cleared. Awaiting further cardiology recommendation patient remains on IV Kefzol for possible pneumonia. Blood pressure improved. At that time patient denies chest pain or shortness breath. Patient denies nausea vomiting or diarrhea. Patient denies any urinary burning or frequency On 12/24/2020 patient is alert and oriented 3. Per cardiology plans for outpatient stress test in office. Patient will be DC'd on Ceftin for one week. Patient will also be given when necessary Ativan for possible alcohol withdrawal. This time patient denies chest pain or shortness of breath. Patient denies nausea vomiting or diarrhea. Patient denies urinary burning or frequency Patient Condition at Discharge: Stable Plan - Discharge Summary Discharge Rx Participant: Yes New Discharge Prescriptions: New Aspirin 81 mg PO DAILY 30 Days #30 tab Pyridoxine [Vitamin B-6] 50 mg PO DAILY 30 Days #30 tab Cefuroxime Axetil [Ceftin] 500 mg PO BID 7 Days #14 tab Folic Acid 1 mg PO DAILY 30 Days #30 tab Thiamine [Vitamin B-1] 100 mg PO BID-W/MEALS 30 Days #60 tab Continue atenoloL [Tenormin] 25 mg PO BID tab lisinopriL [Zestril] 20 mg PO BID tab Discharge Medication List atenoloL [Tenormin] 25 mg PO BID tab 08/04/20 [Rx] lisinopriL [Zestril] 20 mg PO BID tab 08/04/20 [Rx] Aspirin 81 mg PO DAILY 30 Days #30 tab 12/24/20 [Rx] Cefuroxime Axetil [Ceftin] 500 mg PO BID 7 Days #14 tab 12/24/20 [Rx] Folic Acid 1 mg PO DAILY 30 Days #30 tab 12/24/20 [Rx] Pyridoxine [Vitamin B-6] 50 mg PO DAILY 30 Days #30 tab 12/24/20 [Rx] Thiamine [Vitamin B-1] 100 mg PO BID-W/MEALS 30 Days #60 tab 12/24/20 [Rx] Follow up Appointment(s)/Referral(s): Fernando Wagner MD [STAFF PHYSICIAN] - 2 Weeks Kassie Beasley MD [Primary Care Provider] - 1-2 days Discharge/Stand Alone Forms: AA Meetings [place], Who Do I Call?, Community Resources, Help In The Home, Outpatient Counseling
[2020-12-24 11:25] VITALS: BMI 29.2
[2020-12-24 15:50] VITALS: BP 144/79; PULSE 66; TEMP 98.5
--- NOTE | 2020-12-25 10:27 | P.PN ---
Subjective Progress Note Date: 12/24/20 Patient denies any new neurological symptoms. Denies headache. Patient is laying comfortably in the bed. Patient concerned about discharge, because of cellulitis. He has received IV antibiotics, but will be discharged on Ceftin. Telemetry monitoring showing sinus rhythm, with sinus tachycardia in 100s, PAC, some PVC, quadruplets, trigeminy and BBB. Per nursing report, patient is 2 person assist. Objective - Vital Signs Vital signs: Vital Signs Temp 98.5 F 12/24/20 15:48 Pulse 66 12/24/20 15:48 Resp 16 12/24/20 15:48 BP 144/79 12/24/20 15:48 Pulse Ox 96 12/24/20 15:48 Intake & Output 12/24/20 12/25/20 12/25/20 18:59 06:59 18:59 Weight 90 kg Other: Voiding Method Urinal # Bowel Movements 1 - Exam Patient is alert and awake. Speech and language functions are normal. Cranial nerves are normal, muscle strength normal. No ataxia. Patient not able to get up from the bed by 1 nurse with the lap belt. Tone is mildly increased. No shelly mors. No definitive bradykinesia. - Labs CBC & Chem 7: 12/23/20 09:32 12/23/20 09:32 Assessment and Plan Assessment: * Peripheral neuropathy, probably due to alcoholism, also underlying nutritional deficiency. * Vitamin B12 deficiency, folate insufficiency, B6 insufficiency. * Cellulitis right lateral ames region * Alcoholism, probably in mild withdrawals, improved. * History of gout. Rule out exacerbation of gouty arthritis. * History of falls with history of subdural hematoma. * Hypertension, uncontrolled. Accelerated hypertension. Plan: * Patient's peripheral neuropathy is likely related to alcoholism or nutritional deficiency. * B12 low 240, folate 8.6, MMA borderline 0.37, B6 borderline 8 (5-50), A1c 5.3, TSH 2.85, and RPR pending. Continue B12 replacement. Continue folate and vitamin B6 replacement as outpatient. Patient may need an EMG and nerve conduction of lower extremity as an outpatient if not done in the past. * Patient currently on Ceftin for cellulitis. * Patient is status post alcohol withdrawal. * We discussed about MRI of the lumbar spine, but patient repeatedly declined. * Patient also has probable activation of gout. May need appropriate treatment for exacerbation of gout. * Treatment of accelerated hypertension as per IM. * Patient will be started on aspirin 81 mg daily for stroke prevention. Patient has vascular risk factors. * 2-D echo on 08/05/2020 shows normal left ventricular size. Severe concentric LVH. EF is between 55-60%. Left atrium is mildly dilated. * Carotid Doppler from 08/04/2020 shows no significant hemodynamic stenosis. Atherosclerotic plaque. * PT OT evaluate gait. * Neurologically clear.
== END 2020-12-24 17:05 | disposition home or self-care (01) | DRG 896 ==
LOC: EC 19:56 → 3SCARD 12-20 05:43 → OBSVTOIN 12-21 14:07
PROVIDERS: ADMIT Internal Medicine; ATTEND Internal Medicine
PROC: HZ2ZZZZ Detoxification Services for Substance Abuse Treatment (ICD-10-PCS; principal; 2020-12-21)
DX: F10.139 Alcohol abuse with withdrawal, unspecified (principal); J18.9 Pneumonia, unspecified organism; I16.1 Hypertensive emergency; J98.11 Atelectasis; L03.115 Cellulitis of right lower limb; K86.0 Alcohol-induced chronic pancreatitis; E53.8 Deficiency of other specified B group vitamins; F10.129 Alcohol abuse with intoxication, unspecified; E63.9 Nutritional deficiency, unspecified; F32.9 Major depressive disorder, single episode, unspecified; F41.9 Anxiety disorder, unspecified; I69.393 Ataxia following cerebral infarction; G62.9 Polyneuropathy, unspecified; I10 Essential (primary) hypertension; I27.20 Pulmonary hypertension, unspecified; I49.3 Ventricular premature depolarization; R19.7 Diarrhea, unspecified; R77.8 Other specified abnormalities of plasma proteins; M19.90 Unspecified osteoarthritis, unspecified site; R20.0 Anesthesia of skin; I16.0 Hypertensive urgency; I07.1 Rheumatic tricuspid insufficiency; Y90.8 Blood alcohol level of 240 mg/100 ml or more; R53.1 Weakness; E53.1 Pyridoxine deficiency; E63.8 Other specified nutritional deficiencies; R32 Unspecified urinary incontinence; K31.89 Other diseases of stomach and duodenum; R29.6 Repeated falls; K40.90 Unilateral inguinal hernia, without obstruction or gangrene, not specified as recurrent; J98.6 Disorders of diaphragm; M10.9 Gout, unspecified; Z79.899 Other long term (current) drug therapy; Z87.828 Personal history of other (healed) physical injury and trauma; Z91.14 Patient's other noncompliance with medication regimen; Z91.81 History of falling; Z87.19 Personal history of other diseases of the digestive system; Z90.49 Acquired absence of other specified parts of digestive tract
CPT/HCPCS: 36415; 71045; 76770; 80053; 80320; 81003; 82140; 82150; 82607; 82746; 83036; 83605; 83690; 83921; 84207; 84443; 84484; 85025; 87635; 93005; 93306; 93970; 96374; 96375; 96376; 99285

== ENCOUNTER 2021-06-06 12:56 | Inpatient (IN) | payer MEDICARE ==
[2021-06-06] MEDS ORDERED: SODIUM CHLORIDE 0.9% 500 ML 500 ML IV STA (13:48)
[2021-06-06] MEDS ORDERED: THIAMINE 100 MG/ML 2 ML VIAL IM STA (13:50)
[2021-06-06] MEDS ORDERED: LORazepam 2 MG/ML INJ IV PRN ×2 (13:50)
[2021-06-06 14:48] LABS: Basophils # (A) 0.1 k/uL (0-0.2); Basophils % (A) 1 %; Eosinophils # (A) 0.1 k/uL (0-0.7); Eosinophils % (A) 1 %; HCT 47.1 % (39.0-53.0); HGB 16.3 gm/dL (13.0-17.5); Lymphocytes # (A) 0.9 k/uL (1.0-4.8); Lymphocytes % (A) 9 %; MCH 31.6 pg (25.0-35.0); MCHC 34.5 g/dL (31.0-37.0); MCV 91.7 fL (80.0-100.0); Mean Platelet Volume 7.2; Monocytes # (A) 0.6 k/uL (0-1.0); Monocytes % (A) 6 %; Neutrophils # (A) 8.3 k/uL (1.3-7.7); Neutrophils % (A) 82 %; Platelet Count 184 k/uL (150-450); RBC 5.14 m/uL (4.30-5.90); RDW 14.9 % (11.5-15.5); WBC 10.2 k/uL (3.8-10.6)
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
[2021-06-06 14:53] LABS: ALT 99 U/L (4-49); AST 220 U/L (17-59); African American GFR (CKD) >90 (>60 ml/min/1.73 sqM); Albumin 3.8 g/dL (3.5-5.0); Alcohol <10 mg/dL; Alkaline Phosphatase 71 U/L (38-126); Anion Gap 14 mmol/L; Blood Urea Nitrogen 35 mg/dL (9-20); Calcium 8.6 mg/dL (8.4-10.2); Carbon Dioxide 22 mmol/L (22-30); Chloride 100 mmol/L (98-107); Glucose 103 mg/dL (74-99); Magnesium 2.2 mg/dL (1.6-2.3); Non-African American GFR(CKD) 83 (>60 ml/min/1.73 sqM); Phosphorus 4.3 mg/dL (2.5-4.5); Potassium 4.8 mmol/L (3.5-5.1); Sodium 136 mmol/L (137-145); Total Bilirubin 1.4 mg/dL (0.2-1.3); Total Protein 6.7 g/dL (6.3-8.2)
--- NOTE | 2021-06-06 14:53 | CT ---
EXAMINATION TYPE: CT brain cspine wo con DATE OF EXAM: 06/06/2021 COMPARISON: CT brain and cervical spine November 19, 2017 HISTORY: Fall injury with headache and neck pain. CT DLP: 1586.1 mGycm. Automated Exposure Control for Dose Reduction was Utilized. TECHNIQUE: CT scan of the head and cervical spine are performed without contrast. FINDINGS: There is no acute intracranial hemorrhage or midline shift identified. Mild to moderate v entricular and sulcal prominence redemonstrated. Moderate to severe low-attenuation in the deep and periventricular white matter. The calvarium is intact. Globes are intact and visualized paranasal sin uses are clear. Cervical spine is visualized in its entirety from C1 through upper thoracic levels and demonstrates l evoconvex scoliosis centered upper thoracic spine. Prevertebral soft tissue remains within normal li mits. The C1-C2 articulation remains within normal limits on coronal images. Vertebral body heights are maintained. Minimal grade 1 retrolisthesis C3 on C4 redemonstrated. [id number] multileve l anterior spurring with some bridging osteophytes in the midthoracic spine redemonstrated. No acute fracture or dislocation. No grossly preserved. Axial images show multilevel uncovertebral facet degenerative changes. Thyroid gland is normal in size. Lung apices show no pneumothorax. IMPRESSION: 1. There is no acute fracture or dislocation evident in the cervical spine. 2. No acute intracranial hemorrhage or midline shift is seen.
[2021-06-06 14:55] LABS: INR 0.9 (<1.2); Partial Thromboplastin Time 24.5 sec (22.0-30.0)
--- NOTE | 2021-06-06 15:00 | XR ---
EXAMINATION TYPE: XR chest 2V DATE OF EXAM: 06/06/2021 COMPARISON: 12/19/2020 HISTORY: 71-year-old male with weakness TECHNIQUE: AP and lateral views FINDINGS: Heart limits of normal in size. Similar asymmetric elevation right hemidiaphragm. No consolidation. P ossible trace effusion on the left seen on the lateral view. IMPRESSION: 1. Unchanged asymmetric elevation right hemidiaphragm. If concern for hemidiaphragmatic paralysis, a fluoroscopic sniff test can be performed. 2. There appears to be trace left pleural effusion on the lateral view.
[2021-06-06 15:12] LABS: Creatine Kinase 3852 U/L (55-170)
[2021-06-06] MEDS ORDERED: DILTIAZEM 5 MG/ML 5 ML VIAL IVP STA (15:14)
[2021-06-06] MEDS: DILTIAZEM 125 MG in SODIUM CHLORIDE 0.9% 100 ML IV SCH (15:34)
[2021-06-06] MEDS ORDERED: NALOXONE 0.4 MG/ML 1 ML VIAL IV PRN (16:17)
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
[2021-06-06] MEDS: SODIUM CHLORIDE 0.9% 1,000 ML IV SCH (20:00)
[2021-06-06] MEDS: ENOXAPARIN 60 MG/0.6 ML SYRINGE SQ SCH (21:06)
[2021-06-07] MEDS: SODIUM CHLORIDE 0.9% 1,000 ML IV SCH ×3 (04:00→18:22)
[2021-06-07] MEDS: THIAMINE 100 MG TAB PO SCH ×2 (06:40→19:00)
[2021-06-07] MEDS: DILTIAZEM 125 MG in SODIUM CHLORIDE 0.9% 100 ML IV SCH (06:52)
--- NOTE | 2021-06-07 08:14 | US ---
EXAMINATION TYPE: US venous doppler duplex LE BI DATE OF EXAM: 06/07/2021 7:33 AM COMPARISON: 12/20/2020 CLINICAL HISTORY: lower etremities pain and erythem. edema bilaterally, no h/o dvt SIDE PERFORMED: Bilateral TECHNIQUE: The lower extremity deep venous system is examined utilizing real time linear array sonog marcel with graded compression, doppler sonography and color-flow sonography. VESSELS IMAGED: Common Femoral Vein Deep Femoral Vein Greater Saphenous Vein * Femoral Vein Popliteal Vein Small Saphenous Vein * Proximal Calf Veins (* superficial vessels) Right Leg: Negative for DVT Left Leg: Negative for DVT IMPRESSION: Grayscale, color doppler, spectral doppler imaging performed of the deep veins of the lo wer extremities. There is normal flow, compressibility, vascular waveforms.
[2021-06-07 08:45] LABS: Basophils # (A) 0.1 k/uL (0-0.2); Basophils % (A) 1 %; Eosinophils # (A) 0.2 k/uL (0-0.7); Eosinophils % (A) 3 %; HCT 44.5 % (39.0-53.0); HGB 14.2 gm/dL (13.0-17.5); Lymphocytes # (A) 0.9 k/uL (1.0-4.8); Lymphocytes % (A) 14 %; MCH 30.1 pg (25.0-35.0); MCHC 31.9 g/dL (31.0-37.0); MCV 94.3 fL (80.0-100.0); Mean Platelet Volume 7.6; Monocytes # (A) 0.4 k/uL (0-1.0); Monocytes % (A) 7 %; Neutrophils # (A) 4.9 k/uL (1.3-7.7); Neutrophils % (A) 74 %; Platelet Count 160 k/uL (150-450); RBC 4.71 m/uL (4.30-5.90); RDW 14.7 % (11.5-15.5); WBC 6.6 k/uL (3.8-10.6)
[2021-06-07 08:57] LABS: ALT 84 U/L (4-49); AST 145 U/L (17-59); African American GFR (CKD) >90 (>60 ml/min/1.73 sqM); Albumin 3.4 g/dL (3.5-5.0); Alkaline Phosphatase 74 U/L (38-126); Anion Gap 9 mmol/L; Blood Urea Nitrogen 28 mg/dL (9-20); Calcium 8.3 mg/dL (8.4-10.2); Carbon Dioxide 27 mmol/L (22-30); Chloride 103 mmol/L (98-107); Glucose 119 mg/dL (74-99); Non-African American GFR(CKD) 79 (>60 ml/min/1.73 sqM); Potassium 3.5 mmol/L (3.5-5.1); Sodium 139 mmol/L (137-145); Total Bilirubin 0.8 mg/dL (0.2-1.3); Total Protein 6.1 g/dL (6.3-8.2)
[2021-06-07] MEDS ORDERED: METOPROLOL TARTRATE 25 MG TAB PO SCH (09:30)
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
[2021-06-07] MEDS: METOPROLOL TARTRATE 50 MG TAB PO SCH ×2 (12:34→21:00)
[2021-06-07] MEDS: ENOXAPARIN 60 MG/0.6 ML SYRINGE SQ SCH ×2 (12:34→21:00)
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
--- NOTE | 2021-06-07 18:58 | ECHOF ---
Referral Reason:new onset a fib MEASUREMENTS -------- HEIGHT: 152.4 cm WEIGHT: 86.2 kg BP: RVIDd: 3.0 cm (< 3.3) IVSd: 1.4 cm (0.6 - 1.1) LVIDd: 4.2 cm (3.9 - 5.3) LVPWd: 1.7 cm (0.6 - 1.1) IVSs: 2.1 cm LVIDs: 3.0 cm LVPWs: 2.0 cm LA Diam: 4.1 cm (2.7 - 3.8) Ao Diam: 4.1 cm (2.0 - 3.7) MV EXCURSION: 23.427 mm (> 18.000) MV EF SLOPE: 99 mm/s (70 - 150) EPSS: 0.4 cm RAP: 5.00 mmHg RVSP: 17.78 mmHg FINDINGS -------- Atrial fibrillation. This was a technically difficult study with suboptimal views. The left ventricular size is normal. There is moderate concentric left ventricular hypertrophy. O verall left ventricular systolic function is normal with, an EF between 55 - 60 %. The RV was not well visualized. The left atrium is mildly dilated. The right atrial size is normal. The aortic valve was not well visualized. Mild mitral annular calcification present. Mild mitral regurgitation is present. The tricuspid valve was not well visualized. The pulmonic valve was not well visualized. The aortic root is mildy dilated. There is a trivial pericardial effusion present. CONCLUSIONS -------- 1. This was a technically difficult study with suboptimal views. 2. There is moderate concentric left ventricular hypertrophy. 3. Overall left ventricular systolic function is normal with, an EF between 55 - 60 %. 4. The left atrium is mildly dilated. 5. The aortic valve was not well visualized. 6. Mild mitral regurgitation is present. 7. The aortic root is mildy dilated. 8. There is a trivial pericardial effusion present. TANK CAR CLEANER: Huong Santos RDCS
--- NOTE | 2021-06-07 19:23 | P.PN ---
Subjective Progress Note Date: 06/07/21 Blake Sinclair, is a 71-year-old male who presented to [facility] emergency room via EMS, in poor condition apparently patient has been drinking at home until a few days ago when he fell to the floor and was unable to stand due to severe pain in bilateral lower extremities, he stated that he has been crawling around at his home for few days, it is not clear who called EMS, patient was found on the floor in his home, with his home being very cold, he was confused, she was brought into emergency room for further evaluation and treatment. Patient was evaluated in the emergency room, he was a very poor historian and unable to contribute to the history of the last few days, he was complaining of bilateral feet pain, otherwise he denied any complaints at this time. vital examination on presentation revealed a temperature of 96.8 pulse 124 respiration 22 blood pressure 125/104 pulse ox 97% on room air. Laboratory data revealed a white blood count of 10.2 hemoglobin 16.3 platelet count 184 sodium 136 potassium 4.8 chloride 100 CO2 22 BUN 35 creatinine 0.91 lactic acid 1.6 AST 04/24/1979 LT 99 total bilirubin 1.4 creatinine kinase 3852 troponin 0.033 alcohol level less than 10 urine analysis, urine tox screen, uric acid level were ordered but are not available yet. Testing in the emergency room revealed, EKG revealed atrial fibrillation with rapid ventricular response, computed tomography scan of the head and neck without contrast was done in the emergency room and did not reveal any evidence of intracranial hemorrhage or cervical spine fracture, chest x-ray was done in the emergency room and revealed asymmetric elevation in the right hemidiaphragm unchanged from previous exam in December 2020, patient also had a trace left pleural effusion. Patient was started on IV Cardizem in the emergency room , he was admitted to telemetry floor , cardiology consultation was requested , in regard to atrial fibrillation with rapid ventricular response . On 06/07/2020 patient was seen and examined on the medical floor he is alert and oriented 3 in no apparent distress he is still complaining of pain in the bilateral lower extremities otherwise he denies any complaints, there is no fever or chills no headache or dizziness no chest pain no shortness of breath no cough no nausea or vomiting no abdominal pain no diarrhea no blood in the stools no burning with urination no frequency or urgency and no hematuria Objective - Vital Signs Vital signs: Vital Signs Temp 98.4 F 06/07/21 08:10 Pulse 97 06/07/21 08:10 Resp 17 06/07/21 08:10 BP 139/66 06/07/21 08:10 Pulse Ox 95 06/07/21 08:10 Intake & Output 06/06/21 06/07/21 06/07/21 18:59 06:59 18:59 Intake Total 76.5 Balance 76.5 Weight 86.183 kg Intake: Intake, IV Titration 76.5 Amount Diltiazem 125 mg In 76.5 Sodium Chloride 0.9% 100 ml @ 5 MG/HR 5 mls/hr IV .Q24H [facility] Rx#:[id number] Other: Voiding Method Urinal Indwelling Catheter # Voids 1 - Exam In general patient is alert, slightly confused, in no distress HEENT head normocephalic and atraumatic Neck is supple no JVD no goiter no lymphadenopathy no carotid bruit Chest examination is clear to auscultation no crackles no wheezing Cardiac exam reveals irregular heart sounds S1 and S2 no gallops no murmurs, with tachycardia Abdomen is soft nontender no organomegaly with normal bowel sounds Extremity exam reveals no edema, there is reddish discoloration involving the right foot and ankle with multiple small ulcerations, the left lower extremity r eveals left erythema but also is tender and has multiple small ulcers Neurological examination reveals no gross focal deficit patient is moving all 4 extremities - Labs CBC & Chem 7: 06/07/21 07:52 06/07/21 07:52 Labs: Abnormal Lab Results - Last 24 Hours (Table) 06/06/21 06/06/21 06/07/21 Range/Units 14:14 14:14 07:52 Neutrophils # 8.3 H (1.3-7.7) k/uL Lymphocytes # 0.9 L 0.9 L (1.0-4.8) k/uL Sodium 136 L (137-145) mmol/L BUN 35 H (9-20) mg/dL Glucose 103 H (74-99) mg/dL Calcium (8.4-10.2) mg/dL Total Bilirubin 1.4 H (0.2-1.3) mg/dL AST 220 H (17-59) U/L ALT 99 H (4-49) U/L Creatine Kinase 3852 H* (55-170) U/L Total Protein (6.3-8.2) g/dL Albumin (3.5-5.0) g/dL 06/07/21 Range/Units 07:52 Neutrophils # (1.3-7.7) k/uL Lymphocytes # (1.0-4.8) k/uL Sodium (137-145) mmol/L BUN 28 H (9-20) mg/dL Glucose 119 H (74-99) mg/dL Calcium 8.3 L (8.4-10.2) mg/dL Total Bilirubin (0.2-1.3) mg/dL AST 145 H (17-59) U/L ALT 84 H (4-49) U/L Creatine Kinase (55-170) U/L Total Protein 6.1 L (6.3-8.2) g/dL Albumin 3.4 L (3.5-5.0) g/dL Assessment and Plan Plan: 1. History of excessive alcohol use, with early alcohol withdrawal, patient was started on CIWA protocol in the emergency room, and admitted to telemetry floor. 2. Atrial fibrillation with rapid ventricular response, patient was started on IV Cardizem in the emergency room, at this time I will add subcu Lovenox at full therapeutic dose. 3. Bilateral lower extremity cellulitis, right worse than the left, with multiple small ulcerations, there is a possibility of peripheral vascular disease, patient is started on subcu Lovenox, he will be started on IV antib iotics, vascular consultation will be requested. 4. Evidence of dehydration with acute kidney injury, with elevated BUN 35, patient was started on IV fluid in the emergency room 5. Evidence of rhabdomyolysis, with elevated creatinine kinase at 3852, patient was started on IV fluid Will monitor labs closely. 6. Elevated liver enzymes likely related to acute alcoholic hepatitis, will monitor liver enzymes closely 7. Underlying history of gout, uric acid level was ordered and is still pending at this time 8. Underlying history of hypertension 9. Underlying history of hyperlipidemia 10. Underlying history of stroke 11. 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 Previous history of GI bleed, will monitor hemoglobin closely 13. Previous history of subdural hematoma 14. Noncompliance with medical therapy, patient was last admitted to the hospital in December 2020, he had multiple medications including blood pressure medications, at this time he stated that he does not take any medications at home, he did not follow-up with any physician after his discharge last time. At this time patient is admitted to telemetry floor Continue IV Cardizem Continue CIWA protocol Add IV cefazolin Add subcu Lovenox at therapeutic dose and monitor CBC closely Consults vascular surgery regarding bilateral lower extremity erythema and possible peripheral arterial disease Will follow closely prognosis is guarded
[2021-06-07] MEDS: HYDROcodone/APAP 5-325MG 1 EACH TAB PO PRN (20:59)
[2021-06-08] MEDS: SODIUM CHLORIDE 0.9% 1,000 ML IV SCH ×4 (01:06→20:00)
[2021-06-08 05:58] LABS: Appearance,Urine Clear (Clear); Bilirubin,Urine Negative (Negative); Blood,Urine Negative (Negative); Color,Urine Yellow; Glucose,Urine (UA) Negative (Negative); Ketones,Urine 1+ (Negative); Leukocyte Esterase,Urine Negative (Negative); Nitrite,Urine Negative (Negative); PH, Urine 5.5 (5.0-8.0); Protein,Urine Trace (Negative); Specific Gravity,Urine 1.026 (1.001-1.035); Urobilinogen,Urine <2.0 mg/dL (<2.0)
[2021-06-08 06:02] LABS: Basophils % (A) 1 %; Eosinophils # (A) 0.2 k/uL (0-0.7); Eosinophils % (A) 4 %; HCT 39.3 % (39.0-53.0); HGB 12.7 gm/dL (13.0-17.5); Lymphocytes # (A) 0.8 k/uL (1.0-4.8); Lymphocytes % (A) 19 %; MCH 30.3 pg (25.0-35.0); MCHC 32.4 g/dL (31.0-37.0); MCV 93.6 fL (80.0-100.0); Mean Platelet Volume 7.6; Monocytes # (A) 0.4 k/uL (0-1.0); Monocytes % (A) 8 %; Neutrophils % (A) 67 %; Platelet Count 118 k/uL (150-450); RDW 14.5 % (11.5-15.5); WBC 4.5 k/uL (3.8-10.6)
[2021-06-08 06:17] LABS: ALT 55 U/L (4-49); AST 77 U/L (17-59); African American GFR (CKD) >90 (>60 ml/min/1.73 sqM); Albumin 2.7 g/dL (3.5-5.0); Alkaline Phosphatase 58 U/L (38-126); Anion Gap 4 mmol/L; Blood Urea Nitrogen 20 mg/dL (9-20); Calcium 7.6 mg/dL (8.4-10.2); Carbon Dioxide 29 mmol/L (22-30); Chloride 107 mmol/L (98-107); Creatine Kinase 588 U/L (55-170); Glucose 97 mg/dL (74-99); Non-African American GFR(CKD) 87 (>60 ml/min/1.73 sqM); Potassium 3.3 mmol/L (3.5-5.1); Sodium 140 mmol/L (137-145); Total Bilirubin 0.7 mg/dL (0.2-1.3); Total Protein 5.3 g/dL (6.3-8.2)
[2021-06-08] MEDS: THIAMINE 100 MG TAB PO SCH ×2 (06:42→16:29)
[2021-06-08] MEDS ORDERED: Potassium Replacement Protocol 1 EACH MISC MISCELLANE PRN ×2 (06:52→09:22)
[2021-06-08] MEDS: POTASSIUM CHLORIDE ER 20 MEQ TAB.ER PO SCH ×3 (06:59→16:29)
[2021-06-08] MEDS: METOPROLOL TARTRATE 50 MG TAB PO SCH ×2 (09:09→20:42)
[2021-06-08] MEDS: ENOXAPARIN 60 MG/0.6 ML SYRINGE SQ SCH (09:09)
[2021-06-08] MEDS ORDERED: POTASSIUM CHLORIDE ER 20 MEQ TAB.ER PO SCH (10:00)
--- NOTE | 2021-06-08 11:21 | P.PN ---
Subjective Progress Note Date: 06/08/21 Patient is seen in follow-up lying in bed. He denies any acute changes through the night. He has been afebrile. States pain in toes has improved some. He's been afebrile. WBC 4.5 hemoglobin 12.7. He remains on Kefzol. Objective - Vital Signs Vital signs: Vital Signs Temp 98.6 F 06/08/21 08:00 Pulse 104 H 06/08/21 08:00 Resp 18 06/08/21 08:00 BP 136/65 06/08/21 08:00 Pulse Ox 99 06/08/21 08:00 Intake & Output 06/07/21 06/08/21 06/08/21 18:59 06:59 18:59 Intake Total 240 Output Total 350 600 Balance -350 -600 240 Weight 86.1 kg Intake: Oral 240 Output: Urine 350 600 Other: Voiding Method Incontinent Incontinent External Catheter # Voids 1 - Exam General appearance: The patient is alert, oriented, appears in no acute distress. HET: Head is normocephalic and atraumatic. Pupils are equal and reactive. Neck: Supple without lymphadenopathy. Trachea midline. No audible carotid bruit. Heart: S1 S2. Regular rate and rhythm. Lungs: Clear to auscultation bilaterally. Abdomen: Soft, nontender, nondistended. Extremities: Normal skin color and turgor bilateral lower extremities also warm to the touch other than bilateral toes with some discoloration, purple, blisters, bilateral fifth toes with blisters and weeping clear fluid. Very tender to the touch. Palpable +2 dorsalis pedis and posterior tibialis pulses. Neurological: No focal deficits. Strength and sensation are grossly intact. - Labs CBC & Chem 7: 06/08/21 05:42 06/08/21 05:42 Labs: Abnormal Lab Results - Last 24 Hours (Table) 06/08/21 06/08/21 06/08/21 Range/Units 05:42 05:42 05:45 RBC 4.20 L (4.30-5.90) m/uL Hgb 12.7 L (13.0-17.5) gm/dL Plt Count 118 L (150-450) k/uL Lymphocytes # 0.8 L (1.0-4.8) k/uL Potassium 3.3 L (3.5-5.1) mmol/L Calcium 7.6 L (8.4-10.2) mg/dL AST 77 H (17-59) U/L ALT 55 H (4-49) U/L Creatine Kinase 588 H (55-170) U/L Total Protein 5.3 L (6.3-8.2) g/dL Albumin 2.7 L (3.5-5.0) g/dL Urine Protein Trace H (Negative) Urine Ketones 1+ H (Negative) Assessment and Plan Assessment: 1. Frostbite to bilateral toes 2. Fall at home 3. Rhabdomyolysis 4. History of alcohol abuse Plan: 1. Apply Opticell silver to left 5th toe 2. Continue symptomatic and supportive care 3. Recommend alcohol abstinence 4. There is no peripheral arterial disease noted, has +2 palpable DP and PT pulses. No indication for any vascular surgical intervention at this time 5. Continue to monitor frostbite toes, allowed to demarcate. Will need to follow-up with vascular surgery outpatient. 6. Outpatient wound clinic Thank you for this consultation, we will continue to follow. The impression and plan of care has been dictated as directed. Dr. Whittington I performed a history and examination of this patient, discussed the same with the dictator. I agree with the dictator's note ,documented as a scribe. Any additional findings or plans will be noted.
--- NOTE | 2021-06-08 11:39 | P.PN ---
Subjective Progress Note Date: 06/08/21 Blake Sinclair, is a 71-year-old male who presented to [facility] emergency room via EMS, in poor condition apparently patient has been drinking at home until a few days ago when he fell to the floor and was unable to stand due to severe pain in bilateral lower extremities, he stated that he has been crawling around at his home for few days, it is not clear who called EMS, patient was found on the floor in his home, with his home being very cold, he was confused, she was brought into emergency room for further evaluation and treatment. Patient was evaluated in the emergency room, he was a very poor historian and unable to contribute to the history of the last few days, he was complaining of bilateral feet pain, otherwise he denied any complaints at this time. vital examination on presentation revealed a temperature of 96.8 pulse 124 respiration 22 blood pressure 125/104 pulse ox 97% on room air. Laboratory data revealed a white blood count of 10.2 hemoglobin 16.3 platelet count 184 sodium 136 potassium 4.8 chloride 100 CO2 22 BUN 35 creatinine 0.91 lactic acid 1.6 AST 04/24/1979 LT 99 total bilirubin 1.4 creatinine kinase 3852 troponin 0.033 alcohol level less than 10 urine analysis, urine tox screen, uric acid level were ordered but are not available yet. Testing in the emergency room revealed, EKG revealed atrial fibrillation with rapid ventricular response, computed tomography scan of the head and neck without contrast was done in the emergency room and did not reveal any evidence of intracranial hemorrhage or cervical spine fracture, chest x-ray was done in the emergency room and revealed asymmetric elevation in the right hemidiaphragm unchanged from previous exam in December 2020, patient also had a trace left pleural effusion. Patient was started on IV Cardizem in the emergency room , he was admitted to telemetry floor , cardiology consultation was requested , in regard to atrial fibrillation with rapid ventricular response . On 06/07/2020 patient was seen and examined on the medical floor he is alert and oriented 3 in no apparent distress he is still complaining of pain in the bilateral lower extremities otherwise he denies any complaints, there is no fever or chills no headache or dizziness no chest pain no shortness of breath no cough no nausea or vomiting no abdominal pain no diarrhea no blood in the stools no burning with urination no frequency or urgency and no hematuria On 06/08/2021 patient is alert and oriented 3. Patient complains of pain and lack of sleeping. Patient denies chest pain or shortness breath. Patient den ies nausea vomiting or diarrhea. Patient denies any urinary burning or frequency patient was evaluated by vascular surgery. Per vascular surgery no peripheral or arterial disease noted no indication for any vascular surgical intervention at this time continue to monitor prostate toes will need follow-up with vascular surgery outpatient. Patient will likely require ECF facility upon discharge per PT/OT recommendations Objective - Vital Signs Vital signs: Vital Signs Temp 98.9 F 06/08/21 11:26 Pulse 71 06/08/21 11:26 Resp 17 06/08/21 11:26 BP 137/67 06/08/21 11:26 Pulse Ox 95 06/08/21 11:26 Intake & Output 06/07/21 06/08/21 06/08/21 18:59 06:59 18:59 Intake Total 240 Output Total 350 600 Balance -350 -600 240 Weight 86.1 kg Intake: Oral 240 Output: Urine 350 600 Other: Voiding Method Incontinent Incontinent External Catheter # Voids 1 - Exam In general patient is alert, slightly confused, in no distress HEENT head normocephalic and atraumatic Neck is supple no JVD no goiter no lymphadenopathy no carotid bruit Chest examination is clear to auscultation no crackles no wheezing Cardiac exam reveals irregular heart sounds S1 and S2 no gallops no murmurs, with tachycardia Abdomen is soft nontender no organomegaly with normal bowel sounds Extremity exam reveals no edema, there is reddish discoloration involving the right foot and ankle with multiple small ulcerations, the left lower extremity reveals left erythema but also is tender and has multiple small ulcers Neurological examination reveals no gross focal deficit patient is moving all 4 extremities - Labs CBC & Chem 7: 06/08/21 05:42 06/08/21 05:42 Labs: Abnormal Lab Results - Last 24 Hours (Table) 06/08/21 06/08/21 06/08/21 Range/Units 05:42 05:42 05:45 RBC 4.20 L (4.30-5.90) m/uL Hgb 12.7 L (13.0-17.5) gm/dL Plt Count 118 L (150-450) k/uL Lymphocytes # 0.8 L (1.0-4.8) k/uL Potassium 3.3 L (3.5-5.1) mmol/L Calcium 7.6 L (8.4-10.2) mg/dL AST 77 H (17-59) U/L ALT 55 H (4-49) U/L Creatine Kinase 588 H (55-170) U/L Total Protein 5.3 L (6.3-8.2) g/dL Albumin 2.7 L (3.5-5.0) g/dL Urine Protein Trace H (Negative) Urine Ketones 1+ H (Negative) Assessment and Plan Plan: 1. History of excessive alcohol use, with early alcohol withdrawal, patient was started on CIWA protocol in the emergency room, and admitted to telemetry floor. 2. Atrial fibrillation with rapid ventricular response, patient was started on IV Cardizem in the emergency room, at this time I will add subcu Lovenox at full therapeutic dose. 3. Bilateral lower extremity cellulitis, right worse than the left, with multiple small ulcerations, there is a possibility of peripheral vascular disease, patient is started on subcu Lovenox, he will be started on IV antibiotics, vascular consultation will be requested. 4. Evidence of dehydration with acute kidney injury, with elevated BUN 35, patient was started on IV fluid in the emergency room 5. Evidence of rhabdomyolysis, with elevated creatinine kinase at 3852, patient was started on IV fluid Will monitor labs closely. 6. Elevated liver enzymes likely related to acute alcoholic hepatitis, will monitor liver enzymes closely 7. Underlying history of gout, uric acid level was ordered and is still pending at this time 8. Underlying history of hypertension 9. Underlying history of hyperlipidemia 10. Underlying history of stroke 11. 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 Previous history of GI bleed, will monitor hemoglobin closely 13. Previous history of subdural hematoma 14. Noncompliance with medical therapy, patient was last admitted to the hospital in December 2020, he had multiple medications including blood pressure medications, at this time he stated that he does not take any medications at home, he did not follow-up with any physician after his discharge last time. At this time patient is admitted to telemetry floor Continue IV Cardizem Continue CIWA protocol Add IV cefazolin Add subcu Lovenox at therapeutic dose and monitor CBC closely Will follow closely prognosis is guarded
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
[2021-06-08] MEDS: HYDROcodone/APAP 5-325MG 1 EACH TAB PO PRN ×2 (12:57→21:00)
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
[2021-06-09] MEDS: HYDROcodone/APAP 5-325MG 1 EACH TAB PO PRN ×4 (03:19→22:59)
[2021-06-09] MEDS: SODIUM CHLORIDE 0.9% 1,000 ML IV SCH ×3 (06:28→21:03)
[2021-06-09] MEDS: THIAMINE 100 MG TAB PO SCH ×2 (06:28→11:00)
[2021-06-09 09:17] LABS: Basophils % (A) 1 %; Eosinophils # (A) 0.1 k/uL (0-0.7); Eosinophils % (A) 4 %; HGB 12.7 gm/dL (13.0-17.5); Lymphocytes % (A) 24 %; MCH 31.8 pg (25.0-35.0); MCHC 33.3 g/dL (31.0-37.0); MCV 95.4 fL (80.0-100.0); Mean Platelet Volume 7.2; Monocytes # (A) 0.3 k/uL (0-1.0); Monocytes % (A) 7 %; Neutrophils # (A) 2.5 k/uL (1.3-7.7); Neutrophils % (A) 61 %; Platelet Count 145 k/uL (150-450); RBC 3.99 m/uL (4.30-5.90); RDW 15.2 % (11.5-15.5)
[2021-06-09 09:30] LABS: ALT 37 U/L (4-49); AST 54 U/L (17-59); African American GFR (CKD) >90 (>60 ml/min/1.73 sqM); Albumin 2.7 g/dL (3.5-5.0); Alkaline Phosphatase 55 U/L (38-126); Anion Gap 3 mmol/L; Blood Urea Nitrogen 13 mg/dL (9-20); Calcium 7.7 mg/dL (8.4-10.2); Carbon Dioxide 27 mmol/L (22-30); Chloride 108 mmol/L (98-107); Glucose 100 mg/dL (74-99); Non-African American GFR(CKD) >90 (>60 ml/min/1.73 sqM); Potassium 3.8 mmol/L (3.5-5.1); Sodium 138 mmol/L (137-145); Total Bilirubin 0.6 mg/dL (0.2-1.3); Total Protein 5.2 g/dL (6.3-8.2)
[2021-06-09] MEDS: LORazepam 2 MG/ML INJ IV PRN ×2 (10:59→22:59)
[2021-06-09] MEDS: ENOXAPARIN 40 MG/0.4 ML SYRINGE SQ SCH (10:59)
[2021-06-09] MEDS: METOPROLOL TARTRATE 50 MG TAB PO SCH ×2 (11:00→21:03)
--- NOTE | 2021-06-09 12:06 | P.PN ---
Subjective Progress Note Date: 06/09/21 Patient is seen in follow-up lying in bed. He denies any acute changes through the night. He has been afebrile. States pain in toes has improved some. He's been afebrile. Infectious disease was consulted yesterday for antibiotic therapy, they increased to 2 g every 8 hours. Objective - Vital Signs Vital signs: Vital Signs Temp 99.1 F 06/09/21 09:17 Pulse 87 06/09/21 09:17 Resp 16 06/09/21 09:17 BP 138/67 06/09/21 09:17 Pulse Ox 94 L 06/09/21 09:17 Intake & Output 06/08/21 06/09/21 06/09/21 18:59 06:59 18:59 Intake Total 240 480 Output Total 450 400 600 Balance -210 -400 -120 Intake: Oral 240 480 Output: Urine 450 400 600 Other: Voiding Method External Catheter External Catheter External Catheter - Exam General appearance: The patient is alert, oriented, appears in no acute distress. HET: Head is normocephalic and atraumatic. Pupils are equal and reactive. Neck: Supple without lymphadenopathy. Trachea midline. No audible carotid bruit. Heart: S1 S2. Regular rate and rhythm. Lungs: Clear to auscultation bilaterally. Abdomen: Soft, nontender, nondistended. Extremities: Normal skin color and turgor bilateral lower extremities also warm to the touch other than bilateral toes with some discoloration, purple, blist ers, bilateral fifth toes with blisters and weeping clear fluid. Very tender to the touch. Palpable +2 dorsalis pedis and posterior tibialis pulses. Neurological: No focal deficits. Strength and sensation are grossly intact. - Labs CBC & Chem 7: 06/09/21 08:07 06/09/21 08:07 Labs: Abnormal Lab Results - Last 24 Hours (Table) 06/09/21 06/09/21 Range/Units 08:07 08:07 RBC 3.99 L (4.30-5.90) m/uL Hgb 12.7 L (13.0-17.5) gm/dL Hct 38.0 L (39.0-53.0) % Plt Count 145 L (150-450) k/uL Chloride 108 H (98-107) mmol/L Glucose 100 H (74-99) mg/dL Calcium 7.7 L (8.4-10.2) mg/dL Total Protein 5.2 L (6.3-8.2) g/dL Albumin 2.7 L (3.5-5.0) g/dL Assessment and Plan Assessment: 1. Frostbite to bilateral toes 2. Fall at home 3. Rhabdomyolysis 4. History of alcohol abuse Plan: 1. Apply Opticell silver to bilateral toes 2. Continue symptomatic and supportive care 3. Recommend alcohol abstinence 4. There is no peripheral arterial disease noted, has +2 palpable DP and PT pulses. No indication for any vascular surgical intervention at this time 5. Continue to monitor frostbite toes, allow to demarcate. Will need to follow-up with vascular surgery outpatient. 6. Outpatient wound clinic 7. Patient cleared for discharge from vascular surgery once otherwise medically stable. Thank you for this consultation, we will continue to follow. The impression and plan of care has been dictated as directed. Dr. Irwin I performed a history and examination of this patient, discussed the same with the dictator. I agree with the dictator's note ,documented as a scribe. Any additional findings or plans will be noted.
--- NOTE | 2021-06-09 13:54 | P.PN ---
Subjective This is a 71-year-old male with a past medical history of excessive alcohol use, hypertension, TIA, pancreatitis. He does not follow with a optical fabrication technician, did not follow up with Dr. Wagner after admission in 12/2020. Cardiology was consulted for atrial fibrillation. Patient presents to the emergency department with bilateral feet and toe ulcers, pain difficulty walking. He states he was at home, he was crawling on the ground, he states his friend called EMS. He states he has had these ulcers on his toes for years. He denies any chest pain, palpitations, lightheadedness, dizziness, syncope or near syncope. No history of CAD, SC, Diabetes. He denies history of bleeding or frequent falls. But has fallen due to excessive alcohol use. He states he could not get to the office to follow up for stress test due to ride issues. DIAGNOSTICS -EKG reveals atrial fibrillation with ventricular response, heart rate 134, PVC. -CT head with no acute intracranial process -Chest xray trace left pleural effusion, unchanged asymmetric elevation of the right hemidiaphragm -Venous Dopplers negative for DVT bilaterally 06/09/2021 Patient seen and examined at bedside, no acute distress. Denies any chest pain or shortness of breath. Denies any lightheadedness or dizziness. Telemetry reviewed maintaining sinus mechanism, with one episode of 9 beat NSVT. Currently he is maintaining sinus mechanism with heart rate 70s-80s Echocardiogram reveals an EF of 5560%, no significant wall motion abnormalities. Sodium 138, potassium 3.8, BUN 13, serum creatinine 0.75 PHYSICAL EXAMINATION Vitals reviewed CONSTITUTIONAL: No apparent distress. HEENT: Neck supple. No JVD. CHEST EXAMINATION: Lungs are clear to auscultation. No chest wall tenderness is noted on palpation or with deep breathing. HEART EXAMINATION: Irregular rate and rhythm. S1, S2 heard. No murmurs, gallops or rub. ABDOMEN: Soft, nontender. Positive bowel sounds. EXTREMITIES: 2+ peripheral pulses, moderate bilateral below the knee lower extremity edema and no calf tenderness. SKIN: warm, moist, redness to bilateral lower feet and shins NEUROLOGIC EXAMINATION: Patient is awake, alert and oriented x3. ASSESSMENT New onset paroxysmal atrial fibrillation -[id number] score 3, currently in sinus mechanism Alcohol abuse Bilateral lower extremity redness, with ulcerations, cellulitis Acute kidney injury Rhabdomyolysis Elevated liver enzymes Hypertension History TIA History of subdural hematoma History pancreatitis Noncompliance Prior Falls at home PLAN Continue metoprolol tartrate 50mg BID Patient does require halfway anticoagulation. We discussed anticoagulation, atrial fibrillation, risk of stroke and bleeding with the patient. Patient states he is worried about falling and not wanting anticoagulation at this time. We will not start anticoagulation. Continue Lovenox at this time per primary. From a cardiology perspective, no further changes at this time. Recommend close follow up outpatient with Dr. Wagner. We will follow the patient as needed. Please reach out with any further questions or concerns. Nurse practitioner note has been reviewed by physician. Signing provider agrees with the documented findings, assessment, and plan of care. Objective - Vital Signs Vital signs: Vital Signs Temp 99.1 F 06/09/21 09:17 Pulse 87 06/09/21 09:17 Resp 16 06/09/21 09:17 BP 138/67 06/09/21 09:17 Pulse Ox 94 L 06/09/21 09:17 Intake & Output 06/08/21 06/09/21 06/09/21 18:59 06:59 18:59 Intake Total 240 480 Output Total 450 400 600 Balance -210 -400 -120 Intake: Oral 240 480 Output: Urine 450 400 600 Other: Voiding Method External Catheter External Catheter External Catheter - Labs CBC & Chem 7: 06/09/21 08:07 06/09/21 08:07 Labs: Abnormal Lab Results - Last 24 Hours (Table) 06/09/21 06/09/21 Range/Units 08:07 08:07 RBC 3.99 L (4.30-5.90) m/uL Hgb 12.7 L (13.0-17.5) gm/dL Hct 38.0 L (39.0-53.0) % Plt Count 145 L (150-450) k/uL Chloride 108 H (98-107) mmol/L Glucose 100 H (74-99) mg/dL Calcium 7.7 L (8.4-10.2) mg/dL Total Protein 5.2 L (6.3-8.2) g/dL Albumin 2.7 L (3.5-5.0) g/dL
[2021-06-10] MEDS: HYDROcodone/APAP 5-325MG 1 EACH TAB PO PRN (05:37)
[2021-06-10] MEDS: SODIUM CHLORIDE 0.9% 1,000 ML IV SCH (05:38)
[2021-06-10] MEDS: THIAMINE 100 MG TAB PO SCH (05:38)
[2021-06-10] MEDS: ENOXAPARIN 40 MG/0.4 ML SYRINGE SQ SCH (09:44)
[2021-06-10] MEDS: METOPROLOL TARTRATE 50 MG TAB PO SCH (09:44)
[2021-06-10 10:19] VITALS: RESP 18; TEMP 98.2
--- NOTE | 2021-06-10 10:19 | P.PN ---
Subjective Progress Note Date: 06/10/21 Patient is seen in follow-up lying in bed. No acute changes through the night. States that pain has improved in his toes and feet, however states left fifth toe is still painful. He has a dressing in place. Cardiology has been following patient recommends anticoagulation however patient is declining as he is at high risk for falls. He is afebrile. Objective - Vital Signs Vital signs: Vital Signs Temp 98.5 F 06/09/21 20:00 Pulse 81 06/10/21 04:00 Resp 16 06/10/21 04:00 BP 165/75 06/10/21 04:00 Pulse Ox 95 06/10/21 04:00 Intake & Output 06/09/21 06/10/21 06/10/21 18:59 06:59 18:59 Intake Total 960 1220 360 Output Total 1100 1200 Balance -140 20 360 Intake: Oral 960 1220 360 Output: Urine 1100 1200 Other: Voiding Method External Catheter External Catheter # Bowel Movements 1 - Exam General appearance: The patient is alert, oriented, appears in no acute distress. HET: Head is normocephalic and atraumatic. Pupils are equal and reactive. Neck: Supple without lymphadenopathy. Trachea midline. No audible carotid b ruit. Heart: S1 S2. Regular rate and rhythm. Lungs: Clear to auscultation bilaterally. Abdomen: Soft, nontender, nondistended. Extremities: Normal skin color and turgor bilateral lower extremities also warm to the touch other than bilateral toes with purple blisters, bilateral fifth toes with blisters and weeping clear fluid. Palpable +2 dorsalis pedis and posterior tibialis pulses. Neurological: No focal deficits. Strength and sensation are grossly intact. - Labs CBC & Chem 7: 06/09/21 08:07 06/09/21 08:07 Assessment and Plan Assessment: 1. Frostbite to bilateral toes 2. Fall at home 3. Rhabdomyolysis 4. History of alcohol abuse Plan: 1. Apply Opticell silver to bilateral 5th toes 2. Continue symptomatic and supportive care 3. Recommend alcohol abstinence 4. There is no peripheral arterial disease noted, has +2 palpable DP and PT pulses. No indication for any vascular surgical intervention at this time 5. Continue to monitor frostbite toes, allow to demarcate. Will need to follow-up with vascular surgery outpatient. 6. Outpatient wound clinic 7. Patient cleared for discharge from vascular surgery once otherwise medically stable. Thank you for this consultation, we will sign off at this time. The impression and plan of care has been dictated as directed. Dr. Whittington I performed a history and examination of this patient, discussed the same with the dictator. I agree with the dictator's note ,documented as a scribe. Any additional findings or plans will be noted.
--- NOTE | 2021-06-10 10:30 | P.PN ---
Subjective Progress Note Date: 06/10/21 Blake Sinclair, is a 71-year-old male who presented to [facility] emergency room via EMS, in poor condition apparently patient has been drinking at home until a few days ago when he fell to the floor and was unable to stand due to severe pain in bilateral lower extremities, he stated that he has been crawling around at his home for few days, it is not clear who called EMS, patient was found on the floor in his home, with his home being very cold, he was confused, she was brought into emergency room for further evaluation and treatment. Patient was evaluated in the emergency room, he was a very poor historian and unable to contribute to the history of the last few days, he was complaining of bilateral feet pain, otherwise he denied any complaints at this time. vital examination on presentation revealed a temperature of 96.8 pulse 124 respiration 22 blood pressure 125/104 pulse ox 97% on room air. Laboratory data revealed a white blood count of 10.2 hemoglobin 16.3 platelet count 184 sodium 136 potassium 4.8 chloride 100 CO2 22 BUN 35 creatinine 0.91 lactic acid 1.6 AST 04/24/1979 LT 99 total bilirubin 1.4 creatinine kinase 3852 troponin 0.033 alcohol level less than 10 urine analysis, urine tox screen, uric acid level were ordered but are not available yet. Testing in the emergency room revealed, EKG revealed atrial fibrillation with rapid ventricular response, computed tomography scan of the head and neck without contrast was done in the emergency room and did not reveal any evidence of intracranial hemorrhage or cervical spine fracture, chest x-ray was done in the emergency room and revealed asymmetric elevation in the right hemidiaphragm unchanged from previous exam in December 2020, patient also had a trace left pleural effusion. Patient was started on IV Cardizem in the emergency room , he was admitted to telemetry floor , cardiology consultation was requested , in regard to atrial fibrillation with rapid ventricular response . On 06/07/2020 patient was seen and examined on the medical floor he is alert and oriented 3 in no apparent distress he is still complaining of pain in the bilateral lower extremities otherwise he denies any complaints, there is no fever or chills no headache or dizziness no chest pain no shortness of breath no cough no nausea or vomiting no abdominal pain no diarrhea no blood in the stools no burning with urination no frequency or urgency and no hematuria On 06/08/2021 patient is alert and oriented 3. Patient complains of pain and lack of sleeping. Patient denies chest pain or shortness breath. Patient den ies nausea vomiting or diarrhea. Patient denies any urinary burning or frequency patient was evaluated by vascular surgery. Per vascular surgery no peripheral or arterial disease noted no indication for any vascular surgical intervention at this time continue to monitor prostate toes will need follow-up with vascular surgery outpatient. Patient will likely require ECF facility upon discharge per PT/OT recommendations On 06/10/2021 patient's alert and oriented 3. Patient is resting comfortably in bed. Per cardiology patient will not be started on anticoagulation. Patient remains on IV antibiotics for cellulitis. Patient denies chest pain or shortness breath. Patient denies nausea vomiting or diarrhea. Patient denies any urinary burning and frequency Objective - Vital Signs Vital signs: Vital Signs Temp 98.2 F 06/10/21 08:00 Pulse 76 06/10/21 08:00 Resp 18 06/10/21 08:00 BP 142/65 06/10/21 08:00 Pulse Ox 93 L 06/10/21 08:00 Intake & Output 06/09/21 06/10/21 06/10/21 18:59 06:59 18:59 Intake Total 960 1220 360 Output Total 1100 1200 Balance -140 20 360 Intake: Oral 960 1220 360 Output: Urine 1100 1200 Other: Voiding Method External Catheter External Catheter # Bowel Movements 1 - Exam In general patient is alert, slightly confused, in no distress HEENT head normocephalic and atraumatic Neck is supple no JVD no goiter no lymphadenopathy no carotid bruit Chest examination is clear to auscultation no crackles no wheezing Cardiac exam reveals irregular heart sounds S1 and S2 no gallops no murmurs, with tachycardia Abdomen is soft nontender no organomegaly with normal bowel sounds Extremity exam reveals no edema, there is reddish discoloration involving the right foot and ankle with multiple small ulcerations, the left lower extremity reveals left erythema but also is tender and has multiple small ulcers Neurological examination reveals no gross focal deficit patient is moving all 4 extremities - Labs CBC & Chem 7: 06/09/21 08:07 06/09/21 08:07 Assessment and Plan Plan: 1. History of excessive alcohol use, with early alcohol withdrawal, patient was started on CIWA protocol in the emergency room, and admitted to telemetry floor. 2. Atrial fibrillation with rapid ventricular response, patient was started on IV Cardizem in the emergency room, at this time I will add subcu Lovenox at full therapeutic dose. 3. Bilateral lower extremity cellulitis, right worse than the left, with multiple small ulcerations, there is a possibility of peripheral vascular disease, patient is started on subcu Lovenox, he will be started on IV antibiotics, vascular consultation will be requested. 4. Evidence of dehydration with acute kidney injury, with elevated BUN 35, patient was started on IV fluid in the emergency room 5. Evidence of rhabdomyolysis, with elevated creatinine kinase at 3852, patient was started on IV fluid Will monitor labs closely. 6. Elevated liver enzymes likely related to acute alcoholic hepatitis, will monitor liver enzymes closely 7. Underlying history of gout, uric acid level was ordered and is still pending at this time 8. Underlying history of hypertension 9. Underlying history of hyperlipidemia 10. Underlying history of stroke 11. 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 Previous history of GI bleed, will monitor hemoglobin closely 13. Previous history of subdural hematoma 14. Noncompliance with medical therapy, patient was last admitted to the hospital in December 2020, he had multiple medications including blood pressure medications, at this time he stated that he does not take any medications at home, he did not follow-up with any physician after his discharge last time. At this time patient is admitted to telemetry floor Continue IV Cardizem Continue CIWA protocol Add IV cefazolin Add subcu Lovenox at therapeutic dose and monitor CBC closely Will follow closely prognosis is guarded
--- NOTE | 2021-06-10 10:48 | P.DS ---
Providers Date of admission: 06/06/21 15:52 Expected date of discharge: 06/10/21 Attending physician: Kassie Beasley Consults: 06/06/21 16:19 Consult Physician Routine Consulting Provider: [facility] Consult Reason/Comments: A. fib with RVR Do you want consulting provider notified?: Yes 06/06/21 19:51 Consult Physician Routine Consulting Provider: Lavern Whittington Consult Reason/Comments: peripheral arterial disease Do you want consulting provider notified?: Yes 06/07/21 19:18 Consult Physician Routine Consulting Provider: Breann Grace Consult Reason/Comments: lower etremity cellulitis Do you want consulting provider notified?: Yes Primary care physician: Stated None Hospital Course: Discharge diagnosis 1. History of excessive alcohol use, with early alcohol withdrawal, patient was started on CIWA protocol in the emergency room, and admitted to telemetry floor. 2. Atrial fibrillation with rapid ventricular response, patient was started on IV Cardizem in the emergency room, . Patient has been started on Lopressor. Per cardiology discussion was held with patient about anticoagulation was determined at this time patient will not be started on anticoagulation due to high risk of falls 3. Bilateral lower extremity cellulitis, right worse than the left, with multiple small ulcerations, there is a possibility of peripheral vascular disease, patient is started on subcu Lovenox, he will be started on IV antibiotics, vascular consultation will be requested. 4. Evidence of dehydration with acute kidney injury, with elevated BUN 35, patient was started on IV fluid in the emergency room 5. Evidence of rhabdomyolysis, with elevated creatinine kinase at 3852, patient was started on IV fluid Will monitor labs closely. 6. Elevated liver enzymes likely related to acute alcoholic hepatitis, will monitor liver enzymes closely 7. Underlying history of gout, uric acid level was ordered and is still pending at this time 8. Underlying history of hypertension 9. Underlying history of hyperlipidemia 10. Underlying history of stroke 11. 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 Previous history of GI bleed, will monitor hemoglobin closely 13. Previous history of subdural hematoma 14. Noncompliance with medical therapy, patient was last admitted to the hospital in December 2020, he had multiple medications including blood pressure medications, at this time he stated that he does not take any medications at home, he did not follow-up with any physician after his discharge last time. Hospital course Blake Sinclair, is a 71-year-old male who presented to [facility] emergency room via EMS, in poor condition apparently patient has been drinking at home until a few days ago when he fell to the floor and was unable to stand due to severe pain in bilateral lower extremities, he stated that he has been crawling around at his home for few days, it is not clear who called EMS, patient was found on the floor in his home, with his home being very cold, he was confused, she was brought into emergency room for further evaluation and treatment. Patient was evaluated in the emergency room, he was a very poor historian and unable to contribute to the history of the last few days, he was complaining of bilateral feet pain, otherwise he denied any complaints at this time. vital examination on presentation revealed a temperature of 96.8 pulse 124 respiration 22 blood pressure 125/104 pulse ox 97% on room air. Laboratory data revealed a white blood count of 10.2 hemoglobin 16.3 platelet count 184 sodium 136 potassium 4.8 chloride 100 CO2 22 BUN 35 creatinine 0.91 lactic acid 1.6 AST 04/24/1979 LT 99 total bilirubin 1.4 creatinine kinase 3852 troponin 0.033 alcohol level less than 10 urine analysis, urine tox screen, uric acid level were ordered but are not available yet. Testing in the emergency room revealed, EKG revealed atrial fibrillation with rapid ventricular response, computed tomography scan of the head and neck without contrast was done in the emergency room and did not reveal any evidence of intracranial hemorrhage or cervical spine fracture, chest x-ray was done in the emergency room and revealed asymmetric elevation in the right hemidiaphragm unchanged from previous exam in December 2020, patient also had a trace left pleural effusion. Patient was started on IV Cardizem in the emergency room , he was admitted to telemetry floor , cardiology consultation was requested , in regard to atrial fibrillation with rapid ventricular response . On 06/07/2020 patient was seen and examined on the medical floor he is alert and oriented 3 in no apparent distress he is still complaining of pain in the bilateral lower extremities otherwise he denies any complaints, there is no fever or chills no headache or dizziness no chest pain no shortness of breath no cough no nausea or vomiting no abdominal pain no diarrhea no blood in the stools no burning with urination no frequency or urgency and no hematuria On 06/08/2021 patient is alert and oriented 3. Patient complains of pain and lack of sleeping. Patient denies chest pain or shortness breath. Patient denies nausea vomiting or diarrhea. Patient denies any urinary burning or frequency patient was evaluated by vascular surgery. Per vascular surgery no peripheral or arterial disease noted no indication for any vascular surgical intervention at this time continue to monitor prostate toes will need follow-up with vascular surgery outpatient. Patient will likely require ECF facility upon discharge per PT/OT recommendations On 06/10/2021 patient's alert and oriented 3. Patient is resting comfortably in bed. Per cardiology patient will not be started on anticoagulation. Patient remains on IV antibiotics for cellulitis. Patient denies chest pain or shortness breath. Patient denies nausea vomiting or diarrhea. Patient denies any urinary burning and frequency Discussed case with social worker clinical patient will be DC'd ECF facility. Patient will go on Keflex. Patient also will go on Ativan when necessary as needed. Per cardiology patient will not be started on anticoagulation at this time due to high risk of falls Patient Condition at Discharge: Stable Plan - Discharge Summary Discharge Rx Participant: No New Discharge Prescriptions: New Cephalexin [Keflex] 500 mg PO Q8HR 5 Days #15 cap Metoprolol Tartrate [Lopressor] 50 mg PO BID 30 Days #60 tab Thiamine [Vitamin B-1] 100 mg PO BID-W/MEALS 30 Days #60 tab Discharge Medication List Cephalexin [Keflex] 500 mg PO Q8HR 5 Days #15 cap 06/10/21 [Rx] Metoprolol Tartrate [Lopressor] 50 mg PO BID 30 Days #60 tab 06/10/21 [Rx] Thiamine [Vitamin B-1] 100 mg PO BID-W/MEALS 30 Days #60 tab 06/10/21 [Rx] Follow up Appointment(s)/Referral(s): Fernando Wagner MD [STAFF PHYSICIAN] - 2 Weeks Bentley Bravo DO [STAFF PHYSICIAN] - 2 Weeks None,Stated [Primary Care Provider] - 1-2 days [facility] [NON-STAFF] - 1 Week Activity/Diet/Wound Care/Special Instructions: Activity as tolerated Diet heart healthy
[2021-06-10 13:38] VITALS: BP 164/78; PULSE 61
--- NOTE | 2021-06-13 15:23 | CDI ---
Documentation Clarification Form Date: 06/13/2021 03:12:54 PM From: Thanh Marr Admit Date: 06/06/2021 03:52:00 PM Patient Name: Blake Sinclair Visit Number: [id number] Discharge Date: 06/10/2021 02:41:00 PM ATTENTION: The Clinical Documentation Specialists (CDI) and [facility] Coding Staff appreciate your assistance in clarifying documentation. Please respond to the clarification below the line at the bottom and electronically sign. The CDI & [facility] Coding staff will review the response and follow-up if needed. Please note: Queries are made part of the Legal Health Record. If you have any questions, please contact the author of this message via ITS. Dr. Kassie Beasley The patients principal diagnosis the diagnosis that was chiefly responsible for the admission - has not been clearly identified and clarification is requested. The patient presented with the following: ETOH withdrawl, cellulitis, rhabdomyolosis and atrial fibrillation. History/Risk factors: ETOH abuse, hx of falling, A-fib Clinical Indicators: Lab findings: rhabdomyolosis, dehydration Radiology findings: Vital Signs: Treatment: IV Cardizem, ETOH withdrawl protocol, IV NaCl, IV antibiotics Consults: In your professional opinion, can you please clarify which diagnosis, after study, was the reason chiefly responsible for the admission? [x ] ETOH withdrawl [ x ] atrial fibrillation [ ] Other, please specify [ ] Unable to determine [ ] bilateral LE cellultis [ ] all of the above equally MTDD
--- NOTE | 2021-06-17 16:55 | P.PN ---
Subjective Progress Note Date: 06/09/21 Principal diagnosis: Cellulitis Patient is a 71-year-old male with multiple comorbidities and history of heavy drinking brought into the ER after pending the patient was on the floor for 2-3 days noticed to have some discoloration of the toes along with the cellulitis to the left lateral foot area. On today's evaluation that is 06/09/2021, patient denies having any fever or chills; complaining of pain to the left foot no worsening no chest pain shortness of breath or cough no abdominal pain or diarrhea Objective - Vital Signs Vital signs: Vital Signs Temp 98.3 F 06/09/21 13:00 Pulse 68 06/09/21 13:00 Resp 17 06/09/21 13:00 BP 135/71 06/09/21 13:00 Pulse Ox 96 06/09/21 13:00 Intake & Output 06/08/21 06/09/21 06/09/21 18:59 06:59 18:59 Intake Total 240 480 Output Total 450 400 600 Balance -210 -400 -120 Intake: Oral 240 480 Output: Urine 450 400 600 Other: Voiding Method External Catheter External Catheter External Catheter - Exam GENERAL DESCRIPTION: An elderly male lying in bed in no distress RESPIRATORY SYSTEM: Unlabored breathing , decreased breath sounds at bases HEART: S1 S2 regular rate and rhythm , ABDOMEN: Soft , no tenderness EXTREMITIES: Left foot with some erythema and drainage on the dressing - Labs CBC & Chem 7: 06/09/21 08:07 06/09/21 08:07 Labs: Abnormal Lab Results - Last 24 Hours (Table) 06/09/21 06/09/21 Range/Units 08:07 08:07 RBC 3.99 L (4.30-5.90) m/uL Hgb 12.7 L (13.0-17.5) gm/dL Hct 38.0 L (39.0-53.0) % Plt Count 145 L (150-450) k/uL Chloride 108 H (98-107) mmol/L Glucose 100 H (74-99) mg/dL Calcium 7.7 L (8.4-10.2) mg/dL Total Protein 5.2 L (6.3-8.2) g/dL Albumin 2.7 L (3.5-5.0) g/dL Assessment and Plan (1) Cellulitis Status: Acute Code(s): L03.90 - CELLULITIS, UNSPECIFIED SNOMED Code(s): 109761006 Plan: 1patient with bilateral foot area swelling some redness blister formation especially to the left fifth toe and some clear drainage and minimal redness concerning for lower extremity cellulitis likely from gram-positive skin [place]. 2patient to continue with cefazolin to 2 g every 8 hour. 3local wound care to the open area with Aquacel silver dressing change every 48 hour. Time with Patient: Less than 30
--- NOTE | 2021-06-17 16:56 | P.PN ---
Subjective Progress Note Date: 06/10/21 Principal diagnosis: Cellulitis Patient is a 71-year-old male with multiple comorbidities and history of heavy drinking brought into the ER after pending the patient was on the floor for 2-3 days noticed to have some discoloration of the toes along with the cellulitis to the left lateral foot area. On today's evaluation that is 06/10/2021, patient remains to be afebrile, the patient pain to the left foot is currently controlled, the patient denies chest pain shortness of breath or cough no abdominal pain or diarrhea Objective - Vital Signs Vital signs: Vital Signs Temp 98.2 F 06/10/21 08:00 Pulse 76 06/10/21 08:00 Resp 18 06/10/21 08:00 BP 142/65 06/10/21 08:00 Pulse Ox 93 L 06/10/21 08:00 Intake & Output 06/09/21 06/10/21 06/10/21 18:59 06:59 18:59 Intake Total 960 1220 460 Output Total 1100 1200 Balance -140 20 460 Intake: Oral 960 1220 460 Output: Urine 1100 1200 Other: Voiding Method External Catheter External Catheter External Catheter # Bowel Movements 1 - Exam GENERAL DESCRIPTION: An elderly male lying in bed in no distress RESPIRATORY SYSTEM: Unlabored breathing , decreased breath sounds at bases HEART: S1 S2 regular rate and rhythm , ABDOMEN: Soft , no tenderness EXTREMITIES: Left foot with some erythema and drainage on the dressing - Labs CBC & Chem 7: 06/09/21 08:07 06/09/21 08:07 Assessment and Plan (1) Cellulitis Status: Acute Code(s): L03.90 - CELLULITIS, UNSPECIFIED SNOMED Code(s): 865141062 Plan: 1patient with bilateral foot area swelling some redness blister formation especially to the left fifth toe and some clear drainage and minimal redness concerning for lower extremity cellulitis likely from gram-positive skin [place]. 2patient seemed to have shown clinical improvement with cefazolin to 2 g every 8 hour to finish therapy with oral Keflex 7 days and to close the patient follow-up. 3local wound care to the open area with Aquacel silver dressing change every 48 hour. Time with Patient: Less than 30
== END 2021-06-10 14:41 | DRG 897 ==
LOC: EC 12:56 → 3SCARD 15:52
PROVIDERS: ADMIT Internal Medicine; ATTEND Internal Medicine
DX: F10.139 Alcohol abuse with withdrawal, unspecified (principal); M62.82 Rhabdomyolysis; L03.115 Cellulitis of right lower limb; T33.831A Superficial frostbite of right toe(s), initial encounter; T33.832A Superficial frostbite of left toe(s), initial encounter; I47.2 Ventricular tachycardia; N17.9 Acute kidney failure, unspecified; L03.116 Cellulitis of left lower limb; I48.0 Paroxysmal atrial fibrillation; E86.0 Dehydration; E78.5 Hyperlipidemia, unspecified; F32.A Depression, unspecified; F41.9 Anxiety disorder, unspecified; I10 Essential (primary) hypertension; I27.20 Pulmonary hypertension, unspecified; I49.3 Ventricular premature depolarization; Z20.822 Contact with and (suspected) exposure to COVID-19; I73.9 Peripheral vascular disease, unspecified; K70.10 Alcoholic hepatitis without ascites; X31.XXXA Exposure to excessive natural cold, initial encounter; W19.XXXA Unspecified fall, initial encounter; Y92.009 Unspecified place in unspecified non-institutional (private) residence as the place of occurrence of the external cause; Z82.49 Family history of ischemic heart disease and other diseases of the circulatory system; Z82.5 Family history of asthma and other chronic lower respiratory diseases; Z86.73 Personal history of transient ischemic attack (TIA), and cerebral infarction without residual deficits; Z91.19 Patient's noncompliance with other medical treatment and regimen; Z91.81 History of falling; L97.519 Non-pressure chronic ulcer of other part of right foot with unspecified severity; L97.529 Non-pressure chronic ulcer of other part of left foot with unspecified severity
CPT/HCPCS: 36415; 70450; 71046; 72125; 80053; 80320; 81003; 82550; 83605; 83735; 84100; 84132; 84484; 84550; 85025; 85610; 85730; 87635; 93005; 93306; 93970; 96365; 96366; 96372; 96375; 99291

== ENCOUNTER 2021-09-17 19:41 | Inpatient (IN) | payer MEDICARE ==
[~2021-09-17 19:41] MED LIST: THIAMINE 100 MG TAB PO SCH
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
[2021-09-17 21:32] LABS: INR 1.1 (<1.2); Partial Thromboplastin Time 25.3 sec (22.0-30.0); Prothrombin Time 11.4 sec (9.0-12.0)
[2021-09-17 21:38] LABS: Albumin 4.4 g/dL (3.5-5.0); Calcium 8.2 mg/dL (8.4-10.2); Magnesium 2.1 mg/dL (1.6-2.3); Total Bilirubin 1.2 mg/dL (0.2-1.3); Total Protein 7.4 g/dL (6.3-8.2)
[2021-09-17 21:46] LABS: Basophils # (A) 0.1 k/uL (0-0.2); Basophils % (A) 1 %; Eosinophils # (A) 0.1 k/uL (0-0.7); Eosinophils % (A) 2 %; HCT 52.2 % (39.0-53.0); HGB 17.9 gm/dL (13.0-17.5); Lymphocytes # (A) 1.1 k/uL (1.0-4.8); Lymphocytes % (A) 19 %; MCH 31.6 pg (25.0-35.0); MCHC 34.4 g/dL (31.0-37.0); Mean Platelet Volume 7.4; Monocytes # (A) 0.3 k/uL (0-1.0); Monocytes % (A) 6 %; Neutrophils # (A) 4.1 k/uL (1.3-7.7); Neutrophils % (A) 71 %; Platelet Count 127 k/uL (150-450); RBC 5.67 m/uL (4.30-5.90); RDW 14.6 % (11.5-15.5); WBC 5.8 k/uL (3.8-10.6)
[2021-09-17 22:07] LABS: Potassium 6.4 mmol/L (3.5-5.1)
[2021-09-17] MEDS ORDERED: SODIUM CHLORIDE 0.9% 1,000 ML IV STA ×2 (22:16)
[2021-09-17] MEDS ORDERED: SODIUM POLYSTYRENE SULFONATE 15 GM/60 ML BOTTLE PO ONE (23:36)
[2021-09-17] MEDS ORDERED: DEXTROSE 50% SYRINGE 50 ML IVP STA (23:36)
[2021-09-17] MEDS ORDERED: INSULIN REGULAR 100 UNIT/ML VIAL (IV) IV ONE (23:37)
[2021-09-17] MEDS ORDERED: NALOXONE 0.4 MG/ML 1 ML VIAL IV PRN (23:39)
[2021-09-17] MEDS ORDERED: THIAMINE 100 MG/ML 2 ML VIAL IM STA (23:42)
[2021-09-17] MEDS ORDERED: LORazepam 2 MG/ML INJ IV PRN ×3 (23:42)
[2021-09-18] MEDS ORDERED: LORazepam 1 MG/0.5 ML VIAL IV PRN ×2 (03:03→03:04)
[2021-09-18] MEDS: LORazepam 1 MG/0.5 ML VIAL IV PRN ×3 (04:45→13:26)
[2021-09-18] MEDS: THIAMINE 100 MG TAB PO SCH ×2 (06:58→15:19)
[2021-09-18] MEDS: METOPROLOL TARTRATE 50 MG TAB PO SCH ×2 (08:45→21:46)
[2021-09-18] MEDS: amLODIPine 10 MG TAB PO SCH (11:00)
[2021-09-18] MEDS ORDERED: diazePAM 5 MG TAB PO SCH (15:15)
[2021-09-18] MEDS: diazePAM 5 MG TAB PO SCH ×2 (15:20→21:46)
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
[2021-09-19] MEDS: diazePAM 5 MG TAB PO SCH ×3 (03:47→17:25)
[2021-09-19] MEDS: THIAMINE 100 MG TAB PO SCH ×2 (06:39→17:24)
[2021-09-19 08:04] LABS: Basophils % (A) 1 %; Eosinophils # (A) 0.3 k/uL (0-0.7); Eosinophils % (A) 4 %; HGB 16.9 gm/dL (13.0-17.5); Lymphocytes # (A) 1.4 k/uL (1.0-4.8); Lymphocytes % (A) 21 %; MCHC 31.9 g/dL (31.0-37.0); Mean Platelet Volume 7.6; Monocytes # (A) 0.3 k/uL (0-1.0); Monocytes % (A) 5 %; Neutrophils # (A) 4.5 k/uL (1.3-7.7); Neutrophils % (A) 69 %; Platelet Count 125 k/uL (150-450); RBC 5.64 m/uL (4.30-5.90); RDW 14.1 % (11.5-15.5); WBC 6.6 k/uL (3.8-10.6)
[2021-09-19 08:20] LABS: Calcium 8.5 mg/dL (8.4-10.2); Potassium 3.7 mmol/L (3.5-5.1)
[2021-09-19] MEDS: amLODIPine 10 MG TAB PO SCH (08:21)
[2021-09-19] MEDS: METOPROLOL TARTRATE 50 MG TAB PO SCH (08:21)
[2021-09-19] MEDS: ACETAMINOPHEN TAB 325 MG TAB PO PRN (11:30)
[2021-09-19] MEDS: carvediloL 12.5 MG TAB PO SCH ×2 (15:01→17:24)
--- NOTE | 2021-09-19 16:31 | P.PN ---
Subjective Progress Note Date: 09/19/21 Patient is a 71-year-old male with a known history of hypertension, paroxysmal atrial fibrillation not on any anticoagulation, history of CVA/TIA, GERD, severe alcohol abuse, anxiety/depression and previous admissions with alcohol intoxication was brought to ER by EMS under petition by police for complaints of alcohol intoxication and suicidal ideation. He apparently told a passerby multiple times that he wanted to kill himself. Patient is also pulmonitis and was petitioned by police. Patient denies any complaints of chest pain or shortness of breath. No fever no chills. Patient is somewhat poor historian currently. EKG showed sinus rhythm Laboratory test showed WBC 5.8 hemoglobin 17.9 and platelets 127 Sodium 139 potassium 6.4 on admission Chloride 107 bicarb is 23 BUN 12 and creatinine 1.1 and blood sugar is 103 calcium 8.2 Serum alcohol level is 227 09/19/2021 Patient evaluated today sitting up in chair. He denies alcohol withdrawal symptoms, no nausea, vomiting or diarrhea. No auditory or visual hallucinations. He has been evaluated by psychiatry who is recommending 1:1 sitter precautions and recommending inpatient treatment once medically stable. Patient is denying suicidal ideations currently with no plan or intent. He states he was sitting on porch drinking beer and frustrated about his house being condemned and was speaking to someone on the phone and had shouted "Fine I'll just kill myself then" and states someone must have called on him. Blood pressure elevated today 190/90s and medications were adusted we will monitor overnight. He is on valium with alcohol withdrawal protocol and received a dose today. His labs today are showing potassium 3.7, sodium 139. Recommend follow up eval by psychiatry. Review of Systems Constitutional: Denied any fatigue denied any fever. Cardio vascular: denied any chest pain, palpitations Gastrointestinal: denied any nausea, vomiting, diarrhea Pulmonary: Denied any shortness of breath cough Neurologic denied any new focal deficits All inpatient medications were reviewed and appropriate changes in these medications as dictated in the interval history and assessment and plan. PHYSICAL EXAMINATION: Patient is lying in the bed comfortably, no acute distress, awake alert but delirious. HEENT: Normocephalic. Neck is supple. Pupils reactive. Nostrils clear. Oral cavity is moist. Neck reveals no JVD, carotid bruits, or thyromegaly. CHEST EXAMINATION: Trachea is central. Symmetrical expansion. Lung [place] clear to auscultation and percussion. CARDIAC: Normal S1, S2 with no gallops. No murmurs ABDOMEN: Soft. Bowel sounds present. Nontender. No organomegaly. No abdominal bruits. Extremities: reveal no edema. No clubbing or cyanosis Neurologically awake, alert, delirious. With well-coordinated movements. No gross focal deficits noted Skin: No rash or skin lesions. Psychiatric: Could not appreciate completely.. Musculoskeletal: No joint swelling or deformity. Normal range of motion. Assessment and Plan Assessment Acute alcohol intoxication Suicidal ideation and delirium Hyperkalemia due to hemolyzed sample. Repeat was normal. Paroxysmal atrial fibrillation currently sinus rhythm. Not on anticoagulation. Anxiety/depression GERD Hypertension Heavy alcohol abuse on daily basis Peripheral neuropathy DVT prophylaxis Heparin subcu Plan: Patient will be closely monitor for acute alcohol withdrawal and continue on valium protocol as needed. Gabapentin has been added for pain control, patient complains of chronic neuropathic pain in his bilateral lower extremities. Metoprolol was changed to carvedilol and continue with close blood pressure monitoring. Psychiatry has seen the patient and recommended inpatient transfer. He has denied suicidal ideations today and states this is situational and he might lose his home. We will follow-up closely. Possible [facility], although recommend re-eval by psychiatry. The impression and plan of care has been dictated by Margaret Colon, Nurse Practitioner as directed. Dr. Sunitha MD I have performed a history and physical examination and medical decision making of this patient, discussed the same with the dictator, and agree with the dictators assessment and plan as written, documented as a scribe. Based on total visit time, I have performed more than 50% of this visit. Objective - Vital Signs Vital signs: Vital Signs Temp 97 F L 09/19/21 08:00 Pulse 76 09/19/21 14:00 Resp 16 09/19/21 14:00 BP 156/81 09/19/21 14:00 Pulse Ox 95 09/19/21 14:00 FiO2 Intake & Output 09/18/21 09/19/21 09/19/21 18:59 06:59 18:59 Intake Total 500 240 480 Output Total 150 200 Balance 500 90 280 Intake: Oral 500 240 480 Output: Urine 150 200 Other: Voiding Method Urinal Urinal # Voids 2 1 - Labs CBC & Chem 7: 09/19/21 07:41 09/19/21 07:41 Labs: Abnormal Lab Results - Last 24 Hours (Table) 09/19/21 09/19/21 Range/Units 07:41 07:41 Plt Count 125 L (150-450) k/uL Glucose 104 H (74-99) mg/dL Assessment and Plan Time with Patient: Less than 30
[2021-09-19] MEDS: GABAPENTIN 100 MG CAP PO SCH ×2 (17:24→21:07)
[2021-09-19] MEDS: HEPARIN SODIUM,PORCINE/PF 5,000 UNIT/0.5 ML SYRINGE SQ SCH (21:07)
[2021-09-20] MEDS: diazePAM 5 MG TAB PO SCH ×3 (02:04→23:12)
[2021-09-20] MEDS: carvediloL 12.5 MG TAB PO SCH ×2 (06:49→16:56)
[2021-09-20] MEDS: THIAMINE 100 MG TAB PO SCH ×2 (06:49→16:56)
[2021-09-20] MEDS: FAMOTIDINE 20 MG TAB PO SCH (08:11)
[2021-09-20] MEDS: amLODIPine 10 MG TAB PO SCH (08:12)
[2021-09-20] MEDS: GABAPENTIN 100 MG CAP PO SCH ×3 (08:12→21:06)
[2021-09-20] MEDS: ACETAMINOPHEN TAB 325 MG TAB PO PRN (08:12)
[2021-09-20] MEDS: HEPARIN SODIUM,PORCINE/PF 5,000 UNIT/0.5 ML SYRINGE SQ SCH ×2 (08:16→23:12)
--- NOTE | 2021-09-20 13:50 | P.PN ---
Progress Note - Text Progress Note Date: 09/20/21 Interval History: Patient was seen resting in bed and was directable and agreeable to speak with health underwriter in his room. Currently, the patient is not expressing any suicidal or homicidal ideation, intention, and/or plan. He vehemently states that it was a figure speech when he was speaking to his friend that he was suicidal as he was upset that the contractor whom he hired cancelled on him twice. He vehemently denies any prior attempts at suicide. The patient is currently alert and oriented in all spheres. He is not reporting any auditory or visual hallucinations. He is denying any paranoia or other delusions. The patient does report that he drinks heavily however appears to be pre-contemplative in cutting down his use. The patient states that he has cut down although gestured to this provider that he has been drinking at least 2 pints of liquor per day. Mental Status Exam: General Appearance: Patient appears to be stated age is alert, directable, and cooperative. Behavior: Patient is calmly seated without any agitated behavior. Speech: Patient's speech is fluent and nonpressured. Mood/Affect: Mood is improving mildly, affect is congruent and euthymic. Suicidality/Homicidality: Patient denies having any suicidal or homicidal ideation intent or plan. Perceptions: Patient denies any visual hallucinations and denies any auditory hallucinations Though content/process: There is no evidence of any delusional thought content and thought process is linear and goal-directed. Memory and concentration: AOX3, grossly intact for the purposes of this session Judgment and insight: Improving mildly Vital Signs Temp 98.5 F 09/20/21 03:26 Pulse 83 09/20/21 12:00 Resp 16 09/20/21 13:38 BP 153/83 09/20/21 12:00 Pulse Ox 96 09/20/21 12:00 FiO2 Intake & Output 09/19/21 09/20/21 09/20/21 18:59 06:59 18:59 Intake Total 480 270 Output Total 200 Balance 280 270 Intake: Oral 480 270 Output: Urine 200 Other: Voiding Method Urinal Urinal # Voids 1 Assessment Alcohol use disorder Alcohol withdrawal Delirium secondary to alcohol withdrawal - appears resolving Plan: -At this time patient DOES NOT meet criteria for inpatient psychiatric admission. The patient's primary diagnosis is alcohol use disorder. He is currently not presenting with any imminent risk of harm to self or others. He expresses a strong desire to live for his dog. He is future and goal oriented. He does have a risk factor of alcohol use disorder however is pre-contemplative on discontinuing his use. -At this time, the patient appears to have regained capacity for medical decision-making. -Delirium precautions recommended with patient including - avoiding use of narcotics and CONTACT AGENT sedatives, limit anticholinergic medications when possible, frequent re-orientation, minimize use of restraints, open window shades during the day and close them at night -Would recommend the following medication changes/additions: -Agree with Valium and taper for alcohol withdrawal. -CIWA protocol with PRN Ativan for breakthrough alcohol withdrawal. Continue to monitor vital signs. -May discontinue one-to-one sitter. -Patient is cleared psychiatrically for discharge with recommendations for outpatient follow-up with his primary care physician for alcohol use disorder. Recommend patient be given resources for substance abuse counseling. -Patient was offered inpatient substance abuse rehabilitation to which she declined. -Psychiatry will sign off at this time. Please call us or reconsult us for any questions or concerns.
[2021-09-21] MEDS: ACETAMINOPHEN TAB 325 MG TAB PO PRN (03:30)
[2021-09-21] MEDS: THIAMINE 100 MG TAB PO SCH ×2 (06:40→16:34)
[2021-09-21] MEDS: carvediloL 12.5 MG TAB PO SCH ×2 (06:41→16:34)
[2021-09-21] MEDS: FAMOTIDINE 20 MG TAB PO SCH (08:53)
[2021-09-21] MEDS: amLODIPine 10 MG TAB PO SCH (08:53)
[2021-09-21] MEDS: GABAPENTIN 100 MG CAP PO SCH ×3 (08:53→21:06)
[2021-09-21] MEDS: HEPARIN SODIUM,PORCINE/PF 5,000 UNIT/0.5 ML SYRINGE SQ SCH ×3 (08:53→21:10)
[2021-09-21] MEDS: diazePAM 5 MG TAB PO SCH ×2 (12:08→21:06)
--- NOTE | 2021-09-21 15:00 | P.PN ---
Subjective Progress Note Date: 09/20/21 Blake Sinclair, is a 71-year-old male who was admitted through emergency room due to alcohol intoxication, delirium, depression and suicidal ideation Patient was admitted to telemetry floor he was started on CIWA protocol, he was admitted by mistake under the hospitalist group service. Today he is being transferred to my service, patient is well known to my practice. Patient is somnolent, responsive, stating he reportedly had a couple of beers, he is upset twice he was brought into the hospital , he is complaining of bilateral knee pain, denies any complaints at this time. Objective - Vital Signs Vital signs: Vital Signs Temp 98.5 F 09/20/21 03:26 Pulse 73 09/20/21 16:00 Resp 16 09/20/21 16:00 BP 176/85 09/20/21 16:00 Pulse Ox 97 09/20/21 16:00 FiO2 Intake & Output 09/20/21 09/20/21 09/21/21 06:59 18:59 06:59 Intake Total 972 Balance 972 Intake: Oral 972 Other: Voiding Method Urinal # Voids 1 1 - Exam In general patient is alert and oriented x 3 in no distress HEENT head normocephalic and atraumatic Neck is supple no JVD no goiter no lymphadenopathy no carotid bruit Chest examination is clear to auscultation no crackles no wheezing Cardiac exam reveals regular heart sounds S1 and S2 no gallops no murmurs Abdomen is soft nontender no organomegaly with normal bowel sounds Extremity exam reveals no edema no cyanosis or clubbing Neurological examination reveals no gross focal deficits - Labs CBC & Chem 7: 09/19/21 07:41 09/19/21 07:41 Assessment and Plan Plan: Acute alcohol intoxication on admission Delirium and suicidal ideation on admission Underlying history of depression with anxiety disorder Underlying history of hypertension Underlying history of paroxysmal atrial fibrillation not on anticoagulation due to high risk of falling Known history of excessive alcohol use At this time patient is admitted to telemetry floor he is maintained on CIWA protocol He was evaluated by psychiatry and was approved for admission to the psychiatry unit when medically stable For DVT prophylaxis patient is on subcu heparin For GI prophylaxis Pepcid Medication and labs were reviewed will follow in a.m.
[2021-09-22] MEDS: ACETAMINOPHEN TAB 325 MG TAB PO PRN ×2 (05:37→15:09)
[2021-09-22] MEDS: amLODIPine 10 MG TAB PO SCH (08:46)
[2021-09-22] MEDS: FAMOTIDINE 20 MG TAB PO SCH (08:47)
[2021-09-22] MEDS: carvediloL 12.5 MG TAB PO SCH ×2 (08:48→15:11)
[2021-09-22] MEDS: THIAMINE 100 MG TAB PO SCH ×2 (08:48→15:11)
[2021-09-22] MEDS: GABAPENTIN 100 MG CAP PO SCH ×3 (08:48→21:41)
[2021-09-22] MEDS: HEPARIN SODIUM,PORCINE/PF 5,000 UNIT/0.5 ML SYRINGE SQ SCH ×3 (08:49→21:41)
[2021-09-22 09:00] LABS: Basophils # (A) 0.03 X 10*3/uL (0.00-0.10); Basophils % (A) 0.4 %; Eosinophils # (A) 0.26 X 10*3/uL (0.04-0.35); Eosinophils % (A) 3.6 %; HCT 49.1 % (39.6-50.0); HGB 15.9 g/dL (13.0-17.0); Immature Grans, Automated 0.7 %; Lymphocytes # (A) 1.36 X 10*3/uL (0.90-5.00); Lymphocytes % (A) 18.9 %; MCH 29.9 pg (27.0-32.0); MCHC 32.4 g/dL (32.0-37.0); MCV 92.5 fL (80.0-97.0); Mean Platelet Volume 9.9 fL (9.5-12.2); Monocytes # (A) 0.63 X 10*3/uL (0.20-1.00); Monocytes % (A) 8.7 %; NRBC Per 100 WBC 0 /100 WBCS (0.0-0.0); Neutrophils # (A) 4.88 X 10*3/uL (1.80-7.70); Neutrophils % (A) 67.7 %; Platelet Count 124 X 10*3/uL (140-440); RBC 5.31 X 10*6/uL (4.40-5.60); RDW 13.6 % (11.5-14.5); WBC 7.21 X 10*3/uL (4.50-10.00)
[2021-09-22 09:16] LABS: African American GFR (CKD) 86.2 (60.0-200.0); Albumin 3.6 g/dL (3.8-4.9); Albumin/Globulin Ratio 1.5 (1.60-3.17); BUN/Creat Ratio 16.2 Ratio (12.00-20.00); Blood Urea Nitrogen 16.2 mg/dL (9.0-27.0); Calcium 8.6 mg/dL (8.7-10.3); Globulin 2.4 g/dL (1.6-3.3); Non-African American GFR(CKD) 74.3 (60.0-200.0); Total Bilirubin 0.5 mg/dL (0.30-1.20)
--- NOTE | 2021-09-22 17:00 | P.PN ---
Subjective Progress Note Date: 09/21/21 Blake Sinclair, is a 71-year-old male who was admitted through emergency room due to alcohol intoxication, delirium, depression and suicidal ideation Patient was admitted to telemetry floor he was started on CIWA protocol, he was admitted by mistake under the hospitalist group service. Today he is being transferred to my service, patient is well known to my practice. Patient is somnolent, responsive, stating he reportedly had a couple of beers, he is upset twice he was brought into the hospital , he is complaining of bilateral knee pain, denies any complaints at this time. On 09/21/2021 patient was seen and examined on the telemetry floor he is alert and oriented 3 in no apparent distress, he is somnolent, with occasional episode of agitation, he is complaining of right knee pain otherwise he denies any complaints, there is no fever or chills no headache or dizziness no chest pain no shortness of breath no cough no nausea or vomiting no abdominal pain no diarrhea and no urinary symptoms Objective - Vital Signs Vital signs: Vital Signs Temp 98.2 F 09/21/21 03:44 Pulse 74 09/21/21 12:00 Resp 16 09/21/21 12:00 BP 160/87 09/21/21 12:00 Pulse Ox 97 09/21/21 12:00 FiO2 Intake & Output 09/20/21 09/21/21 09/21/21 18:59 06:59 18:59 Intake Total 972 1320 120 Output Total 300 500 Balance 972 1020 -380 Intake: Oral 972 1320 120 Output: Urine 500 Urine/Stool Mix 300 Other: Voiding Method Urinal External Catheter External Catheter # Voids 1 # Bowel Movements 1 - Exam In general patient is alert and oriented x 3 in no distress HEENT head normocephalic and atraumatic Neck is supple no JVD no goiter no lymphadenopathy no carotid bruit Chest examination is clear to auscultation no crackles no wheezing Cardiac exam reveals regular heart sounds S1 and S2 no gallops no murmurs Abdomen is soft nontender no organomegaly with normal bowel sounds Extremity exam reveals no edema no cyanosis or clubbing Neurological examination reveals no gross focal deficits - Labs CBC & Chem 7: 09/22/21 06:04 09/22/21 06:04 Assessment and Plan Plan: Acute alcohol intoxication on admission Delirium and suicidal ideation on admission Underlying history of depression with anxiety disorder Underlying history of hypertension Underlying history of paroxysmal atrial fibrillation not on anticoagulation due to high risk of falling Known history of excessive alcohol use At this time patient is admitted to telemetry floor he is maintained on CIWA protocol He was evaluated by psychiatry and was approved for admission to the psychiatry unit when medically stable For DVT prophylaxis patient is on subcu heparin For GI prophylaxis Pepcid Medication and labs were reviewed will follow in a.m.
--- NOTE | 2021-09-22 17:02 | P.PN ---
Subjective Progress Note Date: 09/22/21 Blake Sinclair, is a 71-year-old male who was admitted through emergency room due to alcohol intoxication, delirium, depression and suicidal ideation Patient was admitted to telemetry floor he was started on CIWA protocol, he was admitted by mistake under the hospitalist group service. Today he is being transferred to my service, patient is well known to my practice. Patient is somnolent, responsive, stating he reportedly had a couple of beers, he is upset twice he was brought into the hospital , he is complaining of bilateral knee pain, denies any complaints at this time. On 09/21/2021 patient was seen and examined on the telemetry floor he is alert and oriented 3 in no apparent distress, he is somnolent, with occasional episode of agitation, he is complaining of right knee pain otherwise he denies any complaints, there is no fever or chills no headache or dizziness no chest pain no shortness of breath no cough no nausea or vomiting no abdominal pain no diarrhea and no urinary symptoms On 09/22/2021 patient was seen and examined on the medical floor he is alert and oriented 3 he is more awake today there is less agitation he is able to tolerate diet well he is having difficulty standing up and walking physical therapy and occupational therapy are consulted patient is complaining of right knee pain there is some swelling in the right knee at this time otherwise there is no fever or chills no headache or dizziness no chest pain no shortness of breath no cough no nausea or vomiting no abdominal pain no diarrhea and no urinary symptoms Objective - Vital Signs Vital signs: Vital Signs Temp 97.6 F 09/22/21 14:11 Pulse 78 09/22/21 14:11 Resp 18 09/22/21 14:11 BP 149/84 09/22/21 14:11 Pulse Ox 96 09/22/21 14:11 FiO2 Intake & Output 09/21/21 09/22/21 09/22/21 18:59 06:59 18:59 Intake Total 120 360 Output Total 500 Balance -380 360 Weight 91.5 kg Intake: Oral 120 360 Output: Urine 500 Other: Voiding Method External Catheter Urinal Urinal # Voids 2 2 # Bowel Movements 1 - Exam In general patient is alert and oriented x 3 in no distress HEENT head normocephalic and atraumatic Neck is supple no JVD no goiter no lymphadenopathy no carotid bruit Chest examination is clear to auscultation no crackles no wheezing Cardiac exam reveals regular heart sounds S1 and S2 no gallops no murmurs Abdomen is soft nontender no organomegaly with normal bowel sounds Extremity exam reveals no edema no cyanosis or clubbing Neurological examination reveals no gross focal deficits - Labs CBC & Chem 7: 09/22/21 06:04 09/22/21 06:04 Labs: Abnormal Lab Results - Last 24 Hours (Table) 09/22/21 09/22/21 Range/Units 06:04 06:04 Plt Count 124 L (140-440) X 10*3/uL Immature Gran # 0.05 H (0.00-0.04) X 10*3/uL Glucose 116 H (70-110) mg/dL Calcium 8.6 L (8.7-10.3) mg/dL Total Protein 6.0 L (6.2-8.2) g/dL Albumin 3.6 L (3.8-4.9) g/dL Albumin/Globulin Ratio 1.50 L (1.60-3.17) g/dL Assessment and Plan Plan: Acute alcohol intoxication on admission Delirium and suicidal ideation on admission Underlying history of depression with anxiety disorder Underlying history of hypertension Underlying history of paroxysmal atrial fibrillation not on anticoagulation due to high risk of falling Known history of excessive alcohol use At this time patient is admitted to telemetry floor he is maintained on CIWA protocol He was evaluated by psychiatry and was approved for admission to the psychiatry unit when medically stable For DVT prophylaxis patient is on subcu heparin For GI prophylaxis Pepcid Medication and labs were reviewed will follow in a.m.
--- NOTE | 2021-09-22 19:33 | XR ---
PROCEDURE: XR knee 4V RT DATE AND TIME: 09/22/2021 5:58 PM CLINICAL INDICATION: Right knee pain and swelling TECHNIQUE: AP, oblique AP, crosstable lateral, and patellar sunrise views COMPARISON: None FINDINGS: There is a moderate joint effusion present. There is no fracture or malalignment. The soft tissues are remarkable for circumferential soft tissue swelling about the knee. No focal fin dings. IMPRESSION: 1. Joint effusion. 2. Soft tissue swelling.
[2021-09-23] MEDS: carvediloL 12.5 MG TAB PO SCH ×2 (08:18→17:08)
[2021-09-23] MEDS: amLODIPine 10 MG TAB PO SCH (08:20)
[2021-09-23] MEDS: THIAMINE 100 MG TAB PO SCH ×2 (08:20→17:08)
[2021-09-23] MEDS: GABAPENTIN 100 MG CAP PO SCH ×3 (08:21→21:15)
[2021-09-23] MEDS: FAMOTIDINE 20 MG TAB PO SCH (08:21)
[2021-09-23] MEDS: HEPARIN SODIUM,PORCINE/PF 5,000 UNIT/0.5 ML SYRINGE SQ SCH ×2 (08:22→21:09)
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
[2021-09-23 08:54] LABS: Basophils # (A) 0.04 X 10*3/uL (0.00-0.10); Basophils % (A) 0.6 %; Eosinophils # (A) 0.31 X 10*3/uL (0.04-0.35); Eosinophils % (A) 4.8 %; HCT 47.8 % (39.6-50.0); HGB 15.2 g/dL (13.0-17.0); Immature Grans, Automated 0.3 %; Lymphocytes # (A) 1.39 X 10*3/uL (0.90-5.00); Lymphocytes % (A) 21.6 %; MCH 29.5 pg (27.0-32.0); MCHC 31.8 g/dL (32.0-37.0); MCV 92.6 fL (80.0-97.0); Mean Platelet Volume 9.6 fL (9.5-12.2); Monocytes # (A) 0.62 X 10*3/uL (0.20-1.00); Monocytes % (A) 9.6 %; NRBC Per 100 WBC 0 /100 WBCS (0.0-0.0); Neutrophils # (A) 4.06 X 10*3/uL (1.80-7.70); Neutrophils % (A) 63.1 %; Platelet Count 145 X 10*3/uL (140-440); RBC 5.16 X 10*6/uL (4.40-5.60); RDW 13.8 % (11.5-14.5); WBC 6.44 X 10*3/uL (4.50-10.00)
[2021-09-23 09:24] LABS: African American GFR (CKD) 65.8 (60.0-200.0); Albumin 3.8 g/dL (3.8-4.9); Albumin/Globulin Ratio 1.57 (1.60-3.17); Anion Gap 10.4 mmol/L (10.00-18.00); BUN/Creat Ratio 21.36 Ratio (12.00-20.00); Blood Urea Nitrogen 26.7 mg/dL (9.0-27.0); Calcium 8.7 mg/dL (8.7-10.3); Carbon Dioxide 24.5 mmol/L (20.0-27.5); Globulin 2.4 g/dL (1.6-3.3); Non-African American GFR(CKD) 56.8 (60.0-200.0); Potassium 4.5 mmol/L (3.5-5.5); Total Bilirubin 0.4 mg/dL (0.30-1.20); Total Protein 6.2 g/dL (6.2-8.2)
[2021-09-23] MEDS: LORazepam 0.5 MG TAB PO PRN (11:08)
--- NOTE | 2021-09-23 12:07 | P.PN ---
Subjective Progress Note Date: 09/23/21 Blake Sinclair, is a 71-year-old male who was admitted through emergency room due to alcohol intoxication, delirium, depression and suicidal ideation Patient was admitted to telemetry floor he was started on CIWA protocol, he was admitted by mistake under the hospitalist group service. Today he is being transferred to my service, patient is well known to my practice. Patient is somnolent, responsive, stating he reportedly had a couple of beers, he is upset twice he was brought into the hospital , he is complaining of bilateral knee pain, denies any complaints at this time. On 09/21/2021 patient was seen and examined on the telemetry floor he is alert and oriented 3 in no apparent distress, he is somnolent, with occasional episode of agitation, he is complaining of right knee pain otherwise he denies any complaints, there is no fever or chills no headache or dizziness no chest pain no shortness of breath no cough no nausea or vomiting no abdominal pain no diarrhea and no urinary symptoms On 09/22/2021 patient was seen and examined on the medical floor he is alert and oriented 3 he is more awake today there is less agitation he is able to tolerate diet well he is having difficulty standing up and walking physical therapy and occupational therapy are consulted patient is complaining of right knee pain there is some swelling in the right knee at this time otherwise there is no fever or chills no headache or dizziness no chest pain no shortness of breath no cough no nausea or vomiting no abdominal pain no diarrhea and no urinary symptoms On 09/23/2021 patient was seen and examined on the medical floor he is alert and oriented 3 in no apparent distress he is still complaining of severe pain and swelling in the right knee he is not able to bend his knee consutation for ort hopedic surgery was requested, otherwise patient denies any complaints there is no fever or chills no headache or dizziness no chest pain no shortness of breath no cough no nausea or vomiting no abdominal pain no diarrhea and no urinary symptoms Objective - Vital Signs Vital signs: Vital Signs Temp 98 F 09/23/21 07:17 Pulse 69 09/23/21 07:17 Resp 20 09/23/21 07:17 BP 159/77 09/23/21 07:17 Pulse Ox 95 09/23/21 07:17 FiO2 Intake & Output 09/22/21 09/23/21 09/23/21 18:59 06:59 18:59 Intake Total 360 Output Total 200 200 Balance 160 -200 Intake: Oral 360 Output: Urine 200 200 Other: Voiding Method Urinal Urinal # Voids 2 0 - Exam In general patient is alert and oriented x 3 in no distress HEENT head normocephalic and atraumatic Neck is supple no JVD no goiter no lymphadenopathy no carotid bruit Chest examination is clear to auscultation no crackles no wheezing Cardiac exam reveals regular heart sounds S1 and S2 no gallops no murmurs Abdomen is soft nontender no organomegaly with normal bowel sounds Extremity exam reveals no edema no cyanosis or clubbing Neurological examination reveals no gross focal deficits - Labs CBC & Chem 7: 09/23/21 05:17 09/23/21 05:17 Labs: Abnormal Lab Results - Last 24 Hours (Table) 09/23/21 09/23/21 Range/Units 05:17 05:17 MCHC 31.8 L (32.0-37.0) g/dL Est GFR (CKD-EPI)NonAf 56.8 L (60.0-200.0) BUN/Creatinine Ratio 21.36 H (12.00-20.00) Ratio Albumin/Globulin Ratio 1.57 L (1.60-3.17) g/dL Assessment and Plan Plan: Acute alcohol intoxication on admission Delirium and suicidal ideation on admission Underlying history of depression with anxiety disorder Underlying history of hypertension Underlying history of paroxysmal atrial fibrillation not on anticoagulation due to high risk of falling Known history of excessive alcohol use At this time patient is admitted to telemetry floor he is maintained on CIWA protocol He was evaluated by psychiatry and was approved for admission to the psychiatry unit when medically stable For DVT prophylaxis patient is on subcu heparin For GI prophylaxis Pepcid Medication and labs were reviewed will follow in a.m.
[2021-09-23 14:09] VITALS: BMI 29.7
[2021-09-23] MEDS: ACETAMINOPHEN TAB 325 MG TAB PO PRN (21:14)
[2021-09-24] MEDS: HEPARIN SODIUM,PORCINE/PF 5,000 UNIT/0.5 ML SYRINGE SQ SCH ×2 (09:27→21:06)
[2021-09-24 09:36] LABS: Basophils # (A) 0.03 X 10*3/uL (0.00-0.10); Basophils % (A) 0.4 %; Eosinophils % (A) 4.5 %; HCT 48.1 % (39.6-50.0); HGB 15.5 g/dL (13.0-17.0); Immature Grans, Automated 0.4 %; Lymphocytes # (A) 1.26 X 10*3/uL (0.90-5.00); Lymphocytes % (A) 18.8 %; MCHC 32.2 g/dL (32.0-37.0); MCV 93.2 fL (80.0-97.0); Mean Platelet Volume 9.5 fL (9.5-12.2); Monocytes # (A) 0.71 X 10*3/uL (0.20-1.00); Monocytes % (A) 10.6 %; NRBC Per 100 WBC 0 /100 WBCS (0.0-0.0); Neutrophils # (A) 4.38 X 10*3/uL (1.80-7.70); Neutrophils % (A) 65.3 %; Platelet Count 159 X 10*3/uL (140-440); RBC 5.16 X 10*6/uL (4.40-5.60); WBC 6.71 X 10*3/uL (4.50-10.00)
[2021-09-24] MEDS: amLODIPine 10 MG TAB PO SCH (09:38)
[2021-09-24] MEDS: FAMOTIDINE 20 MG TAB PO SCH (09:38)
[2021-09-24] MEDS: THIAMINE 100 MG TAB PO SCH ×2 (09:38→17:14)
[2021-09-24] MEDS: GABAPENTIN 100 MG CAP PO SCH ×3 (09:38→21:08)
[2021-09-24] MEDS: carvediloL 12.5 MG TAB PO SCH ×2 (09:38→17:14)
[2021-09-24 10:11] LABS: African American GFR (CKD) 77.6 (60.0-200.0); Albumin 3.8 g/dL (3.8-4.9); Albumin/Globulin Ratio 1.47 (1.60-3.17); Anion Gap 9.8 mmol/L (10.00-18.00); BUN/Creat Ratio 27.25 Ratio (12.00-20.00); Blood Urea Nitrogen 29.7 mg/dL (9.0-27.0); Calcium 8.8 mg/dL (8.7-10.3); Carbon Dioxide 27.1 mmol/L (20.0-27.5); Globulin 2.6 g/dL (1.6-3.3); Potassium 4.2 mmol/L (3.5-5.5); Total Bilirubin 0.5 mg/dL (0.30-1.20); Total Protein 6.4 g/dL (6.2-8.2)
[2021-09-24] MEDS: allopurinoL 300 MG TAB PO SCH (12:49)
[2021-09-24] MEDS: methylPREDNISolone SOD SUCCI 125 MG/2 ML VIAL IV SCH (17:14)
--- NOTE | 2021-09-24 17:22 | P.PN ---
Subjective Progress Note Date: 09/24/21 Blake Sinclair, is a 71-year-old male who was admitted through emergency room due to alcohol intoxication, delirium, depression and suicidal ideation Patient was admitted to telemetry floor he was started on CIWA protocol, he was admitted by mistake under the hospitalist group service. Today he is being transferred to my service, patient is well known to my practice. Patient is somnolent, responsive, stating he reportedly had a couple of beers, he is upset twice he was brought into the hospital , he is complaining of bilateral knee pain, denies any complaints at this time. On 09/21/2021 patient was seen and examined on the telemetry floor he is alert and oriented 3 in no apparent distress, he is somnolent, with occasional episode of agitation, he is complaining of right knee pain otherwise he denies any complaints, there is no fever or chills no headache or dizziness no chest pain no shortness of breath no cough no nausea or vomiting no abdominal pain no diarrhea and no urinary symptoms On 09/22/2021 patient was seen and examined on the medical floor he is alert and oriented 3 he is more awake today there is less agitation he is able to tolerate diet well he is having difficulty standing up and walking physical therapy and occupational therapy are consulted patient is complaining of right knee pain there is some swelling in the right knee at this time otherwise there is no fever or chills no headache or dizziness no chest pain no shortness of breath no cough no nausea or vomiting no abdominal pain no diarrhea and no urinary symptoms On 09/23/2021 patient was seen and examined on the medical floor he is alert and oriented 3 in no apparent distress he is still complaining of severe pain and swelling in the right knee he is not able to bend his knee consutation for ort hopedic surgery was requested, otherwise patient denies any complaints there is no fever or chills no headache or dizziness no chest pain no shortness of breath no cough no nausea or vomiting no abdominal pain no diarrhea and no urinary symptoms On 09/24/2021 patient was seen and examined on the medical floor he is alert and oriented 3 in no apparent distress he is still complaining of severe pain and swelling in the right knee with difficulty standing and walking otherwise he denies any complaints there is no fever or chills no headache or dizziness no chest pain no shortness of breath no cough no nausea or vomiting no abdominal pain no diarrhea and no urinary symptoms Objective - Vital Signs Vital signs: Vital Signs Temp 97.9 F 09/24/21 11:33 Pulse 73 09/24/21 11:33 Resp 20 09/24/21 11:33 BP 160/82 09/24/21 11:33 Pulse Ox 95 09/24/21 11:33 FiO2 Intake & Output 09/23/21 09/24/21 09/24/21 18:59 06:59 18:59 Intake Total 590 Output Total 400 Balance 190 Weight 91.5 kg Intake: Oral 590 Output: Urine 400 Other: Voiding Method Urinal Bedside Commode Urinal # Voids 2 # Bowel Movements 1 - Exam In general patient is alert and oriented x 3 in no distress HEENT head normocephalic and atraumatic Neck is supple no JVD no goiter no lymphadenopathy no carotid bruit Chest examination is clear to auscultation no crackles no wheezing Cardiac exam reveals regular heart sounds S1 and S2 no gallops no murmurs Abdomen is soft nontender no organomegaly with normal bowel sounds Extremity exam reveals no edema no cyanosis or clubbing Neurological examination reveals no gross focal deficits - Labs CBC & Chem 7: 09/24/21 05:52 09/24/21 05:52 Labs: Abnormal Lab Results - Last 24 Hours (Table) 09/24/21 Range/Units 05:52 Anion Gap 9.80 L (10.00-18.00) mmol/L BUN 29.7 H (9.0-27.0) mg/dL BUN/Creatinine Ratio 27.25 H (12.00-20.00) Ratio Albumin/Globulin Ratio 1.47 L (1.60-3.17) g/dL Assessment and Plan Plan: Acute alcohol intoxication on admission Delirium and suicidal ideation on admission Underlying history of depression with anxiety disorder Underlying history of hypertension Underlying history of paroxysmal atrial fibrillation not on anticoagulation due to high risk of falling Known history of excessive alcohol use Pain and swelling in the right knee likely related to acute gout, patient started on oral Zyloprim he was also started on IV Solu-Medrol today At this time patient is admitted to telemetry floor he is maintained on CIWA protocol He was evaluated by psychiatry and was approved for admission to the psychiatry unit when medically stable For DVT prophylaxis patient is on subcu heparin For GI prophylaxis Pepcid Medication and labs were reviewed will follow in a.m.
[2021-09-24 20:48] LABS: Glucose,Whole Blood 168 mg/dL (70-110)
[2021-09-24] MEDS: ACETAMINOPHEN TAB 325 MG TAB PO PRN (21:14)
[2021-09-24] MEDS: LORazepam 0.5 MG TAB PO PRN (21:14)
[2021-09-25] MEDS: methylPREDNISolone SOD SUCCI 125 MG/2 ML VIAL IV SCH ×5 (00:04→23:02)
[2021-09-25 07:53] LABS: Glucose,Whole Blood 194 mg/dL (70-110)
[2021-09-25] MEDS: HEPARIN SODIUM,PORCINE/PF 5,000 UNIT/0.5 ML SYRINGE SQ SCH ×3 (08:14→20:48)
--- NOTE | 2021-09-25 08:49 | P.PN ---
Subjective Progress Note Date: 09/25/21 Blake Sinclair, is a 71-year-old male who was admitted through emergency room due to alcohol intoxication, delirium, depression and suicidal ideation Patient was admitted to telemetry floor he was started on CIWA protocol, he was admitted by mistake under the hospitalist group service. Today he is being transferred to my service, patient is well known to my practice. Patient is somnolent, responsive, stating he reportedly had a couple of beers, he is upset twice he was brought into the hospital , he is complaining of bilateral knee pain, denies any complaints at this time. On 09/21/2021 patient was seen and examined on the telemetry floor he is alert and oriented 3 in no apparent distress, he is somnolent, with occasional episode of agitation, he is complaining of right knee pain otherwise he denies any complaints, there is no fever or chills no headache or dizziness no chest pain no shortness of breath no cough no nausea or vomiting no abdominal pain no diarrhea and no urinary symptoms On 09/22/2021 patient was seen and examined on the medical floor he is alert and oriented 3 he is more awake today there is less agitation he is able to tolerate diet well he is having difficulty standing up and walking physical therapy and occupational therapy are consulted patient is complaining of right knee pain there is some swelling in the right knee at this time otherwise there is no fever or chills no headache or dizziness no chest pain no shortness of breath no cough no nausea or vomiting no abdominal pain no diarrhea and no urinary symptoms On 09/23/2021 patient was seen and examined on the medical floor he is alert and oriented 3 in no apparent distress he is still complaining of severe pain and swelling in the right knee he is not able to bend his knee consultation for or thopedic surgery was requested, otherwise patient denies any complaints there is no fever or chills no headache or dizziness no chest pain no shortness of breath no cough no nausea or vomiting no abdominal pain no diarrhea and no urinary symptoms On 09/24/2021 patient was seen and examined on the medical floor he is alert and oriented 3 in no apparent distress he is still complaining of severe pain and swelling in the right knee with difficulty standing and walking otherwise he denies any complaints there is no fever or chills no headache or dizziness no chest pain no shortness of breath no cough no nausea or vomiting no abdominal pain no diarrhea and no urinary symptoms. On 09/25/2021 patient was seen and examined on the medical floor he is alert and oriented 3 in no apparent distress, he is stating pain in the right knee is improving since yesterday however he is complaining now of pain in his left leg, he is maintained on heparin subcu however from the chart it looks like he has been refusing the injections. Otherwise he denies any complaints there is no fever or chills no headache or dizziness no chest pain no shortness of breath no cough no nausea or vomiting no abdominal pain no diarrhea and no urinary symptoms. At this time will continue with IV Solu-Medrol for the right knee pain, continue with Zyloprim, add insulin to sliding scale, will check left lower extremity venous Doppler, to rule out DVT, patient was counseled in regard to taking subcu heparin. Objective - Vital Signs Vital signs: Vital Signs Temp 97.1 F L 09/25/21 05:00 Pulse 74 09/25/21 05:00 Resp 18 09/25/21 05:00 BP 153/79 09/25/21 05:00 Pulse Ox 96 09/25/21 05:00 FiO2 Intake & Output 09/24/21 09/25/21 09/25/21 18:59 06:59 18:59 Intake Total 500 Balance 500 Intake: Oral 500 Other: Voiding Method Bedside Commode Bedside Commode Urinal Urinal # Voids 1 3 - Exam In general patient is alert and oriented x 3 in no distress HEENT head normocephalic and atraumatic Neck is supple no JVD no goiter no lymphadenopathy no carotid bruit Chest examination is clear to auscultation no crackles no wheezing Cardiac exam reveals regular heart sounds S1 and S2 no gallops no murmurs Abdomen is soft nontender no organomegaly with normal bowel sounds Extremity exam reveals no edema no cyanosis or clubbing Neurological examination reveals no gross focal deficits - Labs CBC & Chem 7: 09/24/21 05:52 09/24/21 05:52 Labs: Abnormal Lab Results - Last 24 Hours (Table) 09/24/21 09/24/21 09/25/21 Range/Units 05:52 20:45 07:52 Anion Gap 9.80 L (10.00-18.00) mmol/L BUN 29.7 H (9.0-27.0) mg/dL BUN/Creatinine Ratio 27.25 H (12.00-20.00) Ratio POC Glucose (mg/dL) 168 H 194 H (70-110) mg/dL Albumin/Globulin Ratio 1.47 L (1.60-3.17) g/dL Assessment and Plan Plan: Acute alcohol intoxication on admission Delirium and suicidal ideation on admission Underlying history of depression with anxiety disorder Underlying history of hypertension Underlying history of paroxysmal atrial fibrillation not on anticoagulation due to high risk of falling Known history of excessive alcohol use Pain and swelling in the right knee likely related to acute gout, patient started on oral Zyloprim he was also started on IV Solu-Medrol today At this time patient is admitted to telemetry floor he is maintained on CIWA protocol He was evaluated by psychiatry and was approved for admission to the psychiatry unit when medically stable For DVT prophylaxis patient is on subcu heparin For GI prophylaxis Pepcid Medication and labs were reviewed will follow in a.m.
[2021-09-25] MEDS: amLODIPine 10 MG TAB PO SCH (09:12)
[2021-09-25] MEDS: GABAPENTIN 100 MG CAP PO SCH ×3 (09:12→22:02)
[2021-09-25] MEDS: FAMOTIDINE 20 MG TAB PO SCH (09:12)
[2021-09-25] MEDS: carvediloL 12.5 MG TAB PO SCH ×2 (09:12→17:17)
[2021-09-25] MEDS: THIAMINE 100 MG TAB PO SCH ×2 (09:12→17:17)
[2021-09-25] MEDS: allopurinoL 300 MG TAB PO SCH (09:12)
--- NOTE | 2021-09-25 09:37 | US ---
EXAMINATION TYPE: US venous doppler duplex LE LT DATE OF EXAM: 09/25/2021 9:16 AM COMPARISON: NONE CLINICAL HISTORY: pain left leg. Pain in left leg, no h/o dvt, has had multiple US's SIDE PERFORMED: Left TECHNIQUE: The lower extremity deep venous system is examined utilizing real time linear array sonog marcel with graded compression, doppler sonography and color-flow sonography. VESSELS IMAGED: Common Femoral Vein Deep Femoral Vein Greater Saphenous Vein * Femoral Vein Popliteal Vein Small Saphenous Vein * Proximal Calf Veins (* superficial vessels) Left Leg: Negative for DVT Grayscale, color doppler, spectral doppler imaging performed of the deep veins of the lower extremiti es. There is normal flow, compressibility, vascular waveforms. IMPRESSION: No evidence of extremity deep vein thrombosis.
[2021-09-25 11:22] LABS: Glucose,Whole Blood 173 mg/dL (70-110)
[2021-09-25] MEDS: INSULIN ASPART (NovoLOG) 100 UNIT/ML VIAL SQ SCH ×3 (13:03→20:48)
[2021-09-25 17:10] LABS: Glucose,Whole Blood 175 mg/dL (70-110)
[2021-09-25 20:16] LABS: Glucose,Whole Blood 203 mg/dL (70-110)
[2021-09-25] MEDS: LORazepam 0.5 MG TAB PO PRN (23:02)
[2021-09-26] MEDS: methylPREDNISolone SOD SUCCI 125 MG/2 ML VIAL IV SCH ×4 (05:32→23:40)
[2021-09-26 07:28] LABS: Glucose,Whole Blood 174 mg/dL (70-110)
[2021-09-26] MEDS: amLODIPine 10 MG TAB PO SCH (07:51)
[2021-09-26] MEDS: HEPARIN SODIUM,PORCINE/PF 5,000 UNIT/0.5 ML SYRINGE SQ SCH ×2 (07:51→20:39)
[2021-09-26] MEDS: INSULIN ASPART (NovoLOG) 100 UNIT/ML VIAL SQ SCH ×4 (07:51→20:39)
[2021-09-26] MEDS: allopurinoL 300 MG TAB PO SCH (07:51)
[2021-09-26] MEDS: THIAMINE 100 MG TAB PO SCH ×2 (07:51→17:42)
[2021-09-26] MEDS: carvediloL 12.5 MG TAB PO SCH ×2 (07:51→17:42)
[2021-09-26] MEDS: GABAPENTIN 100 MG CAP PO SCH ×3 (07:51→21:58)
[2021-09-26] MEDS: FAMOTIDINE 20 MG TAB PO SCH (07:51)
[2021-09-26] MEDS: LORazepam 0.5 MG TAB PO PRN ×2 (07:55→23:40)
[2021-09-26 09:18] LABS: Basophils # (A) 0.01 X 10*3/uL (0.00-0.10); Basophils % (A) 0.1 %; Eosinophils # (A) 0 X 10*3/uL (0.04-0.35); Eosinophils % (A) 0 %; HCT 48.4 % (39.6-50.0); HGB 15.4 g/dL (13.0-17.0); Immature Grans, Automated 0.5 %; Lymphocytes # (A) 0.77 X 10*3/uL (0.90-5.00); Lymphocytes % (A) 8.4 %; MCH 29.1 pg (27.0-32.0); MCHC 31.8 g/dL (32.0-37.0); MCV 91.3 fL (80.0-97.0); Mean Platelet Volume 9.8 fL (9.5-12.2); Monocytes # (A) 0.48 X 10*3/uL (0.20-1.00); Monocytes % (A) 5.2 %; NRBC Per 100 WBC 0 /100 WBCS (0.0-0.0); Neutrophils # (A) 7.85 X 10*3/uL (1.80-7.70); Neutrophils % (A) 85.8 %; Platelet Count 201 X 10*3/uL (140-440); RDW 13.2 % (11.5-14.5); WBC 9.16 X 10*3/uL (4.50-10.00)
[2021-09-26 09:31] LABS: African American GFR (CKD) 86.2 (60.0-200.0); Albumin/Globulin Ratio 1.48 (1.60-3.17); Anion Gap 10.6 mmol/L (10.00-18.00); BUN/Creat Ratio 34.6 Ratio (12.00-20.00); Blood Urea Nitrogen 34.6 mg/dL (9.0-27.0); Carbon Dioxide 23.4 mmol/L (20.0-27.5); Globulin 2.7 g/dL (1.6-3.3); Non-African American GFR(CKD) 74.3 (60.0-200.0); Potassium 4.1 mmol/L (3.5-5.5); Total Bilirubin 0.2 mg/dL (0.30-1.20); Total Protein 6.7 g/dL (6.2-8.2)
[2021-09-26 11:53] LABS: Glucose,Whole Blood 169 mg/dL (70-110)
[2021-09-26 17:17] LABS: Glucose,Whole Blood 180 mg/dL (70-110)
[2021-09-26] MEDS ORDERED: LORazepam 2 MG/ML INJ IV PRN ×2 (18:37→18:38)
--- NOTE | 2021-09-26 19:03 | P.PN ---
Subjective Progress Note Date: 09/26/21 Blake Sinclair, is a 71-year-old male who was admitted through emergency room due to alcohol intoxication, delirium, depression and suicidal ideation Patient was admitted to telemetry floor he was started on CIWA protocol, he was admitted by mistake under the hospitalist group service. Today he is being transferred to my service, patient is well known to my practice. Patient is somnolent, responsive, stating he reportedly had a couple of beers, he is upset twice he was brought into the hospital , he is complaining of bilateral knee pain, denies any complaints at this time. On 09/21/2021 patient was seen and examined on the telemetry floor he is alert and oriented 3 in no apparent distress, he is somnolent, with occasional episode of agitation, he is complaining of right knee pain otherwise he denies any complaints, there is no fever or chills no headache or dizziness no chest pain no shortness of breath no cough no nausea or vomiting no abdominal pain no diarrhea and no urinary symptoms On 09/22/2021 patient was seen and examined on the medical floor he is alert and oriented 3 he is more awake today there is less agitation he is able to tolerate diet well he is having difficulty standing up and walking physical therapy and occupational therapy are consulted patient is complaining of right knee pain there is some swelling in the right knee at this time otherwise there is no fever or chills no headache or dizziness no chest pain no shortness of breath no cough no nausea or vomiting no abdominal pain no diarrhea and no urinary symptoms On 09/23/2021 patient was seen and examined on the medical floor he is alert and oriented 3 in no apparent distress he is still complaining of severe pain and swelling in the right knee he is not able to bend his knee consultation for or thopedic surgery was requested, otherwise patient denies any complaints there is no fever or chills no headache or dizziness no chest pain no shortness of breath no cough no nausea or vomiting no abdominal pain no diarrhea and no urinary symptoms On 09/24/2021 patient was seen and examined on the medical floor he is alert and oriented 3 in no apparent distress he is still complaining of severe pain and swelling in the right knee with difficulty standing and walking otherwise he denies any complaints there is no fever or chills no headache or dizziness no chest pain no shortness of breath no cough no nausea or vomiting no abdominal pain no diarrhea and no urinary symptoms. On 09/25/2021 patient was seen and examined on the medical floor he is alert and oriented 3 in no apparent distress, he is stating pain in the right knee is improving since yesterday however he is complaining now of pain in his left leg, he is maintained on heparin subcu however from the chart it looks like he has been refusing the injections. Otherwise he denies any complaints there is no fever or chills no headache or dizziness no chest pain no shortness of breath no cough no nausea or vomiting no abdominal pain no diarrhea and no urinary symptoms. At this time will continue with IV Solu-Medrol for the right knee pain, continue with Zyloprim, add insulin to sliding scale, will check left lower extremity venous Doppler, to rule out DVT, patient was counseled in regard to taking subcu heparin. On 09/26/2021 patient was seen and examined on the medical floor he is alert and oriented 3 in no apparent distress he is still complaining of severe pain and swelling in the right knee with difficulty standing and walking otherwise he denies any complaints there is no fever or chills no headache or dizziness no chest pain no shortness of breath no cough no nausea or vomiting no abdominal pain no diarrhea and no urinary symptoms. Patient has acute gout attack in the right knee, he is maintained on IV Solu-Medrol and told her Zyloprim, he is improving gradually possible discharge in the next 1-2 days continue physical therapy and occupational therapy Objective - Vital Signs Vital signs: Vital Signs Temp 97.4 F L 09/26/21 11:50 Pulse 75 09/26/21 11:50 Resp 19 09/26/21 11:50 BP 154/86 09/26/21 11:50 Pulse Ox 97 09/26/21 11:50 FiO2 Intake & Output 09/26/21 09/26/21 09/27/21 06:59 18:59 06:59 Intake Total 120 1200 Balance 120 1200 Intake: Oral 120 1200 Other: Voiding Method Bedside Commode Urinal # Voids 3 3 # Bowel Movements 1 - Exam In general patient is alert and oriented x 3 in no distress HEENT head normocephalic and atraumatic Neck is supple no JVD no goiter no lymphadenopathy no carotid bruit Chest examination is clear to auscultation no crackles no wheezing Cardiac exam reveals regular heart sounds S1 and S2 no gallops no murmurs Abdomen is soft nontender no organomegaly with normal bowel sounds Extremity exam reveals no edema no cyanosis or clubbing Neurological examination reveals no gross focal deficits - Labs CBC & Chem 7: 09/26/21 06:17 09/26/21 06:17 Labs: Abnormal Lab Results - Last 24 Hours (Table) 09/25/21 09/26/21 09/26/21 Range/Units 20:12 06:17 06:17 MCHC 31.8 L (32.0-37.0) g/dL Immature Gran # 0.05 H (0.00-0.04) X 10*3/uL Neutrophils # 7.85 H (1.80-7.70) X 10*3/uL Lymphocytes # 0.77 L (0.90-5.00) X 10*3/uL Eosinophils # 0 L (0.04-0.35) X 10*3/uL BUN 34.6 H (9.0-27.0) mg/dL BUN/Creatinine Ratio 34.60 H (12.00-20.00) Ratio Glucose 180 H (70-110) mg/dL POC Glucose (mg/dL) 203 H (70-110) mg/dL Total Bilirubin 0.20 L (0.30-1.20) mg/dL AST 70 H (14-35) U/L ALT 75 H (10-49) U/L Albumin/Globulin Ratio 1.48 L (1.60-3.17) g/dL 09/26/21 09/26/21 09/26/21 Range/Units 07:27 11:51 17:15 MCHC (32.0-37.0) g/dL Immature Gran # (0.00-0.04) X 10*3/uL Neutrophils # (1.80-7.70) X 10*3/uL Lymphocytes # (0.90-5.00) X 10*3/uL Eosinophils # (0.04-0.35) X 10*3/uL BUN (9.0-27.0) mg/dL BUN/Creatinine Ratio (12.00-20.00) Ratio Glucose (70-110) mg/dL POC Glucose (mg/dL) 174 H 169 H 180 H (70-110) mg/dL Total Bilirubin (0.30-1.20) mg/dL AST (14-35) U/L ALT (10-49) U/L Albumin/Globulin Ratio (1.60-3.17) g/dL Assessment and Plan Plan: Acute alcohol intoxication on admission Delirium and suicidal ideation on admission Underlying history of depression with anxiety disorder Underlying history of hypertension Underlying history of paroxysmal atrial fibrillation not on anticoagulation due to high risk of falling Known history of excessive alcohol use Pain and swelling in the right knee likely related to acute gout, patient started on oral Zyloprim he was also started on IV Solu-Medrol today At this time patient is admitted to telemetry floor he is maintained on CIWA protocol He was evaluated by psychiatry and was approved for admission to the psychiatry unit when medically stable For DVT prophylaxis patient is on subcu heparin For GI prophylaxis Pepcid Medication and labs were reviewed will follow in a.m.
[2021-09-26 20:01] VITALS: RESP 18
[2021-09-26 20:29] LABS: Glucose,Whole Blood 205 mg/dL (70-110)
[2021-09-27] MEDS: methylPREDNISolone SOD SUCCI 125 MG/2 ML VIAL IV SCH ×2 (05:46→12:43)
[2021-09-27 07:10] LABS: Glucose,Whole Blood 161 mg/dL (70-110)
[2021-09-27] MEDS: carvediloL 12.5 MG TAB PO SCH (08:37)
[2021-09-27] MEDS: INSULIN ASPART (NovoLOG) 100 UNIT/ML VIAL SQ SCH ×2 (08:37→12:43)
[2021-09-27] MEDS: allopurinoL 300 MG TAB PO SCH (08:37)
[2021-09-27] MEDS: amLODIPine 10 MG TAB PO SCH (08:37)
[2021-09-27] MEDS: THIAMINE 100 MG TAB PO SCH (08:37)
[2021-09-27] MEDS: FAMOTIDINE 20 MG TAB PO SCH (08:37)
[2021-09-27] MEDS: GABAPENTIN 100 MG CAP PO SCH (08:37)
[2021-09-27] MEDS: HEPARIN SODIUM,PORCINE/PF 5,000 UNIT/0.5 ML SYRINGE SQ SCH (08:38)
[2021-09-27 11:38] LABS: Glucose,Whole Blood 106 mg/dL (70-110)
[2021-09-27 11:53] VITALS: BP 160/85; PULSE 78; TEMP 98.3
--- NOTE | 2021-09-27 13:46 | P.DS ---
Providers Date of admission: 09/17/21 23:36 Expected date of discharge: 09/27/21 Attending physician: Kassie Beasley Consults: 09/17/21 23:39 Consult Physician Routine Consulting Provider: Adam Wolf Consult Reason/Comments: Depression, suicidal ideation, petition Do you want consulting provider notified?: Yes, Notify in am 09/22/21 17:03 Consult Physician Routine Consulting Provider: Blas Mcgee Consult Reason/Comments: Right knee pain and swelling Do you want consulting provider notified?: Yes Primary care physician: Stated None Hospital Course: Diagnosis on discharge: Acute alcohol intoxication on admission Delirium and suicidal ideation on admission Underlying history of depression with anxiety disorder Underlying history of hypertension Underlying history of paroxysmal atrial fibrillation not on anticoagulation due to high risk of falling Known history of excessive alcohol use Pain and swelling in the right knee likely related to acute gout, patient started on oral Zyloprim he was also started on IV Solu-Medrol today Hospital course: Blake Sinclair, is a 71-year-old male who was admitted through emergency room due to alcohol intoxication, delirium, depression and suicidal ideation Patient was admitted to telemetry floor he was started on CIWA protocol, he was admitted by mistake under the hospitalist group service. Today he is being transferred to my service, patient is well known to my practice. Patient is somnolent, responsive, stating he reportedly had a couple of beers, he is upset twice he was brought into the hospital , he is complaining of bilateral knee pain, denies any complaints at this time. On 09/21/2021 patient was seen and examined on the telemetry floor he is alert and oriented 3 in no apparent distress, he is somnolent, with occasional episode of agitation, he is complaining of right knee pain otherwise he denies any complaints, there is no fever or chills no headache or dizziness no chest pain no shortness of breath no cough no nausea or vomiting no abdominal pain no diarrhea and no urinary symptoms On 09/22/2021 patient was seen and examined on the medical floor he is alert and oriented 3 he is more awake today there is less agitation he is able to tolerate diet well he is having difficulty standing up and walking physical th erapy and occupational therapy are consulted patient is complaining of right knee pain there is some swelling in the right knee at this time otherwise there is no fever or chills no headache or dizziness no chest pain no shortness of breath no cough no nausea or vomiting no abdominal pain no diarrhea and no urinary symptoms On 09/23/2021 patient was seen and examined on the medical floor he is alert and oriented 3 in no apparent distress he is still complaining of severe pain and swelling in the right knee he is not able to bend his knee consultation for orthopedic surgery was requested, otherwise patient denies any complaints there is no fever or chills no headache or dizziness no chest pain no shortness of breath no cough no nausea or vomiting no abdominal pain no diarrhea and no urina ry symptoms On 09/24/2021 patient was seen and examined on the medical floor he is alert and oriented 3 in no apparent distress he is still complaining of severe pain and swelling in the right knee with difficulty standing and walking otherwise he denies any complaints there is no fever or chills no headache or dizziness no chest pain no shortness of breath no cough no nausea or vomiting no abdominal pain no diarrhea and no urinary symptoms. On 09/25/2021 patient was seen and examined on the medical floor he is alert and oriented 3 in no apparent distress, he is stating pain in the right knee is improving since yesterday however he is complaining now of pain in his left leg, he is maintained on heparin subcu however from the chart it looks like he has been refusing the injections. Otherwise he denies any complaints there is no fever or chills no headache or dizziness no chest pain no shortness of breath no cough no nausea or vomiting no abdominal pain no diarrhea and no urinary sy mptoms. At this time will continue with IV Solu-Medrol for the right knee pain, continue with Zyloprim, add insulin to sliding scale, will check left lower extremity venous Doppler, to rule out DVT, patient was counseled in regard to taking subcu heparin. On 09/26/2021 patient was seen and examined on the medical floor he is alert and oriented 3 in no apparent distress he is still complaining of severe pain and swelling in the right knee with difficulty standing and walking otherwise he denies any complaints there is no fever or chills no headache or dizziness no chest pain no shortness of breath no cough no nausea or vomiting no abdominal pain no diarrhea and no urinary symptoms. Patient has acute gout attack in the right knee, he is maintained on IV Solu-Medrol and told her Zyloprim, he is improving gradually possible discharge in the next 1-2 days continue physical therapy and occupational therapy Patient Condition at Discharge: Stable Plan - Discharge Summary New Discharge Prescriptions: New carvediloL [Coreg*] 12.5 mg PO BID-W/MEALS #60 tab amLODIPine [Norvasc] 10 mg PO DAILY #30 tab Acetaminophen Tab [Tylenol] 650 mg PO Q6HR PRN tab PRN Reason: Fever And/ Or Pain Famotidine [Pepcid] 20 mg PO DAILY #30 tab Thiamine [Vitamin B-1] 100 mg PO BID-W/MEALS #60 tab Gabapentin [Neurontin] 100 mg PO TID cap allopurinoL [Zyloprim] 300 mg PO DAILY tab Discontinued Metoprolol Tartrate [Lopressor] 50 mg PO BID 30 Days #60 tab Discharge Medication List Acetaminophen Tab [Tylenol] 650 mg PO Q6HR PRN tab 09/20/21 [Rx] Famotidine [Pepcid] 20 mg PO DAILY #30 tab 09/20/21 [Rx] Thiamine [Vitamin B-1] 100 mg PO BID-W/MEALS #60 tab 09/20/21 [Rx] amLODIPine [Norvasc] 10 mg PO DAILY #30 tab 09/20/21 [Rx] carvediloL [Coreg*] 12.5 mg PO BID-W/MEALS #60 tab 09/20/21 [Rx] Gabapentin [Neurontin] 100 mg PO TID cap 09/27/21 [Rx] allopurinoL [Zyloprim] 300 mg PO DAILY tab 09/27/21 [Rx] Follow up Appointment(s)/Referral(s): [facility], [NON-STAFF] - 1 Week None,Stated [Primary Care Provider] - 1-2 days Discharge/Stand Alone Forms: AA Meetings [facility], Who Do I Call?, Community Resources, Outpatient Counseling, Inp Substance Abuse Facilities, Personal Supervisor [employer]
== END 2021-09-27 16:02 | disposition home health service (06) | DRG 897 ==
LOC: EC 19:41 → 3SCARD 23:36 → 5NMEDONC 09-21 18:27
PROVIDERS: ADMIT Internal Medicine; ATTEND Internal Medicine
DX: F10.229 Alcohol dependence with intoxication, unspecified (principal); R45.851 Suicidal ideations; F10.231 Alcohol dependence with withdrawal delirium; I48.0 Paroxysmal atrial fibrillation; E86.0 Dehydration; F41.8 Other specified anxiety disorders; Z28.310 Unvaccinated for COVID-19; Y90.8 Blood alcohol level of 240 mg/100 ml or more; I10 Essential (primary) hypertension; K21.9 Gastro-esophageal reflux disease without esophagitis; M17.11 Unilateral primary osteoarthritis, right knee; M10.9 Gout, unspecified; R27.0 Ataxia, unspecified; G62.9 Polyneuropathy, unspecified; H93.13 Tinnitus, bilateral; Z79.899 Other long term (current) drug therapy; Z91.81 History of falling; Z87.11 Personal history of peptic ulcer disease; Z86.73 Personal history of transient ischemic attack (TIA), and cerebral infarction without residual deficits; Z86.19 Personal history of other infectious and parasitic diseases; Z90.49 Acquired absence of other specified parts of digestive tract; Z87.19 Personal history of other diseases of the digestive system; Z82.5 Family history of asthma and other chronic lower respiratory diseases; Z82.49 Family history of ischemic heart disease and other diseases of the circulatory system; Z82.61 Family history of arthritis; Z83.518 Family history of other specified eye disorder; Z82.2 Family history of deafness and hearing loss
CPT/HCPCS: 36415; 80048; 80053; 80320; 82550; 83690; 83735; 84132; 84550; 85025; 85610; 85730; 93005; 96374; 99285

== ENCOUNTER 2021-10-19 21:40 | Inpatient (IN) | payer MEDICARE ==
[2021-10-19] MEDS ORDERED: MAGNESIUM SULFATE-D5W PMX 1 GM in DEXTROSE/WATER 1 100ML.BAG IVPB STA (22:01)
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
[2021-10-19] MEDS ORDERED: SODIUM CHLORIDE 0.9% 1,000 ML with THIAMINE 100 MG, FOLIC ACID 1 MG IV ONE ×3 (22:30)
[2021-10-19 23:23] LABS: Basophils # (A) 0.1 k/uL (0-0.2); Basophils % (A) 1 %; Eosinophils # (A) 0.2 k/uL (0-0.7); Eosinophils % (A) 2 %; HCT 50.6 % (39.0-53.0); HGB 16.6 gm/dL (13.0-17.5); Lymphocytes # (A) 1.6 k/uL (1.0-4.8); Lymphocytes % (A) 22 %; MCH 29.7 pg (25.0-35.0); MCHC 32.9 g/dL (31.0-37.0); MCV 90.4 fL (80.0-100.0); Mean Platelet Volume 7.1; Monocytes # (A) 0.5 k/uL (0-1.0); Monocytes % (A) 7 %; Neutrophils % (A) 66 %; RBC 5.59 m/uL (4.30-5.90); RDW 14.2 % (11.5-15.5); WBC 7.5 k/uL (3.8-10.6)
[2021-10-19 23:31] LABS: ALT 22 U/L (4-49); AST 42 U/L (17-59); African American GFR (CKD) >90 (>60 ml/min/1.73 sqM); Albumin 3.9 g/dL (3.5-5.0); Alkaline Phosphatase 103 U/L (38-126); Anion Gap 17 mmol/L; Blood Urea Nitrogen 9 mg/dL (9-20); Calcium 8.1 mg/dL (8.4-10.2); Carbon Dioxide 21 mmol/L (22-30); Chloride 95 mmol/L (98-107); GGT 80 U/L (15-73); Glucose 92 mg/dL (74-99); Non-African American GFR(CKD) 85 (>60 ml/min/1.73 sqM); Phosphorus 2.7 mg/dL (2.5-4.5); Potassium 3.9 mmol/L (3.5-5.1); Sodium 133 mmol/L (137-145); Total Bilirubin 0.6 mg/dL (0.2-1.3); Total Protein 6.3 g/dL (6.3-8.2)
--- NOTE | 2021-10-19 23:34 | XR ---
EXAMINATION TYPE: XR chest 1V portable DATE OF EXAM: 10/19/2021 COMPARISON: 06/06/2021 HISTORY: Altered mental status TECHNIQUE: FINDINGS: There is elevated right diaphragm. No heart failure seen. Lungs are clear of consolidation. There are no hilar masses. IMPRESSION: Chronic elevation of the right diaphragm. No change compared to old exam. No acute lung d isease.
[2021-10-19 23:36] LABS: Prothrombin Time 10.5 sec (9.0-12.0)
[2021-10-19 23:52] LABS: Platelet Count 84 k/uL (150-450)
[2021-10-20 00:18] LABS: Alcohol 295 mg/dL
--- NOTE | 2021-10-20 00:31 | CT ---
EXAMINATION TYPE: CT brain [place] con DATE OF EXAM: 10/20/2021 COMPARISON: 06/06/2021 HISTORY: Possible fall CT DLP: 1526.7 mGycm Automated exposure control for dose reduction was used. There is cerebral cortical atrophy. There is hypodensity in the periventricular white matter. There i s no mass effect nor midline shift. No sign of intracranial hemorrhage. The calvarium is intact. The cervical vertebra have normal alignment. There is hypertrophic anterior bridging osteophyte forma tion from C4 to C7. No compression fracture. Facet joints are intact. IMPRESSION: Spondylotic changes. No fracture. Cerebral atrophy and chronic small vessel ischemia. No acute intracranial abnormality. No change compared to old exam.
[2021-10-20] MEDS ORDERED: ONDANSETRON 4 MG/2 ML VIAL IVP PRN (02:12)
[2021-10-20] MEDS ORDERED: NALOXONE 0.4 MG/ML 1 ML VIAL IV PRN (02:12)
[2021-10-20] MEDS ORDERED: LORazepam 2 MG/ML INJ IV PRN ×3 (02:18)
[2021-10-20] MEDS ORDERED: THIAMINE 100 MG/ML 2 ML VIAL IM ONE (02:30)
[2021-10-20 06:17] LABS: Appearance,Urine Clear (Clear); Bilirubin,Urine Negative (Negative); Blood,Urine Negative (Negative); Color,Urine Light Yellow; Glucose,Urine (UA) Negative (Negative); Ketones,Urine Negative (Negative); Leukocyte Esterase,Urine Negative (Negative); Nitrite,Urine Negative (Negative); Protein,Urine Negative (Negative); Specific Gravity,Urine 1.006 (1.001-1.035); Urobilinogen,Urine <2.0 mg/dL (<2.0)
[2021-10-20 06:55] LABS: Amphetamine Screen,Urine Not Detected (NotDetected); Barbiturate Screen,Urine Not Detected (NotDetected); Benzodiazepines Screen,Urine Detected (NotDetected); Cocaine Screen,Urine Not Detected (NotDetected); Methadone Screen, Urine Not Detected (NotDetected); Opiate Screen,Urine Not Detected (NotDetected); Oxycodone Screen, Urine Not Detected (NotDetected); Phencyclidine Screen,Urine Not Detected (NotDetected); Tricyclic Antidepressant,Urine Not Detected (NotDetected); Urn Cannabinoid Scrn Not Detected (NotDetected)
[2021-10-20] MEDS ORDERED: LORazepam 1 MG/0.5 ML VIAL IV PRN ×2 (07:42→07:43)
[2021-10-20] MEDS: LORazepam 1 MG/0.5 ML VIAL IV PRN ×3 (08:02→17:49)
[2021-10-20] MEDS: carvediloL 12.5 MG TAB PO SCH ×2 (08:04→17:50)
[2021-10-20] MEDS: allopurinoL 300 MG TAB PO SCH (08:04)
[2021-10-20] MEDS: HEPARIN SODIUM,PORCINE/PF 5,000 UNIT/0.5 ML SYRINGE SQ SCH ×2 (08:04→17:50)
[2021-10-20] MEDS: FAMOTIDINE 20 MG TAB PO SCH (08:04)
[2021-10-20] MEDS: amLODIPine 10 MG TAB PO SCH (08:04)
[2021-10-20] MEDS: GABAPENTIN 100 MG CAP PO SCH ×3 (08:04→22:05)
[2021-10-20] MEDS: PANTOPRAZOLE 40 MG/10 ML VIAL IV SCH (08:05)
[2021-10-20] MEDS: THIAMINE 100 MG TAB PO SCH ×2 (17:49→17:50)
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
[2021-10-20] MEDS: ACETAMINOPHEN TAB 325 MG TAB PO PRN (22:05)
--- NOTE | 2021-10-20 22:29 | US ---
EXAMINATION TYPE: US venous doppler duplex LE RT DATE OF EXAM: 10/20/2021 10:22 PM COMPARISON: 06/07/21 bilateral lower extremity ultrasound CLINICAL HISTORY: Right leg swelling. right leg swelling SIDE PERFORMED: Right TECHNIQUE: The lower extremity deep venous system is examined utilizing real time linear array sonog marcel with graded compression, doppler sonography and color-flow sonography. VESSELS IMAGED: Common Femoral Vein Deep Femoral Vein Greater Saphenous Vein * Femoral Vein Popliteal Vein Small Saphenous Vein * Proximal Calf Veins (* superficial vessels) Right Leg: Negative for DVT Grayscale, color doppler, spectral doppler imaging performed of the deep veins of the right lower ext remity. There is normal flow, compressibility, vascular waveforms. IMPRESSION: No ultrasound evidence for acute DVT in the right lower extremity.
[2021-10-21] MEDS: HEPARIN SODIUM,PORCINE/PF 5,000 UNIT/0.5 ML SYRINGE SQ SCH ×3 (00:56→17:39)
[2021-10-21] MEDS: THIAMINE 100 MG TAB PO SCH ×4 (06:56→17:39)
[2021-10-21] MEDS: allopurinoL 300 MG TAB PO SCH (07:06)
[2021-10-21] MEDS: GABAPENTIN 100 MG CAP PO SCH ×3 (07:06→22:01)
[2021-10-21] MEDS: carvediloL 12.5 MG TAB PO SCH ×2 (07:06→17:39)
[2021-10-21] MEDS: amLODIPine 10 MG TAB PO SCH (07:06)
[2021-10-21] MEDS: FAMOTIDINE 20 MG TAB PO SCH (07:06)
[2021-10-21] MEDS: PANTOPRAZOLE 40 MG/10 ML VIAL IV SCH (08:39)
[2021-10-21 10:44] LABS: African American GFR (CKD) 90.3 (60.0-200.0); Albumin 3.2 g/dL (3.8-4.9); Albumin/Globulin Ratio 1.67 (1.60-3.17); Anion Gap 10.1 mmol/L (10.00-18.00); BUN/Creat Ratio 11.95 Ratio (12.00-20.00); Blood Urea Nitrogen 11.5 mg/dL (9.0-27.0); Calcium 7.5 mg/dL (8.7-10.3); Carbon Dioxide 21.4 mmol/L (20.0-27.5); Globulin 1.9 g/dL (1.6-3.3); Non-African American GFR(CKD) 77.9 (60.0-200.0); Potassium 4.1 mmol/L (3.5-5.5); Total Bilirubin 0.5 mg/dL (0.30-1.20); Total Protein 5.1 g/dL (6.2-8.2)
[2021-10-21] MEDS: LORazepam 1 MG/0.5 ML VIAL IV PRN (11:43)
[2021-10-21 13:04] LABS: Basophils # (A) 0.03 X 10*3/uL (0.00-0.10); Basophils % (A) 0.7 %; Eosinophils % (A) 2.2 %; HCT 39.2 % (39.6-50.0); HGB 12.8 g/dL (13.0-17.0); Immature Grans, Automated 0.4 %; Lymphocytes # (A) 0.79 X 10*3/uL (0.90-5.00); Lymphocytes % (A) 17.3 %; MCH 30.4 pg (27.0-32.0); MCHC 32.7 g/dL (32.0-37.0); MCV 93.1 fL (80.0-97.0); Monocytes # (A) 0.54 X 10*3/uL (0.20-1.00); Monocytes % (A) 11.8 %; NRBC Per 100 WBC 0 /100 WBCS (0.0-0.0); Neutrophils # (A) 3.09 X 10*3/uL (1.80-7.70); Neutrophils % (A) 67.6 %; Platelet Count 65 X 10*3/uL (140-440); RBC 4.21 X 10*6/uL (4.40-5.60); RBC Morphology NORMAL; RDW 14.6 % (11.5-14.5); WBC 4.57 X 10*3/uL (4.50-10.00)
[2021-10-21] MEDS ORDERED: KETOROLAC 15 MG/ML 1 ML VIAL IVP STA (14:31)
--- NOTE | 2021-10-21 14:33 | P.PN ---
Subjective Progress Note Date: 10/21/21 Blake Sinclair, he is a 71-year-old male who presented to [facility] emergency room with a chief complaint of alcohol intoxication and confusion, his living condition were not sanitary, he had a large ulcer on the medial aspect of the right ankle. He was evaluated in the emergency room vital examination on presentation revealed a temperature of 98 pulse 84 respiration 20 blood pressure 154/90 and pulse ox 96% on room air Laboratory data reveals a white blood count of 7.5 hemoglobin 16.6 platelet count 84 sodium 133 potassium 3.9 chloride 95 CO2 21 BUN 9 creatinine 0.88 troponin level was 0.0-3 Testing in the emergency room revealed computed tomography scan of the head and neck done in the emergency room revealed cerebral atrophy and chronic small vessel ischemia no acute intracranial abnormality no change compared to old exam, chest x-ray done in the emergency room revealed chronic elevation of the right diaphragmatic no change compared to old exam no acute lung disease, EKG done in the emergency room revealed supraventricular rhythm with possible lateral ischemia Patient was admitted to medical floor for further evaluation and treatment On review of systems patient is complaining of right foot and ankle pain otherwise he denies any complaints there is no fever or chills no headache or dizziness no chest pain no shortness of breath no cough no nausea or vomiting no abdominal pain no diarrhea and no urinary symptoms. On 10/21/2021 patient was seen and examined on the medical floor he is alert and responsive in no apparent distress he is complaining of generalized joint pain mostly in bilateral knees and his hands joints, otherwise he denies any complaints there is no fever or chills no headache or dizziness no chest pain no shortness of breath no cough no nausea or vomiting no abdominal pain no diarrhea and no urinary symptoms. At this point will check uric acid level will give 1 dose of IV Toradol and continue to monitor closely. Continue with IV cefazolin for lower extremity cellulitis awaiting input from infectious disease Objective - Vital Signs Vital signs: Vital Signs Temp 98.9 F 10/21/21 08:00 Pulse 51 L 10/21/21 08:00 Resp 17 10/21/21 08:00 BP 160/71 10/21/21 08:00 Pulse Ox 94 L 10/21/21 08:00 FiO2 Intake & Output 08/18/22 08/19/22 08/19/22 18:59 06:59 18:59 Intake Total 1450 Output Total 900 900 Balance 550 -900 Intake: Intake, IV Titration 900 Amount Sodium Chloride 0.9% 1, 900 000 ml @ 150 mls/hr IV . Q6H41M ONE with Thiamine 100 mg with Folic Acid 1 mg Rx#:[id number] Oral 550 Output: Urine 900 900 Other: Voiding Method External Catheter External Catheter External Catheter # Bowel Movements 2 - Exam In general patient is alert and oriented x 3 in no distress HEENT head normocephalic and atraumatic Neck is supple no JVD no goiter no lymphadenopathy no carotid bruit Chest examination is clear to auscultation no crackles no wheezing Cardiac exam reveals regular heart sounds S1 and S2 no gallops no murmurs Abdomen is soft nontender no organomegaly with normal bowel sounds Extremity exam reveals no edema no cyanosis or clubbing right foot erythema and medial right ankle scabbed ulcer Neurological examination reveals no gross focal deficits - Labs CBC & Chem 7: 10/21/21 05:33 10/21/21 05:33 Labs: Abnormal Lab Results - Last 24 Hours (Table) 10/21/21 10/21/21 Range/Units 05:33 05:33 RBC 4.21 L (4.40-5.60) X 10*6/uL Hgb 12.8 L (13.0-17.0) g/dL Hct 39.2 L (39.6-50.0) % RDW 14.6 H (11.5-14.5) % Plt Count 65 L (140-440) X 10*3/uL Plt Count Comment DECREASED A Lymphocytes # 0.79 L (0.90-5.00) X 10*3/uL BUN/Creatinine Ratio 11.95 L (12.00-20.00) Ratio Glucose 124 H (70-110) mg/dL Calcium 7.5 L (8.7-10.3) mg/dL Total Protein 5.1 L (6.2-8.2) g/dL Albumin 3.2 L (3.8-4.9) g/dL Assessment and Plan Plan: Alcohol intoxication Early alcohol withdrawal will Right lower extremity cellulitis with Mental status changes with delirium Underlying history of hypertension Underlying history of paroxysmal atrial fibrillation not on anticoagulation due to multiple falls Underlying history of depression with anxiety Underlying history of excessive alcohol use patient was admitted recently with alcohol intoxication At this time patient is admitted to medical floor he was started on CIWA protocol with IV Ativan Will start IV cefazolin for right lower extremity cellulitis Will check right lower extremity venous Doppler Recheck labs in a.m. Prognosis is guarded patient is not receptive to any counseling at this time regarding alcohol will try in the next few days
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
[2021-10-22] MEDS: HEPARIN SODIUM,PORCINE/PF 5,000 UNIT/0.5 ML SYRINGE SQ SCH ×3 (02:00→16:09)
[2021-10-22] MEDS: THIAMINE 100 MG TAB PO SCH ×3 (08:42→17:49)
[2021-10-22] MEDS: carvediloL 12.5 MG TAB PO SCH ×2 (08:43→17:49)
[2021-10-22] MEDS: allopurinoL 300 MG TAB PO SCH (08:44)
[2021-10-22] MEDS: amLODIPine 10 MG TAB PO SCH (08:44)
[2021-10-22] MEDS: GABAPENTIN 100 MG CAP PO SCH ×4 (08:44→21:58)
[2021-10-22] MEDS: PANTOPRAZOLE 40 MG TABLET PO SCH (08:44)
[2021-10-22] MEDS: FAMOTIDINE 20 MG TAB PO SCH (08:44)
[2021-10-22] MEDS: LORazepam 1 MG/0.5 ML VIAL IV PRN ×2 (09:27→16:10)
[2021-10-22 12:44] LABS: African American GFR (CKD) 97.9 (60.0-200.0); Albumin 3.2 g/dL (3.8-4.9); Albumin/Globulin Ratio 1.6 (1.60-3.17); Anion Gap 9.8 mmol/L (10.00-18.00); BUN/Creat Ratio 11.11 Ratio (12.00-20.00); Calcium 7.8 mg/dL (8.7-10.3); Carbon Dioxide 25.2 mmol/L (20.0-27.5); Non-African American GFR(CKD) 84.4 (60.0-200.0); Potassium 3.3 mmol/L (3.5-5.5); Total Bilirubin 0.6 mg/dL (0.30-1.20); Total Protein 5.2 g/dL (6.2-8.2)
[2021-10-22 12:54] LABS: Basophils # (A) 0.03 X 10*3/uL (0.00-0.10); Basophils % (A) 0.7 %; Eosinophils # (A) 0.13 X 10*3/uL (0.04-0.35); Eosinophils % (A) 3.2 %; HCT 40.6 % (39.6-50.0); HGB 13.5 g/dL (13.0-17.0); Immature Grans, Automated 0.7 %; Immature Platelet Fraction 5.1 % (1.1-6.1); Lymphocytes # (A) 1.02 X 10*3/uL (0.90-5.00); Lymphocytes % (A) 24.8 %; MCH 30.8 pg (27.0-32.0); MCHC 33.3 g/dL (32.0-37.0); MCV 92.5 fL (80.0-97.0); Mean Platelet Volume 10.2 fL (9.5-12.2); Monocytes # (A) 0.38 X 10*3/uL (0.20-1.00); Monocytes % (A) 9.2 %; NRBC Per 100 WBC 0 /100 WBCS (0.0-0.0); Neutrophils # (A) 2.52 X 10*3/uL (1.80-7.70); Neutrophils % (A) 61.4 %; Platelet Count 55 X 10*3/uL (140-440); RBC 4.39 X 10*6/uL (4.40-5.60); Stomatocytes 2+; WBC 4.11 X 10*3/uL (4.50-10.00)
[2021-10-22] MEDS ORDERED: Potassium Replacement Protocol 1 EACH MISC MISCELLANE PRN (13:30)
--- NOTE | 2021-10-22 13:49 | P.PN ---
Subjective Progress Note Date: 10/22/21 Blake Sinclair, he is a 71-year-old male who presented to [facility] emergency room with a chief complaint of alcohol intoxication and confusion, his living condition were not sanitary, he had a large ulcer on the medial aspect of the right ankle. He was evaluated in the emergency room vital examination on presentation revealed a temperature of 98 pulse 84 respiration 20 blood pressure 154/90 and pulse ox 96% on room air Laboratory data reveals a white blood count of 7.5 hemoglobin 16.6 platelet count 84 sodium 133 potassium 3.9 chloride 95 CO2 21 BUN 9 creatinine 0.88 troponin level was 0.0-3 Testing in the emergency room revealed computed tomography scan of the head and neck done in the emergency room revealed cerebral atrophy and chronic small vessel ischemia no acute intracranial abnormality no change compared to old exam, chest x-ray done in the emergency room revealed chronic elevation of the right diaphragmatic no change compared to old exam no acute lung disease, EKG done in the emergency room revealed supraventricular rhythm with possible lateral ischemia Patient was admitted to medical floor for further evaluation and treatment On review of systems patient is complaining of right foot and ankle pain otherwise he denies any complaints there is no fever or chills no headache or dizziness no chest pain no shortness of breath no cough no nausea or vomiting no abdominal pain no diarrhea and no urinary symptoms. On 10/21/2021 patient was seen and examined on the medical floor he is alert and responsive in no apparent distress he is complaining of generalized joint pain mostly in bilateral knees and his hands joints, otherwise he denies any complaints there is no fever or chills no headache or dizziness no chest pain no shortness of breath no cough no nausea or vomiting no abdominal pain no diarrhea and no urinary symptoms. At this point will check uric acid level will give 1 dose of IV Toradol and continue to monitor closely. Continue with IV cefazolin for lower extremity cellulitis awaiting input from infectious disease On 10/22/2021 patient was seen and examined on the medical floor he is alert and responsive in no apparent distress he is complaining of lower extremity pain, otherwise he denies any complaints there is no fever or chills no headache or dizziness no chest pain no shortness of breath no cough no nausea or vomiting no abdominal pain no diarrhea and no urinary symptoms. Patient see n by Dr Grace, wound culture taken. Continue with IV cefazolin for lower extremity cellulitis awaiting input from infectious disease. Objective - Vital Signs Vital signs: Vital Signs Temp 98.2 F 10/22/21 07:47 Pulse 68 10/22/21 07:47 Resp 17 10/22/21 07:47 BP 155/71 10/22/21 07:47 Pulse Ox 93 L 10/22/21 07:47 FiO2 Intake & Output 10/21/21 10/22/21 10/22/21 18:59 06:59 18:59 Intake Total 50 Output Total 1375 Balance -1375 50 Intake: Intake, IV Titration 50 Amount ceFAZolin 2 gm In Sodium 50 Chloride 0.9% 50 ml @ 100 mls/hr IVPB Q8HR [facility] Rx# :[id number] Output: Urine 1375 Other: Voiding Method External Catheter External Catheter External Catheter # Voids 4 # Bowel Movements 1 - Exam In general patient is alert and oriented x 3 in no distress HEENT head normocephalic and atraumatic Neck is supple no JVD no goiter no lymphadenopathy no carotid bruit Chest examination is clear to auscultation no crackles no wheezing Cardiac exam reveals regular heart sounds S1 and S2 no gallops no murmurs Abdomen is soft nontender no organomegaly with normal bowel sounds Extremity exam reveals no edema no cyanosis or clubbing right foot erythema and medial right ankle scabbed ulcer Neurological examination reveals no gross focal deficits - Labs CBC & Chem 7: 10/22/21 06:20 10/22/21 06:20 Labs: Abnormal Lab Results - Last 24 Hours (Table) 10/22/21 10/22/21 Range/Units 06:20 06:20 WBC 4.11 L (4.50-10.00) X 10*3/uL RBC 4.39 L (4.40-5.60) X 10*6/uL Plt Count 55 L (140-440) X 10*3/uL Plt Count Comment DECREASED A Potassium 3.3 L (3.5-5.5) mmol/L Anion Gap 9.80 L (10.00-18.00) mmol/L BUN/Creatinine Ratio 11.11 L (12.00-20.00) Ratio Glucose 140 H (70-110) mg/dL Calcium 7.8 L (8.7-10.3) mg/dL Total Protein 5.2 L (6.2-8.2) g/dL Albumin 3.2 L (3.8-4.9) g/dL Microbiology - Last 24 Hours (Table) 10/21/21 12:20 Gram Stain - Preliminary Foot - Right Wound Culture - Preliminary Gram Neg Bacilli Assessment and Plan Plan: Alcohol intoxication Early alcohol withdrawal will Right lower extremity cellulitis with Mental status changes with delirium Underlying history of hypertension Underlying history of paroxysmal atrial fibrillation not on anticoagulation due to multiple falls Underlying history of depression with anxiety Underlying history of excessive alcohol use patient was admitted recently with alcohol intoxication At this time patient is admitted to medical floor he was started on CIWA protocol with IV Ativan Will start IV cefazolin for right lower extremity cellulitis Will check right lower extremity venous Doppler Recheck labs in a.m. Prognosis is guarded patient is not receptive to any counseling at this time regarding alcohol will try in the next few days
[2021-10-22] MEDS: POTASSIUM CHLORIDE ER 20 MEQ TAB.ER PO SCH (14:01)
[2021-10-22] MEDS ORDERED: POTASSIUM CHLORIDE ER 20 MEQ TAB.ER PO SCH (16:00)
[2021-10-22] MEDS: CEFEPIME 2 GM in SODIUM CHLORIDE 0.9% 100 ML IVPB SCH (16:09)
--- NOTE | 2021-10-22 22:10 | P.PN ---
Subjective Progress Note Date: 10/22/21 Principal diagnosis: R leg wound and cellulitis Patient is a 71-year-old male presenting to the hospital with multiple complaints including wound to the right lower extremity and concerning for secondary cellulitis. On today's evaluation that is 10/22/2021, the patient denies having any fever or any chills, patient is still complaining of pain to the right lower extremity but denies any worsening denies any chest pain shortness of breath or cough no abdominal pain or diarrhea Objective - Vital Signs Vital signs: Vital Signs Temp 98.2 F 10/22/21 07:47 Pulse 68 10/22/21 07:47 Resp 17 10/22/21 07:47 BP 155/71 10/22/21 07:47 Pulse Ox 93 L 10/22/21 07:47 FiO2 Intake & Output 10/21/21 10/22/21 10/22/21 18:59 06:59 18:59 Intake Total 50 Output Total 1375 Balance -1375 50 Intake: Intake, IV Titration 50 Amount ceFAZolin 2 gm In Sodium 50 Chloride 0.9% 50 ml @ 100 mls/hr IVPB Q8HR [facility] Rx# :[id number] Output: Urine 1375 Other: Voiding Method External Catheter External Catheter External Catheter # Voids 4 # Bowel Movements 1 - Exam GENERAL DESCRIPTION: Elderly male lying in bed, no distress. No tachypnea or accessory muscle of respiration use. LUNGS: Unlabored breathing. Clear to auscultation anteriorly. No wheeze or crackle. HEART: S1, S2, regular rate and rhythm. No loud murmur ABDOMEN: Soft, no tenderness , guarding or rigidity, no organomegaly EXTREMITIES right lower extremity wound is currently dressed no drainage on the dressing - Labs CBC & Chem 7: 10/22/21 06:20 10/22/21 20:34 Labs: Abnormal Lab Results - Last 24 Hours (Table) 10/22/21 10/22/21 Range/Units 06:20 06:20 WBC 4.11 L (4.50-10.00) X 10*3/uL RBC 4.39 L (4.40-5.60) X 10*6/uL Plt Count 55 L (140-440) X 10*3/uL Plt Count Comment DECREASED A Potassium 3.3 L (3.5-5.5) mmol/L Anion Gap 9.80 L (10.00-18.00) mmol/L BUN/Creatinine Ratio 11.11 L (12.00-20.00) Ratio Glucose 140 H (70-110) mg/dL Calcium 7.8 L (8.7-10.3) mg/dL Total Protein 5.2 L (6.2-8.2) g/dL Albumin 3.2 L (3.8-4.9) g/dL Microbiology - Last 24 Hours (Table) 10/21/21 12:20 Gram Stain - Preliminary Foot - Right Wound Culture - Preliminary Gram Neg Bacilli Assessment and Plan (1) Cellulitis Current Visit: No Status: Acute Code(s): L03.90 - CELLULITIS, UNSPECIFIED SNOMED Code(s): 383639044 Plan: 1patient with right lower extremity wound and secondary cellulitis local wound cultures are currently growing gram-negative, we will discontinue cefazolin start the patient on cefepime 2 g every 8 hours adjusting antibiotic further on the basis of culture report 2-local wound care to continue with the [facility] followed by moist dressing change daily Time with Patient: Less than 30
[2021-10-23] MEDS: HEPARIN SODIUM,PORCINE/PF 5,000 UNIT/0.5 ML SYRINGE SQ SCH ×4 (00:31→22:47)
[2021-10-23] MEDS: CEFEPIME 2 GM in SODIUM CHLORIDE 0.9% 100 ML IVPB SCH ×4 (00:55→22:47)
[2021-10-23] MEDS: LORazepam 1 MG/0.5 ML VIAL IV PRN ×4 (05:33→20:30)
[2021-10-23] MEDS: carvediloL 12.5 MG TAB PO SCH ×2 (07:44→17:15)
[2021-10-23] MEDS: FAMOTIDINE 20 MG TAB PO SCH (07:44)
[2021-10-23] MEDS: amLODIPine 10 MG TAB PO SCH (07:44)
[2021-10-23] MEDS: allopurinoL 300 MG TAB PO SCH (07:44)
[2021-10-23] MEDS: PANTOPRAZOLE 40 MG TABLET PO SCH (07:44)
[2021-10-23] MEDS: THIAMINE 100 MG in SODIUM CHLORIDE 0.9% 50 ML IVPB SCH ×2 (07:45→20:19)
[2021-10-23] MEDS: GABAPENTIN 100 MG CAP PO SCH ×3 (07:45→20:21)
--- NOTE | 2021-10-23 08:49 | P.PN ---
Subjective Progress Note Date: 10/23/21 Blake Sinclair, he is a 71-year-old male who presented to [facility] emergency room with a chief complaint of alcohol intoxication and confusion, his living condition were not sanitary, he had a large ulcer on the medial aspect of the right ankle. He was evaluated in the emergency room vital examination on presentation revealed a temperature of 98 pulse 84 respiration 20 blood pressure 154/90 and pulse ox 96% on room air Laboratory data reveals a white blood count of 7.5 hemoglobin 16.6 platelet count 84 sodium 133 potassium 3.9 chloride 95 CO2 21 BUN 9 creatinine 0.88 troponin level was 0.0-3 Testing in the emergency room revealed computed tomography scan of the head and neck done in the emergency room revealed cerebral atrophy and chronic small vessel ischemia no acute intracranial abnormality no change compared to old exam, chest x-ray done in the emergency room revealed chronic elevation of the right diaphragmatic no change compared to old exam no acute lung disease, EKG done in the emergency room revealed supraventricular rhythm with possible lateral ischemia Patient was admitted to medical floor for further evaluation and treatment On review of systems patient is complaining of right foot and ankle pain otherwise he denies any complaints there is no fever or chills no headache or dizziness no chest pain no shortness of breath no cough no nausea or vomiting no abdominal pain no diarrhea and no urinary symptoms. On 10/21/2021 patient was seen and examined on the medical floor he is alert and responsive in no apparent distress he is complaining of generalized joint pain mostly in bilateral knees and his hands joints, otherwise he denies any complaints there is no fever or chills no headache or dizziness no chest pain no shortness of breath no cough no nausea or vomiting no abdominal pain no diarrhea and no urinary symptoms. At this point will check uric acid level will give 1 dose of IV Toradol and continue to monitor closely. Continue with IV cefazolin for lower extremity cellulitis awaiting input from infectious disease On 10/22/2021 patient was seen and examined on the medical floor he is alert and responsive in no apparent distress he is complaining of lower extremity pain, otherwise he denies any complaints there is no fever or chills no headache or dizziness no chest pain no shortness of breath no cough no nausea or vomiting no abdominal pain no diarrhea and no urinary symptoms. Patient see n by Dr Grace, wound culture taken. Continue with IV cefazolin for lower extremity cellulitis awaiting input from infectious disease. On 10/23/2021 patient was seen and examined on the medical floor he is alert and responsive in no apparent distress he was having some episodes of agitation last night he is still receiving IV Ativan, patient is still receiving IV antibiotic for lower extremity cellulitis with ulcer otherwise patient denies any complaints there is no fever or chills no headache or dizziness no chest pain no shortness of breath no cough no nausea or vomiting no abdominal pain no diarrhea and no urinary symptoms Objective - Vital Signs Vital signs: Vital Signs Temp 98.8 F 10/23/21 07:45 Pulse 71 10/23/21 07:45 Resp 18 10/23/21 07:45 BP 150/79 10/23/21 07:45 Pulse Ox 96 10/23/21 07:45 FiO2 Intake & Output 10/22/21 10/23/21 10/23/21 18:59 06:59 18:59 Intake Total 290 Output Total 250 600 Balance 40 -600 Intake: Intake, IV Titration 50 Amount ceFAZolin 2 gm In Sodium 50 Chloride 0.9% 50 ml @ 100 mls/hr IVPB Q8HR [facility] Rx# :[id number] Oral 240 Output: Urine 250 600 Other: Voiding Method External Catheter External Catheter External Catheter # Voids 1 3 # Bowel Movements 0 - Exam In general patient is alert and oriented x 3 in no distress HEENT head normocephalic and atraumatic Neck is supple no JVD no goiter no lymphadenopathy no carotid bruit Chest examination is clear to auscultation no crackles no wheezing Cardiac exam reveals regular heart sounds S1 and S2 no gallops no murmurs Abdomen is soft nontender no organomegaly with normal bowel sounds Extremity exam reveals no edema no cyanosis or clubbing right foot erythema and medial right ankle scabbed ulcer Neurological examination reveals no gross focal deficits - Labs CBC & Chem 7: 10/22/21 06:20 10/22/21 20:34 Labs: Abnormal Lab Results - Last 24 Hours (Table) 10/22/21 10/22/21 Range/Units 06:20 06:20 WBC 4.11 L (4.50-10.00) X 10*3/uL RBC 4.39 L (4.40-5.60) X 10*6/uL Plt Count 55 L (140-440) X 10*3/uL Plt Count Comment DECREASED A Potassium 3.3 L (3.5-5.5) mmol/L Anion Gap 9.80 L (10.00-18.00) mmol/L BUN/Creatinine Ratio 11.11 L (12.00-20.00) Ratio Glucose 140 H (70-110) mg/dL Calcium 7.8 L (8.7-10.3) mg/dL Total Protein 5.2 L (6.2-8.2) g/dL Albumin 3.2 L (3.8-4.9) g/dL Microbiology - Last 24 Hours (Table) 10/21/21 12:20 Gram Stain - Preliminary Foot - Right Wound Culture - Preliminary Gram Neg Bacilli Assessment and Plan Plan: Alcohol intoxication Early alcohol withdrawal will Right lower extremity cellulitis with Mental status changes with delirium Underlying history of hypertension Underlying history of paroxysmal atrial fibrillation not on anticoagulation due to multiple falls Underlying history of depression with anxiety Underlying history of excessive alcohol use patient was admitted recently with alcohol intoxication At this time patient is admitted to medical floor he was started on CIWA protocol with IV Ativan Will start IV cefazolin for right lower extremity cellulitis Will check right lower extremity venous Doppler Recheck labs in a.m. Prognosis is guarded patient is not receptive to any counseling at this time regarding alcohol will try in the next few days
[2021-10-23] MEDS: MULTIVITAMINS, THERA 1 EACH TAB PO SCH (08:57)
[2021-10-23 11:23] LABS: Basophils # (A) 0.04 X 10*3/uL (0.00-0.10); Basophils % (A) 0.7 %; Eosinophils # (A) 0.12 X 10*3/uL (0.04-0.35); Eosinophils % (A) 2.1 %; HCT 43.7 % (39.6-50.0); HGB 14.3 g/dL (13.0-17.0); Immature Grans, Automated 0.9 %; Immature Platelet Fraction 4.2 % (1.1-6.1); Lymphocytes # (A) 1.07 X 10*3/uL (0.90-5.00); Lymphocytes % (A) 18.8 %; MCH 30.4 pg (27.0-32.0); MCHC 32.7 g/dL (32.0-37.0); Monocytes # (A) 0.73 X 10*3/uL (0.20-1.00); Monocytes % (A) 12.8 %; NRBC Per 100 WBC 0 /100 WBCS (0.0-0.0); Neutrophils # (A) 3.68 X 10*3/uL (1.80-7.70); Neutrophils % (A) 64.7 %; Platelet Count 72 X 10*3/uL (140-440); RDW 13.7 % (11.5-14.5); WBC 5.69 X 10*3/uL (4.50-10.00)
[2021-10-23 11:28] LABS: African American GFR (CKD) 96.8 (60.0-200.0); Albumin 3.5 g/dL (3.8-4.9); Albumin/Globulin Ratio 1.54 (1.60-3.17); Anion Gap 15.7 mmol/L (10.00-18.00); BUN/Creat Ratio 13.11 Ratio (12.00-20.00); Blood Urea Nitrogen 11.9 mg/dL (9.0-27.0); Calcium 8.2 mg/dL (8.7-10.3); Carbon Dioxide 20.9 mmol/L (20.0-27.5); Globulin 2.3 g/dL (1.6-3.3); Non-African American GFR(CKD) 83.5 (60.0-200.0); Potassium 3.7 mmol/L (3.5-5.5); Total Bilirubin 0.9 mg/dL (0.30-1.20); Total Protein 5.7 g/dL (6.2-8.2)
--- NOTE | 2021-10-24 07:39 | P.PN ---
Subjective Progress Note Date: 10/23/21 Principal diagnosis: R leg wound and cellulitis Patient is a 71-year-old male presenting to the hospital with multiple complaints including wound to the right lower extremity and concerning for secondary cellulitis. On today's evaluation that is 10/23/2021, the patient remains to be febrile, patient pain to the right lower extremity has slightly decreased in intensity, the patient denies any chest pain shortness of breath or cough no abdominal pain or diarrhea Objective - Vital Signs Vital signs: Vital Signs Temp 98.8 F 10/23/21 07:45 Pulse 71 10/23/21 07:45 Resp 18 10/23/21 07:45 BP 150/79 10/23/21 07:45 Pulse Ox 96 10/23/21 07:45 FiO2 Intake & Output 10/22/21 10/23/21 10/23/21 18:59 06:59 18:59 Intake Total 290 Output Total 250 600 Balance 40 -600 Intake: Intake, IV Titration 50 Amount ceFAZolin 2 gm In Sodium 50 Chloride 0.9% 50 ml @ 100 mls/hr IVPB Q8HR [facility] Rx# :[id number] Oral 240 Output: Urine 250 600 Other: Voiding Method External Catheter External Catheter External Catheter # Voids 1 3 # Bowel Movements 0 - Exam GENERAL DESCRIPTION: Elderly male lying in bed, no distress. No tachypnea or accessory muscle of respiration use. LUNGS: Unlabored breathing. Clear to auscultation anteriorly. No wheeze or crackle. HEART: S1, S2, regular rate and rhythm. No loud murmur ABDOMEN: Soft, no tenderness , guarding or rigidity, no organomegaly EXTREMITIES right lower extremity wound is currently dressed no drainage on the dressing - Labs CBC & Chem 7: 10/23/21 06:33 10/23/21 06:33 Labs: Abnormal Lab Results - Last 24 Hours (Table) 10/23/21 10/23/21 Range/Units 06:33 06:33 Plt Count 72 L (140-440) X 10*3/uL Plt Count Comment DECREASED A Immature Gran # 0.05 H (0.00-0.04) X 10*3/uL Calcium 8.2 L (8.7-10.3) mg/dL Total Protein 5.7 L (6.2-8.2) g/dL Albumin 3.5 L (3.8-4.9) g/dL Albumin/Globulin Ratio 1.54 L (1.60-3.17) g/dL Microbiology - Last 24 Hours (Table) 10/21/21 12:20 Gram Stain - Preliminary Foot - Right Wound Culture - Preliminary Gram Neg Bacilli Assessment and Plan (1) Cellulitis Current Visit: No Status: Acute Code(s): L03.90 - CELLULITIS, UNSPECIFIED SNOMED Code(s): 535267561 Plan: 1patient with right lower extremity wound and secondary cellulitis local wound cultures are currently growing gram-negative with ID and sensitivities still pending, patient to continue with cefepime 2 g every 8 hours adjusting antibiotic further on the basis of culture report 2-local wound care to continue with the [facility] followed by moist dressing change daily Time with Patient: Less than 30
[2021-10-24 09:27] LABS: African American GFR (CKD) 97.9 (60.0-200.0); Albumin 3.6 g/dL (3.8-4.9); Albumin/Globulin Ratio 1.5 (1.60-3.17); Anion Gap 12.3 mmol/L (10.00-18.00); Calcium 8.3 mg/dL (8.7-10.3); Carbon Dioxide 22.7 mmol/L (20.0-27.5); Globulin 2.4 g/dL (1.6-3.3); Non-African American GFR(CKD) 84.4 (60.0-200.0); Potassium 3.8 mmol/L (3.5-5.5); Total Bilirubin 0.7 mg/dL (0.30-1.20)
[2021-10-24] MEDS: amLODIPine 10 MG TAB PO SCH (10:47)
[2021-10-24] MEDS: PANTOPRAZOLE 40 MG TABLET PO SCH (10:47)
[2021-10-24] MEDS: carvediloL 12.5 MG TAB PO SCH ×2 (10:48→17:24)
[2021-10-24] MEDS: HEPARIN SODIUM,PORCINE/PF 5,000 UNIT/0.5 ML SYRINGE SQ SCH ×2 (10:48→17:24)
[2021-10-24] MEDS: MULTIVITAMINS, THERA 1 EACH TAB PO SCH (10:48)
[2021-10-24] MEDS: GABAPENTIN 100 MG CAP PO SCH ×3 (10:48→20:07)
[2021-10-24] MEDS: FAMOTIDINE 20 MG TAB PO SCH (10:48)
[2021-10-24] MEDS: THIAMINE 100 MG in SODIUM CHLORIDE 0.9% 50 ML IVPB SCH ×2 (10:48→22:05)
[2021-10-24] MEDS: allopurinoL 300 MG TAB PO SCH (10:48)
[2021-10-24] MEDS: CEFEPIME 2 GM in SODIUM CHLORIDE 0.9% 100 ML IVPB SCH ×2 (10:52→17:24)
[2021-10-24 11:32] LABS: Basophils # (A) 0.04 X 10*3/uL (0.00-0.10); Basophils % (A) 0.7 %; Eosinophils # (A) 0.16 X 10*3/uL (0.04-0.35); Eosinophils % (A) 2.9 %; HCT 42.8 % (39.6-50.0); HGB 14.4 g/dL (13.0-17.0); Immature Grans, Automated 0.7 %; Lymphocytes # (A) 0.98 X 10*3/uL (0.90-5.00); Lymphocytes % (A) 17.8 %; MCH 30.7 pg (27.0-32.0); MCHC 33.6 g/dL (32.0-37.0); MCV 91.3 fL (80.0-97.0); Monocytes # (A) 0.65 X 10*3/uL (0.20-1.00); Monocytes % (A) 11.8 %; NRBC Per 100 WBC 0 /100 WBCS (0.0-0.0); Neutrophils # (A) 3.63 X 10*3/uL (1.80-7.70); Neutrophils % (A) 66.1 %; Platelet Count 92 X 10*3/uL (140-440); RBC 4.69 X 10*6/uL (4.40-5.60)
--- NOTE | 2021-10-24 17:35 | P.PN ---
Subjective Progress Note Date: 10/24/21 Blake Sinclair, he is a 71-year-old male who presented to [facility] emergency room with a chief complaint of alcohol intoxication and confusion, his living condition were not sanitary, he had a large ulcer on the medial aspect of the right ankle. He was evaluated in the emergency room vital examination on presentation revealed a temperature of 98 pulse 84 respiration 20 blood pressure 154/90 and pulse ox 96% on room air Laboratory data reveals a white blood count of 7.5 hemoglobin 16.6 platelet count 84 sodium 133 potassium 3.9 chloride 95 CO2 21 BUN 9 creatinine 0.88 troponin level was 0.0-3 Testing in the emergency room revealed computed tomography scan of the head and neck done in the emergency room revealed cerebral atrophy and chronic small vessel ischemia no acute intracranial abnormality no change compared to old exam, chest x-ray done in the emergency room revealed chronic elevation of the right diaphragmatic no change compared to old exam no acute lung disease, EKG done in the emergency room revealed supraventricular rhythm with possible lateral ischemia Patient was admitted to medical floor for further evaluation and treatment On review of systems patient is complaining of right foot and ankle pain otherwise he denies any complaints there is no fever or chills no headache or dizziness no chest pain no shortness of breath no cough no nausea or vomiting no abdominal pain no diarrhea and no urinary symptoms. On 10/21/2021 patient was seen and examined on the medical floor he is alert and responsive in no apparent distress he is complaining of generalized joint pain mostly in bilateral knees and his hands joints, otherwise he denies any complaints there is no fever or chills no headache or dizziness no chest pain no shortness of breath no cough no nausea or vomiting no abdominal pain no diarrhea and no urinary symptoms. At this point will check uric acid level will give 1 dose of IV Toradol and continue to monitor closely. Continue with IV cefazolin for lower extremity cellulitis awaiting input from infectious disease On 10/22/2021 patient was seen and examined on the medical floor he is alert and responsive in no apparent distress he is complaining of lower extremity pain, otherwise he denies any complaints there is no fever or chills no headache or dizziness no chest pain no shortness of breath no cough no nausea or vomiting no abdominal pain no diarrhea and no urinary symptoms. Patient see n by Dr Grace, wound culture taken. Continue with IV cefazolin for lower extremity cellulitis awaiting input from infectious disease. On 10/23/2021 patient was seen and examined on the medical floor he is alert and responsive in no apparent distress he was having some episodes of agitation last night he is still receiving IV Ativan, patient is still receiving IV antibiotic for lower extremity cellulitis with ulcer otherwise patient denies any complaints there is no fever or chills no headache or dizziness no chest pain no shortness of breath no cough no nausea or vomiting no abdominal pain no diarrhea and no urinary symptoms On 10/24/2021 patient was seen and examined on the medical floor he is alert and oriented 3 in no apparent distress there is no fever or chills no headache or dizziness no chest pain no shortness of breath no cough no nausea or vomiting no abdominal pain no diarrhea and no urinary symptoms. He is still complaining of bilateral lower extremity pain and difficulty standing and walking, physical the rapy were consult patient may need to go to rehab after the acute admission Objective - Vital Signs Vital signs: Vital Signs Temp 97.6 F 10/24/21 07:48 Pulse 64 10/24/21 07:48 Resp 18 10/24/21 07:48 BP 160/74 10/24/21 07:48 Pulse Ox 93 L 10/24/21 07:48 FiO2 Intake & Output 10/23/21 10/24/21 10/24/21 18:59 06:59 18:59 Intake Total 1180 Output Total 300 Balance 880 Intake: Intake, IV Titration 100 Amount Thiamine 100 mg In Sodium 100 Chloride 0.9% 50 ml @ 100 mls/hr IVPB Q12HR [facility] Rx#:[id number] Oral 1080 Output: Urine 300 Other: Voiding Method External Catheter Diaper Diaper Incontinent Incontinent # Voids 4 3 1 # Bowel Movements 0 1 - Exam In general patient is alert and oriented x 3 in no distress HEENT head normocephalic and atraumatic Neck is supple no JVD no goiter no lymphadenopathy no carotid bruit Chest examination is clear to auscultation no crackles no wheezing Cardiac exam reveals regular heart sounds S1 and S2 no gallops no murmurs Abdomen is soft nontender no organomegaly with normal bowel sounds Extremity exam reveals no edema no cyanosis or clubbing right foot erythema and medial right ankle scabbed ulcer Neurological examination reveals no gross focal deficits - Labs CBC & Chem 7: 10/24/21 05:53 10/24/21 05:53 Labs: Abnormal Lab Results - Last 24 Hours (Table) 10/24/21 10/24/21 Range/Units 05:53 05:53 Plt Count 92 L (140-440) X 10*3/uL Glucose 117 H (70-110) mg/dL Calcium 8.3 L (8.7-10.3) mg/dL Total Protein 6.0 L (6.2-8.2) g/dL Albumin 3.6 L (3.8-4.9) g/dL Albumin/Globulin Ratio 1.50 L (1.60-3.17) g/dL Microbiology - Last 24 Hours (Table) 10/21/21 12:20 Gram Stain - Preliminary Foot - Right Wound Culture - Preliminary Acinetobacter lwoffi Morganella morganii Assessment and Plan Plan: Alcohol intoxication Early alcohol withdrawal will Right lower extremity cellulitis with Mental status changes with delirium Underlying history of hypertension Underlying history of paroxysmal atrial fibrillation not on anticoagulation due to multiple falls Underlying history of depression with anxiety Underlying history of excessive alcohol use patient was admitted recently with alcohol intoxication At this time patient is admitted to medical floor he was started on CIWA protocol with IV Ativan Will start IV cefazolin for right lower extremity cellulitis Will check right lower extremity venous Doppler Recheck labs in a.m. Prognosis is guarded patient is not receptive to any counseling at this time regarding alcohol will try in the next few days
[2021-10-24] MEDS ORDERED: LORazepam 2 MG/ML INJ IV PRN ×2 (18:10→18:11)
[2021-10-24] MEDS: LORazepam 0.5 MG TAB PO PRN (20:07)
[2021-10-25] MEDS: HEPARIN SODIUM,PORCINE/PF 5,000 UNIT/0.5 ML SYRINGE SQ SCH ×3 (01:11→18:41)
[2021-10-25] MEDS: CEFEPIME 2 GM in SODIUM CHLORIDE 0.9% 100 ML IVPB SCH ×3 (01:12→18:42)
[2021-10-25] MEDS: allopurinoL 300 MG TAB PO SCH (09:01)
[2021-10-25] MEDS: LORazepam 0.5 MG TAB PO PRN ×2 (09:01→18:42)
[2021-10-25] MEDS: carvediloL 12.5 MG TAB PO SCH ×2 (09:01→18:42)
[2021-10-25] MEDS: MULTIVITAMINS, THERA 1 EACH TAB PO SCH (09:01)
[2021-10-25] MEDS: amLODIPine 10 MG TAB PO SCH (09:01)
[2021-10-25] MEDS: GABAPENTIN 100 MG CAP PO SCH ×3 (09:01→21:36)
[2021-10-25] MEDS: FAMOTIDINE 20 MG TAB PO SCH (09:01)
[2021-10-25] MEDS: PANTOPRAZOLE 40 MG TABLET PO SCH ×2 (09:02→09:03)
[2021-10-25] MEDS: THIAMINE 100 MG in SODIUM CHLORIDE 0.9% 50 ML IVPB SCH ×2 (09:02→23:37)
[2021-10-25 11:15] LABS: Basophils # (A) 0.04 X 10*3/uL (0.00-0.10); Basophils % (A) 0.8 %; Eosinophils # (A) 0.17 X 10*3/uL (0.04-0.35); Eosinophils % (A) 3.3 %; HCT 43.7 % (39.6-50.0); HGB 14.2 g/dL (13.0-17.0); Immature Grans, Automated 0.6 %; Lymphocytes # (A) 0.98 X 10*3/uL (0.90-5.00); Lymphocytes % (A) 18.9 %; MCH 30.5 pg (27.0-32.0); MCHC 32.5 g/dL (32.0-37.0); MCV 93.8 fL (80.0-97.0); Mean Platelet Volume 10.1 fL (9.5-12.2); Monocytes # (A) 0.82 X 10*3/uL (0.20-1.00); Monocytes % (A) 15.8 %; NRBC Per 100 WBC 0 /100 WBCS (0.0-0.0); Neutrophils # (A) 3.15 X 10*3/uL (1.80-7.70); Neutrophils % (A) 60.6 %; Platelet Count 126 X 10*3/uL (140-440); RBC 4.66 X 10*6/uL (4.40-5.60); RDW 14.2 % (11.5-14.5); WBC 5.19 X 10*3/uL (4.50-10.00)
[2021-10-25 11:17] LABS: African American GFR (CKD) 97.9 (60.0-200.0); Albumin 3.5 g/dL (3.8-4.9); Albumin/Globulin Ratio 1.35 (1.60-3.17); Anion Gap 14.1 mmol/L (10.00-18.00); BUN/Creat Ratio 26.67 Ratio (12.00-20.00); Calcium 8.4 mg/dL (8.7-10.3); Carbon Dioxide 21.9 mmol/L (20.0-27.5); Globulin 2.6 g/dL (1.6-3.3); Non-African American GFR(CKD) 84.4 (60.0-200.0); Total Bilirubin 0.4 mg/dL (0.30-1.20); Total Protein 6.1 g/dL (6.2-8.2)
[2021-10-25 11:52] VITALS: BMI 31.0
[2021-10-25] MEDS ORDERED: LORazepam 2 MG/ML INJ IV PRN (12:13)
--- NOTE | 2021-10-25 21:12 | P.PN ---
Subjective Progress Note Date: 10/24/21 Principal diagnosis: R leg wound and cellulitis Patient is a 71-year-old male presenting to the hospital with multiple complaints including wound to the right lower extremity and concerning for secondary cellulitis. On today's evaluation that is 10/24/2021, the patient continues to be febrile, patient pain to the right lower extremity has decreased in intensity, the pa tient denies any chest pain shortness of breath or cough no abdominal pain and no diarrhea has been reported Objective - Vital Signs Vital signs: Vital Signs Temp 97.6 F 10/24/21 07:48 Pulse 64 10/24/21 07:48 Resp 18 10/24/21 07:48 BP 160/74 10/24/21 07:48 Pulse Ox 93 L 10/24/21 07:48 FiO2 Intake & Output 10/23/21 10/24/21 10/24/21 18:59 06:59 18:59 Intake Total 1180 Output Total 300 Balance 880 Intake: Intake, IV Titration 100 Amount Thiamine 100 mg In Sodium 100 Chloride 0.9% 50 ml @ 100 mls/hr IVPB Q12HR [facility] Rx#:[id number] Oral 1080 Output: Urine 300 Other: Voiding Method External Catheter Diaper Diaper Incontinent Incontinent # Voids 4 3 1 # Bowel Movements 0 1 - Exam GENERAL DESCRIPTION: Elderly male lying in bed, no distress. No tachypnea or accessory muscle of respiration use. LUNGS: Unlabored breathing. Clear to auscultation anteriorly. No wheeze or crackle. HEART: S1, S2, regular rate and rhythm. No loud murmur ABDOMEN: Soft, no tenderness , guarding or rigidity, no organomegaly EXTREMITIES right lower extremity wound is currently dressed no drainage on the dressing - Labs CBC & Chem 7: 10/25/21 05:46 10/25/21 05:46 Labs: Abnormal Lab Results - Last 24 Hours (Table) 10/24/21 10/24/21 Range/Units 05:53 05:53 Plt Count 92 L (140-440) X 10*3/uL Glucose 117 H (70-110) mg/dL Calcium 8.3 L (8.7-10.3) mg/dL Total Protein 6.0 L (6.2-8.2) g/dL Albumin 3.6 L (3.8-4.9) g/dL Albumin/Globulin Ratio 1.50 L (1.60-3.17) g/dL Microbiology - Last 24 Hours (Table) 10/21/21 12:20 Gram Stain - Preliminary Foot - Right Wound Culture - Preliminary Acinetobacter lwoffi Morganella morganii Assessment and Plan (1) Cellulitis Current Visit: No Status: Acute Code(s): L03.90 - CELLULITIS, UNSPECIFIED SNOMED Code(s): 871301019 Plan: 1patient with right lower extremity wound and secondary cellulitis local wound cultures are currently growing multiple gram-negative which is sensitive to cefepime which will be continued hopefully finishing therapy with oral antibiotics 2-local [facility] followed by moist dressing change daily Time with Patient: Less than 30
--- NOTE | 2021-10-25 21:13 | P.PN ---
Subjective Progress Note Date: 10/25/21 Principal diagnosis: R leg wound and cellulitis Patient is a 71-year-old male presenting to the hospital with multiple complaints including wound to the right lower extremity and concerning for secondary cellulitis. On today's evaluation that is 10/25/2021, the patient is febrile, patient was sleepy and lethargic today and did not answer any question, no vomiting diarrhea or any other changes reported by the nursing staff Objective - Vital Signs Vital signs: Vital Signs Temp 99.6 F 10/25/21 08:00 Pulse 74 10/25/21 08:00 Resp 17 10/25/21 08:00 BP 128/68 10/25/21 08:00 Pulse Ox 94 L 10/25/21 08:00 FiO2 Intake & Output 10/24/21 10/25/21 10/25/21 18:59 06:59 18:59 Weight 95.254 kg Other: Voiding Method Diaper Diaper Urinal Incontinent Incontinent # Voids 1 3 # Bowel Movements 1 - Exam GENERAL DESCRIPTION: Elderly male lying in bed, no distress. No tachypnea or accessory muscle of respiration use. LUNGS: Unlabored breathing. Clear to auscultation anteriorly. No wheeze or crackle. HEART: S1, S2, regular rate and rhythm. No loud murmur ABDOMEN: Soft, no tenderness , guarding or rigidity, no organomegaly EXTREMITIES right lower extremity wound is currently dressed no drainage on the dressing - Labs CBC & Chem 7: 10/25/21 05:46 10/25/21 05:46 Labs: Abnormal Lab Results - Last 24 Hours (Table) 10/25/21 10/25/21 Range/Units 05:46 05:46 Plt Count 126 L (140-440) X 10*3/uL Sodium 150 H (135-145) mmol/L Chloride 114 H (96-109) mmol/L BUN/Creatinine Ratio 26.67 H (12.00-20.00) Ratio Glucose 119 H (70-110) mg/dL Calcium 8.4 L (8.7-10.3) mg/dL Total Protein 6.1 L (6.2-8.2) g/dL Albumin 3.5 L (3.8-4.9) g/dL Albumin/Globulin Ratio 1.35 L (1.60-3.17) g/dL Microbiology - Last 24 Hours (Table) 10/21/21 12:20 Gram Stain - Preliminary Foot - Right Wound Culture - Preliminary Acinetobacter lwoffi Morganella morganii Acinetobacter lizbeth/haemol Presumptive Staph aureus Assessment and Plan (1) Cellulitis Current Visit: No Status: Acute Code(s): L03.90 - CELLULITIS, UNSPECIFIED SNOMED Code(s): 542095583 Plan: 1patient with right lower extremity wound and secondary cellulitis local wound cultures are currently growing multiple pathogens including Acinetobacter Morganella which is sensitive to cefepime which will be continued on inpatient with the plan to finish therapy with oral antibiotics 2-local wound care to continue with the [facility] followed by moist dressing change daily Time with Patient: Less than 30
[2021-10-26] MEDS: HEPARIN SODIUM,PORCINE/PF 5,000 UNIT/0.5 ML SYRINGE SQ SCH ×3 (00:48→16:41)
[2021-10-26] MEDS: CEFEPIME 2 GM in SODIUM CHLORIDE 0.9% 100 ML IVPB SCH ×3 (00:48→16:41)
[2021-10-26] MEDS: FAMOTIDINE 20 MG TAB PO SCH (08:03)
[2021-10-26] MEDS: PANTOPRAZOLE 40 MG TABLET PO SCH (08:03)
[2021-10-26] MEDS: carvediloL 12.5 MG TAB PO SCH ×2 (08:03→16:41)
[2021-10-26] MEDS: amLODIPine 10 MG TAB PO SCH (08:03)
[2021-10-26] MEDS: GABAPENTIN 100 MG CAP PO SCH ×3 (08:03→20:14)
[2021-10-26] MEDS: allopurinoL 300 MG TAB PO SCH (08:04)
[2021-10-26] MEDS: MULTIVITAMINS, THERA 1 EACH TAB PO SCH (08:04)
[2021-10-26 11:07] LABS: African American GFR (CKD) 97.9 (60.0-200.0); Albumin 3.5 g/dL (3.8-4.9); Albumin/Globulin Ratio 1.46 (1.60-3.17); Anion Gap 11.6 mmol/L (10.00-18.00); BUN/Creat Ratio 26.78 Ratio (12.00-20.00); Blood Urea Nitrogen 24.1 mg/dL (9.0-27.0); Calcium 8.5 mg/dL (8.7-10.3); Carbon Dioxide 21.4 mmol/L (20.0-27.5); Globulin 2.4 g/dL (1.6-3.3); Non-African American GFR(CKD) 84.4 (60.0-200.0); Potassium 4.3 mmol/L (3.5-5.5); Total Bilirubin 0.4 mg/dL (0.30-1.20); Total Protein 5.9 g/dL (6.2-8.2)
[2021-10-26] MEDS: THIAMINE 100 MG in SODIUM CHLORIDE 0.9% 50 ML IVPB SCH ×2 (12:58→22:35)
[2021-10-26 14:01] LABS: Basophils # (A) 0.05 X 10*3/uL (0.00-0.10); Eosinophils # (A) 0.15 X 10*3/uL (0.04-0.35); HCT 42.7 % (39.6-50.0); HGB 13.8 g/dL (13.0-17.0); Lymphocytes # (A) 1.14 X 10*3/uL (0.90-5.00); Lymphocytes % (A) 22.6 %; MCH 30.7 pg (27.0-32.0); MCHC 32.3 g/dL (32.0-37.0); MCV 94.9 fL (80.0-97.0); Mean Platelet Volume 9.5 fL (9.5-12.2); Monocytes # (A) 0.74 X 10*3/uL (0.20-1.00); Monocytes % (A) 14.7 %; NRBC Per 100 WBC 0 /100 WBCS (0.0-0.0); Neutrophils # (A) 2.91 X 10*3/uL (1.80-7.70); Neutrophils % (A) 57.7 %; Platelet Count 172 X 10*3/uL (140-440); RDW 14.2 % (11.5-14.5); WBC 5.04 X 10*3/uL (4.50-10.00)
--- NOTE | 2021-10-26 17:54 | P.PN ---
Subjective Progress Note Date: 10/25/21 Blake Sinclair, he is a 71-year-old male who presented to [facility] emergency room with a chief complaint of alcohol intoxication and confusion, his living condition were not sanitary, he had a large ulcer on the medial aspect of the right ankle. He was evaluated in the emergency room vital examination on presentation revealed a temperature of 98 pulse 84 respiration 20 blood pressure 154/90 and pulse ox 96% on room air Laboratory data reveals a white blood count of 7.5 hemoglobin 16.6 platelet count 84 sodium 133 potassium 3.9 chloride 95 CO2 21 BUN 9 creatinine 0.88 troponin level was 0.0-3 Testing in the emergency room revealed computed tomography scan of the head and neck done in the emergency room revealed cerebral atrophy and chronic small vessel ischemia no acute intracranial abnormality no change compared to old exam, chest x-ray done in the emergency room revealed chronic elevation of the right diaphragmatic no change compared to old exam no acute lung disease, EKG done in the emergency room revealed supraventricular rhythm with possible lateral ischemia Patient was admitted to medical floor for further evaluation and treatment On review of systems patient is complaining of right foot and ankle pain otherwise he denies any complaints there is no fever or chills no headache or dizziness no chest pain no shortness of breath no cough no nausea or vomiting no abdominal pain no diarrhea and no urinary symptoms. On 10/21/2021 patient was seen and examined on the medical floor he is alert and responsive in no apparent distress he is complaining of generalized joint pain mostly in bilateral knees and his hands joints, otherwise he denies any complaints there is no fever or chills no headache or dizziness no chest pain no shortness of breath no cough no nausea or vomiting no abdominal pain no diarrhea and no urinary symptoms. At this point will check uric acid level will give 1 dose of IV Toradol and continue to monitor closely. Continue with IV cefazolin for lower extremity cellulitis awaiting input from infectious disease On 10/22/2021 patient was seen and examined on the medical floor he is alert and responsive in no apparent distress he is complaining of lower extremity pain, otherwise he denies any complaints there is no fever or chills no headache or dizziness no chest pain no shortness of breath no cough no nausea or vomiting no abdominal pain no diarrhea and no urinary symptoms. Patient see n by Dr Grace, wound culture taken. Continue with IV cefazolin for lower extremity cellulitis awaiting input from infectious disease. On 10/23/2021 patient was seen and examined on the medical floor he is alert and responsive in no apparent distress he was having some episodes of agitation last night he is still receiving IV Ativan, patient is still receiving IV antibiotic for lower extremity cellulitis with ulcer otherwise patient denies any complaints there is no fever or chills no headache or dizziness no chest pain no shortness of breath no cough no nausea or vomiting no abdominal pain no diarrhea and no urinary symptoms On 10/24/2021 patient was seen and examined on the medical floor he is alert and oriented 3 in no apparent distress there is no fever or chills no headache or dizziness no chest pain no shortness of breath no cough no nausea or vomiting no abdominal pain no diarrhea and no urinary symptoms. He is still complaining of bilateral lower extremity pain and difficulty standing and walking, physical the rapy were consult patient may need to go to rehab after the acute admission On 10/25/2021 patient was seen and examined on the medical floor he is alert and oriented 3 in no apparent distress, he is still complaining of lower extremity pain and difficulty walking otherwise he denies any complaints there is no fever or chills no headache or dizziness no chest pain no shortness of breath no cough no nausea or vomiting no abdominal pain no diarrhea and no urinary symptoms. physical therapy were consult patient may need to go to rehab after the acute admission Objective - Vital Signs Vital signs: Vital Signs Temp 97.9 F 10/25/21 01:51 Pulse 77 10/25/21 01:51 Resp 18 10/25/21 01:51 BP 125/66 10/25/21 01:51 Pulse Ox 95 10/25/21 01:51 FiO2 Intake & Output 10/24/21 10/25/21 10/25/21 18:59 06:59 18:59 Other: Voiding Method Diaper Diaper Incontinent Incontinent # Voids 1 3 # Bowel Movements 1 - Exam In general patient is alert and oriented x 3 in no distress HEENT head normocephalic and atraumatic Neck is supple no JVD no goiter no lymphadenopathy no carotid bruit Chest examination is clear to auscultation no crackles no wheezing Cardiac exam reveals regular heart sounds S1 and S2 no gallops no murmurs Abdomen is soft nontender no organomegaly with normal bowel sounds Extremity exam reveals no edema no cyanosis or clubbing right foot erythema and medial right ankle scabbed ulcer Neurological examination reveals no gross focal deficits - Labs CBC & Chem 7: 10/26/21 07:11 10/26/21 07:11 Labs: Abnormal Lab Results - Last 24 Hours (Table) 10/24/21 10/24/21 Range/Units 05:53 05:53 Plt Count 92 L (140-440) X 10*3/uL Glucose 117 H (70-110) mg/dL Calcium 8.3 L (8.7-10.3) mg/dL Total Protein 6.0 L (6.2-8.2) g/dL Albumin 3.6 L (3.8-4.9) g/dL Albumin/Globulin Ratio 1.50 L (1.60-3.17) g/dL Microbiology - Last 24 Hours (Table) 10/21/21 12:20 Gram Stain - Preliminary Foot - Right Wound Culture - Preliminary Acinetobacter lwoffi Morganella morganii Presumptive Staph aureus Assessment and Plan Plan: Alcohol intoxication Early alcohol withdrawal will Right lower extremity cellulitis with Mental status changes with delirium Underlying history of hypertension Underlying history of paroxysmal atrial fibrillation not on anticoagulation due to multiple falls Underlying history of depression with anxiety Underlying history of excessive alcohol use patient was admitted recently with alcohol intoxication At this time patient is admitted to medical floor he was started on CIWA protocol with IV Ativan Will start IV cefazolin for right lower extremity cellulitis Will check right lower extremity venous Doppler Recheck labs in a.m. Prognosis is guarded patient is not receptive to any counseling at this time regarding alcohol will try in the next few days
--- NOTE | 2021-10-26 17:56 | P.PN ---
Subjective Progress Note Date: 10/26/21 Blake Sinclair, he is a 71-year-old male who presented to [facility] emergency room with a chief complaint of alcohol intoxication and confusion, his living condition were not sanitary, he had a large ulcer on the medial aspect of the right ankle. He was evaluated in the emergency room vital examination on presentation revealed a temperature of 98 pulse 84 respiration 20 blood pressure 154/90 and pulse ox 96% on room air Laboratory data reveals a white blood count of 7.5 hemoglobin 16.6 platelet count 84 sodium 133 potassium 3.9 chloride 95 CO2 21 BUN 9 creatinine 0.88 troponin level was 0.0-3 Testing in the emergency room revealed computed tomography scan of the head and neck done in the emergency room revealed cerebral atrophy and chronic small vessel ischemia no acute intracranial abnormality no change compared to old exam, chest x-ray done in the emergency room revealed chronic elevation of the right diaphragmatic no change compared to old exam no acute lung disease, EKG done in the emergency room revealed supraventricular rhythm with possible lateral ischemia Patient was admitted to medical floor for further evaluation and treatment On review of systems patient is complaining of right foot and ankle pain otherwise he denies any complaints there is no fever or chills no headache or dizziness no chest pain no shortness of breath no cough no nausea or vomiting no abdominal pain no diarrhea and no urinary symptoms. On 10/21/2021 patient was seen and examined on the medical floor he is alert and responsive in no apparent distress he is complaining of generalized joint pain mostly in bilateral knees and his hands joints, otherwise he denies any complaints there is no fever or chills no headache or dizziness no chest pain no shortness of breath no cough no nausea or vomiting no abdominal pain no diarrhea and no urinary symptoms. At this point will check uric acid level will give 1 dose of IV Toradol and continue to monitor closely. Continue with IV cefazolin for lower extremity cellulitis awaiting input from infectious disease On 10/22/2021 patient was seen and examined on the medical floor he is alert and responsive in no apparent distress he is complaining of lower extremity pain, otherwise he denies any complaints there is no fever or chills no headache or dizziness no chest pain no shortness of breath no cough no nausea or vomiting no abdominal pain no diarrhea and no urinary symptoms. Patient see n by Dr Grace, wound culture taken. Continue with IV cefazolin for lower extremity cellulitis awaiting input from infectious disease. On 10/23/2021 patient was seen and examined on the medical floor he is alert and responsive in no apparent distress he was having some episodes of agitation last night he is still receiving IV Ativan, patient is still receiving IV antibiotic for lower extremity cellulitis with ulcer otherwise patient denies any complaints there is no fever or chills no headache or dizziness no chest pain no shortness of breath no cough no nausea or vomiting no abdominal pain no diarrhea and no urinary symptoms On 10/24/2021 patient was seen and examined on the medical floor he is alert and oriented 3 in no apparent distress there is no fever or chills no headache or dizziness no chest pain no shortness of breath no cough no nausea or vomiting no abdominal pain no diarrhea and no urinary symptoms. He is still complaining of bilateral lower extremity pain and difficulty standing and walking, physical the rapy were consult patient may need to go to rehab after the acute admission On 10/25/2021 patient was seen and examined on the medical floor he is alert and oriented 3 in no apparent distress, he is still complaining of lower extremity pain and difficulty walking otherwise he denies any complaints there is no fever or chills no headache or dizziness no chest pain no shortness of breath no cough no nausea or vomiting no abdominal pain no diarrhea and no urinary symptoms. physical therapy were consult patient may need to go to rehab after the acute admission On 10/26/2021 patient was seen and examined on the medical floor he is alert and oriented 3 in no distress he is complaining of ankle pain and difficulty standing and walking otherwise he denies any complaints there is no fever or chills no headache or dizziness no chest pain no shortness of breath no cough no nausea or vomiting no abdominal pain no diarrhea no blood in the stools no burning with urination no frequency or urgency no hematuria he is followed by physical therapy he would need to be transferred to a rehab unit when stable Objective - Vital Signs Vital signs: Vital Signs Temp 98.0 F 10/26/21 14:00 Pulse 63 10/26/21 14:00 Resp 16 10/26/21 14:00 BP 118/65 10/26/21 14:00 Pulse Ox 97 10/26/21 14:00 FiO2 Intake & Output 10/25/21 10/26/21 10/26/21 18:59 06:59 18:59 Intake Total 149 976 6463 Output Total 720 850 Balance -420 300 230 Weight 95.254 kg Intake: Intake, IV Titration 300 Amount Cefepime 2 gm In Sodium 200 Chloride 0.9% 100 ml @ 25 mls/hr IVPB Q8HR [facility] Rx# :[id number] Thiamine 100 mg In Sodium 100 Chloride 0.9% 50 ml @ 100 mls/hr IVPB Q12HR [facility] Rx#:[id number] Oral 300 1080 Output: Urine 720 850 Other: Voiding Method Urinal Urinal # Voids 4 # Bowel Movements 1 1 - Exam In general patient is alert and oriented x 3 in no distress HEENT head normocephalic and atraumatic Neck is supple no JVD no goiter no lymphadenopathy no carotid bruit Chest examination is clear to auscultation no crackles no wheezing Cardiac exam reveals regular heart sounds S1 and S2 no gallops no murmurs Abdomen is soft nontender no organomegaly with normal bowel sounds Extremity exam reveals no edema no cyanosis or clubbing right foot erythema and medial right ankle scabbed ulcer Neurological examination reveals no gross focal deficits - Labs CBC & Chem 7: 10/26/21 07:11 10/26/21 07:11 Labs: Abnormal Lab Results - Last 24 Hours (Table) 10/26/21 10/26/21 Range/Units 07:11 07:11 Immature Gran # 0.05 H (0.00-0.04) X 10*3/uL BUN/Creatinine Ratio 26.78 H (12.00-20.00) Ratio Calcium 8.5 L (8.7-10.3) mg/dL Total Protein 5.9 L (6.2-8.2) g/dL Albumin 3.5 L (3.8-4.9) g/dL Albumin/Globulin Ratio 1.46 L (1.60-3.17) g/dL Microbiology - Last 24 Hours (Table) 10/21/21 12:20 Gram Stain - Final Foot - Right Wound Culture - Final Acinetobacter lwoffi Morganella morganii Acinetobacter lizbeth/haemol Staphylococcus aureus Assessment and Plan Plan: Alcohol intoxication Early alcohol withdrawal will Right lower extremity cellulitis with Mental status changes with delirium Underlying history of hypertension Underlying history of paroxysmal atrial fibrillation not on anticoagulation due to multiple falls Underlying history of depression with anxiety Underlying history of excessive alcohol use patient was admitted recently with alcohol intoxication At this time patient is admitted to medical floor he was started on CIWA protocol with IV Ativan Will start IV cefazolin for right lower extremity cellulitis Will check right lower extremity venous Doppler Recheck labs in a.m. Prognosis is guarded patient is not receptive to any counseling at this time regarding alcohol will try in the next few days
[2021-10-26] MEDS: LORazepam 0.5 MG TAB PO PRN (20:14)
[2021-10-27] MEDS: CEFEPIME 2 GM in SODIUM CHLORIDE 0.9% 100 ML IVPB SCH ×4 (00:52→23:33)
[2021-10-27] MEDS: HEPARIN SODIUM,PORCINE/PF 5,000 UNIT/0.5 ML SYRINGE SQ SCH ×4 (00:52→23:32)
[2021-10-27] MEDS: LORazepam 0.5 MG TAB PO PRN ×3 (02:40→20:05)
[2021-10-27] MEDS: allopurinoL 300 MG TAB PO SCH (06:56)
[2021-10-27] MEDS: carvediloL 12.5 MG TAB PO SCH ×2 (06:57→16:47)
[2021-10-27] MEDS: FAMOTIDINE 20 MG TAB PO SCH (06:57)
[2021-10-27] MEDS: amLODIPine 10 MG TAB PO SCH (06:57)
[2021-10-27] MEDS: MULTIVITAMINS, THERA 1 EACH TAB PO SCH (06:57)
[2021-10-27] MEDS: GABAPENTIN 100 MG CAP PO SCH ×3 (06:57→21:33)
[2021-10-27] MEDS: PANTOPRAZOLE 40 MG TABLET PO SCH (06:57)
--- NOTE | 2021-10-27 08:13 | P.PN ---
Subjective Progress Note Date: 10/26/21 Principal diagnosis: R leg wound and cellulitis Patient is a 71-year-old male presenting to the hospital with multiple complaints including wound to the right lower extremity and concerning for secondary cellulitis. On today's evaluation that is 10/26/2021, the patient remains to be febrile, patient slightly more awake and alert today, denies any chest pain or shortness of breath occasional cough still combining of some pain to the right lower extremity but no worsening Objective - Vital Signs Vital signs: Vital Signs Temp 97.9 F 10/26/21 08:00 Pulse 71 10/26/21 08:00 Resp 18 10/26/21 08:00 BP 151/80 10/26/21 08:00 Pulse Ox 97 10/26/21 08:00 FiO2 Intake & Output 10/25/21 10/26/21 10/26/21 18:59 06:59 18:59 Intake Total 300 300 Output Total 720 Balance -420 300 Weight 95.254 kg Intake: Intake, IV Titration 300 Amount Cefepime 2 gm In Sodium 200 Chloride 0.9% 100 ml @ 25 mls/hr IVPB Q8HR [facility] Rx# :[id number] Thiamine 100 mg In Sodium 100 Chloride 0.9% 50 ml @ 100 mls/hr IVPB Q12HR [facility] Rx#:[id number] Oral 300 Output: Urine 720 Other: Voiding Method Urinal Urinal # Voids 4 # Bowel Movements 1 - Exam GENERAL DESCRIPTION: Elderly male lying in bed, no distress. No tachypnea or accessory muscle of respiration use. LUNGS: Unlabored breathing. Clear to auscultation anteriorly. No wheeze or crackle. HEART: S1, S2, regular rate and rhythm. No loud murmur ABDOMEN: Soft, no tenderness , guarding or rigidity, no organomegaly EXTREMITIES right lower extremity wound is currently dressed no drainage on the dressing - Labs CBC & Chem 7: 10/26/21 07:11 10/26/21 07:11 Labs: Abnormal Lab Results - Last 24 Hours (Table) 10/26/21 Range/Units 07:11 BUN/Creatinine Ratio 26.78 H (12.00-20.00) Ratio Calcium 8.5 L (8.7-10.3) mg/dL Total Protein 5.9 L (6.2-8.2) g/dL Albumin 3.5 L (3.8-4.9) g/dL Albumin/Globulin Ratio 1.46 L (1.60-3.17) g/dL Microbiology - Last 24 Hours (Table) 10/21/21 12:20 Gram Stain - Final Foot - Right Wound Culture - Final Acinetobacter lwoffi Morganella morganii Acinetobacter lizbeth/haemol Staphylococcus aureus Assessment and Plan (1) Cellulitis Current Visit: No Status: Acute Code(s): L03.90 - CELLULITIS, UNSPECIFIED SNOMED Code(s): 459357485 Plan: 1patient with right lower extremity wound and secondary cellulitis local wound cultures are currently growing multiple pathogens including Acinetobacter Morganella which is sensitive to cefepime which will be continued on inpatient with the plan to finish therapy with oral antibiotics in the form of Cipro and Keflex 2-local wound care to continue with the Medihoney followed by moist dressing change daily Time with Patient: Less than 30
[2021-10-27] MEDS: THIAMINE 100 MG in SODIUM CHLORIDE 0.9% 50 ML IVPB SCH ×2 (12:10→21:32)
--- NOTE | 2021-10-27 14:42 | P.DS ---
Providers Date of admission: 10/20/21 02:49 Expected date of discharge: 10/27/21 Attending physician: Kassie Beasley Consults: 10/20/21 19:43 Consult Physician Routine Consulting Provider: Breann Grace Consult Reason/Comments: Lower extremity cellulitis Do you want consulting provider notified?: Yes Primary care physician: Stated None Hospital Course: Diagnosis on discharge: Alcohol intoxication Early alcohol withdrawal will Right lower extremity cellulitis with open ulcers Mental status changes with delirium Underlying history of hypertension Underlying history of paroxysmal atrial fibrillation not on anticoagulation due to multiple falls Underlying history of depression with anxiety Underlying history of excessive alcohol use patient was admitted recently with alcohol intoxication Hospital course: Blake Sinclair, he is a 71-year-old male who presented to [facility] emergency room with a chief complaint of alcohol intoxication and confusion, his living condition were not sanitary, he had a large ulcer on the medial aspect of the right ankle. He was evaluated in the emergency room vital examination on presentation revealed a temperature of 98 pulse 84 respiration 20 blood pressure 154/90 and pulse ox 96% on room air Laboratory data reveals a white blood count of 7.5 hemoglobin 16.6 platelet count 84 sodium 133 potassium 3.9 chloride 95 CO2 21 BUN 9 creatinine 0.88 troponin level was 0.0-3 Testing in the emergency room revealed computed tomography scan of the head and neck done in the emergency room revealed cerebral atrophy and chronic small vessel ischemia no acute intracranial abnormality no change compared to old exam, chest x-ray done in the emergency room revealed chronic elevation of the right diaphragmatic no change compared to old exam no acute lung disease, EKG done in the emergency room revealed supraventricular rhythm with possible lateral ischemia Patient was admitted to medical floor for further evaluation and treatment On review of systems patient is complaining of right foot and ankle pain otherwise he denies any complaints there is no fever or chills no headache or dizziness no chest pain no shortness of breath no cough no nausea or vomiting no abdominal pain no diarrhea and no urinary symptoms. On 10/21/2021 patient was seen and examined on the medical floor he is alert and responsive in no apparent distress he is complaining of generalized joint pain mostly in bilateral knees and his hands joints, otherwise he denies any comp laints there is no fever or chills no headache or dizziness no chest pain no shortness of breath no cough no nausea or vomiting no abdominal pain no diarrhea and no urinary symptoms. At this point will check uric acid level will give 1 dose of IV Toradol and continue to monitor closely. Continue with IV cefazolin for lower extremity cellulitis awaiting input from infectious disease On 10/22/2021 patient was seen and examined on the medical floor he is alert and responsive in no apparent distress he is complaining of lower extremity pain, otherwise he denies any complaints there is no fever or chills no headache or dizziness no chest pain no shortness of breath no cough no nausea or vomiting no abdominal pain no diarrhea and no urinary symptoms. Patient see n by Dr Grace, wound culture taken. Continue with IV cefazolin for lower extremity cellulitis awaiting input from infectious disease. On 10/23/2021 patient was seen and examined on the medical floor he is alert and responsive in no apparent distress he was having some episodes of agitation last night he is still receiving IV Ativan, patient is still receiving IV antibiotic for lower extremity cellulitis with ulcer otherwise patient denies any complaints there is no fever or chills no headache or dizziness no chest pain no shortness of breath no cough no nausea or vomiting no abdominal pain no diarrhea and no urinary symptoms On 10/24/2021 patient was seen and examined on the medical floor he is alert and oriented 3 in no apparent distress there is no fever or chills no headache or dizziness no chest pain no shortness of breath no cough no nausea or vomiting no abdominal pain no diarrhea and no urinary symptoms. He is still complaining of bilateral lower extremity pain and difficulty standing and walking, physical therapy were consult patient may need to go to rehab after the acute admission On 10/25/2021 patient was seen and examined on the medical floor he is alert and oriented 3 in no apparent distress, he is still complaining of lower extremity pain and difficulty walking otherwise he denies any complaints there is no fever or chills no headache or dizziness no chest pain no shortness of breath no cough no nausea or vomiting no abdominal pain no diarrhea and no urinary symptoms. physical therapy were consult patient may need to go to rehab after the acute admission On 10/26/2021 patient was seen and examined on the medical floor he is alert and oriented 3 in no distress he is complaining of ankle pain and difficulty standing and walking otherwise he denies any complaints there is no fever or chills no headache or dizziness no chest pain no shortness of breath no cough no nausea or vomiting no abdominal pain no diarrhea no blood in the stools no burning with urination no frequency or urgency no hematuria he is followed by physical therapy he would need to be transferred to a rehab unit when stable Patient Condition at Discharge: Stable Plan - Discharge Summary Discharge Rx Participant: No New Discharge Prescriptions: New Cephalexin [Keflex] 500 mg PO Q8HR 10 Days #30 cap Multivitamins, Thera [Multivitamin (formulary)] 1 each PO DAILY tab Pantoprazole [Protonix] 40 mg PO AC-BRKFST tab LORazepam [Ativan] 0.5 mg PO QID PRN tab PRN Reason: Anxiety Ciprofloxacin HCl [Cipro] 250 mg PO Q12HR 10 Days #20 tab Continue carvediloL [Coreg*] 12.5 mg PO BID-W/MEALS #60 tab amLODIPine [Norvasc] 10 mg PO DAILY #30 tab Acetaminophen Tab [Tylenol] 650 mg PO Q6HR PRN tab PRN Reason: Fever And/ Or Pain Famotidine [Pepcid] 20 mg PO DAILY #30 tab Thiamine [Vitamin B-1] 100 mg PO BID-W/MEALS #60 tab Gabapentin [Neurontin] 100 mg PO TID cap allopurinoL [Zyloprim] 300 mg PO DAILY tab Discharge Medication List Acetaminophen Tab [Tylenol] 650 mg PO Q6HR PRN tab 09/20/21 [Rx] Famotidine [Pepcid] 20 mg PO DAILY #30 tab 09/20/21 [Rx] Thiamine [Vitamin B-1] 100 mg PO BID-W/MEALS #60 tab 09/20/21 [Rx] amLODIPine [Norvasc] 10 mg PO DAILY #30 tab 09/20/21 [Rx] carvediloL [Coreg*] 12.5 mg PO BID-W/MEALS #60 tab 09/20/21 [Rx] Gabapentin [Neurontin] 100 mg PO TID cap 09/27/21 [Rx] allopurinoL [Zyloprim] 300 mg PO DAILY tab 09/27/21 [Rx] Cephalexin [Keflex] 500 mg PO Q8HR 10 Days #30 cap 10/27/21 [Rx] Ciprofloxacin HCl [Cipro] 250 mg PO Q12HR 10 Days #20 tab 10/27/21 [Rx] LORazepam [Ativan] 0.5 mg PO QID PRN tab 10/27/21 [Rx] Multivitamins, Thera [Multivitamin (formulary)] 1 each PO DAILY tab 10/27/21 [Rx] Pantoprazole [Protonix] 40 mg PO AC-BRKFST tab 10/27/21 [Rx] Follow up Appointment(s)/Referral(s): [facility], [NON-STAFF] - 1-2 Days Kassie Beasley MD [STAFF PHYSICIAN] - 1-2 Days
[2021-10-28] MEDS: POTASSIUM CHLORIDE ER 20 MEQ TAB.ER PO SCH (07:09)
[2021-10-28] MEDS: GABAPENTIN 100 MG CAP PO SCH ×3 (09:20→23:41)
[2021-10-28] MEDS: PANTOPRAZOLE 40 MG TABLET PO SCH (09:20)
[2021-10-28] MEDS: amLODIPine 10 MG TAB PO SCH (09:20)
[2021-10-28] MEDS: MULTIVITAMINS, THERA 1 EACH TAB PO SCH (09:20)
[2021-10-28] MEDS: FAMOTIDINE 20 MG TAB PO SCH (09:20)
[2021-10-28] MEDS: carvediloL 12.5 MG TAB PO SCH ×2 (09:20→17:08)
[2021-10-28] MEDS: allopurinoL 300 MG TAB PO SCH (09:20)
[2021-10-28] MEDS: HEPARIN SODIUM,PORCINE/PF 5,000 UNIT/0.5 ML SYRINGE SQ SCH ×3 (09:20→23:41)
[2021-10-28] MEDS: THIAMINE 100 MG in SODIUM CHLORIDE 0.9% 50 ML IVPB SCH ×2 (09:48→20:27)
[2021-10-28] MEDS: CEFEPIME 2 GM in SODIUM CHLORIDE 0.9% 100 ML IVPB SCH ×3 (10:44→23:42)
--- NOTE | 2021-10-28 16:10 | P.PN ---
Subjective Progress Note Date: 10/27/21 Principal diagnosis: R leg wound and cellulitis Patient is a 71-year-old male presenting to the hospital with multiple complaints including wound to the right lower extremity and concerning for secondary cellulitis. On today's evaluation that is 10/27/2021, the patient continues to be febrile, the patient is breathing comfortably on room air, denies any chest pain or s hortness of breath occasional cough still combining of some pain to the right lower extremity but no worsening Objective - Vital Signs Vital signs: Vital Signs Temp 97.7 F 10/27/21 06:55 Pulse 71 10/27/21 06:55 Resp 17 10/27/21 06:55 BP 146/77 10/27/21 06:55 Pulse Ox 97 10/27/21 06:55 FiO2 Intake & Output 10/26/21 10/27/21 10/27/21 18:59 06:59 18:59 Intake Total 1080 Output Total 850 50 Balance 230 -50 Intake: Oral 1080 Output: Urine 850 50 Other: Voiding Method Urinal Urinal # Bowel Movements 1 - Exam GENERAL DESCRIPTION: Elderly male lying in bed, no distress. No tachypnea or accessory muscle of respiration use. LUNGS: Unlabored breathing. Clear to auscultation anteriorly. No wheeze or crackle. HEART: S1, S2, regular rate and rhythm. No loud murmur ABDOMEN: Soft, no tenderness , guarding or rigidity, no organomegaly EXTREMITIES right lower extremity wound is currently dressed no drainage on the dressing - Labs CBC & Chem 7: 10/26/21 07:11 10/26/21 07:11 Labs: Abnormal Lab Results - Last 24 Hours (Table) 10/26/21 Range/Units 07:11 Immature Gran # 0.05 H (0.00-0.04) X 10*3/uL Microbiology - Last 24 Hours (Table) 10/21/21 12:20 Gram Stain - Final Foot - Right Wound Culture - Final Acinetobacter lwoffi Morganella morganii Acinetobacter lizbeth/haemol Staphylococcus aureus Assessment and Plan (1) Cellulitis Current Visit: No Status: Acute Code(s): L03.90 - CELLULITIS, UNSPECIFIED SNOMED Code(s): 076095195 Plan: 1patient with right lower extremity wound and secondary cellulitis local wound cultures are currently growing multiple pathogens including Acinetobacter Morganella which is sensitive to cefepime , patient symptomatic and clinical improvement and will continue with cefepime while inpatient with the plan to finish therapy with oral antibiotics in the form of Cipro and Keflex 2-local wound care to continue with the Medihoney followed by moist dressing change daily Time with Patient: Less than 30
--- NOTE | 2021-10-28 16:11 | P.PN ---
Subjective Progress Note Date: 10/28/21 Principal diagnosis: R leg wound and cellulitis Patient is a 71-year-old male presenting to the hospital with multiple complaints including wound to the right lower extremity and concerning for secondary cellulitis. On today's evaluation that is 10/28/2021, the patient denies any fever or any chills, the patient is breathing comfortably on room air, the patient denies any chest pain or shortness of breath occasional cough, the patient pain to the right lower extremity has decreased intensity there is no drainage Objective - Vital Signs Vital signs: Vital Signs Temp 97.6 F 10/28/21 09:21 Pulse 66 10/28/21 09:21 Resp 17 10/28/21 09:21 BP 159/77 10/28/21 09:21 Pulse Ox 98 10/28/21 09:21 FiO2 Intake & Output 10/27/21 10/28/21 10/28/21 18:59 06:59 18:59 Intake Total 480 800 Output Total 600 Balance 480 200 Intake: Intake, IV Titration 200 Amount Cefepime 2 gm In Sodium 100 Chloride 0.9% 100 ml @ 25 mls/hr IVPB Q8HR [facility] Rx# :[id number] Thiamine 100 mg In Sodium 100 Chloride 0.9% 50 ml @ 100 mls/hr IVPB Q12HR [facility] Rx#:[id number] Oral 480 600 Output: Urine 600 Other: Voiding Method Urinal # Voids 5 1 # Bowel Movements 1 - Exam GENERAL DESCRIPTION: Elderly male lying in bed, no distress. No tachypnea or accessory muscle of respiration use. LUNGS: Unlabored breathing. Clear to auscultation anteriorly. No wheeze or crackle. HEART: S1, S2, regular rate and rhythm. No loud murmur ABDOMEN: Soft, no tenderness , guarding or rigidity, no organomegaly EXTREMITIES right lower extremity swelling and redness has improved wound has decreased in size minimal blood stained drainage - Labs CBC & Chem 7: 10/26/21 07:11 10/26/21 07:11 Assessment and Plan (1) Cellulitis Current Visit: No Status: Acute Code(s): L03.90 - CELLULITIS, UNSPECIFIED SNOMED Code(s): 087903804 Plan: 1patient with right lower extremity wound and secondary cellulitis local wound cultures are currently growing multiple pathogens including Acinetobacter Morganella which is sensitive to cefepime , patient symptomatic and clinical improvement and will continue with cefepime while inpatient with the plan to finish therapy with oral antibiotics in the form of Cipro and Keflex 2-local wound care will be switched over to Aquacel silver dressing to be changed every 48 hour Time with Patient: Less than 30
[2021-10-28] MEDS: LORazepam 0.5 MG TAB PO PRN (20:27)
[2021-10-29] MEDS: THIAMINE 100 MG in SODIUM CHLORIDE 0.9% 50 ML IVPB SCH ×2 (08:47→20:11)
[2021-10-29] MEDS: HEPARIN SODIUM,PORCINE/PF 5,000 UNIT/0.5 ML SYRINGE SQ SCH ×3 (08:47→23:51)
[2021-10-29] MEDS: PANTOPRAZOLE 40 MG TABLET PO SCH (08:47)
[2021-10-29] MEDS: FAMOTIDINE 20 MG TAB PO SCH (08:48)
[2021-10-29] MEDS: amLODIPine 10 MG TAB PO SCH (08:48)
[2021-10-29] MEDS: MULTIVITAMINS, THERA 1 EACH TAB PO SCH (08:48)
[2021-10-29] MEDS: GABAPENTIN 100 MG CAP PO SCH ×3 (08:48→21:01)
[2021-10-29] MEDS: allopurinoL 300 MG TAB PO SCH (08:48)
[2021-10-29] MEDS: carvediloL 12.5 MG TAB PO SCH ×2 (08:48→17:00)
[2021-10-29] MEDS: CEFEPIME 2 GM in SODIUM CHLORIDE 0.9% 100 ML IVPB SCH ×2 (12:20→21:01)
--- NOTE | 2021-10-29 13:06 | P.PN ---
Subjective Progress Note Date: 10/28/21 Blake Sinclair, he is a 71-year-old male who presented to [facility] emergency room with a chief complaint of alcohol intoxication and confusion, his living condition were not sanitary, he had a large ulcer on the medial aspect of the right ankle. He was evaluated in the emergency room vital examination on presentation revealed a temperature of 98 pulse 84 respiration 20 blood pressure 154/90 and pulse ox 96% on room air Laboratory data reveals a white blood count of 7.5 hemoglobin 16.6 platelet count 84 sodium 133 potassium 3.9 chloride 95 CO2 21 BUN 9 creatinine 0.88 troponin level was 0.0-3 Testing in the emergency room revealed computed tomography scan of the head and neck done in the emergency room revealed cerebral atrophy and chronic small vessel ischemia no acute intracranial abnormality no change compared to old exam, chest x-ray done in the emergency room revealed chronic elevation of the right diaphragmatic no change compared to old exam no acute lung disease, EKG done in the emergency room revealed supraventricular rhythm with possible lateral ischemia Patient was admitted to medical floor for further evaluation and treatment On review of systems patient is complaining of right foot and ankle pain otherwise he denies any complaints there is no fever or chills no headache or dizziness no chest pain no shortness of breath no cough no nausea or vomiting no abdominal pain no diarrhea and no urinary symptoms. On 10/21/2021 patient was seen and examined on the medical floor he is alert and responsive in no apparent distress he is complaining of generalized joint pain mostly in bilateral knees and his hands joints, otherwise he denies any complaints there is no fever or chills no headache or dizziness no chest pain no shortness of breath no cough no nausea or vomiting no abdominal pain no diarrhea and no urinary symptoms. At this point will check uric acid level will give 1 dose of IV Toradol and continue to monitor closely. Continue with IV cefazolin for lower extremity cellulitis awaiting input from infectious disease On 10/22/2021 patient was seen and examined on the medical floor he is alert and responsive in no apparent distress he is complaining of lower extremity pain, otherwise he denies any complaints there is no fever or chills no headache or dizziness no chest pain no shortness of breath no cough no nausea or vomiting no abdominal pain no diarrhea and no urinary symptoms. Patient see n by Dr Grace, wound culture taken. Continue with IV cefazolin for lower extremity cellulitis awaiting input from infectious disease. On 10/23/2021 patient was seen and examined on the medical floor he is alert and responsive in no apparent distress he was having some episodes of agitation last night he is still receiving IV Ativan, patient is still receiving IV antibiotic for lower extremity cellulitis with ulcer otherwise patient denies any complaints there is no fever or chills no headache or dizziness no chest pain no shortness of breath no cough no nausea or vomiting no abdominal pain no diarrhea and no urinary symptoms On 10/24/2021 patient was seen and examined on the medical floor, he is alert and oriented 3 in no apparent distress, there is no fever or chills no headache or dizziness no chest pain no shortness of breath no cough no nausea or vomiting no abdominal pain no diarrhea and no urinary symptoms, he has good urine output, nephrology are following and no hemodialysis is recommended at this time, physic al therapy and occupational therapy are following. On 10/25/2021 patient was seen and examined on the medical floor he is alert and oriented 3 in no apparent distress, he is still complaining of lower extremity pain and difficulty walking otherwise he denies any complaints there is no fever or chills no headache or dizziness no chest pain no shortness of breath no cough no nausea or vomiting no abdominal pain no diarrhea and no urinary symptoms. physical therapy were consult patient may need to go to rehab after the acute admission On 10/26/2021 patient was seen and examined on the medical floor he is alert and oriented 3 in no distress he is complaining of ankle pain and difficulty st anding and walking otherwise he denies any complaints there is no fever or chills no headache or dizziness no chest pain no shortness of breath no cough no nausea or vomiting no abdominal pain no diarrhea no blood in the stools no burning with urination no frequency or urgency no hematuria he is followed by physical therapy he would need to be transferred to a rehab unit when stable. On 10/27/2021 patient was seen and examined on the medical floor, he is alert and oriented 3 in no apparent distress, there is no fever or chills no headache or dizziness no chest pain no shortness of breath no cough no nausea or vomiting no abdominal pain no diarrhea and no urinary symptoms. physical therapy and occupational therapy are following. On 10/28/2021 patient was seen and examined on the medical floor, he is alert and oriented, there is no fever or chills no headache or dizziness no chest pain no shortness of breath no cough no nausea or vomiting no abdominal pain no diarrhea and no urinary symptoms, he has good urine output, , physical therapy and occupational therapy are following. We are awaiting [facility] placement Objective - Vital Signs Vital signs: Vital Signs Temp 97.6 F 10/28/21 09:21 Pulse 66 10/28/21 09:21 Resp 17 10/28/21 09:21 BP 159/77 10/28/21 09:21 Pulse Ox 98 10/28/21 09:21 FiO2 Intake & Output 10/27/21 10/28/21 10/28/21 18:59 06:59 18:59 Intake Total 480 800 Output Total 600 Balance 480 200 Intake: Intake, IV Titration 200 Amount Cefepime 2 gm In Sodium 100 Chloride 0.9% 100 ml @ 25 mls/hr IVPB Q8HR [facility] Rx# :[id number] Thiamine 100 mg In Sodium 100 Chloride 0.9% 50 ml @ 100 mls/hr IVPB Q12HR [facility] Rx#:[id number] Oral 480 600 Output: Urine 600 Other: Voiding Method Urinal # Voids 5 1 # Bowel Movements 1 - Exam In general patient is alert and oriented x 3 in no distress HEENT head normocephalic and atraumatic Neck is supple no JVD no goiter no lymphadenopathy no carotid bruit Chest examination is clear to auscultation no crackles no wheezing Cardiac exam reveals regular heart sounds S1 and S2 no gallops no murmurs Abdomen is soft nontender no organomegaly with normal bowel sounds Extremity exam reveals no edema no cyanosis or clubbing right foot erythema and medial right ankle scabbed ulcer Neurological examination reveals no gross focal deficits - Labs CBC & Chem 7: 10/26/21 07:11 10/26/21 07:11 Assessment and Plan Plan: Alcohol intoxication Early alcohol withdrawal will Right lower extremity cellulitis with Mental status changes with delirium Underlying history of hypertension Underlying history of paroxysmal atrial fibrillation not on anticoagulation due to multiple falls Underlying history of depression with anxiety Underlying history of excessive alcohol use patient was admitted recently with alcohol intoxication At this time patient is admitted to medical floor he was started on CIWA protocol with IV Ativan Will start IV cefazolin for right lower extremity cellulitis Will check right lower extremity venous Doppler Recheck labs in a.m. Prognosis is guarded patient is not receptive to any counseling at this time regarding alcohol will try in the next few days
--- NOTE | 2021-10-29 13:08 | P.PN ---
Subjective Progress Note Date: 10/29/21 Blake Sinclair, he is a 71-year-old male who presented to [facility] emergency room with a chief complaint of alcohol intoxication and confusion, his living condition were not sanitary, he had a large ulcer on the medial aspect of the right ankle. He was evaluated in the emergency room vital examination on presentation revealed a temperature of 98 pulse 84 respiration 20 blood pressure 154/90 and pulse ox 96% on room air Laboratory data reveals a white blood count of 7.5 hemoglobin 16.6 platelet count 84 sodium 133 potassium 3.9 chloride 95 CO2 21 BUN 9 creatinine 0.88 troponin level was 0.0-3 Testing in the emergency room revealed computed tomography scan of the head and neck done in the emergency room revealed cerebral atrophy and chronic small vessel ischemia no acute intracranial abnormality no change compared to old exam, chest x-ray done in the emergency room revealed chronic elevation of the right diaphragmatic no change compared to old exam no acute lung disease, EKG done in the emergency room revealed supraventricular rhythm with possible lateral ischemia Patient was admitted to medical floor for further evaluation and treatment On review of systems patient is complaining of right foot and ankle pain otherwise he denies any complaints there is no fever or chills no headache or dizziness no chest pain no shortness of breath no cough no nausea or vomiting no abdominal pain no diarrhea and no urinary symptoms. On 10/21/2021 patient was seen and examined on the medical floor he is alert and responsive in no apparent distress he is complaining of generalized joint pain mostly in bilateral knees and his hands joints, otherwise he denies any complaints there is no fever or chills no headache or dizziness no chest pain no shortness of breath no cough no nausea or vomiting no abdominal pain no diarrhea and no urinary symptoms. At this point will check uric acid level will give 1 dose of IV Toradol and continue to monitor closely. Continue with IV cefazolin for lower extremity cellulitis awaiting input from infectious disease On 10/22/2021 patient was seen and examined on the medical floor he is alert and responsive in no apparent distress he is complaining of lower extremity pain, otherwise he denies any complaints there is no fever or chills no headache or dizziness no chest pain no shortness of breath no cough no nausea or vomiting no abdominal pain no diarrhea and no urinary symptoms. Patient see n by Dr Grace, wound culture taken. Continue with IV cefazolin for lower extremity cellulitis awaiting input from infectious disease. On 10/23/2021 patient was seen and examined on the medical floor he is alert and responsive in no apparent distress he was having some episodes of agitation last night he is still receiving IV Ativan, patient is still receiving IV antibiotic for lower extremity cellulitis with ulcer otherwise patient denies any complaints there is no fever or chills no headache or dizziness no chest pain no shortness of breath no cough no nausea or vomiting no abdominal pain no diarrhea and no urinary symptoms On 10/24/2021 patient was seen and examined on the medical floor, he is alert and oriented 3 in no apparent distress, there is no fever or chills no headache or dizziness no chest pain no shortness of breath no cough no nausea or vomiting no abdominal pain no diarrhea and no urinary symptoms, he has good urine output, nephrology are following and no hemodialysis is recommended at this time, physic al therapy and occupational therapy are following. On 10/25/2021 patient was seen and examined on the medical floor he is alert and oriented 3 in no apparent distress, he is still complaining of lower extremity pain and difficulty walking otherwise he denies any complaints there is no fever or chills no headache or dizziness no chest pain no shortness of breath no cough no nausea or vomiting no abdominal pain no diarrhea and no urinary symptoms. physical therapy were consult patient may need to go to rehab after the acute admission On 10/26/2021 patient was seen and examined on the medical floor he is alert and oriented 3 in no distress he is complaining of ankle pain and difficulty st anding and walking otherwise he denies any complaints there is no fever or chills no headache or dizziness no chest pain no shortness of breath no cough no nausea or vomiting no abdominal pain no diarrhea no blood in the stools no burning with urination no frequency or urgency no hematuria he is followed by physical therapy he would need to be transferred to a rehab unit when stable. On 10/27/2021 patient was seen and examined on the medical floor, he is alert and oriented 3 in no apparent distress, there is no fever or chills no headache or dizziness no chest pain no shortness of breath no cough no nausea or vomiting no abdominal pain no diarrhea and no urinary symptoms. physical therapy and occupational therapy are following. On 10/28/2021 patient was seen and examined on the medical floor, he is alert and oriented, there is no fever or chills no headache or dizziness no chest pain no shortness of breath no cough no nausea or vomiting no abdominal pain no diarrhea and no urinary symptoms, he has good urine output, , physical therapy and occupational therapy are following. We are awaiting [facility] placement On 10/29/2021 patient was seen and examined on the medical floor he is alert and oriented in no distress he is still complaining of generalized weakness and gait disturbance is also complaining of severe pain at the site of his foot ulcer otherwise he denies any complaints there is no fever or chills no headache or dizziness no chest pain no shortness of breath no cough no nausea or vomiting no abdominal pain no diarrhea and no urinary symptoms Objective - Vital Signs Vital signs: Vital Signs Temp 97.6 F 10/29/21 07:54 Pulse 67 10/29/21 07:54 Resp 16 10/29/21 07:54 BP 157/91 10/29/21 07:54 Pulse Ox 99 10/29/21 07:54 FiO2 Intake & Output 10/28/21 10/29/21 10/29/21 18:59 06:59 18:59 Output Total 410 Balance -410 Output: Urine 410 Other: Voiding Method Urinal Urinal # Voids 1 2 # Bowel Movements 1 - Exam In general patient is alert and oriented x 3 in no distress HEENT head normocephalic and atraumatic Neck is supple no JVD no goiter no lymphadenopathy no carotid bruit Chest examination is clear to auscultation no crackles no wheezing Cardiac exam reveals regular heart sounds S1 and S2 no gallops no murmurs Abdomen is soft nontender no organomegaly with normal bowel sounds Extremity exam reveals no edema no cyanosis or clubbing right foot erythema and medial right ankle scabbed ulcer Neurological examination reveals no gross focal deficits - Labs CBC & Chem 7: 10/26/21 07:11 10/26/21 07:11 Assessment and Plan Plan: Alcohol intoxication Early alcohol withdrawal will Right lower extremity cellulitis with Mental status changes with delirium Underlying history of hypertension Underlying history of paroxysmal atrial fibrillation not on anticoagulation due to multiple falls Underlying history of depression with anxiety Underlying history of excessive alcohol use patient was admitted recently with alcohol intoxication At this time patient is admitted to medical floor he was started on CIWA protocol with IV Ativan Will start IV cefazolin for right lower extremity cellulitis Will check right lower extremity venous Doppler Recheck labs in a.m. Prognosis is guarded patient is not receptive to any counseling at this time regarding alcohol will try in the next few days
--- NOTE | 2021-10-29 23:15 | P.PN ---
Subjective Progress Note Date: 10/29/21 Principal diagnosis: R leg wound and cellulitis Patient is a 71-year-old male presenting to the hospital with multiple complaints including wound to the right lower extremity and concerning for secondary cellulitis. On today's evaluation that is 10/29/2021, the patient remains to be afebrile, the patient is breathing comfortably on room air, the patient denies chest pain or shortness of breath , the patient did have occasional cough, the patient denies any worsening pain to the right lower extremity Objective - Vital Signs Vital signs: Vital Signs Temp 98.3 F 10/29/21 14:00 Pulse 65 10/29/21 14:00 Resp 18 10/29/21 14:00 BP 109/69 10/29/21 14:00 Pulse Ox 96 10/29/21 14:00 FiO2 Intake & Output 10/28/21 10/29/21 10/29/21 18:59 06:59 18:59 Output Total 410 Balance -410 Output: Urine 410 Other: Voiding Method Urinal Urinal # Voids 1 2 # Bowel Movements 1 - Exam GENERAL DESCRIPTION: Elderly male lying in bed, no distress. No tachypnea or accessory muscle of respiration use. LUNGS: Unlabored breathing. Clear to auscultation anteriorly. No wheeze or crackle. HEART: S1, S2, regular rate and rhythm. No loud murmur ABDOMEN: Soft, no tenderness , guarding or rigidity, no organomegaly EXTREMITIES right lower extremity swelling and redness has improved wound has decreased in size minimal blood stained drainage - Labs CBC & Chem 7: 10/26/21 07:11 10/26/21 07:11 Assessment and Plan (1) Cellulitis Current Visit: No Status: Acute Code(s): L03.90 - CELLULITIS, UNSPECIFIED SNOMED Code(s): 585874359 Plan: 1patient with right lower extremity wound and secondary cellulitis local wound cultures are currently growing multiple pathogens including Acinetobacter Morganella which is sensitive to cefepime , patient symptomatic and clinical improvement and will continue with cefepime while inpatient with the plan to finish therapy with oral antibiotics in the form of Cipro and Keflex, currently waiting for placement 2-local wound care will be continued with Aquacel silver dressing to be changed every 48 hour Time with Patient: Less than 30
[2021-10-29] MEDS: LORazepam 0.5 MG TAB PO PRN (23:50)
[2021-10-30] MEDS: CEFEPIME 2 GM in SODIUM CHLORIDE 0.9% 100 ML IVPB SCH ×3 (05:23→21:42)
[2021-10-30] MEDS: PANTOPRAZOLE 40 MG TABLET PO SCH (08:31)
[2021-10-30] MEDS: MULTIVITAMINS, THERA 1 EACH TAB PO SCH (08:31)
[2021-10-30] MEDS: allopurinoL 300 MG TAB PO SCH (08:31)
[2021-10-30] MEDS: amLODIPine 10 MG TAB PO SCH (08:31)
[2021-10-30] MEDS: GABAPENTIN 100 MG CAP PO SCH ×3 (08:31→20:36)
[2021-10-30] MEDS: FAMOTIDINE 20 MG TAB PO SCH (08:31)
[2021-10-30] MEDS: HEPARIN SODIUM,PORCINE/PF 5,000 UNIT/0.5 ML SYRINGE SQ SCH ×3 (08:32→22:40)
[2021-10-30] MEDS: carvediloL 12.5 MG TAB PO SCH ×2 (08:32→17:21)
[2021-10-30] MEDS: THIAMINE 100 MG in SODIUM CHLORIDE 0.9% 50 ML IVPB SCH ×2 (10:06→20:36)
--- NOTE | 2021-10-30 11:46 | P.PN ---
Subjective Progress Note Date: 10/30/21 Blake Sinclair, he is a 71-year-old male who presented to [facility] emergency room with a chief complaint of alcohol intoxication and confusion, his living condition were not sanitary, he had a large ulcer on the medial aspect of the right ankle. He was evaluated in the emergency room vital examination on presentation revealed a temperature of 98 pulse 84 respiration 20 blood pressure 154/90 and pulse ox 96% on room air Laboratory data reveals a white blood count of 7.5 hemoglobin 16.6 platelet count 84 sodium 133 potassium 3.9 chloride 95 CO2 21 BUN 9 creatinine 0.88 troponin level was 0.0-3 Testing in the emergency room revealed computed tomography scan of the head and neck done in the emergency room revealed cerebral atrophy and chronic small vessel ischemia no acute intracranial abnormality no change compared to old exam, chest x-ray done in the emergency room revealed chronic elevation of the right diaphragmatic no change compared to old exam no acute lung disease, EKG done in the emergency room revealed supraventricular rhythm with possible lateral ischemia Patient was admitted to medical floor for further evaluation and treatment On review of systems patient is complaining of right foot and ankle pain otherwise he denies any complaints there is no fever or chills no headache or dizziness no chest pain no shortness of breath no cough no nausea or vomiting no abdominal pain no diarrhea and no urinary symptoms. On 10/21/2021 patient was seen and examined on the medical floor he is alert and responsive in no apparent distress he is complaining of generalized joint pain mostly in bilateral knees and his hands joints, otherwise he denies any complaints there is no fever or chills no headache or dizziness no chest pain no shortness of breath no cough no nausea or vomiting no abdominal pain no diarrhea and no urinary symptoms. At this point will check uric acid level will give 1 dose of IV Toradol and continue to monitor closely. Continue with IV cefazolin for lower extremity cellulitis awaiting input from infectious disease On 10/22/2021 patient was seen and examined on the medical floor he is alert and responsive in no apparent distress he is complaining of lower extremity pain, otherwise he denies any complaints there is no fever or chills no headache or dizziness no chest pain no shortness of breath no cough no nausea or vomiting no abdominal pain no diarrhea and no urinary symptoms. Patient see n by Dr Grace, wound culture taken. Continue with IV cefazolin for lower extremity cellulitis awaiting input from infectious disease. On 10/23/2021 patient was seen and examined on the medical floor he is alert and responsive in no apparent distress he was having some episodes of agitation last night he is still receiving IV Ativan, patient is still receiving IV antibiotic for lower extremity cellulitis with ulcer otherwise patient denies any complaints there is no fever or chills no headache or dizziness no chest pain no shortness of breath no cough no nausea or vomiting no abdominal pain no diarrhea and no urinary symptoms On 10/24/2021 patient was seen and examined on the medical floor, he is alert and oriented 3 in no apparent distress, there is no fever or chills no headache or dizziness no chest pain no shortness of breath no cough no nausea or vomiting no abdominal pain no diarrhea and no urinary symptoms, he has good urine output, nephrology are following and no hemodialysis is recommended at this time, physic al therapy and occupational therapy are following. On 10/25/2021 patient was seen and examined on the medical floor he is alert and oriented 3 in no apparent distress, he is still complaining of lower extremity pain and difficulty walking otherwise he denies any complaints there is no fever or chills no headache or dizziness no chest pain no shortness of breath no cough no nausea or vomiting no abdominal pain no diarrhea and no urinary symptoms. physical therapy were consult patient may need to go to rehab after the acute admission On 10/26/2021 patient was seen and examined on the medical floor he is alert and oriented 3 in no distress he is complaining of ankle pain and difficulty st anding and walking otherwise he denies any complaints there is no fever or chills no headache or dizziness no chest pain no shortness of breath no cough no nausea or vomiting no abdominal pain no diarrhea no blood in the stools no burning with urination no frequency or urgency no hematuria he is followed by physical therapy he would need to be transferred to a rehab unit when stable. On 10/27/2021 patient was seen and examined on the medical floor, he is alert and oriented 3 in no apparent distress, there is no fever or chills no headache or dizziness no chest pain no shortness of breath no cough no nausea or vomiting no abdominal pain no diarrhea and no urinary symptoms. physical therapy and occupational therapy are following. On 10/28/2021 patient was seen and examined on the medical floor, he is alert and oriented, there is no fever or chills no headache or dizziness no chest pain no shortness of breath no cough no nausea or vomiting no abdominal pain no diarrhea and no urinary symptoms, he has good urine output, , physical therapy and occupational therapy are following. We are awaiting shelter placement On 10/29/2021 patient was seen and examined on the medical floor he is alert and oriented in no distress he is still complaining of generalized weakness and gait disturbance is also complaining of severe pain at the site of his foot ulcer otherwise he denies any complaints there is no fever or chills no headache or dizziness no chest pain no shortness of breath no cough no nausea or vomiting no abdominal pain no diarrhea and no urinary symptoms. On 10/30 2021 patient was seen and examined on the medical floor he is alert and oriented 3 in no apparent distress there is no fever or chills no headache or dizziness no chest pain no shortness of breath no cough no nausea or vomiting no abdominal pain no diarrhea and no urinary symptoms. He is still complaining of generalized weakness and inability to walk he is complaining of pain at the site of his lower extremity ulcer otherwise he denies any complaints additionally there is evidence of thrush at this time Objective - Vital Signs Vital signs: Vital Signs Temp 98.0 F 10/30/21 08:00 Pulse 73 10/30/21 08:00 Resp 18 10/30/21 08:59 BP 147/83 10/30/21 08:00 Pulse Ox 95 10/30/21 08:00 FiO2 Intake & Output 10/29/21 10/30/21 10/30/21 18:59 06:59 18:59 Intake Total 200 Output Total 1000 Balance -1000 200 Intake: Oral 200 Output: Urine 1000 Other: Voiding Method Urinal Urinal Urinal # Voids 3 3 # Bowel Movements 1 - Exam In general patient is alert and oriented x 3 in no distress HEENT head normocephalic and atraumatic Neck is supple no JVD no goiter no lymphadenopathy no carotid bruit Chest examination is clear to auscultation no crackles no wheezing Cardiac exam reveals regular heart sounds S1 and S2 no gallops no murmurs Abdomen is soft nontender no organomegaly with normal bowel sounds Extremity exam reveals no edema no cyanosis or clubbing right foot erythema and medial right ankle scabbed ulcer Neurological examination reveals no gross focal deficits - Labs CBC & Chem 7: 10/26/21 07:11 10/26/21 07:11 Assessment and Plan Plan: Alcohol intoxication Early alcohol withdrawal will Right lower extremity cellulitis with Mental status changes with delirium Underlying history of hypertension Underlying history of paroxysmal atrial fibrillation not on anticoagulation due to multiple falls Underlying history of depression with anxiety Underlying history of excessive alcohol use patient was admitted recently with alcohol intoxication At this time patient is admitted to medical floor he was started on CIWA protocol with IV Ativan Will start IV cefazolin for right lower extremity cellulitis Will check right lower extremity venous Doppler Recheck labs in a.m. Prognosis is guarded patient is not receptive to any counseling at this time regarding alcohol will try in the next few days
[2021-10-30] MEDS: NYSTATIN 100,000 UNIT/ML SUSP 500,000 UNIT/5 ML CUP PO SCH ×3 (13:30→22:40)
[2021-10-30] MEDS: LORazepam 0.5 MG TAB PO PRN ×2 (13:31→20:36)
--- NOTE | 2021-10-30 15:01 | P.PN ---
Subjective Progress Note Date: 10/30/21 Principal diagnosis: R leg wound and cellulitis Patient is a 71-year-old male presenting to the hospital with multiple complaints including wound to the right lower extremity and concerning for secondary cellulitis. On today's evaluation that is 10/30/2021, the patient denies any fever or any chills, the patient is breathing comfortably on room air, the patient denies chest pain or shortness of breath , the patient did have occasional cough, the patient has been combining of more pain to bilateral knee area however right lower leg pain has decreased in intensity Objective - Vital Signs Vital signs: Vital Signs Temp 98.0 F 10/30/21 08:00 Pulse 73 10/30/21 08:00 Resp 18 10/30/21 08:59 BP 147/83 10/30/21 08:00 Pulse Ox 95 10/30/21 08:00 FiO2 Intake & Output 10/29/21 10/30/21 10/30/21 18:59 06:59 18:59 Intake Total 400 Output Total 1000 Balance -1000 400 Intake: Oral 400 Output: Urine 1000 Other: Voiding Method Urinal Urinal Urinal # Voids 3 3 # Bowel Movements 1 - Exam GENERAL DESCRIPTION: Elderly male lying in bed, no distress. No tachypnea or accessory muscle of respiration use. LUNGS: Unlabored breathing. Clear to auscultation anteriorly. No wheeze or crackle. HEART: S1, S2, regular rate and rhythm. No loud murmur ABDOMEN: Soft, no tenderness , guarding or rigidity, no organomegaly EXTREMITIES right lower extremity swelling and redness has improved wound has decreased in size minimal blood stained drainage - Labs CBC & Chem 7: 10/26/21 07:11 10/26/21 07:11 Assessment and Plan (1) Cellulitis Current Visit: No Status: Acute Code(s): L03.90 - CELLULITIS, UNSPECIFIED SNOMED Code(s): 248592293 Plan: 1patient with right lower extremity wound and secondary cellulitis local wound cultures are currently growing multiple pathogens including Acinetobacter Morganella which is sensitive to cefepime , patient did have overall clinical improvement and will continue with cefepime while inpatient with the plan to finish therapy with oral antibiotics in the form of Cipro and Keflex 7 days 2-local wound care will be continued with Aquacel silver dressing to be changed every 48 hour Time with Patient: Less than 30
[2021-10-31] MEDS: CEFEPIME 2 GM in SODIUM CHLORIDE 0.9% 100 ML IVPB SCH ×3 (04:39→19:19)
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
[2021-10-31] MEDS: THIAMINE 100 MG in SODIUM CHLORIDE 0.9% 50 ML IVPB SCH ×2 (08:35→23:27)
[2021-10-31] MEDS: HEPARIN SODIUM,PORCINE/PF 5,000 UNIT/0.5 ML SYRINGE SQ SCH ×3 (08:42→23:28)
[2021-10-31] MEDS: PANTOPRAZOLE 40 MG TABLET PO SCH (08:42)
[2021-10-31] MEDS: allopurinoL 300 MG TAB PO SCH (08:42)
[2021-10-31] MEDS: MULTIVITAMINS, THERA 1 EACH TAB PO SCH (08:42)
[2021-10-31] MEDS: GABAPENTIN 100 MG CAP PO SCH ×3 (08:42→20:43)
[2021-10-31] MEDS: carvediloL 12.5 MG TAB PO SCH ×2 (08:42→17:00)
[2021-10-31] MEDS: FAMOTIDINE 20 MG TAB PO SCH (08:42)
[2021-10-31] MEDS: amLODIPine 10 MG TAB PO SCH (08:43)
[2021-10-31] MEDS: NYSTATIN 100,000 UNIT/ML SUSP 500,000 UNIT/5 ML CUP PO SCH ×4 (08:43→20:43)
[2021-10-31 08:54] LABS: Basophils # (A) 0.07 X 10*3/uL (0.00-0.10); Basophils % (A) 1.4 %; Eosinophils # (A) 0.12 X 10*3/uL (0.04-0.35); Eosinophils % (A) 2.5 %; HCT 45.5 % (39.6-50.0); HGB 14.7 g/dL (13.0-17.0); Immature Grans, Automated 3.9 %; Lymphocytes # (A) 1.38 X 10*3/uL (0.90-5.00); Lymphocytes % (A) 28.2 %; MCH 30.4 pg (27.0-32.0); MCHC 32.3 g/dL (32.0-37.0); MCV 94.2 fL (80.0-97.0); Mean Platelet Volume 9.4 fL (9.5-12.2); Monocytes % (A) 8.2 %; NRBC Per 100 WBC 0 /100 WBCS (0.0-0.0); Neutrophils # (A) 2.73 X 10*3/uL (1.80-7.70); Neutrophils % (A) 55.8 %; Platelet Count 325 X 10*3/uL (140-440); RBC 4.83 X 10*6/uL (4.40-5.60); RDW 13.8 % (11.5-14.5); WBC 4.89 X 10*3/uL (4.50-10.00)
[2021-10-31 09:02] LABS: African American GFR (CKD) 97.9 (60.0-200.0); Albumin 3.9 g/dL (3.8-4.9); Albumin/Globulin Ratio 1.44 (1.60-3.17); Anion Gap 8.9 mmol/L (10.00-18.00); BUN/Creat Ratio 26.89 Ratio (12.00-20.00); Blood Urea Nitrogen 24.2 mg/dL (9.0-27.0); Carbon Dioxide 27.1 mmol/L (20.0-27.5); Globulin 2.7 g/dL (1.6-3.3); Non-African American GFR(CKD) 84.4 (60.0-200.0); Potassium 4.4 mmol/L (3.5-5.5); Total Bilirubin 0.3 mg/dL (0.30-1.20); Total Protein 6.6 g/dL (6.2-8.2)
--- NOTE | 2021-10-31 14:24 | P.PN ---
Progress Note - Text PT/OT both report poor endurance for therapy. Poor discharge plan, so recommend [facility], currently.
--- NOTE | 2021-10-31 15:21 | P.DS ---
Providers Date of admission: 10/20/21 02:49 Expected date of discharge: 10/31/21 Attending physician: Kassie Beasley Consults: 10/20/21 19:43 Consult Physician Routine Consulting Provider: Breann Grace Consult Reason/Comments: Lower extremity cellulitis Do you want consulting provider notified?: Yes 10/28/21 13:53 Consult Physician Routine Consulting Provider: Jeremy Chong Consult Reason/Comments: gait disturbance Do you want consulting provider notified?: Yes Primary care physician: Stated None Hospital Course: Diagnosis on discharge: Alcohol intoxication Early alcohol withdrawal will Right lower extremity cellulitis with open ulcer oral candidiasis Mental status changes with delirium Underlying history of hypertension Underlying history of paroxysmal atrial fibrillation not on anticoagulation due to multiple falls Underlying history of depression with anxiety Underlying history of excessive alcohol use patient was admitted recently with alcohol intoxication Hospital course: Blake Sinclair, he is a 71-year-old male who presented to [facility] emergency room with a chief complaint of alcohol intoxication and confusion, his living condition were not sanitary, he had a large ulcer on the medial aspect of the right ankle. He was evaluated in the emergency room vital examination on presentation revealed a temperature of 98 pulse 84 respiration 20 blood pressure 154/90 and pulse ox 96% on room air Laboratory data reveals a white blood count of 7.5 hemoglobin 16.6 platelet count 84 sodium 133 potassium 3.9 chloride 95 CO2 21 BUN 9 creatinine 0.88 troponin level was 0.0-3 Testing in the emergency room revealed computed tomography scan of the head and neck done in the emergency room revealed cerebral atrophy and chronic small vessel ischemia no acute intracranial abnormality no change compared to old exam, chest x-ray done in the emergency room revealed chronic elevation of the right diaphragmatic no change compared to old exam no acute lung disease, EKG done in the emergency room revealed supraventricular rhythm with possible lateral ischemia Patient was admitted to medical floor for further evaluation and treatment On review of systems patient is complaining of right foot and ankle pain otherwise he denies any complaints there is no fever or chills no headache or dizziness no chest pain no shortness of breath no cough no nausea or vomiting no abdominal pain no diarrhea and no urinary symptoms. On 10/21/2021 patient was seen and examined on the medical floor he is alert and responsive in no apparent distress he is complaining of generalized joint pain mostly in bilateral knees and his hands joints, otherwise he denies any complaints there is no fever or chills no headache or dizziness no chest pain no shortness of breath no cough no nausea or vomiting no abdominal pain no diarrhea and no urinary symptoms. At this point will check uric acid level will give 1 dose of IV Toradol and continue to monitor closely. Continue with IV cefazolin for lower extremity cellulitis awaiting input from infectious disease On 10/22/2021 patient was seen and examined on the medical floor he is alert and responsive in no apparent distress he is complaining of lower extremity pain, otherwise he denies any complaints there is no fever or chills no headache or dizziness no chest pain no shortness of breath no cough no nausea or vomiting no abdominal pain no diarrhea and no urinary symptoms. Patient see n by Dr Grace, wound culture taken. Continue with IV cefazolin for lower extremity cellulitis awaiting input from infectious disease. On 10/23/2021 patient was seen and examined on the medical floor he is alert and responsive in no apparent distress he was having some episodes of agitation last night he is still receiving IV Ativan, patient is still receiving IV antibiotic for lower extremity cellulitis with ulcer otherwise patient denies any complaints there is no fever or chills no headache or dizziness no chest pain no shortness of breath no cough no nausea or vomiting no abdominal pain no diarrhea and no urinary symptoms On 10/24/2021 patient was seen and examined on the medical floor, he is alert and oriented 3 in no apparent distress, there is no fever or chills no headache or dizziness no chest pain no shortness of breath no cough no nausea or vomiting no abdominal pain no diarrhea and no urinary symptoms, he has good urine output, nephrology are following and no hemodialysis is recommended at this time, physical therapy and occupational therapy are following. On 10/25/2021 patient was seen and examined on the medical floor he is alert and oriented 3 in no apparent distress, he is still complaining of lower extremity pain and difficulty walking otherwise he denies any complaints there is no fever or chills no headache or dizziness no chest pain no shortness of breath no cough no nausea or vomiting no abdominal pain no diarrhea and no urinary symptoms. physical therapy were consult patient may need to go to rehab after the acute admission On 10/26/2021 patient was seen and examined on the medical floor he is alert and oriented 3 in no distress he is complaining of ankle pain and difficulty standing and walking otherwise he denies any complaints there is no fever or chills no headache or dizziness no chest pain no shortness of breath no cough no nausea or vomiting no abdominal pain no diarrhea no blood in the stools no burning with urination no frequency or urgency no hematuria he is followed by physical therapy he would need to be transferred to a rehab unit when stable. On 10/27/2021 patient was seen and examined on the medical floor, he is alert and oriented 3 in no apparent distress, there is no fever or chills no headache or dizziness no chest pain no shortness of breath no cough no nausea or vomiting no abdominal pain no diarrhea and no urinary symptoms. physical therapy and occ upational therapy are following. On 10/28/2021 patient was seen and examined on the medical floor, he is alert and oriented, there is no fever or chills no headache or dizziness no chest pain no shortness of breath no cough no nausea or vomiting no abdominal pain no diarrhea and no urinary symptoms, he has good urine output, , physical therapy and occupational therapy are following. We are awaiting fpc placement On 10/29/2021 patient was seen and examined on the medical floor he is alert and oriented in no distress he is still complaining of generalized weakness and gait disturbance is also complaining of severe pain at the site of his foot ulcer otherwise he denies any complaints there is no fever or chills no headache or dizziness no chest pain no shortness of breath no cough no nausea or vomiting no abdominal pain no diarrhea and no urinary symptoms. On 10/30 2021 patient was seen and examined on the medical floor he is alert and oriented 3 in no apparent distress there is no fever or chills no headache or dizziness no chest pain no shortness of breath no cough no nausea or vomiting no abdominal pain no diarrhea and no urinary symptoms. He is still complaining of generalized weakness and inability to walk he is complaining of pain at the site of his lower extremity ulcer otherwise he denies any complaints additionally there is evidence of thrush at this time Patient Condition at Discharge: Stable Plan - Discharge Summary Discharge Rx Participant: No New Discharge Prescriptions: New Cephalexin [Keflex] 500 mg PO Q8HR 10 Days #30 cap Multivitamins, Thera [Multivitamin (formulary)] 1 each PO DAILY tab Pantoprazole [Protonix] 40 mg PO AC-BRKFST tab Nystatin 100,000 Unit/ml Susp [Mycostatin Oral Susp] 500,000 unit PO QID ml LORazepam [Ativan] 0.5 mg PO QID PRN tab PRN Reason: Anxiety Ciprofloxacin HCl [Cipro] 250 mg PO Q12HR 10 Days #20 tab Continue carvediloL [Coreg*] 12.5 mg PO BID-W/MEALS #60 tab amLODIPine [Norvasc] 10 mg PO DAILY #30 tab Acetaminophen Tab [Tylenol] 650 mg PO Q6HR PRN tab PRN Reason: Fever And/ Or Pain Famotidine [Pepcid] 20 mg PO DAILY #30 tab Thiamine [Vitamin B-1] 100 mg PO BID-W/MEALS #60 tab Gabapentin [Neurontin] 100 mg PO TID cap allopurinoL [Zyloprim] 300 mg PO DAILY tab Discharge Medication List Acetaminophen Tab [Tylenol] 650 mg PO Q6HR PRN tab 09/20/21 [Rx] Famotidine [Pepcid] 20 mg PO DAILY #30 tab 09/20/21 [Rx] Thiamine [Vitamin B-1] 100 mg PO BID-W/MEALS #60 tab 09/20/21 [Rx] amLODIPine [Norvasc] 10 mg PO DAILY #30 tab 09/20/21 [Rx] carvediloL [Coreg*] 12.5 mg PO BID-W/MEALS #60 tab 09/20/21 [Rx] Gabapentin [Neurontin] 100 mg PO TID cap 09/27/21 [Rx] allopurinoL [Zyloprim] 300 mg PO DAILY tab 09/27/21 [Rx] Cephalexin [Keflex] 500 mg PO Q8HR 10 Days #30 cap 10/27/21 [Rx] Ciprofloxacin HCl [Cipro] 250 mg PO Q12HR 10 Days #20 tab 10/27/21 [Rx] LORazepam [Ativan] 0.5 mg PO QID PRN tab 10/27/21 [Rx] Multivitamins, Thera [Multivitamin (formulary)] 1 each PO DAILY tab 10/27/21 [Rx] Pantoprazole [Protonix] 40 mg PO AC-BRKFST tab 10/27/21 [Rx] Nystatin 100,000 Unit/ml Susp [Mycostatin Oral Susp] 500,000 unit PO QID ml 10/31/21 [Rx] Follow up Appointment(s)/Referral(s): [facility], [NON-STAFF] - 1-2 Days Kassie Beasley MD [STAFF PHYSICIAN] - 11/03/21 2:00 pm
[2021-10-31] MEDS: LORazepam 0.5 MG TAB PO PRN ×2 (15:32→23:27)
--- NOTE | 2021-10-31 21:37 | P.PN ---
Subjective Progress Note Date: 10/31/21 Principal diagnosis: R leg wound and cellulitis Patient is a 71-year-old male presenting to the hospital with multiple complaints including wound to the right lower extremity and concerning for secondary cellulitis. On today's evaluation that is 10/31/2021, the patient continues to be afebrile, the patient is breathing comfortably on room air, the patient denies chest pain shortness of breath , the patient did have occasional dry cough, the patient still complaining of some pain into the knee and the leg but no worsening Objective - Vital Signs Vital signs: Vital Signs Temp 98.5 F 10/31/21 08:00 Pulse 72 10/31/21 08:00 Resp 16 10/31/21 08:00 BP 149/81 10/31/21 08:00 Pulse Ox 96 10/31/21 08:00 FiO2 Intake & Output 10/30/21 10/31/21 10/31/21 18:59 06:59 18:59 Intake Total 1000 Output Total 600 Balance 1000 -600 Intake: Oral 1000 Output: Urine 600 Other: Voiding Method Urinal Urinal # Voids 1 - Exam GENERAL DESCRIPTION: Elderly male lying in bed, no distress. No tachypnea or accessory muscle of respiration use. LUNGS: Unlabored breathing. Clear to auscultation anteriorly. No wheeze or crackle. HEART: S1, S2, regular rate and rhythm. No loud murmur ABDOMEN: Soft, no tenderness , guarding or rigidity, no organomegaly EXTREMITIES right lower extremity swelling and redness has improved wound has decreased in size minimal blood stained drainage - Labs CBC & Chem 7: 10/31/21 06:06 10/31/21 06:06 Labs: Abnormal Lab Results - Last 24 Hours (Table) 10/31/21 10/31/21 Range/Units 06:06 06:06 MPV 9.4 L (9.5-12.2) fL Immature Gran # 0.19 H (0.00-0.04) X 10*3/uL Anion Gap 8.90 L (10.00-18.00) mmol/L BUN/Creatinine Ratio 26.89 H (12.00-20.00) Ratio Albumin/Globulin Ratio 1.44 L (1.60-3.17) g/dL Assessment and Plan (1) Cellulitis Current Visit: No Status: Acute Code(s): L03.90 - CELLULITIS, UNSPECIFIED SNOMED Code(s): 880856696 Plan: 1patient with right lower extremity wound and secondary cellulitis local wound cultures are currently growing multiple pathogens including Acinetobacter Mor ganella which is sensitive to cefepime , patient did have overall clinical improvement and will continue with cefepime while inpatient with the plan to finish therapy with oral antibiotics in the form of Cipro and Keflex 7 days, currently waiting for placement and no change in discharge plan as for his antibiotics 2-local wound care will be continued with Aquacel silver dressing to be changed every 48 hour Time with Patient: Less than 30
[2021-11-01] MEDS: CEFEPIME 2 GM in SODIUM CHLORIDE 0.9% 100 ML IVPB SCH ×3 (03:18→20:15)
[2021-11-01] MEDS: HEPARIN SODIUM,PORCINE/PF 5,000 UNIT/0.5 ML SYRINGE SQ SCH ×3 (08:15→23:25)
[2021-11-01] MEDS: THIAMINE 100 MG in SODIUM CHLORIDE 0.9% 50 ML IVPB SCH ×2 (08:15→23:24)
[2021-11-01] MEDS: NYSTATIN 100,000 UNIT/ML SUSP 500,000 UNIT/5 ML CUP PO SCH ×4 (08:16→20:16)
[2021-11-01] MEDS: PANTOPRAZOLE 40 MG TABLET PO SCH (08:16)
[2021-11-01] MEDS: GABAPENTIN 100 MG CAP PO SCH ×3 (08:16→20:15)
[2021-11-01] MEDS: amLODIPine 10 MG TAB PO SCH (08:17)
[2021-11-01] MEDS: MULTIVITAMINS, THERA 1 EACH TAB PO SCH (08:17)
[2021-11-01] MEDS: allopurinoL 300 MG TAB PO SCH (08:17)
[2021-11-01] MEDS: carvediloL 12.5 MG TAB PO SCH ×2 (08:17→17:31)
[2021-11-01] MEDS: FAMOTIDINE 20 MG TAB PO SCH (08:17)
[2021-11-01] MEDS: LORazepam 0.5 MG TAB PO PRN ×2 (11:13→20:14)
[2021-11-01] MEDS ORDERED: methylPREDNISolone SOD SUCCI 40 MG/ML 1 ML VIAL IV STA (11:25)
--- NOTE | 2021-11-01 11:25 | P.PN ---
Subjective Progress Note Date: 11/01/21 Blake Sinclair, he is a 71-year-old male who presented to [facility] emergency room with a chief complaint of alcohol intoxication and confusion, his living condition were not sanitary, he had a large ulcer on the medial aspect of the right ankle. He was evaluated in the emergency room vital examination on presentation revealed a temperature of 98 pulse 84 respiration 20 blood pressure 154/90 and pulse ox 96% on room air Laboratory data reveals a white blood count of 7.5 hemoglobin 16.6 platelet count 84 sodium 133 potassium 3.9 chloride 95 CO2 21 BUN 9 creatinine 0.88 troponin level was 0.0-3 Testing in the emergency room revealed computed tomography scan of the head and neck done in the emergency room revealed cerebral atrophy and chronic small vessel ischemia no acute intracranial abnormality no change compared to old exam, chest x-ray done in the emergency room revealed chronic elevation of the right diaphragmatic no change compared to old exam no acute lung disease, EKG done in the emergency room revealed supraventricular rhythm with possible lateral ischemia Patient was admitted to medical floor for further evaluation and treatment On review of systems patient is complaining of right foot and ankle pain otherwise he denies any complaints there is no fever or chills no headache or dizziness no chest pain no shortness of breath no cough no nausea or vomiting no abdominal pain no diarrhea and no urinary symptoms. On 10/21/2021 patient was seen and examined on the medical floor he is alert and responsive in no apparent distress he is complaining of generalized joint pain mostly in bilateral knees and his hands joints, otherwise he denies any complaints there is no fever or chills no headache or dizziness no chest pain no shortness of breath no cough no nausea or vomiting no abdominal pain no diarrhea and no urinary symptoms. At this point will check uric acid level will give 1 dose of IV Toradol and continue to monitor closely. Continue with IV cefazolin for lower extremity cellulitis awaiting input from infectious disease On 10/22/2021 patient was seen and examined on the medical floor he is alert and responsive in no apparent distress he is complaining of lower extremity pain, otherwise he denies any complaints there is no fever or chills no headache or dizziness no chest pain no shortness of breath no cough no nausea or vomiting no abdominal pain no diarrhea and no urinary symptoms. Patient see n by Dr Grace, wound culture taken. Continue with IV cefazolin for lower extremity cellulitis awaiting input from infectious disease. On 10/23/2021 patient was seen and examined on the medical floor he is alert and responsive in no apparent distress he was having some episodes of agitation last night he is still receiving IV Ativan, patient is still receiving IV antibiotic for lower extremity cellulitis with ulcer otherwise patient denies any complaints there is no fever or chills no headache or dizziness no chest pain no shortness of breath no cough no nausea or vomiting no abdominal pain no diarrhea and no urinary symptoms On 10/24/2021 patient was seen and examined on the medical floor, he is alert and oriented 3 in no apparent distress, there is no fever or chills no headache or dizziness no chest pain no shortness of breath no cough no nausea or vomiting no abdominal pain no diarrhea and no urinary symptoms, he has good urine output, nephrology are following and no hemodialysis is recommended at this time, physic al therapy and occupational therapy are following. On 10/25/2021 patient was seen and examined on the medical floor he is alert and oriented 3 in no apparent distress, he is still complaining of lower extremity pain and difficulty walking otherwise he denies any complaints there is no fever or chills no headache or dizziness no chest pain no shortness of breath no cough no nausea or vomiting no abdominal pain no diarrhea and no urinary symptoms. physical therapy were consult patient may need to go to rehab after the acute admission On 10/26/2021 patient was seen and examined on the medical floor he is alert and oriented 3 in no distress he is complaining of ankle pain and difficulty st anding and walking otherwise he denies any complaints there is no fever or chills no headache or dizziness no chest pain no shortness of breath no cough no nausea or vomiting no abdominal pain no diarrhea no blood in the stools no burning with urination no frequency or urgency no hematuria he is followed by physical therapy he would need to be transferred to a rehab unit when stable. On 10/27/2021 patient was seen and examined on the medical floor, he is alert and oriented 3 in no apparent distress, there is no fever or chills no headache or dizziness no chest pain no shortness of breath no cough no nausea or vomiting no abdominal pain no diarrhea and no urinary symptoms. physical therapy and occupational therapy are following. On 10/28/2021 patient was seen and examined on the medical floor, he is alert and oriented, there is no fever or chills no headache or dizziness no chest pain no shortness of breath no cough no nausea or vomiting no abdominal pain no diarrhea and no urinary symptoms, he has good urine output, , physical therapy and occupational therapy are following. We are awaiting [facility] placement On 10/29/2021 patient was seen and examined on the medical floor he is alert and oriented in no distress he is still complaining of generalized weakness and gait disturbance is also complaining of severe pain at the site of his foot ulcer otherwise he denies any complaints there is no fever or chills no headache or dizziness no chest pain no shortness of breath no cough no nausea or vomiting no abdominal pain no diarrhea and no urinary symptoms. On 10/30 2021 patient was seen and examined on the medical floor he is alert and oriented 3 in no apparent distress there is no fever or chills no headache or dizziness no chest pain no shortness of breath no cough no nausea or vomiting no abdominal pain no diarrhea and no urinary symptoms. He is still complaining of generalized weakness and inability to walk he is complaining of pain at the site of his lower extremity ulcer otherwise he denies any complaints additionally there is evidence of thrush at this time. On 10/31/2021 patient was seen and examined on the medical floor he is alert and oriented 3 in no apparent distress there is no fever or chills no headache or dizziness no chest pain soft breath no cough no nausea or vomiting no abdominal pain no diarrhea and no urinary symptoms he is still complaining of generalized weakness otherwise he denies any complaints. On 11/01/2021 patient was seen and examined on the medical floor he is alert and oriented 3 in no apparent distress he is complaining of generalized weakness and bilateral knee pain otherwise he denies any complaints there is no fever or chills no headache or dizziness no chest pain no shortness of breath no cough no nausea or vomiting no abdominal pain no diarrhea and no urinary symptoms. At this time we are waiting for placement at the rehab facility Objective - Vital Signs Vital signs: Vital Signs Temp 98.2 F 11/01/21 07:36 Pulse 69 11/01/21 07:36 Resp 18 11/01/21 07:36 BP 169/82 11/01/21 07:36 Pulse Ox 97 11/01/21 07:36 FiO2 Intake & Output 10/31/21 11/01/21 11/01/21 18:59 06:59 18:59 Output Total 800 Balance -800 Output: Urine 800 Other: Voiding Method Urinal # Voids 1 3 1 - Exam In general patient is alert and oriented x 3 in no distress HEENT head normocephalic and atraumatic Neck is supple no JVD no goiter no lymphadenopathy no carotid bruit Chest examination is clear to auscultation no crackles no wheezing Cardiac exam reveals regular heart sounds S1 and S2 no gallops no murmurs Abdomen is soft nontender no organomegaly with normal bowel sounds Extremity exam reveals no edema no cyanosis or clubbing right foot erythema and medial right ankle scabbed ulcer Neurological examination reveals no gross focal deficits - Labs CBC & Chem 7: 10/31/21 06:06 10/31/21 06:06 Assessment and Plan Plan: Alcohol intoxication Early alcohol withdrawal will Right lower extremity cellulitis with Mental status changes with delirium Underlying history of hypertension Underlying history of paroxysmal atrial fibrillation not on anticoagulation due to multiple falls Underlying history of depression with anxiety Underlying history of excessive alcohol use patient was admitted recently with alcohol intoxication At this time patient is admitted to medical floor he was started on CIWA protocol with IV Ativan Will start IV cefazolin for right lower extremity cellulitis Will check right lower extremity venous Doppler Recheck labs in a.m. Prognosis is guarded patient is not receptive to any counseling at this time regarding alcohol will try in the next few days
--- NOTE | 2021-11-01 11:25 | P.PN ---
Subjective Progress Note Date: 10/31/21 Blake Sinclair, he is a 71-year-old male who presented to [facility] emergency room with a chief complaint of alcohol intoxication and confusion, his living condition were not sanitary, he had a large ulcer on the medial aspect of the right ankle. He was evaluated in the emergency room vital examination on presentation revealed a temperature of 98 pulse 84 respiration 20 blood pressure 154/90 and pulse ox 96% on room air Laboratory data reveals a white blood count of 7.5 hemoglobin 16.6 platelet count 84 sodium 133 potassium 3.9 chloride 95 CO2 21 BUN 9 creatinine 0.88 troponin level was 0.0-3 Testing in the emergency room revealed computed tomography scan of the head and neck done in the emergency room revealed cerebral atrophy and chronic small vessel ischemia no acute intracranial abnormality no change compared to old exam, chest x-ray done in the emergency room revealed chronic elevation of the right diaphragmatic no change compared to old exam no acute lung disease, EKG done in the emergency room revealed supraventricular rhythm with possible lateral ischemia Patient was admitted to medical floor for further evaluation and treatment On review of systems patient is complaining of right foot and ankle pain otherwise he denies any complaints there is no fever or chills no headache or dizziness no chest pain no shortness of breath no cough no nausea or vomiting no abdominal pain no diarrhea and no urinary symptoms. On 10/21/2021 patient was seen and examined on the medical floor he is alert and responsive in no apparent distress he is complaining of generalized joint pain mostly in bilateral knees and his hands joints, otherwise he denies any complaints there is no fever or chills no headache or dizziness no chest pain no shortness of breath no cough no nausea or vomiting no abdominal pain no diarrhea and no urinary symptoms. At this point will check uric acid level will give 1 dose of IV Toradol and continue to monitor closely. Continue with IV cefazolin for lower extremity cellulitis awaiting input from infectious disease On 10/22/2021 patient was seen and examined on the medical floor he is alert and responsive in no apparent distress he is complaining of lower extremity pain, otherwise he denies any complaints there is no fever or chills no headache or dizziness no chest pain no shortness of breath no cough no nausea or vomiting no abdominal pain no diarrhea and no urinary symptoms. Patient see n by Dr Grace, wound culture taken. Continue with IV cefazolin for lower extremity cellulitis awaiting input from infectious disease. On 10/23/2021 patient was seen and examined on the medical floor he is alert and responsive in no apparent distress he was having some episodes of agitation last night he is still receiving IV Ativan, patient is still receiving IV antibiotic for lower extremity cellulitis with ulcer otherwise patient denies any complaints there is no fever or chills no headache or dizziness no chest pain no shortness of breath no cough no nausea or vomiting no abdominal pain no diarrhea and no urinary symptoms On 10/24/2021 patient was seen and examined on the medical floor, he is alert and oriented 3 in no apparent distress, there is no fever or chills no headache or dizziness no chest pain no shortness of breath no cough no nausea or vomiting no abdominal pain no diarrhea and no urinary symptoms, he has good urine output, nephrology are following and no hemodialysis is recommended at this time, physic al therapy and occupational therapy are following. On 10/25/2021 patient was seen and examined on the medical floor he is alert and oriented 3 in no apparent distress, he is still complaining of lower extremity pain and difficulty walking otherwise he denies any complaints there is no fever or chills no headache or dizziness no chest pain no shortness of breath no cough no nausea or vomiting no abdominal pain no diarrhea and no urinary symptoms. physical therapy were consult patient may need to go to rehab after the acute admission On 10/26/2021 patient was seen and examined on the medical floor he is alert and oriented 3 in no distress he is complaining of ankle pain and difficulty st anding and walking otherwise he denies any complaints there is no fever or chills no headache or dizziness no chest pain no shortness of breath no cough no nausea or vomiting no abdominal pain no diarrhea no blood in the stools no burning with urination no frequency or urgency no hematuria he is followed by physical therapy he would need to be transferred to a rehab unit when stable. On 10/27/2021 patient was seen and examined on the medical floor, he is alert and oriented 3 in no apparent distress, there is no fever or chills no headache or dizziness no chest pain no shortness of breath no cough no nausea or vomiting no abdominal pain no diarrhea and no urinary symptoms. physical therapy and occupational therapy are following. On 10/28/2021 patient was seen and examined on the medical floor, he is alert and oriented, there is no fever or chills no headache or dizziness no chest pain no shortness of breath no cough no nausea or vomiting no abdominal pain no diarrhea and no urinary symptoms, he has good urine output, , physical therapy and occupational therapy are following. We are awaiting usp placement On 10/29/2021 patient was seen and examined on the medical floor he is alert and oriented in no distress he is still complaining of generalized weakness and gait disturbance is also complaining of severe pain at the site of his foot ulcer otherwise he denies any complaints there is no fever or chills no headache or dizziness no chest pain no shortness of breath no cough no nausea or vomiting no abdominal pain no diarrhea and no urinary symptoms. On 10/30 2021 patient was seen and examined on the medical floor he is alert and oriented 3 in no apparent distress there is no fever or chills no headache or dizziness no chest pain no shortness of breath no cough no nausea or vomiting no abdominal pain no diarrhea and no urinary symptoms. He is still complaining of generalized weakness and inability to walk he is complaining of pain at the site of his lower extremity ulcer otherwise he denies any complaints additionally there is evidence of thrush at this time. On 10/31/2021 patient was seen and examined on the medical floor he is alert and oriented 3 in no apparent distress there is no fever or chills no headache or dizziness no chest pain soft breath no cough no nausea or vomiting no abdominal pain no diarrhea and no urinary symptoms he is still complaining of generalized weakness otherwise he denies any complaints. Objective - Vital Signs Vital signs: Vital Signs Temp 98.5 F 10/31/21 08:00 Pulse 72 10/31/21 08:00 Resp 16 10/31/21 08:00 BP 149/81 10/31/21 08:00 Pulse Ox 96 10/31/21 08:00 FiO2 Intake & Output 10/30/21 10/31/21 10/31/21 18:59 06:59 18:59 Intake Total 1000 Output Total 600 Balance 1000 -600 Intake: Oral 1000 Output: Urine 600 Other: Voiding Method Urinal Urinal # Voids 1 - Exam In general patient is alert and oriented x 3 in no distress HEENT head normocephalic and atraumatic Neck is supple no JVD no goiter no lymphadenopathy no carotid bruit Chest examination is clear to auscultation no crackles no wheezing Cardiac exam reveals regular heart sounds S1 and S2 no gallops no murmurs Abdomen is soft nontender no organomegaly with normal bowel sounds Extremity exam reveals no edema no cyanosis or clubbing right foot erythema and medial right ankle scabbed ulcer Neurological examination reveals no gross focal deficits - Labs CBC & Chem 7: 10/31/21 06:06 10/31/21 06:06 Labs: Abnormal Lab Results - Last 24 Hours (Table) 10/31/21 10/31/21 Range/Units 06:06 06:06 MPV 9.4 L (9.5-12.2) fL Immature Gran # 0.19 H (0.00-0.04) X 10*3/uL Anion Gap 8.90 L (10.00-18.00) mmol/L BUN/Creatinine Ratio 26.89 H (12.00-20.00) Ratio Albumin/Globulin Ratio 1.44 L (1.60-3.17) g/dL Assessment and Plan Plan: Alcohol intoxication Early alcohol withdrawal will Right lower extremity cellulitis with Mental status changes with delirium Underlying history of hypertension Underlying history of paroxysmal atrial fibrillation not on anticoagulation due to multiple falls Underlying history of depression with anxiety Underlying history of excessive alcohol use patient was admitted recently with alcohol intoxication At this time patient is admitted to medical floor he was started on CIWA protocol with IV Ativan Will start IV cefazolin for right lower extremity cellulitis Will check right lower extremity venous Doppler Recheck labs in a.m. Prognosis is guarded patient is not receptive to any counseling at this time regarding alcohol will try in the next few days
[2021-11-02] MEDS: CEFEPIME 2 GM in SODIUM CHLORIDE 0.9% 100 ML IVPB SCH ×3 (04:47→20:31)
[2021-11-02] MEDS: FAMOTIDINE 20 MG TAB PO SCH (08:55)
[2021-11-02] MEDS: amLODIPine 10 MG TAB PO SCH (08:55)
[2021-11-02] MEDS: PANTOPRAZOLE 40 MG TABLET PO SCH (08:55)
[2021-11-02] MEDS: allopurinoL 300 MG TAB PO SCH (08:55)
[2021-11-02] MEDS: carvediloL 12.5 MG TAB PO SCH ×2 (08:55→18:12)
[2021-11-02] MEDS: MULTIVITAMINS, THERA 1 EACH TAB PO SCH (08:55)
[2021-11-02] MEDS: NYSTATIN 100,000 UNIT/ML SUSP 500,000 UNIT/5 ML CUP PO SCH ×4 (08:56→21:26)
[2021-11-02] MEDS: GABAPENTIN 100 MG CAP PO SCH ×3 (08:56→21:26)
[2021-11-02] MEDS: HEPARIN SODIUM,PORCINE/PF 5,000 UNIT/0.5 ML SYRINGE SQ SCH ×2 (08:56→18:12)
[2021-11-02] MEDS: THIAMINE 100 MG in SODIUM CHLORIDE 0.9% 50 ML IVPB SCH ×2 (08:56→21:27)
[2021-11-02] MEDS ORDERED: LORazepam 1 MG/0.5 ML VIAL IV PRN ×2 (17:10→17:11)
--- NOTE | 2021-11-02 17:29 | P.PN ---
Subjective Progress Note Date: 11/02/21 Blake Sinclair, he is a 71-year-old male who presented to [facility] emergency room with a chief complaint of alcohol intoxication and confusion, his living condition were not sanitary, he had a large ulcer on the medial aspect of the right ankle. He was evaluated in the emergency room vital examination on presentation revealed a temperature of 98 pulse 84 respiration 20 blood pressure 154/90 and pulse ox 96% on room air Laboratory data reveals a white blood count of 7.5 hemoglobin 16.6 platelet count 84 sodium 133 potassium 3.9 chloride 95 CO2 21 BUN 9 creatinine 0.88 troponin level was 0.0-3 Testing in the emergency room revealed computed tomography scan of the head and neck done in the emergency room revealed cerebral atrophy and chronic small vessel ischemia no acute intracranial abnormality no change compared to old exam, chest x-ray done in the emergency room revealed chronic elevation of the right diaphragmatic no change compared to old exam no acute lung disease, EKG done in the emergency room revealed supraventricular rhythm with possible lateral ischemia Patient was admitted to medical floor for further evaluation and treatment On review of systems patient is complaining of right foot and ankle pain otherwise he denies any complaints there is no fever or chills no headache or dizziness no chest pain no shortness of breath no cough no nausea or vomiting no abdominal pain no diarrhea and no urinary symptoms. On 10/21/2021 patient was seen and examined on the medical floor he is alert and responsive in no apparent distress he is complaining of generalized joint pain mostly in bilateral knees and his hands joints, otherwise he denies any complaints there is no fever or chills no headache or dizziness no chest pain no shortness of breath no cough no nausea or vomiting no abdominal pain no diarrhea and no urinary symptoms. At this point will check uric acid level will give 1 dose of IV Toradol and continue to monitor closely. Continue with IV cefazolin for lower extremity cellulitis awaiting input from infectious disease On 10/22/2021 patient was seen and examined on the medical floor he is alert and responsive in no apparent distress he is complaining of lower extremity pain, otherwise he denies any complaints there is no fever or chills no headache or dizziness no chest pain no shortness of breath no cough no nausea or vomiting no abdominal pain no diarrhea and no urinary symptoms. Patient see n by Dr Grace, wound culture taken. Continue with IV cefazolin for lower extremity cellulitis awaiting input from infectious disease. On 10/23/2021 patient was seen and examined on the medical floor he is alert and responsive in no apparent distress he was having some episodes of agitation last night he is still receiving IV Ativan, patient is still receiving IV antibiotic for lower extremity cellulitis with ulcer otherwise patient denies any complaints there is no fever or chills no headache or dizziness no chest pain no shortness of breath no cough no nausea or vomiting no abdominal pain no diarrhea and no urinary symptoms On 10/24/2021 patient was seen and examined on the medical floor, he is alert and oriented 3 in no apparent distress, there is no fever or chills no headache or dizziness no chest pain no shortness of breath no cough no nausea or vomiting no abdominal pain no diarrhea and no urinary symptoms, he has good urine output, nephrology are following and no hemodialysis is recommended at this time, physic al therapy and occupational therapy are following. On 10/25/2021 patient was seen and examined on the medical floor he is alert and oriented 3 in no apparent distress, he is still complaining of lower extremity pain and difficulty walking otherwise he denies any complaints there is no fever or chills no headache or dizziness no chest pain no shortness of breath no cough no nausea or vomiting no abdominal pain no diarrhea and no urinary symptoms. physical therapy were consult patient may need to go to rehab after the acute admission On 10/26/2021 patient was seen and examined on the medical floor he is alert and oriented 3 in no distress he is complaining of ankle pain and difficulty st anding and walking otherwise he denies any complaints there is no fever or chills no headache or dizziness no chest pain no shortness of breath no cough no nausea or vomiting no abdominal pain no diarrhea no blood in the stools no burning with urination no frequency or urgency no hematuria he is followed by physical therapy he would need to be transferred to a rehab unit when stable. On 10/27/2021 patient was seen and examined on the medical floor, he is alert and oriented 3 in no apparent distress, there is no fever or chills no headache or dizziness no chest pain no shortness of breath no cough no nausea or vomiting no abdominal pain no diarrhea and no urinary symptoms. physical therapy and occupational therapy are following. On 10/28/2021 patient was seen and examined on the medical floor, he is alert and oriented, there is no fever or chills no headache or dizziness no chest pain no shortness of breath no cough no nausea or vomiting no abdominal pain no diarrhea and no urinary symptoms, he has good urine output, , physical therapy and occupational therapy are following. We are awaiting senior living placement On 10/29/2021 patient was seen and examined on the medical floor he is alert and oriented in no distress he is still complaining of generalized weakness and gait disturbance is also complaining of severe pain at the site of his foot ulcer otherwise he denies any complaints there is no fever or chills no headache or dizziness no chest pain no shortness of breath no cough no nausea or vomiting no abdominal pain no diarrhea and no urinary symptoms. On 10/30 2021 patient was seen and examined on the medical floor he is alert and oriented 3 in no apparent distress there is no fever or chills no headache or dizziness no chest pain no shortness of breath no cough no nausea or vomiting no abdominal pain no diarrhea and no urinary symptoms. He is still complaining of generalized weakness and inability to walk he is complaining of pain at the site of his lower extremity ulcer otherwise he denies any complaints additionally there is evidence of thrush at this time. On 10/31/2021 patient was seen and examined on the medical floor he is alert and oriented 3 in no apparent distress there is no fever or chills no headache or dizziness no chest pain soft breath no cough no nausea or vomiting no abdominal pain no diarrhea and no urinary symptoms he is still complaining of generalized weakness otherwise he denies any complaints. On 11/01/2021 patient was seen and examined on the medical floor he is alert and oriented 3 in no apparent distress he is complaining of generalized weakness and bilateral knee pain otherwise he denies any complaints there is no fever or chills no headache or dizziness no chest pain no shortness of breath no cough no nausea or vomiting no abdominal pain no diarrhea and no urinary symptoms. At this time we are waiting for placement at the rehab facility On 11/02/2021 patient was seen and examined on the medical floor he is alert and oriented 3 in no apparent distress he is still complaining of severe weakness and pain in bilateral lower extremities and difficulty standing and walking otherwise he denies any complaints there is no fever or chills no headache or dizziness no chest pain no shortness of breath no cough no nausea or vomiting no abdominal pain no diarrhea and no urinary symptoms Objective - Vital Signs Vital signs: Vital Signs Temp 98.4 F 11/02/21 14:00 Pulse 66 11/02/21 14:00 Resp 18 11/02/21 14:00 BP 117/66 11/02/21 14:00 Pulse Ox 95 11/02/21 14:00 FiO2 Intake & Output 11/01/21 11/02/21 11/02/21 18:59 06:59 18:59 Output Total 300 Balance -300 Output: Urine 300 Other: Voiding Method Urinal Urinal # Voids 1 3 1 # Bowel Movements 1 - Exam In general patient is alert and oriented x 3 in no distress HEENT head normocephalic and atraumatic Neck is supple no JVD no goiter no lymphadenopathy no carotid bruit Chest examination is clear to auscultation no crackles no wheezing Cardiac exam reveals regular heart sounds S1 and S2 no gallops no murmurs Abdomen is soft nontender no organomegaly with normal bowel sounds Extremity exam reveals no edema no cyanosis or clubbing right foot erythema and medial right ankle scabbed ulcer Neurological examination reveals no gross focal deficits - Labs CBC & Chem 7: 10/31/21 06:06 10/31/21 06:06 Assessment and Plan Plan: Alcohol intoxication Early alcohol withdrawal will Right lower extremity cellulitis with Mental status changes with delirium Underlying history of hypertension Underlying history of paroxysmal atrial fibrillation not on anticoagulation due to multiple falls Underlying history of depression with anxiety Underlying history of excessive alcohol use patient was admitted recently with alcohol intoxication At this time patient is admitted to medical floor he was started on CIWA protocol with IV Ativan Will start IV cefazolin for right lower extremity cellulitis Will check right lower extremity venous Doppler Recheck labs in a.m. Prognosis is guarded patient is not receptive to any counseling at this time regarding alcohol will try in the next few days
[2021-11-02] MEDS: LORazepam 0.5 MG TAB PO PRN (18:12)
[2021-11-02] MEDS: ACETAMINOPHEN TAB 325 MG TAB PO PRN (21:26)
[2021-11-03] MEDS: HEPARIN SODIUM,PORCINE/PF 5,000 UNIT/0.5 ML SYRINGE SQ SCH ×2 (00:40→10:03)
[2021-11-03] MEDS: CEFEPIME 2 GM in SODIUM CHLORIDE 0.9% 100 ML IVPB SCH ×2 (04:27→12:41)
[2021-11-03] MEDS: amLODIPine 10 MG TAB PO SCH (10:01)
[2021-11-03] MEDS: MULTIVITAMINS, THERA 1 EACH TAB PO SCH (10:01)
[2021-11-03] MEDS: allopurinoL 300 MG TAB PO SCH (10:02)
[2021-11-03] MEDS: GABAPENTIN 100 MG CAP PO SCH (10:02)
[2021-11-03] MEDS: THIAMINE 100 MG in SODIUM CHLORIDE 0.9% 50 ML IVPB SCH (10:02)
[2021-11-03] MEDS: FAMOTIDINE 20 MG TAB PO SCH (10:02)
[2021-11-03] MEDS: PANTOPRAZOLE 40 MG TABLET PO SCH (10:02)
[2021-11-03] MEDS: carvediloL 12.5 MG TAB PO SCH (10:02)
[2021-11-03] MEDS: NYSTATIN 100,000 UNIT/ML SUSP 500,000 UNIT/5 ML CUP PO SCH ×2 (10:03→12:41)
[2021-11-03 14:12] VITALS: BP 138/72; PULSE 58; RESP 16; TEMP 98.3
--- NOTE | 2021-11-03 14:55 | P.DS ---
Providers Date of admission: 10/20/21 02:49 Expected date of discharge: 11/03/21 Attending physician: Kassie Beasley Consults: 10/20/21 19:43 Consult Physician Routine Consulting Provider: Breann Grace Consult Reason/Comments: Lower extremity cellulitis Do you want consulting provider notified?: Yes 10/28/21 13:53 Consult Physician Routine Consulting Provider: Jeremy Chong Consult Reason/Comments: gait disturbance Do you want consulting provider notified?: Yes Primary care physician: Stated None Hospital Course: Diagnosis on discharge: Alcohol intoxication Early alcohol withdrawal will Right lower extremity cellulitis with open ulcer oral candidiasis Mental status changes with delirium Underlying history of hypertension Underlying history of paroxysmal atrial fibrillation not on anticoagulation due to multiple falls Underlying history of depression with anxiety Underlying history of excessive alcohol use patient was admitted recently with alcohol intoxication Hospital course: Blake Sinclair, he is a 71-year-old male who presented to [facility] emergency room with a chief complaint of alcohol intoxication and confusion, his living condition were not sanitary, he had a large ulcer on the medial aspect of the right ankle. He was evaluated in the emergency room vital examination on presentation revealed a temperature of 98 pulse 84 respiration 20 blood pressure 154/90 and pulse ox 96% on room air Laboratory data reveals a white blood count of 7.5 hemoglobin 16.6 platelet count 84 sodium 133 potassium 3.9 chloride 95 CO2 21 BUN 9 creatinine 0.88 troponin level was 0.0-3 Testing in the emergency room revealed computed tomography scan of the head and neck done in the emergency room revealed cerebral atrophy and chronic small vessel ischemia no acute intracranial abnormality no change compared to old exam, chest x-ray done in the emergency room revealed chronic elevation of the right diaphragmatic no change compared to old exam no acute lung disease, EKG done in the emergency room revealed supraventricular rhythm with possible lateral ischemia Patient was admitted to medical floor for further evaluation and treatment On review of systems patient is complaining of right foot and ankle pain otherwise he denies any complaints there is no fever or chills no headache or dizziness no chest pain no shortness of breath no cough no nausea or vomiting no abdominal pain no diarrhea and no urinary symptoms. On 10/21/2021 patient was seen and examined on the medical floor he is alert and responsive in no apparent distress he is complaining of generalized joint pain mostly in bilateral knees and his hands joints, otherwise he denies any complaints there is no fever or chills no headache or dizziness no chest pain no shortness of breath no cough no nausea or vomiting no abdominal pain no diarrhea and no urinary symptoms. At this point will check uric acid level will give 1 dose of IV Toradol and continue to monitor closely. Continue with IV cefazolin for lower extremity cellulitis awaiting input from infectious disease On 10/22/2021 patient was seen and examined on the medical floor he is alert and responsive in no apparent distress he is complaining of lower extremity pain, otherwise he denies any complaints there is no fever or chills no headache or dizziness no chest pain no shortness of breath no cough no nausea or vomiting no abdominal pain no diarrhea and no urinary symptoms. Patient see n by Dr Grace, wound culture taken. Continue with IV cefazolin for lower extremity cellulitis awaiting input from infectious disease. On 10/23/2021 patient was seen and examined on the medical floor he is alert and responsive in no apparent distress he was having some episodes of agitation last night he is still receiving IV Ativan, patient is still receiving IV antibiotic for lower extremity cellulitis with ulcer otherwise patient denies any complaints there is no fever or chills no headache or dizziness no chest pain no shortness of breath no cough no nausea or vomiting no abdominal pain no diarrhea and no urinary symptoms On 10/24/2021 patient was seen and examined on the medical floor, he is alert and oriented 3 in no apparent distress, there is no fever or chills no headache or dizziness no chest pain no shortness of breath no cough no nausea or vomiting no abdominal pain no diarrhea and no urinary symptoms, he has good urine output, nephrology are following and no hemodialysis is recommended at this time, physical therapy and occupational therapy are following. On 10/25/2021 patient was seen and examined on the medical floor he is alert and oriented 3 in no apparent distress, he is still complaining of lower extremity pain and difficulty walking otherwise he denies any complaints there is no fever or chills no headache or dizziness no chest pain no shortness of breath no cough no nausea or vomiting no abdominal pain no diarrhea and no urinary symptoms. physical therapy were consult patient may need to go to rehab after the acute admission On 10/26/2021 patient was seen and examined on the medical floor he is alert and oriented 3 in no distress he is complaining of ankle pain and difficulty standing and walking otherwise he denies any complaints there is no fever or chills no headache or dizziness no chest pain no shortness of breath no cough no nausea or vomiting no abdominal pain no diarrhea no blood in the stools no burning with urination no frequency or urgency no hematuria he is followed by physical therapy he would need to be transferred to a rehab unit when stable. On 10/27/2021 patient was seen and examined on the medical floor, he is alert and oriented 3 in no apparent distress, there is no fever or chills no headache or dizziness no chest pain no shortness of breath no cough no nausea or vomiting no abdominal pain no diarrhea and no urinary symptoms. physical therapy and occu pational therapy are following. On 10/28/2021 patient was seen and examined on the medical floor, he is alert and oriented, there is no fever or chills no headache or dizziness no chest pain no shortness of breath no cough no nausea or vomiting no abdominal pain no diarrhea and no urinary symptoms, he has good urine output, , physical therapy and occupational therapy are following. We are awaiting intermediate placement On 10/29/2021 patient was seen and examined on the medical floor he is alert and oriented in no distress he is still complaining of generalized weakness and gait disturbance is also complaining of severe pain at the site of his foot ulcer otherwise he denies any complaints there is no fever or chills no headache or dizziness no chest pain no shortness of breath no cough no nausea or vomiting no abdominal pain no diarrhea and no urinary symptoms. On 10/30 2021 patient was seen and examined on the medical floor he is alert and oriented 3 in no apparent distress there is no fever or chills no headache or dizziness no chest pain no shortness of breath no cough no nausea or vomiting no abdominal pain no diarrhea and no urinary symptoms. He is still complaining of generalized weakness and inability to walk he is complaining of pain at the site of his lower extremity ulcer otherwise he denies any complaints additionally there is evidence of thrush at this time On 11/01/2021 patient was seen and examined on the medical floor he is alert and oriented 3 in no apparent distress he is complaining of generalized weakness and bilateral knee pain otherwise he denies any complaints there is no fever or chills no headache or dizziness no chest pain no shortness of breath no cough no nausea or vomiting no abdominal pain no diarrhea and no urinary symptoms. At this time we are waiting for placement at the rehab facility On 11/02/2021 patient was seen and examined on the medical floor he is alert and oriented 3 in no apparent distress he is still complaining of severe weakness and pain in bilateral lower extremities and difficulty standing and walking otherwise he denies any complaints there is no fever or chills no headache or dizziness no chest pain no shortness of breath no cough no nausea or vomiting no abdominal pain no diarrhea and no urinary symptoms On 11/03/2021 patient was seen and examined on the medical floor he is alert and oriented 3 in no apparent distress there is no fever or chills no headache or dizziness no chest pain no shortness of breath no cough no nausea or vomiting no abdominal pain no diarrhea and no urinary symptoms. Patient is medically stable he will be discharged to a 24 hour care facility where he can get physical therapy and occupational therapy he was counseled again in regard to not drinking alcohol anymore Patient Condition at Discharge: Stable Plan - Discharge Summary Discharge Rx Participant: No New Discharge Prescriptions: New Cephalexin [Keflex] 500 mg PO Q8HR 10 Days #30 cap Multivitamins, Thera [Multivitamin (formulary)] 1 each PO DAILY tab Pantoprazole [Protonix] 40 mg PO AC-BRKFST tab Nystatin 100,000 Unit/ml Susp [Mycostatin Oral Susp] 500,000 unit PO QID ml LORazepam [Ativan] 0.5 mg PO QID PRN tab PRN Reason: Anxiety Ciprofloxacin HCl [Cipro] 250 mg PO Q12HR 10 Days #20 tab Continue carvediloL [Coreg*] 12.5 mg PO BID-W/MEALS #60 tab amLODIPine [Norvasc] 10 mg PO DAILY #30 tab Acetaminophen Tab [Tylenol] 650 mg PO Q6HR PRN tab PRN Reason: Fever And/ Or Pain Famotidine [Pepcid] 20 mg PO DAILY #30 tab Thiamine [Vitamin B-1] 100 mg PO BID-W/MEALS #60 tab Gabapentin [Neurontin] 100 mg PO TID cap allopurinoL [Zyloprim] 300 mg PO DAILY tab Discharge Medication List Acetaminophen Tab [Tylenol] 650 mg PO Q6HR PRN tab 09/20/21 [Rx] Famotidine [Pepcid] 20 mg PO DAILY #30 tab 09/20/21 [Rx] Thiamine [Vitamin B-1] 100 mg PO BID-W/MEALS #60 tab 09/20/21 [Rx] amLODIPine [Norvasc] 10 mg PO DAILY #30 tab 09/20/21 [Rx] carvediloL [Coreg*] 12.5 mg PO BID-W/MEALS #60 tab 09/20/21 [Rx] Gabapentin [Neurontin] 100 mg PO TID cap 09/27/21 [Rx] allopurinoL [Zyloprim] 300 mg PO DAILY tab 09/27/21 [Rx] Cephalexin [Keflex] 500 mg PO Q8HR 10 Days #30 cap 10/27/21 [Rx] Ciprofloxacin HCl [Cipro] 250 mg PO Q12HR 10 Days #20 tab 10/27/21 [Rx] LORazepam [Ativan] 0.5 mg PO QID PRN tab 10/27/21 [Rx] Multivitamins, Thera [Multivitamin (formulary)] 1 each PO DAILY tab 10/27/21 [Rx] Pantoprazole [Protonix] 40 mg PO AC-BRKFST tab 10/27/21 [Rx] Nystatin 100,000 Unit/ml Susp [Mycostatin Oral Susp] 500,000 unit PO QID ml 10/31/21 [Rx] Follow up Appointment(s)/Referral(s): [facility], [NON-STAFF] - 1-2 Days Kassie Beasley MD [STAFF PHYSICIAN] - 11/03/21 2:00 pm Activity/Diet/Wound Care/Special Instructions: Wound Care: Right Ankle: cleanse with normal saline q 48 hours, apply aquacel silver, cover with gauze. Regular Diet Activity as tolerated.
== END 2021-11-03 15:03 | disposition home or self-care (01) | DRG 603 ==
LOC: EC 21:40 → 4SSUR 10-20 02:49
PROVIDERS: ADMIT Internal Medicine; ATTEND Internal Medicine
DX: L03.115 Cellulitis of right lower limb (principal); L97.319 Non-pressure chronic ulcer of right ankle with unspecified severity; B37.0 Candidal stomatitis; F10.239 Alcohol dependence with withdrawal, unspecified; L97.509 Non-pressure chronic ulcer of other part of unspecified foot with unspecified severity; W57.XXXA Bitten or stung by nonvenomous insect and other nonvenomous arthropods, initial encounter; Y90.8 Blood alcohol level of 240 mg/100 ml or more; M10.9 Gout, unspecified; Z75.1 Person awaiting admission to adequate facility elsewhere; H93.13 Tinnitus, bilateral; K21.9 Gastro-esophageal reflux disease without esophagitis; R45.1 Restlessness and agitation; R26.9 Unspecified abnormalities of gait and mobility; F10.229 Alcohol dependence with intoxication, unspecified; F32.A Depression, unspecified; F41.9 Anxiety disorder, unspecified; I10 Essential (primary) hypertension; H91.90 Unspecified hearing loss, unspecified ear; I48.0 Paroxysmal atrial fibrillation; R29.6 Repeated falls; Z91.81 History of falling; Z87.820 Personal history of traumatic brain injury; Z20.822 Contact with and (suspected) exposure to COVID-19; Z71.41 Alcohol abuse counseling and surveillance of alcoholic; Z79.899 Other long term (current) drug therapy; Z82.49 Family history of ischemic heart disease and other diseases of the circulatory system; Z82.5 Family history of asthma and other chronic lower respiratory diseases; Z87.11 Personal history of peptic ulcer disease
CPT/HCPCS: 36415; 70450; 71045; 72125; 80053; 80306; 80320; 81003; 82075; 82140; 82977; 83735; 84100; 84132; 84484; 84550; 85025; 85610; 87070; 87077; 87186; 87205; 87635; 93005; 96365; 96366; 96368; 96372; 99285

== ENCOUNTER 2022-07-12 12:33 | Emergency (ER) | payer MEDICARE ==
[2022-07-12 12:48] VITALS: TEMP 98.1
[2022-07-12] MEDS ORDERED: SODIUM CHLORIDE 0.9% 1,000 ML IV ONE (13:03)
[2022-07-12] MEDS ORDERED: SODIUM CHLORIDE 0.9% 500 ML 500 ML IV ONE (13:03)
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
[2022-07-12 14:06] LABS: Basophils # (A) 0.1 k/uL (0-0.2); Basophils % (A) 1 %; Eosinophils # (A) 0.2 k/uL (0-0.7); Eosinophils % (A) 3 %; HCT 50.4 % (39.0-53.0); Lymphocytes # (A) 1.3 k/uL (1.0-4.8); Lymphocytes % (A) 23 %; MCH 26.3 pg (25.0-35.0); MCHC 31.8 g/dL (31.0-37.0); MCV 82.6 fL (80.0-100.0); Mean Platelet Volume 7.1; Monocytes # (A) 0.4 k/uL (0-1.0); Monocytes % (A) 8 %; Neutrophils # (A) 3.5 k/uL (1.3-7.7); Neutrophils % (A) 63 %; Platelet Count 167 k/uL (150-450); RBC 6.11 m/uL (4.30-5.90); RDW 15.7 % (11.5-15.5); WBC 5.6 k/uL (3.8-10.6)
[2022-07-12 14:19] LABS: ALT 31 U/L (4-49); AST 57 U/L (17-59); African American GFR (CKD) >90 (>60 ml/min/1.73 sqM); Albumin 4.1 g/dL (3.5-5.0); Alkaline Phosphatase 85 U/L (38-126); Anion Gap 12 mmol/L; Blood Urea Nitrogen 15 mg/dL (9-20); Calcium 8.2 mg/dL (8.4-10.2); Carbon Dioxide 24 mmol/L (22-30); Chloride 103 mmol/L (98-107); Glucose 103 mg/dL (74-99); Magnesium 2.2 mg/dL (1.6-2.3); Non-African American GFR(CKD) 85 (>60 ml/min/1.73 sqM); Potassium 4.6 mmol/L (3.5-5.1); Sodium 139 mmol/L (137-145); Total Bilirubin 0.6 mg/dL (0.2-1.3); Total Protein 6.9 g/dL (6.3-8.2)
[2022-07-12 14:23] LABS: Alcohol 216 mg/dL
--- NOTE | 2022-07-12 15:08 | XR ---
EXAMINATION TYPE: XR chest 2V DATE OF EXAM: 07/12/2022 3:01 PM COMPARISON: Chest radiographs from 10/19/2021 TECHNIQUE: XR chest 2V Frontal and lateral views of the chest. CLINICAL INDICATION:Male, 72 years old with history of Difficulty breathing ; FINDINGS: Lungs/Pleura: There is no evidence of pleural effusion, focal consolidation, or pneumothorax. Persis tent elevation the right hemidiaphragm. Linear scarring within the left midlung. Pulmonary vascularity: Unremarkable. Heart/mediastinum: Cardiomediastinal silhouette is unremarkable. Musculoskeletal: Multiple level degenerative disc disease changes seen throughout the spine. No acute osseous abnormality. Other findings: Surgical clips in the upper abdomen. IMPRESSION: Changes without evidence for acute process.
[2022-07-12 15:34] LABS: Amphetamine Screen,Urine Not Detected (NotDetected); Barbiturate Screen,Urine Not Detected (NotDetected); Benzodiazepines Screen,Urine Not Detected (NotDetected); Cocaine Screen,Urine Not Detected (NotDetected); Methadone Screen, Urine Not Detected (NotDetected); Opiate Screen,Urine Not Detected (NotDetected); Oxycodone Screen, Urine Not Detected (NotDetected); Phencyclidine Screen,Urine Not Detected (NotDetected); Tricyclic Antidepressant,Urine Not Detected (NotDetected); Urn Cannabinoid Scrn Not Detected (NotDetected)
[2022-07-12] MEDS ORDERED: hydrALAZINE HCL 20 MG/ML 1 ML VIAL IVP STA (16:43)
[2022-07-12] MEDS ORDERED: LORazepam 2 MG/ML INJ IV STA ×2 (17:17→19:18)
[2022-07-13 00:50] VITALS: BP 183/87; PULSE 90; RESP 18
== END 2022-07-13 01:12 | disposition home or self-care (01) ==
LOC: EC 12:33
DX: Z00.8 Encounter for other general examination (principal); F10.129 Alcohol abuse with intoxication, unspecified; I10 Essential (primary) hypertension; Z86.59 Personal history of other mental and behavioral disorders; Z90.49 Acquired absence of other specified parts of digestive tract; Y90.7 Blood alcohol level of 200-239 mg/100 ml
CPT/HCPCS: 82075; 36415; 83880; 80053; 83735; 85025; 80306; 71046; 99285; 96374; 96375; 96376; 96361; G0480; J2060; J0360; 80320

== ENCOUNTER 2022-07-23 15:34 | Emergency (ER) | payer MEDICARE ==
[2022-07-23] MEDS ORDERED: SODIUM CHLORIDE 0.9% 1,000 ML IV STA (16:18)
[2022-07-23] MEDS ORDERED: SODIUM CHLORIDE 0.9% 1,000 ML with MVI, ADULT NO.4 WITH VIT K 10 ML, THIAMINE 100 MG, F... IV ONE ×4 (16:18)
[2022-07-23] MEDS ORDERED: LORazepam 0.5 MG TAB PO PRN (17:05)
[2022-07-23] MEDS ORDERED: LORazepam 2 MG/ML INJ IV PRN ×2 (17:05)
[2022-07-23] MEDS ORDERED: LORazepam 1 MG TAB PO PRN ×3 (17:05)
[2022-07-23 17:25] LABS: Anisocytosis Slight; Basophils # (A) 0.1 k/uL (0-0.2); Basophils % (A) 1 %; Eosinophils # (A) 0.1 k/uL (0-0.7); Eosinophils % (A) 1 %; HGB 16.8 gm/dL (13.0-17.5); Lymphocytes # (A) 1.5 k/uL (1.0-4.8); Lymphocytes % (A) 21 %; MCH 27.3 pg (25.0-35.0); MCHC 32.9 g/dL (31.0-37.0); MCV 82.9 fL (80.0-100.0); Mean Platelet Volume 6.7; Monocytes # (A) 0.5 k/uL (0-1.0); Monocytes % (A) 7 %; Neutrophils # (A) 4.7 k/uL (1.3-7.7); Neutrophils % (A) 68 %; Platelet Count 139 k/uL (150-450); RBC 6.14 m/uL (4.30-5.90); RDW 16.2 % (11.5-15.5); WBC 6.9 k/uL (3.8-10.6)
[2022-07-23 17:30] LABS: Albumin 3.8 g/dL (3.5-5.0); Calcium 7.3 mg/dL (8.4-10.2); Magnesium 2.4 mg/dL (1.6-2.3); Potassium 4.2 mmol/L (3.5-5.1); Total Bilirubin 0.7 mg/dL (0.2-1.3); Total Protein 6.6 g/dL (6.3-8.2)
[2022-07-23] MEDS ORDERED: CALCIUM CARBONATE 500 MG CHEWABLE PO STA (17:45)
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
[2022-07-23 22:42] VITALS: BP 156/88; PULSE 78; RESP 16; TEMP 98.1
== END 2022-07-23 20:15 | disposition home or self-care (01) ==
LOC: EC 15:34
DX: F10.129 Alcohol abuse with intoxication, unspecified (principal); I10 Essential (primary) hypertension; Z86.59 Personal history of other mental and behavioral disorders; Z86.73 Personal history of transient ischemic attack (TIA), and cerebral infarction without residual deficits
CPT/HCPCS: 36415; 80053; 80320; 83690; 83735; 85025; 99284